=== PATIENT | female | born 1940 | race Caucasian/White ===

== ENCOUNTER → 2017-04-06 | Outpatient (CLI) | payer MEDICARE, BC ==
[2017-04-06 10:41] LABS: Basophils # (A) 0.1 k/uL (0-0.2); Basophils % (A) 1 %; Eosinophils # (A) 0.6 k/uL (0-0.7); Eosinophils % (A) 6 %; HCT 47.9 % (34.0-46.0); HGB 15.1 gm/dL (11.4-16.0); Lymphocytes # (A) 1.9 k/uL (1.0-4.8); Lymphocytes % (A) 20 %; MCH 29.6 pg (25.0-35.0); MCHC 31.5 g/dL (31.0-37.0); Mean Platelet Volume 6.6; Monocytes # (A) 0.6 k/uL (0-1.0); Monocytes % (A) 7 %; Neutrophils % (A) 64 %; Platelet Count 257 k/uL (150-450); RDW 12.7 % (11.5-15.5); WBC 9.4 k/uL (3.8-10.6)
[2017-04-06 10:49] LABS: Appearance,Urine Clear (Clear); Bacteria,Urine Rare /hpf; Bilirubin,Urine Negative (Negative); Blood,Urine Negative (Negative); Color,Urine Yellow; Glucose,Urine (UA) Negative (Negative); Ketones,Urine Negative (Negative); Leukocyte Esterase,Urine Small (Negative); Mucus,Urine Rare /hpf; Nitrite,Urine Negative (Negative); PH, Urine 5.5 (5.0-8.0); Protein,Urine Negative (Negative); RBC,Urine 1 /hpf (0-5); Specific Gravity,Urine 1.013 (1.001-1.035); Squamous Epithelial Cell,Urine <1 /hpf (0-4); Urobilinogen,Urine <2.0 mg/dL (<2.0); WBC,Urine 3 /hpf (0-5)
[2017-04-06 11:05] LABS: Albumin 4.2 g/dL (3.5-5.0); Calcium 9.8 mg/dL (8.4-10.2); Magnesium 1.9 mg/dL (1.6-2.3); Phosphorus 3.8 mg/dL (2.5-4.5); Potassium 4.8 mmol/L (3.5-5.1); Uric Acid 4.9 mg/dL (3.7-7.4)
[2017-04-06 15:11] LABS: Protein, Total 7.2 g/dL (6.2-8.2)
[2017-04-06 15:24] LABS: Vitamin D 25 Hydroxy 12.2 ng/mL (30.0-100.0)
[2017-04-06 15:29] LABS: Parathyroid Hormone Intact 34.9 pg/mL (14.0-72.0)
[2017-04-08 11:49] LABS: Albumin 4.06 g/dL (3.80-4.90); Gamma Globulin 1.18 g/dL (0.70-1.50)
== END | disposition home or self-care (01) ==
LOC: LABWHC1 09:44
PROVIDERS: ATTEND Internal Medicine Nephrology
DX: N39.0 Urinary tract infection, site not specified (principal); D64.9 Anemia, unspecified; E55.9 Vitamin D deficiency, unspecified; E21.3 Hyperparathyroidism, unspecified; M10.9 Gout, unspecified; N18.3 Chronic kidney disease, stage 3 (moderate)
CPT/HCPCS: 36415; 80048; 81001; 82040; 82306; 82728; 83540; 83550; 83735; 83970; 84100; 84165; 84550; 85025; 86335

== ENCOUNTER → 2017-08-02 | Outpatient (CLI) | payer MEDICARE, BC ==
[2017-08-02 09:42] LABS: Basophils # (A) 0.1 k/uL (0-0.2); Basophils % (A) 1 %; Eosinophils # (A) 0.8 k/uL (0-0.7); Eosinophils % (A) 8 %; HCT 47.5 % (34.0-46.0); HGB 15.3 gm/dL (11.4-16.0); Lymphocytes # (A) 1.9 k/uL (1.0-4.8); Lymphocytes % (A) 20 %; MCH 29.6 pg (25.0-35.0); MCHC 32.3 g/dL (31.0-37.0); MCV 91.8 fL (80.0-100.0); Mean Platelet Volume 6.7; Monocytes # (A) 0.8 k/uL (0-1.0); Monocytes % (A) 8 %; Neutrophils # (A) 5.9 k/uL (1.3-7.7); Neutrophils % (A) 61 %; Platelet Count 260 k/uL (150-450); RBC 5.17 m/uL (3.80-5.40); RDW 13.3 % (11.5-15.5); WBC 9.6 k/uL (3.8-10.6)
[2017-08-02 10:05] LABS: Calcium 9.8 mg/dL (8.4-10.2); Potassium 4.9 mmol/L (3.5-5.1)
[2017-08-02 17:19] LABS: Iron Saturation 25.72 (12.00-45.00)
[2017-08-02 17:28] LABS: Vitamin D 25 Hydroxy 73.9 ng/mL (30.0-100.0)
== END | disposition home or self-care (01) ==
LOC: LABWHC1 09:23
PROVIDERS: ATTEND Nurse Practitioner Family
DX: E55.9 Vitamin D deficiency, unspecified (principal); D50.9 Iron deficiency anemia, unspecified; N18.3 Chronic kidney disease, stage 3 (moderate); E78.2 Mixed hyperlipidemia
CPT/HCPCS: 36415; 80048; 80061; 82306; 82728; 83540; 83550; 85025

== ENCOUNTER → 2017-12-22 | Outpatient (CLI) | payer MEDICARE, BC ==
--- NOTE | 2017-12-22 13:32 | CT ---
EXAMINATION TYPE: CT abdomen pelvis w con DATE OF EXAM: 12/22/2017 HISTORY: Lower abdominal pain. CT DLP: 804mGycm Automated Exposure Control for Dose Reduction was Utilized. CONTRAST: CT scan of the abdomen and pelvis is performed with IV Contrast, patient injected with 80 mL of Isovu e M300. COMPARISON: None. FINDINGS: LUNG BASES: Left lower lobe bleb, peripheral reticular fibrotic change, and bibasilar pleural-parench ymal scarring are seen at the lung bases. Calcific and noncalcific severe atheromatous plaquing is se en of the descending thoracic aorta as well as a small hiatal hernia in the posterior mediastinum. Zacarias spected slight pectus excavatum deformity. LIVER/GB: The liver is elongated extending into the left upper quadrant. Very minimal intrahepatic bi liary ductal dilatation is seen, possibly postsurgical as there is cholecystectomy and minimal extra hepatic biliary ductal dilatation. No discrete hepatic mass is seen. Gallbladder surgically absent. PANCREAS: There is a fluid attenuated 7 mm proximal pancreatic body lesion on series 3 image 25 and m ain pancreatic ductal dilatation of 3 mm within the body and pancreatic head. SPLEEN: No significant abnormality is seen. Small splenule is present inferior to the t[place] spleen. ADRENALS: No significant abnormality is seen. KIDNEYS: No significant abnormality is seen. BOWEL: There is colonic redundancy and moderate volume retained fecal debris. LYMPH NODES: No greater than 1cm abdominal or pelvic lymph nodes are appreciated. OSSEOUS STRUCTURES: There is a diffuse mottled appearance of the bone marrow of the femur such as on coronal image 35.e this could relate to osseous demineralization or more infiltrative process. There is a sharp levoscoliosis of the lumbar spine with multilevel moderate to severe degenerative change. OTHER: Extensive atherosclerosis is seen of the abdominal aorta and its branches. There is a saccular infrarenal abdominal aortic aneurysm just proximal to the high bifurcation into the common iliac ves sels. This measures 3.0 x 2.6 x 2.3 cm. Just inferior to this there appears to be an additional saccu lar aneurysm/outpouching right laterally measuring 1.6 cm. Only diminutive flow is appreciated in the internal iliac vasculature. External iliac vasculature appears patent into the femoral arteries. IMPRESSION: 1. Main pancreatic ductal dilatation and cystic pancreatic lesion for which further evaluation with M PHOTONICS ENGINEERING TECHNICIAN with and without contrast is recommended. 2. Moderate amount retained colonic debris and sigmoid diverticulosis. No evidence of diverticulitis or obstruction. 3. Mottled appearance of the femurs that could relate to osseous demineralization or more infiltrativ e process. MRI pelvis could assess for bone marrow replacing T1 hypointense abnormality. 4. Multifocal saccular infrarenal abdominal aortic aneurysms with extensive atherosclerosis of the ab dominal aorta and its branches and only diminutive flow seen into the internal iliac vessels.
== END | disposition home or self-care (01) ==
LOC: RADCTMAIN 10:33
PROVIDERS: ATTEND Family Medicine
DX: K86.89 Other specified diseases of pancreas (principal); K86.2 Cyst of pancreas; K57.30 Diverticulosis of large intestine without perforation or abscess without bleeding; I71.4 Abdominal aortic aneurysm, without rupture; I70.0 Atherosclerosis of aorta; R10.30 Lower abdominal pain, unspecified
CPT/HCPCS: 82565; 84520; 74177; 36415; Q9967

== ENCOUNTER → 2018-08-17 | Outpatient (CLI) | payer MEDICARE, BC ==
--- NOTE | 2018-08-17 12:17 | BD ---
EXAMINATION TYPE: Axial Bone Density DATE OF EXAM: 08/17/2018 COMPARISON: NONE CLINICAL HISTORY: Postmenopausal female Height: 63.5 Weight: 110 FRAX RISK QUESTIONS: Alcohol (3 or more units per day): no Family History (Parent hip fracture): unsure Glucocorticoids (More than 3mos): no (Ex: prednisone, prednisolone, methylprednisolone, dexamethasone, and hydrocortisone). History of Fracture in Adulthood: no Secondary Osteoporosis: 1. Type 1 Diabetes: no 2. Hyperthyroidism: no 3. Menopause before 45: no, hysterectomy age 35, menopause age 50 4. Malnutrition: no 5. Chronic liver disease: no Rheumatoid Arthritis: no Current Tobacco Use: no RISK FACTORS HISTORY OF: Family History of Osteoporosis: yes Active: yes Diet low in dairy products/other sources of calcium: somewhat-dairy allergy Postmenopausal woman: yes Take estrogen and/or progesterone medications: not now How long: hormonal contraceptives about 5 years, estrogen about 10 years starting age 50 Lost more than 2 inches in height since high school: possibly; height may have been around 65.5 inche s Frequent falls: no Poor Health: somewhat Hyperparathyroidism: no Adrenal Insufficiency: no MEDICATIONS: Prednisone or other steroids: no Thyroid Medications: yes Which medication: Synthroid How Long: since late Osteoporosis Medications: no Additional Medications: blood pressure med, cholesterol med Additional History: pancreatitis last year, arthritis, hx kidney disease, 2 heart attacks, severe all ergies, IBS, scoliosis EXAM MEASUREMENTS: Bone mineral densitometry was performed using the [employer] System. Bone mineral density as measured about the Lumbar spine is: ----- L1-L4(G/cm2): 1.312 T Score Values are as follows: ----- L2: 2.5 ----- L3: 1.9 ----- L4: 0.9 ----- L1-L4: 1.1 Bone mineral density previously done years ago on mobile unit Bone mineral density about the R hip (g/cm2): 0.990 Bone mineral density about the L hip (g/cm2): 1.016 T Score values are as follows: -----R Neck: -0.3 -----L Neck: -0.2 -----R Total: -0.5 -----L Total: -0.3 Bone mineral density previously done years ago on mobile unit IMPRESSION: Normal (Values between +1 and -1 indicate normal bone mass). Consider repeating this study in 5 year s or sooner if there is some new clinical indication. NOTE: T-SCORE=SD OF THE YOUNG ADULT MEAN.
== END | disposition home or self-care (01) ==
LOC: RADBDWWP 09:46
PROVIDERS: ATTEND Family Medicine
DX: Z78.0 Asymptomatic menopausal state (principal)
CPT/HCPCS: 77080

== ENCOUNTER → 2018-08-29 | Outpatient (CLI) | payer MEDICARE, BC ==
[2018-08-29 16:24] LABS: African American GFR (CKD) 50.1 (60.0-200.0); Anion Gap 10.5 mmol/L (4.00-12.00); Calcium 9.6 mg/dL (8.7-10.3); Carbon Dioxide 27.5 mmol/L (21.6-31.8); Potassium 4.9 mmol/L (3.5-5.5)
== END | disposition home or self-care (01) ==
LOC: LABWHC1 08:53
PROVIDERS: ATTEND Nurse Practitioner Adult Health
DX: I10 Essential (primary) hypertension (principal)
CPT/HCPCS: 36415; 80048; 83735

== ENCOUNTER → 2019-01-04 | Outpatient (CLI) | payer MEDICARE, BC ==
[2019-01-04 17:13] LABS: Amylase 81 U/L (23-121)
[2019-01-04 18:07] LABS: Cancer Antigen 19-9 18.2 U/mL (0.0-34.9)
[2019-01-05 11:03] LABS: IgG Subclass 3 35.5 mg/dL (11.0-85.0)
== END | disposition home or self-care (01) ==
LOC: LABWHC1 09:55
PROVIDERS: ATTEND Nurse Practitioner
DX: R93.3 Abnormal findings on diagnostic imaging of other parts of digestive tract (principal)
CPT/HCPCS: 36415; 82150; 82787; 83690; 85652; 86038; 86301

== ENCOUNTER → 2019-04-24 | Outpatient (CLI) | payer MEDICARE, BC ==
[2019-04-24 12:06] LABS: HGB 14.3 gm/dL (11.4-16.0); MCH 29.9 pg (25.0-35.0); MCHC 31.7 g/dL (31.0-37.0); MCV 94.4 fL (80.0-100.0); Mean Platelet Volume 7.1; Platelet Count 280 k/uL (150-450); RBC 4.77 m/uL (3.80-5.40); RDW 12.6 % (11.5-15.5); WBC 11.5 k/uL (3.8-10.6)
[2019-04-24 12:18] LABS: Potassium 4.9 mmol/L (3.5-5.1)
== END ==
LOC: LABPAT 10:47
PROVIDERS: ATTEND Internal Medicine Interventional Cardiology
DX: Z01.812 Encounter for preprocedural laboratory examination (principal); I25.10 Atherosclerotic heart disease of native coronary artery without angina pectoris
CPT/HCPCS: 36415; 80051; 82565; 84520; 85027

== ENCOUNTER 2019-05-07 05:50 | Day surgery (SDC) | payer MEDICARE, BC ==
[2019-05-02 16:24] VITALS: BMI 18.1
[2019-05-07] MEDS ORDERED: NITROGLYCERIN SL TABS 0.4 MG TAB SUBLINGUAL PRN (05:54)
[2019-05-07] MEDS ORDERED: ATORVASTATIN 80 MG TAB PO STA (05:54)
[2019-05-07] MEDS ORDERED: ASPIRIN 325 MG TAB PO STA (05:54)
[2019-05-07] MEDS ORDERED: ALPRAZolam 0.5 MG TAB PO PRN (05:54)
[2019-05-07] MEDS ORDERED: SODIUM CHLORIDE 0.9% 1,000 ML in EMPTY BAG 1 BAG IV ONE (05:54)
[2019-05-07] MEDS ORDERED: ALPRAZolam 0.25 MG TAB PO PRN (05:54)
[2019-05-07] MEDS ORDERED: SODIUM CHLORIDE 0.9% 1,000 ML IV ONE ×2 (06:34→08:00)
[2019-05-07 06:37] VITALS: RESP 16; TEMP 98.1
[2019-05-07] MEDS ORDERED: fentaNYL (PF) 50 MCG/ML 2 ML AMP ONE (07:18)
[2019-05-07] MEDS ORDERED: BENZOCAINE SPRAY 1 CAN MUCOUS MEM ONE (07:43)
[2019-05-07] MEDS ORDERED: MIDAZOLAM 2 MG/2 ML VIAL IVP ONE ×2 (07:44→08:15)
[2019-05-07] MEDS ORDERED: fentaNYL (PF) 50 MCG/ML 2 ML AMP IV ONE (07:44)
[2019-05-07] MEDS ORDERED: LIDOCAINE 1% INJ 10MG/ML (20 ML MDV) ONE (07:54)
[2019-05-07] MEDS ORDERED: LIDOCAINE 1% INJ 10MG/ML (20 ML MDV) SQ ONE (08:03)
[2019-05-07] MEDS ORDERED: IOPAMIDOL-370 125ML BTL INJ ONE ×2 (08:34)
[2019-05-07] MEDS ORDERED: RX INFO: IV CONTRAST WAS GIVEN 1 EACH MISC MISCELLANE PRN (08:38)
--- NOTE | 2019-05-07 08:40 | ECHOT ---
TRANSESOPHAGEAL ECHOCARDIOGRAM DATE OF SERVICE: May 07, 2019 PERFORMING PHYSICIAN: Puma Kyle MD. PROCEDURE PERFORMED: Transesophageal echocardiogram. 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 Surface echo was performed and revealed evidence of moderate to severe mitral and aortic insufficiency. She was brought today to undergo a JOAQUÍN for further assessment of her mitral and aortic valve. COMPLICATION: None. LEVEL OF SEDATION: Moderate with sedation length of 15 minutes. PROCEDURE DESCRIPTION: After obtaining an informed consent, the patient was brought to the transesophageal echocardiogram suite. A pulse oximetry and heart rate monitors were attached to the patient. Subsequently the patient was turned into left lateral position. Conscious sedation was achieved using 2 mg of Versed and 50 of fentanyl in divided doses. Subsequently, the transesophageal echocardiogram was advanced through the bite guard to the mid esophagus where 2D echocardiogram images, pulse Doppler images, continuous-wave Doppler images and color Doppler images, were performed at multiple angles. The procedure was completed without any complication. FINDINGS: The left ventricular dimension appeared to be within normal limits. Left ventricular systolic function appeared to be mildly impaired with EF between 45% to 50%. Right ventricle appeared to be of normal size and function. The left atrium appeared to be dilated. The left atrial appendage appeared to be free from any thrombus. The interatrial septum appeared to be intact without any evidence of thrombus. Mitral valve appeared to be thickened and calcified with evidence of moderate to severe mitral regurgitation. The aortic valve appeared to also mildly sclerotic with evidence also of moderate to severe aortic insufficiency. There was moderate tricuspid regurgitation seen. The pulmonic valve was not well visualized. CONCLUSION: 1. Technically difficult study. 2. Mildly impaired left ventricular function with ejection fraction between 45% to 50%. 3. Intact interatrial septum without any evidence of shunt. 4. Normal left atrial appendage without any evidence of thrombus. 5. Thickened anterior and posterior mitral leaflets with evidence of moderate to severe mitral insufficiency. 6. Aortic sclerosis without stenosis with moderate to severe aortic insufficiency. 7. Moderate tricuspid regurgitation. 8. The pulmonic valve was poorly visualized. 9. No evidence of pericardial effusion. MMODL / IJN: [id number] /
[2019-05-07] MEDS ORDERED: SODIUM CHLORIDE 0.9% 1,000 ML IV SCH (08:45)
--- NOTE | 2019-05-07 09:19 | CC ---
CARDIAC CATHETERIZATION REPORT DATE OF SERVICE: May 07, 2019 PERFORMING PHYSICIAN: Puma Kyle MD. PROCEDURE PERFORMED: 1. Right heart catheterization. 2. Left heart catheterization. 3. Selective right and left coronary angiogram. 4. An aortic root angiogram. INDICATION: This is a 78-year-old female patient who was experiencing symptoms of shortness of breath with exertion and she underwent earlier transesophageal echocardiogram which revealed evidence of moderate to severe mitral and aortic insufficiency. She is known to have also coronary artery disease involving the mid RCA with prior stenting. APPROACH: Right common femoral vein and right common femoral artery. COMPLICATION: None. LEVEL OF SEDATION: Moderate with sedation length of 36 minutes. PROCEDURE DESCRIPTION: After obtaining an informed consent, the patient was brought to the cardiac energy systems laboratory director. The right common femoral vein and right common femoral arteries were cannulated using micropuncture technique, then I placed a 6-Moldovan sheath in both. Right heart catheterization was performed using 5-Moldovan swan catheter. Left heart catheterization was performed using 5-Moldovan pigtail catheter. I did selective right and left coronary angiogram with JR3.5 and JL3.5 catheters. After that, I did left ventriculography and aortic root angiogram using 5-Moldovan pigtail catheter. The procedure was completed without any complication. HEMODYNAMIC: 1. The pulmonary artery wedge pressure was 20 mmHg. 2. PA pressures were as follows: Systolic 31, diastolic 12, and mean of 20 mmHg. 3. RV pressure: Systolic 34 and end-diastolic of 5 mmHg. 4. RA pressure was 1 mmHg. SELECTIVE CORONARY ANGIOGRAM: 1. RCA is a large caliber vessel. It is a dominant vessel. The ostial RCA appeared to be diseased in the range of 60% to 70%. There was dampening in the waveform of one engaging RCA with 5-Moldovan catheter. The mid RCA is stented with severe in-stent restenosis involving the distal part. The RCA distally appeared to be normal and bifurcates into PDA and PLV branches. Both appeared to have mild disease only. 2. The left main is angiographically normal. It bifurcates into LCX and LAD. 3. The left circumflex is a moderate caliber vessel and nondominant vessel and appeared to be angiographically normal. 4. The LAD: The proximal LAD appeared to have mild disease only and gives rise into a large first diagonal branch which seems to have mild disease only. The mid and distal LAD appeared to be angiographically normal. LEFT VENTRICULOGRAPHY: The left ventriculography was performed in the BRAR projection and using a power injection. The left ventricular systolic function appeared to be mildly impaired with EF between around 45% with 2+ MR. AORTIC ROOT ANGIOGRAM: The aortic root angiogram was performed in the SPANISH projection and using a power injection. The aortic root appeared to be mildly dilated with evidence of 2+ AI. CONCLUSION: 1. Normal right heart pressures. 2. Intermediate to severe disease involving the ostial right coronary artery and severe disease involving the mid right coronary artery. 3. A 2+ aortic insufficiency. 4. A 2+ mitral regurgitation. POSTPROCEDURE MANAGEMENT: 1. The patient is going to be discharged home. 2. I will discuss with the patient the option of referring her to see a cardiothoracic surgeon for repairing both aortic and mitral valve and also bypass the RCA. 3. If that is not an option and the patient turned down by the surgeon, I would consider proceeding with PCI of the RCA. MMODL / IJN: [id number] /
[2019-05-07 13:51] VITALS: BP 137/63; PULSE 58
[2019-05-07] MEDS ORDERED: NALOXONE 0.4 MG/ML 1 ML VIAL IV PRN (14:48)
[2019-05-07] MEDS ORDERED: ROPIVACAINE 250 MG, HYDROMORPHONE (PF) 5 MG in SODIUM CHLORIDE 0.9% 200 ML EPIDURAL PRN (15:00)
== END 2019-05-07 15:04 | disposition home or self-care (01) ==
LOC: CATHCVL 05:50
PROVIDERS: ATTEND Internal Medicine Interventional Cardiology
DX: I08.3 Combined rheumatic disorders of mitral, aortic and tricuspid valves (principal); I25.10 Atherosclerotic heart disease of native coronary artery without angina pectoris; I10 Essential (primary) hypertension; T82.855A Stenosis of coronary artery stent, initial encounter; E78.5 Hyperlipidemia, unspecified; I65.29 Occlusion and stenosis of unspecified carotid artery; Z72.0 Tobacco use; I25.2 Old myocardial infarction; Z79.82 Long term (current) use of aspirin; Z79.890 Hormone replacement therapy; Z79.899 Other long term (current) drug therapy; Z88.5 Allergy status to narcotic agent
CPT/HCPCS: 93312; 93320; 93325; 93460; 93567; C1769 ×3; C1751; C1894; J2250; J2001; J3010; Q9967

== ENCOUNTER → 2019-05-19 | Outpatient (CLI) | payer MEDICARE, BC ==
[2019-05-19 08:56] LABS: HCT 43.9 % (34.0-46.0); HGB 13.9 gm/dL (11.4-16.0); MCH 29.7 pg (25.0-35.0); MCHC 31.7 g/dL (31.0-37.0); MCV 93.5 fL (80.0-100.0); Mean Platelet Volume 6.6; Platelet Count 366 k/uL (150-450); RDW 12.3 % (11.5-15.5); WBC 8.4 k/uL (3.8-10.6)
[2019-05-19 09:06] LABS: Potassium 4.8 mmol/L (3.5-5.1)
== END | disposition home or self-care (01) ==
LOC: LABPAT 08:33
PROVIDERS: ATTEND Internal Medicine Interventional Cardiology
DX: Z01.812 Encounter for preprocedural laboratory examination (principal); I25.10 Atherosclerotic heart disease of native coronary artery without angina pectoris
CPT/HCPCS: 36415; 80051; 82565; 84520; 85027

== ENCOUNTER → 2019-06-01 | Day surgery (SDC) | payer MEDICARE, BC ==
[2019-05-30 11:24] VITALS: BMI 18.4
[~2019-06-01] MED LIST: ACETAMINOPHEN TAB 325 MG TAB PO PRN; ALBUTEROL NEBULIZED 2.5 MG/3 ML INHALATION PRN; ALPRAZolam 0.25 MG TAB PO PRN; ALPRAZolam 0.5 MG TAB PO PRN; ASPIRIN 325 MG TAB PO STA; ASPIRIN 81 MG PO SCH; ATORVASTATIN 80 MG TAB PO STA; ATROPINE SULFATE 0.1 MG/ML 10ML SYRINGE IV PRN; BIVALIRUDIN 250 MG in SODIUM CHLORIDE 0.9% 50 ML IV ONE; BIVALIRUDIN BOLUS 250 MG/50 ML IV ONE; CLOPIDOGREL 75 MG TAB PO ONE; CLOPIDOGREL 75 MG TAB PO SCH; IOPAMIDOL-370 125ML BTL INJ ONE; ISOSORBIDE MONONITRATE ER 15 MG TAB PO SCH; LEVOTHYROXINE 75 MCG TAB PO SCH; LIDOCAINE 1% INJ 10MG/ML (10 ML MDV) SQ ONE; LORATADINE 10 MG TAB PO PRN; MAG HYDROX/AL HYDROX/SIMETH 30 ML CUP PO PRN; METOPROLOL SUCCINATE (ER) 100 MG TAB.ER.24H PO SCH; NITROGLYCERIN 1000MCG/10ML SYRINGE INTRACORON ONE; NITROGLYCERIN SL TABS 0.4 MG TAB SUBLINGUAL ONE; NITROGLYCERIN SL TABS 0.4 MG TAB SUBLINGUAL PRN; PANTOPRAZOLE 40 MG TABLET PO SCH; PRAVASTATIN SODIUM 40 MG TAB PO SCH; RX INFO: IV CONTRAST WAS GIVEN 1 EACH MISC MISCELLANE PRN; SODIUM CHLORIDE 0.9% 1,000 ML IV ONE; SODIUM CHLORIDE 0.9% 1,000 ML IV SCH; SODIUM CHLORIDE 0.9% 1,000 ML in EMPTY BAG 1 BAG IV ONE; SPIRONOLACTONE 25 MG TAB PO SCH; VITAMIN E (DL,TOCOPHERYL ACET) 400 UNIT CAP PO SCH; ZOLPIDEM 5 MG TAB PO PRN; niCARdipine Syringe (1,000 mcg/10 mL) INTRACORON ONE
[2019-06-01 08:37] VITALS: RESP 18; TEMP 98
[2019-06-01] MEDS: MIDAZOLAM 2 MG/2 ML VIAL IV ONE ×2 (08:58→09:01)
--- NOTE | 2019-06-01 09:53 | P.PCN ---
Date of Procedure: 06/01/19 Operative Findings: PERCUTANEOUS CORONARY INTERVENTION Performing physician: Puma Kyle M.D. Procedure performed: Successful percutaneous transluminal coronary angioplasty (PTCA) of the mid right coronary artery using 2.5 x 12 mm balloon with an excellent angiographic results and reduction of stenosis from 80% to 0%. Indication: This is a 78-year-old female patient who was experiencing symptoms of shortness of breath with exertion. She underwent a heart catheterization and that revealed severe disease involving the mid RCA which seems to be in-stent restenosis. She does also have valvular heart disease but does not want to undergo any surgery at this point. Approach: Right common femoral artery Complications: None Level of sedation: Moderate with a sedation length 45 minutes Procedure description: After obtaining an informed consent the patient was brought to the cardiac laborer. The right common femoral artery was cannulated using micropuncture technique, the micropuncture wire passed easily then I placed a 6-Kinyarwanda sheath 11 cm at the right common femoral artery. Subsequently anticoagulation was initiated using Angiomax and also the patient was given antiplatelet with Plavix. I did engage the RCA using JR 3.5 guide was sidehole. Subsequently I did wire the RCA using a run-through wire. Attempting advancing an Angiosculp balloon was unsuccessful. After that I changed balloon in to see my compliant balloon which was 2.5 x 12 and also I could not get the balloon across the ostial RCA. Because of that I decided to wire the RCA using a sukhjinder wire which was a whisper wire. I was able to advance a 2.5 x 12 mm balloon over the whisper wire into the mid RCA were I did PTCA ballooning with the balloon was inflated under 14 andria for 30 seconds. After that I tried to advance 20 by 12 mm Edon but the stent won't cross the ostial RCA. Because the ostial RCA was extremely calcified and has intermediate lesion and because I don't want to create any dissection I decided to take a picture and see what I got. The following angiogram of the right coronary artery revealed good angiographic results in the mid RCA after the patient was given nitroglycerin as well as nicardipine. Good CLAUDIA-3 flow. No dissection. No haziness. Because of that I decided to stop. The procedure was completed without any complication Postprocedure management: 1. Dual antiplatelet therapy 2. Risk factors modifications 3. Follow-up with the patient
[2019-06-01 17:20] VITALS: BP 148/65; PULSE 64
== END ==
LOC: CATHCVL 07:39
PROVIDERS: ATTEND Internal Medicine Interventional Cardiology
DX: I25.10 Atherosclerotic heart disease of native coronary artery without angina pectoris (principal); I25.84 Coronary atherosclerosis due to calcified coronary lesion; T82.855A Stenosis of coronary artery stent, initial encounter; E78.5 Hyperlipidemia, unspecified; I10 Essential (primary) hypertension; I08.0 Rheumatic disorders of both mitral and aortic valves; I77.89 Other specified disorders of arteries and arterioles; I42.9 Cardiomyopathy, unspecified; I25.2 Old myocardial infarction; Z72.0 Tobacco use; Z95.5 Presence of coronary angioplasty implant and graft; Z79.899 Other long term (current) drug therapy; Z79.890 Hormone replacement therapy; Z79.82 Long term (current) use of aspirin; Z88.5 Allergy status to narcotic agent
CPT/HCPCS: 92920; C1769 ×4; C1725 ×3; C1894; C1887; C1874; J2250; J0583; J2001; Q9967

== ENCOUNTER → 2019-10-08 | Outpatient (CLI) | payer MEDICARE, BC ==
--- NOTE | 2019-10-08 13:01 | XR ---
EXAMINATION TYPE: XR chest 2V DATE OF EXAM: 10/08/2019 COMPARISON: Chest CT March 24, 2011. Chest x-ray March 10, 2011. HISTORY: Preopen cardiac surgery. TECHNIQUE: Frontal and lateral views of the chest are obtained. FINDINGS: There is interval progression of reticular interstitial changes bilaterally. Persistent m oderate to severe biapical pleural/parenchymal scarring. New left basilar volume loss. No suspicious focal airspace opacity, pleural effusion, or pneumothorax seen bilaterally. The cardiac silhouette si ze remains within normal limits with atherosclerotic change throughout the aorta now identified.. T he osseous structures are intact. IMPRESSION: Moderate 2 severe bilateral pulmonary fibrotic changes with progression from 2012 study. No acute pulmonary process.
--- NOTE | 2019-10-08 13:38 | US ---
EXAMINATION TYPE: US carotid duplex BILAT DATE OF EXAM: 10/08/2019 COMPARISON: NONE CLINICAL HISTORY: Coronary Artery Disease Aortic Stenosis [id number]. Preopen heart surgery EXAM MEASUREMENTS: RIGHT: Peak Systolic Velocity (PSV) cm/sec ----- Right CCA: 56.1 ----- Right ICA: 164.1 ----- Right ECA: 85.0 ICA/CCA ratio: 2.9 RIGHT: End Diastole cm/sec ----- Right CCA: 0 ----- Right ICA: 22.0 ----- Right ECA: 0 LEFT: Peak Systolic Velocity (PSV) cm/sec ----- Left CCA: 75.3 ----- Left ICA: 118.9 ----- Left ECA: 70.4 ICA/CCA ratio: 1.6 LEFT: End Diastole cm/sec ----- Left CCA: 0 ----- Left ICA: 17.1 ----- Left ECA: 0 VERTEBRALS (direction of flow): Right Vertebral: Antegrade Left Vertebral: Antegrade Rhythm: Normal Miguel scale images show moderate to severe peripheral plaque centered at carotid bulb level bilaterall y with increased peak systolic velocity and abnormal ratio in the proximal right internal carotid art minoo noted. IMPRESSION: Moderate to severe atherosclerotic changes bilaterally. Cannot exclude 50-69% stenosis i n the proximal right internal carotid artery . Further investigation with CTA or MRA of the neck is a dvised. Criteria for Assigning % of Stenosis / Diameter reduction (Estimation based on the indirect measurements of the internal carotid artery velocities (ICA PSV). 1. Normal (no stenosis)=ICA PSV < 125 cm/s: ratio < 2.0: ICA EDV<40 cm/s. 2. Less than 50% stenosis=ICA PSV < 125 cm/s: ratio < 2.0: ICA EDV<40 cm/s. 3. 50 to 69% stenosis=ICA PSV of 125 to 230 cm/s: ration 2.0 ? 4.0: ICA EDV 40-100 cm/s. 4. Greater than 70% stenosis to near occlusion= ICA PSV > 230 cm/s: ratio > 4.0: ICA EDV > 100 cm/s. 5. Near occlusion= ICA PSV velocities may be low or undetectable: variable ratio and ICA EDV. 6. Total occlusion=unable to detect flow.
--- NOTE | 2019-10-10 09:42 | P.ARTDOP ---
Arterial Doppler This is bilateral lower extremity greater saphenous vein mapping. Date of service: 10/08/2019 Vein quality and ultrasound appearance: We see no intraluminal thrombus or wall changes. Vein size groin right : 2.6 x 2.0 groin left: 3.5 x 3.6 High thigh right: 2.1 x 1.7 high thigh left: 3.8 x 3.1 Mid thigh right: 1.2 x 1.5 mid thigh left: 2.3 x 1.8 Above-knee right: 2.4 x 1.6 above-knee left: 2.2 x 1.7 Below knee right: 2.2 x 1.1 below-knee left: 2.9 x 1.6 Mid calf right: 1.3 x 1.3 mid calf left1.4 x 1.7 Right ankle: 1.2 x 1.3 Left ankle 1.3 x 1.3 Impression: normal study
== END ==
LOC: LABWHC1 11:14
PROVIDERS: ATTEND Thoracic Surgery (Cardiothoracic Vascular Surgery)
DX: Z01.810 Encounter for preprocedural cardiovascular examination (principal); I65.21 Occlusion and stenosis of right carotid artery; Z88.5 Allergy status to narcotic agent
CPT/HCPCS: 71046; 93880; 93922; 93970; 94150

== ENCOUNTER → 2019-10-08 | Outpatient (CLI) | payer MEDICARE, BC ==
[2019-10-08 09:48] LABS: HCT 48.5 % (34.0-46.0); HGB 15.3 gm/dL (11.4-16.0); MCH 28.9 pg (25.0-35.0); MCHC 31.5 g/dL (31.0-37.0); MCV 91.9 fL (80.0-100.0); Mean Platelet Volume 6.8; Platelet Count 305 k/uL (150-450); RBC 5.28 m/uL (3.80-5.40); RDW 13.3 % (11.5-15.5); WBC 9.9 k/uL (3.8-10.6)
[2019-10-08 09:51] LABS: Appearance,Urine Clear (Clear); Bacteria,Urine Rare /hpf; Bilirubin,Urine Negative (Negative); Blood,Urine Negative (Negative); Color,Urine Yellow; Glucose,Urine (UA) Negative (Negative); Hyaline Casts,Urine 11 /lpf (0-2); Ketones,Urine Negative (Negative); Leukocyte Esterase,Urine Trace (Negative); Mucus,Urine Rare /hpf; Nitrite,Urine Negative (Negative); Protein,Urine 1+ (Negative); RBC,Urine 2 /hpf (0-5); Squamous Epithelial Cell,Urine <1 /hpf (0-4); WBC,Urine 3 /hpf (0-5)
[2019-10-08 09:57] LABS: Partial Thromboplastin Time 27.3 sec (22.0-30.0)
[2019-10-08 10:07] LABS: Albumin 4.4 g/dL (3.5-5.0); Calcium 9.4 mg/dL (8.4-10.2); Potassium 4.9 mmol/L (3.5-5.1); Total Bilirubin 0.5 mg/dL (0.2-1.3); Total Protein 7.8 g/dL (6.3-8.2)
[2019-10-08 17:55] LABS: Hepatitis A Antibody IgM Non-Reactive (Non-Reactive); Hepatitis B Core IgM Non-Reactive (Non-Reactive); Hepatitis B Surface Antigen Non-Reactive (Non-Reactive); Hepatitis C IgG Antibody Non-Reactive (Non-Reactive)
[2019-10-08 19:35] LABS: Hemoglobin A1C 5.5 % (4.0-6.0)
== END | disposition home or self-care (01) ==
LOC: LABWHC1 08:31
PROVIDERS: ATTEND Thoracic Surgery (Cardiothoracic Vascular Surgery)
DX: Z01.818 Encounter for other preprocedural examination (principal); Z01.810 Encounter for preprocedural cardiovascular examination; Z20.828 Contact with and (suspected) exposure to other viral communicable diseases; I10 Essential (primary) hypertension; I25.10 Atherosclerotic heart disease of native coronary artery without angina pectoris; I05.1 Rheumatic mitral insufficiency; I06.0 Rheumatic aortic stenosis; E10.9 Type 1 diabetes mellitus without complications; E87.6 Hypokalemia; Z79.01 Long term (current) use of anticoagulants
CPT/HCPCS: 86900; 86901; 80061; 80053; 80074; 84443; 83735; 85027; 85610; 85730; 86850; 86920; 81001; 87070; 87086; 83036; 93005; 36415; U0003; C9803

== ENCOUNTER → 2019-10-09 | Outpatient (CLI) | payer MEDICARE, BC ==
--- NOTE | 2019-10-09 14:01 | CT ---
EXAMINATION TYPE: CT chest wo con DATE OF EXAM: 10/09/2019 COMPARISON: 03/24/2011 HISTORY: Pre OP Valve replacement and CABG CT DLP: 108 mGycm, Automated exposure control for dose reduction was used. CONTRAST: Performed injected with 0 mL of Isovue 300. TECHNIQUE: Axial images were obtained at 5 mm thick sections. Reconstructed images are reviewed on [employer] computer in the coronal plane. FINDINGS: Portion of the thyroid visualized is normal. Bilateral lung apex thickening is present. This could be related to scarring. Underlying neoplasm is not excluded. This has changed somewhat from the comparison 2011 exam. There is likely some peripheral pulmonary fibrosis. No enlarged mediastinal or hilar adenopathy is evident. There is dense calcification within the aorta and multiple vascular structures including the upper ab domen and great vessels. The ascending aorta diameter at the level of the main pulmonary artery is 3. 6 cm. The main pulmonary artery diameter at the bifurcation is 2.8 cm. Coronary artery calcification is present. Tracheobronchial tree wall calcification is evident. Limited CT sections are obtained through the upper abdomen. Abdomen is essentially unremarkable. IMPRESSIONS: 1. Coronary artery calcification. Additional vascular calcification is noted within the arterial syst em. 2. Bilateral apical thickening likely on the basis of scarring. This is changing in appearance from 2 012. Underlying neoplasm is not excluded at this time. 3. Mild pulmonary fibrosis
== END | disposition home or self-care (01) ==
LOC: RADCTMAIN 08:41
PROVIDERS: ATTEND Thoracic Surgery (Cardiothoracic Vascular Surgery)
DX: I25.10 Atherosclerotic heart disease of native coronary artery without angina pectoris (principal); J84.10 Pulmonary fibrosis, unspecified
CPT/HCPCS: 71250

== ENCOUNTER 2019-10-12 05:30 | Inpatient (IN) | payer MEDICARE, BC ==
[~2019-10-12 05:30] MED LIST changes: -ACETAMINOPHEN TAB 325 MG TAB PO PRN; +ALBUMIN HUMAN 25% 50 ML IV ONE; +ALBUMIN HUMAN 5% 500 ML IVPB ONE; -ALBUTEROL NEBULIZED 2.5 MG/3 ML INHALATION PRN; -ALPRAZolam 0.25 MG TAB PO PRN; -ALPRAZolam 0.5 MG TAB PO PRN; +ASPIRIN 325 MG TAB PO ONE; -ASPIRIN 325 MG TAB PO STA; -ASPIRIN 81 MG PO SCH; +ATORVASTATIN 10 MG TAB PO ONE; -ATORVASTATIN 80 MG TAB PO STA; -ATROPINE SULFATE 0.1 MG/ML 10ML SYRINGE IV PRN; -BIVALIRUDIN 250 MG in SODIUM CHLORIDE 0.9% 50 ML IV ONE; -BIVALIRUDIN BOLUS 250 MG/50 ML IV ONE; +CALCIUM CHLORIDE 100 MG/ML 10 ML SYRINGE IV ONE; +CHLORHEXIDINE GLUCONATE 15 ML CUP MUCOUS MEM ONE; +CLEVIDIPINE BUTYRATE 25 MG in EMPTY BAG 1 BAG IV ONE; -CLOPIDOGREL 75 MG TAB PO ONE; -CLOPIDOGREL 75 MG TAB PO SCH; +DEXTROSE 5% IN WATER 1,000 ML with POTASSIUM CHLORIDE 110 MEQ, MAGNESIUM SULFATE 16 MEQ... IV ONE; +DEXTROSE 5% IN WATER 1,000 ML with POTASSIUM CHLORIDE 25 MEQ, SODIUM CHLORIDE 2.5MEQ/ML... IRRIGATION ONE; +HEPARIN SODIUM 1,000 UN/ML (10ML VL) IV ONE; +HEPARIN SODIUM,PORCINE 5,000 UNIT in SODIUM CHLORIDE 0.9% 500 ML 500 ML IV ONE; +INSULIN REGULAR 100 UNIT in SODIUM CHLORIDE 0.9% 100 ML IV ONE; -IOPAMIDOL-370 125ML BTL INJ ONE; -ISOSORBIDE MONONITRATE ER 15 MG TAB PO SCH; +LACTATED RINGERS 1,000 ML IV ONE; -LEVOTHYROXINE 75 MCG TAB PO SCH; -LIDOCAINE 1% INJ 10MG/ML (10 ML MDV) SQ ONE; -LORATADINE 10 MG TAB PO PRN; -MAG HYDROX/AL HYDROX/SIMETH 30 ML CUP PO PRN; +MAGNESIUM SULFATE MG 500 MG/ML IV ONE; +MANNITOL 25% 12.5 GM/50 ML VIAL IV ONE; -METOPROLOL SUCCINATE (ER) 100 MG TAB.ER.24H PO SCH; +METOPROLOL TARTRATE 12.5 MG TAB PO ONE; -NITROGLYCERIN 1000MCG/10ML SYRINGE INTRACORON ONE; -NITROGLYCERIN SL TABS 0.4 MG TAB SUBLINGUAL ONE; -NITROGLYCERIN SL TABS 0.4 MG TAB SUBLINGUAL PRN; +NITROGLYCERIN-D5W PMX 25 MG/250 ML BTL IV ONE; +NITROGLYCERIN-D5W PMX 50 MG in DEXTROSE/WATER 1 250ML.BAG IV ONE; +NOREPINEPHRINE 4 MG in SODIUM CHLORIDE 0.9% 250 ML IV ONE; -PANTOPRAZOLE 40 MG TABLET PO SCH; +PAPAVERINE 360 MG in SODIUM CHLORIDE 0.9% 90 ML IV ONE; +PHENYLEPHRINE 10 MG/ML VIAL IV ONE; +PHENYLEPHRINE 40 MG in SODIUM CHLORIDE 0.9% 250 ML IV ONE; -PRAVASTATIN SODIUM 40 MG TAB PO SCH; +PROTAMINE SULFATE 10 MG/ML 25 ML VIAL IV ONE; +PROTAMINE SULFATE 250 MG in EMPTY BAG 1 BAG IV ONE; -RX INFO: IV CONTRAST WAS GIVEN 1 EACH MISC MISCELLANE PRN; +SODIUM BICARB 8.4% 50 ML SYR (1 MEQ/ML) IV ONE; -SODIUM CHLORIDE 0.9% 1,000 ML IV SCH; -SODIUM CHLORIDE 0.9% 1,000 ML in EMPTY BAG 1 BAG IV ONE; -SPIRONOLACTONE 25 MG TAB PO SCH; +TRANEXAMIC ACID 2,000 MG in SODIUM CHLORIDE 0.9% 80 ML IV ONE; +VANCOMYCIN 1,000 MG VIAL MISCELLANE ONE; -VITAMIN E (DL,TOCOPHERYL ACET) 400 UNIT CAP PO SCH; -ZOLPIDEM 5 MG TAB PO PRN; +ceFAZolin 2,000 MG in SODIUM CHLORIDE 0.9% 30 ML IVPB ONE; -niCARdipine Syringe (1,000 mcg/10 mL) INTRACORON ONE; +propofoL 1,000 MG/100 ML VIAL IV ONE
[2019-10-12] MEDS ORDERED: LIDOCAINE 1% (10MG/ML) FOR IV START INTRADERMA ONE (06:04)
[2019-10-12 06:07] LABS: Glucose,Whole Blood 86 mg/dL (75-99)
[2019-10-12] MEDS ORDERED: PROPOFOL 10 MG/ML 20 ML VIAL IV ONE (07:49)
[2019-10-12] MEDS ORDERED: NITROGLYCERIN-D5W PMX 50 MG/250 ML BOTTLE IV ONE (07:49)
[2019-10-12] MEDS ORDERED: PHENYLEPHRINE-0.9% NACL SYG 1 MG/10 ML SYRINGE ONE (07:49)
[2019-10-12] MEDS ORDERED: MIDAZOLAM 2 MG/2 ML VIAL ONE (07:49)
[2019-10-12] MEDS ORDERED: fentaNYL (PF) 50 MCG/ML 2 ML AMP ONE (07:49)
[2019-10-12] MEDS ORDERED: TRANEXAMIC ACID 1,000 MG/10 ML VIAL ONE (07:49)
[2019-10-12] MEDS ORDERED: MAGNESIUM SULFATE 4 MEQ/ML 10ML VIAL ONE (07:49)
[2019-10-12] MEDS ORDERED: ePHEDrine SULFATE/0.9% NACL/PF 50 MG/5 ML SYRINGE IV ONE (07:49)
[2019-10-12] MEDS ORDERED: PROTAMINE SULFATE 10 MG/ML 25 ML VIAL IV ONE (07:49)
[2019-10-12] MEDS ORDERED: ELECTROLYTE-R (PH 7.4) 1,000 ML IV.SOLN IV ONE (07:49)
[2019-10-12] MEDS ORDERED: VECURONIUM 10 MG VIAL IV ONE (07:49)
[2019-10-12] MEDS ORDERED: SODIUM CHLORIDE 0.9% IRRIG 1,000 ML BTL IRRIGATION ONE (07:49)
[2019-10-12] MEDS ORDERED: fentaNYL (PF) 50 MCG/ML 50 ML VIAL ONE (07:49)
[2019-10-12] MEDS ORDERED: INSULIN REGULAR 100 UNIT/ML VIAL ONE (07:49)
[2019-10-12] MEDS ORDERED: HEPARIN SODIUM,PORCINE 10,000 UNIT/ML 1 ML VIAL ONE (07:49)
[2019-10-12] MEDS ORDERED: CALCIUM CHLORIDE 100 MG/ML 10 ML SYRINGE ONE (07:49)
[2019-10-12] MEDS ORDERED: SODIUM BICARB 8.4% 50 ML SYR (1 MEQ/ML) ONE (07:49)
[2019-10-12] MEDS ORDERED: LIDOCAINE 2% SYG (PF) 100 MG/5 ML ONE (07:49)
[2019-10-12] MEDS ORDERED: SODIUM CHLORIDE 0.9% 250 ML BAG ONE (07:49)
[2019-10-12] MEDS ORDERED: ONDANSETRON 4 MG/2 ML VIAL ONE (07:49)
[2019-10-12] MEDS ORDERED: NITROGLYCERIN-D5W PMX 50 MG in DEXTROSE/WATER 1 250ML.BAG IV SCH (13:00)
[2019-10-12] MEDS ORDERED: CLEVIDIPINE BUTYRATE 25 MG in EMPTY BAG 1 BAG IV SCH (13:00)
[2019-10-12] MEDS ORDERED: AMIODARONE 360 MG in DEXTROSE 5% IN WATER 200 ML IV PRN ×2 (13:00)
[2019-10-12] MEDS ORDERED: DEXTROSE 5% IN WATER 100 ML with AMIODARONE 150 MG IV PRN (13:00)
[2019-10-12] MEDS ORDERED: Phosphorus Replacement Protoco 1 EACH MISC MISCELLANE PRN (13:00)
[2019-10-12] MEDS ORDERED: METOCLOPRAMIDE 5 MG/ML 2 ML VIAL IVP PRN (13:00)
[2019-10-12] MEDS ORDERED: BENZOCAINE/MENTHOL LOZENG 1 EACH LOZENGE MUCOUS MEM PRN (13:00)
[2019-10-12] MEDS ORDERED: Magnesium Replacement Protocol 1 EACH MISC MISCELLANE PRN (13:00)
[2019-10-12] MEDS ORDERED: IPRATROPIUM-ALBUTEROL 3 ML NEB INHALATION PRN (13:00)
[2019-10-12] MEDS ORDERED: Potassium Replacement Protocol 1 EACH MISC MISCELLANE PRN (13:00)
[2019-10-12] MEDS ORDERED: hydrALAZINE HCL 20 MG/ML 1 ML VIAL IVP PRN (13:00)
[2019-10-12 13:05] LABS: ABG PCO2 40 mmHg (35-45); ABG PH 7.42 (7.35-7.45); ABG PO2 306 mmHg (83-108)
[2019-10-12 13:06] LABS: ABG Base Excess 1.8 mmol/L; ABG Glucose Whole Blood 97 mg/dL (75-99); ABG HCO3 26 mmol/L (21-25); ABG Hematocrit 38 % (34.0-46.0); ABG Ionized Calcium 4.7 mg/dL (4.5-5.3); ABG Potassium Whole Blood 4.1 mmol/L (3.4-4.5); ABG Sodium Whole Blood 133 mmol/L (135-146); ABG TCO2 28 mmol/L (19-24)
[2019-10-12 13:09] LABS: ABG HCO3 26 mmol/L (21-25); ABG PCO2 50 mmHg (35-45); ABG PH 7.33 (7.35-7.45); ABG PO2 311 mmHg (83-108)
[2019-10-12 13:10] LABS: ABG Base Excess -0.1 mmol/L; ABG Oxygen Saturation 99.8 % (94-97); ABG Potassium Whole Blood 4.2 mmol/L (3.4-4.5); ABG Sodium Whole Blood 133 mmol/L (135-146); ABG TCO2 28 mmol/L (19-24)
[2019-10-12 13:11] LABS: ABG Glucose Whole Blood 128 mg/dL (75-99); ABG Hematocrit 35 % (34.0-46.0); ABG Ionized Calcium 4.8 mg/dL (4.5-5.3)
[2019-10-12 13:13] LABS: ABG Base Excess -0.7 mmol/L; ABG HCO3 24 mmol/L (21-25); ABG PCO2 38 mmHg (35-45); ABG PO2 393 mmHg (83-108); ABG TCO2 25 mmol/L (19-24)
[2019-10-12 13:14] LABS: ABG Glucose Whole Blood 282 mg/dL (75-99); ABG Lactic Acid Whole Blood 1.3 mmol/L (0.5-1.6); ABG Potassium Whole Blood 6.4 mmol/L (3.4-4.5); ABG Sodium Whole Blood 126 mmol/L (135-146)
[2019-10-12 13:15] LABS: ABG Hematocrit 21 % (34.0-46.0)
[2019-10-12 13:17] LABS: ABG Base Excess -1.9 mmol/L; ABG HCO3 24 mmol/L (21-25); ABG PCO2 49 mmHg (35-45); ABG PH 7.31 (7.35-7.45); ABG PO2 311 mmHg (83-108); ABG TCO2 26 mmol/L (19-24)
[2019-10-12 13:18] LABS: ABG Glucose Whole Blood 224 mg/dL (75-99); ABG Hematocrit 22 % (34.0-46.0); ABG Ionized Calcium 4.2 mg/dL (4.5-5.3); ABG Lactic Acid Whole Blood 1.6 mmol/L (0.5-1.6); ABG Potassium Whole Blood 5.5 mmol/L (3.4-4.5); ABG Sodium Whole Blood 128 mmol/L (135-146)
[2019-10-12 13:22] LABS: ABG Base Excess -1.8 mmol/L; ABG HCO3 23 mmol/L (21-25); ABG PCO2 35 mmHg (35-45); ABG PH 7.42 (7.35-7.45); ABG PO2 381 mmHg (83-108); ABG Potassium Whole Blood 4.8 mmol/L (3.4-4.5); ABG Sodium Whole Blood 129 mmol/L (135-146); ABG TCO2 24 mmol/L (19-24)
[2019-10-12 13:23] LABS: ABG Glucose Whole Blood 215 mg/dL (75-99); ABG Hematocrit 21 % (34.0-46.0); ABG Lactic Acid Whole Blood 1.8 mmol/L (0.5-1.6)
[2019-10-12 13:25] LABS: ABG Base Excess -3.6 mmol/L; ABG PCO2 38 mmHg (35-45); ABG PH 7.36 (7.35-7.45); ABG PO2 >420 mmHg (83-108); ABG Potassium Whole Blood 4.7 mmol/L (3.4-4.5); ABG Sodium Whole Blood 129 mmol/L (135-146); ABG TCO2 23 mmol/L (19-24)
[2019-10-12 13:26] LABS: ABG Glucose Whole Blood 194 mg/dL (75-99); ABG Hematocrit 20 % (34.0-46.0); ABG Lactic Acid Whole Blood 3.2 mmol/L (0.5-1.6)
[2019-10-12 13:27] LABS: ABG HCO3 22 mmol/L (21-25)
[2019-10-12 13:29] LABS: ABG Glucose Whole Blood 135 mg/dL (75-99); ABG HCO3 22 mmol/L (21-25); ABG Oxygen Saturation 99.8 % (94-97); ABG PCO2 41 mmHg (35-45); ABG PH 7.34 (7.35-7.45); ABG PO2 >420 mmHg (83-108); ABG Potassium Whole Blood 3.7 mmol/L (3.4-4.5); ABG Sodium Whole Blood 134 mmol/L (135-146); ABG TCO2 24 mmol/L (19-24)
[2019-10-12 13:30] LABS: ABG Hematocrit 24 % (34.0-46.0); ABG Ionized Calcium 4.4 mg/dL (4.5-5.3)
--- NOTE | 2019-10-12 13:38 | P.PN ---
Progress Note - Text Progress Note Date: 10/12/19 Procedure performed: Transesophageal echocardiography Indication for the procedure: Coronary artery bypass graft surgery, Mitral valve repair, Aortic valve replacement, ischemia monitoring, assessment of valvular function, intracardiac air monitoring, assessment of regional wall motion abnormalities and hemodynamic monitoring. Probe insertion: Under general anesthesia, uneventful. Pre-bypass findings: Left ventricle Slightly hypertrophied and LV ejection fraction is approximately 45- 50%. Left atrium Normal in size. No thrombus seen in the appendage. Right atrium normal in size. No patent foramen ovale or ASD seen. Right ventricle normal in structure and function. Aortic valve appears sclerotic .Moderate Aortic Regurgitation seen. LVOT ration of regurgitant jet is 50%. Mitral annular calcification seen. Moderate to severe MR seen with vena contracta of 0.6cm Mild tricuspid regurgitation seen. Pulmonic valve appears to be normal. Descending aorta grade 2 atheroma seen. No pericardial effusion noted. Post-bypass findings: LV ejection fraction is 50%. No new regional wall motion abnormalities seen. Prosthetic ring in situ in mitral position and appears to be well seated. No MR seen. Prosthetic valve in Aortic position seen and appears to be well seated. Mininmlal paravalvular leak with 2 jets of hemodynamic insignificance seen near diametrically opposite border of the non coronary cusp position. Prosthetic valve gradients are peak of 5 mm of Hg and Mean of 3mm of Hg. Rest of the examination is same as pre-bypass.
[2019-10-12 13:56] LABS: Glucose,Whole Blood 109 mg/dL (75-99)
[2019-10-12] MEDS ORDERED: DEXMEDETOMIDINE/0.9% NACL(PMX) 400 MCG in EMPTY BAG 1 BAG IV SCH (14:00)
[2019-10-12] MEDS: NOREPINEPHRINE 4 MG in SODIUM CHLORIDE 0.9% 250 ML IV SCH (14:03)
[2019-10-12] MEDS: ALBUMIN HUMAN 5% 250 ML in EMPTY BAG 1 BAG IVPB PRN ×5 (14:03→14:43)
[2019-10-12 14:13] LABS: INR 1.2 (<1.2); Partial Thromboplastin Time 41.1 sec (22.0-30.0); Prothrombin Time 12.1 sec (9.0-12.0)
[2019-10-12 14:16] LABS: Basophils % (A) 0 %; Eosinophils # (A) 0.1 k/uL (0-0.7); Eosinophils % (A) 1 %; HCT 23.5 % (34.0-46.0); Lymphocytes % (A) 9 %; MCH 29.6 pg (25.0-35.0); MCHC 32.3 g/dL (31.0-37.0); MCV 91.5 fL (80.0-100.0); Mean Platelet Volume 7.6; Monocytes # (A) 0.5 k/uL (0-1.0); Monocytes % (A) 5 %; Neutrophils # (A) 8.5 k/uL (1.3-7.7); Neutrophils % (A) 84 %; RBC 2.57 m/uL (3.80-5.40); RDW 13.3 % (11.5-15.5); WBC 10.2 k/uL (3.8-10.6)
--- NOTE | 2019-10-12 14:19 | P.CNPUL ---
History of Present Illness Consult date: 10/12/19 Requesting physician: Derik Ellsworth Reason for consult: other Chief complaint: Fatigue, shortness of breath, severe aortic and severe mitral regurgitation History of present illness: 79-year-old white female patient who follows with Dr. ELIANE Dick from the [facility], with past medical history of coronary artery disease with previous intervention involving the RCA, LAD, known history of valvular heart disease with aortic and mitral regurgitation, hypertension, dyslipidemia and carotid artery disease. Patient has been having symptoms of fatigue and increased shortness of breath with exertion, but denied any chest pain, chest discomfort, dizziness or palpitations. Patient had a heart catheterization by Dr. Troncoso on 05/23/2019 that showed intermediate to severe disease involving the ostial RCA and severe disease involving the mid RCA, a 2+ aortic insufficiency, and 2+ mitral regurgitation. Patient underwent PTCA of the RCA on 06/01/2019. Transesophageal echocardiogram showed moderately severe aortic regurgitation, moderate tricuspid regurg, and moderately severe mitral regurgitation on 05/07/2019, patient was referred to cardiothoracic surgery. Today on 10/12/2019 patient underwent coronary artery bypass grafting 1, with SVG to the RCA with endoscopic vein harvest from the left thigh, aortic valve replacement using 21 mm Inspirus valve, mitral valve repair using a size 28 are both medics AnnuloFlo flex ring, and intraoperative transesophageal echocardiogram. She is seen in the postoperative period in the intensive care unit, she is sedated, intubated on mechanical ventilator, current vent settings are SIMV with a rate of 12, tidal volume of 400, FiO2 100% and PEEP of 5, postoperative blood gases are pending, hemodynamically patient is stable, lactated Ringer's infusing at a rate of 50 ML per hour, nitroglycerin is at 5 mics per kilo per minute, clever proximal has been started at 3 mg per hour, Diprivan is at 10 mics per kilo per minute, no other drips. One mediastinal chest tube is in place, with 120 ML of single venous output no air leak, left pleural and right pleural are white connected together with the 100 mL of sanguinous output in the Pleur-evac, AV wires in place to external pacemaker and vision is being paced at a rate of 80 BPM, underlying rhythm is junctional rhythm. PA pressures 39/15, CVP 7, cardiac output is 2.8 and cardiac index is 1.8. Review of Systems All systems: negative Constitutional: Reports fatigue, Denies chills, Denies fever Eyes: denies blurred vision, denies pain Ears, nose, mouth and throat: Denies headache, Denies sore throat Cardiovascular: Denies chest pain, Denies shortness of breath Respiratory: Denies cough Gastrointestinal: Denies abdominal pain, Denies diarrhea, Denies nausea, Denies vomiting Genitourinary: Denies dysuria, Denies hematuria Musculoskeletal: Denies myalgias Integumentary: Denies pruritus, Denies rash Neurological: Denies numbness, Denies weakness Psychiatric: Denies anxiety, Denies depression Endocrine: Denies fatigue, Denies weight change Past Medical History Past Medical History: Asthma, Coronary Artery Disease (CAD), COPD, CVA/TIA, GERD/Reflux, Hyperlipidemia, Myocardial Infarction ([place]), Mitral Valve Prolapse (MVP), Musculoskeletal Disorder, Pneumonia, Renal Disease, Respiratory Disorder, Thyroid Disorder Additional Past Medical History / Comment(s): ECZEMA/STAGE 3 RENAL DISEASE/HYPOTHYROIDISM/[place] X2/DEGEN. DISC DS,mini stroke prior to 2004-no residual,dry eyes kimberley eyes,MIx2,pancreatisis,unable to eat large meals Last Myocardial Infarction Date:: 1997 History of Any Multi-Drug Resistant Organisms: None Reported Past Surgical History: Appendectomy, Cholecystectomy, Heart Catheterization With Stent, Hysterectomy Additional Past Surgical History / Comment(s): LUNG SURG-WEDGE RESECTION/CALCIFICATION RMOVED FROM LT BREAST/R&L CATARACT SURG/ORAL SURG W/ 5 IMPLANTS,bladder suspension,PTCA Past Anesthesia/Blood Transfusion Reactions: No Reported Reaction Additional Past Anesthesia/Blood Transfusion Reaction / Comment(s): stated "had trouble remembering numbers for approx a month after a surgery when I was given versed but I have had versed after that without problems.". No hx of blood transfusion. Date of Last Stent Placement:: 1997 Smoking Status: Former smoker - Past Family History Mother Family Medical History: Cancer Additional Family Medical History / Comment(s): SKIN Father Family Medical History: Myocardial Infarction ([place]) Additional Family Medical History / Comment(s): with [place] at age 47 Medications and Allergies Home Medications Medication Instructions Recorded Confirmed Type Aspirin 162 mg PO DAILY 07/10/13 10/12/19 History Levothyroxine Sodium [Synthroid] 75 mcg PO DAILY 07/10/13 10/12/19 History Metoprolol Succinate (ER) [Toprol 100 mg PO DAILY 07/10/13 10/12/19 History XL] Albuterol Inhaler (Mhu) [Ventolin 2 puff INHALATION Q6H PRN 08/05/15 10/12/19 History Hfa Inhaler (Mhu)] Isosorbide Mononitrate ER [Imdur] 15 mg PO DAILY 04/20/17 10/12/19 History Acetaminophen [Tylenol] 325 mg PO Q6H PRN 06/15/17 10/12/19 History Loratadine [Alavert] 10 mg PO DAILY PRN 05/02/19 10/12/19 History Pravastatin Sodium [Pravachol] 40 mg PO HS 05/02/19 10/12/19 History Spironolactone 12.5 mg PO DAILY 05/02/19 10/12/19 History Carboxymethylcellulose Sodium 1 drop BOTH EYES DAILY PRN 10/09/19 10/12/19 History [Refresh Tears] Clopidogrel [Plavix] 75 mg PO DAILY 10/09/19 10/12/19 History Dicyclomine [Bentyl] 20 mg PO QID PRN 10/09/19 10/12/19 History Refresh Eye Gel 1 dose BOTH EYES DAILY PRN 10/09/19 10/12/19 History polyethylene glycoL 3350 [Miralax] 17 gm PO DAILY PRN 10/09/19 10/12/19 History Esomeprazole Magnesium [NexIUM] 40 mg PO DAILY 10/11/19 10/12/19 History Aspirin 364 mg PO ONCE 10/12/19 10/12/19 History Allergies Allergy/AdvReac Type Severity Reaction Status Date / Time hydrocodone bitartrate Allergy Severe Itching Verified 10/12/19 05:43 [From Vicodin] melon Allergy Anaphylaxis Verified 10/12/19 05:43 Milk Containing Products AdvReac Nausea Verified 10/12/19 05:43 [Dairy] Physical Exam Vitals: Vital Signs Temp Pulse Resp BP BP Pulse Ox 10/12/19 05:58 97.1 F L 68 16 188/76 173/72 97 Intake and Output 10/11/19 10/12/19 10/12/19 22:59 06:59 14:59 Intake Total 853 Output Total 1999 Balance -1147 Intake: IV 61 Blood Product 792 Ffp 24 Cp2d Unit 199 [id number] Ffp 24 Cpd Unit 302 [id number] Platelet Pheresis Acd-A 291 Pasc 2 Unit [id number] Output: Urine 500 Estimated Blood Loss 1500 Other: Weight 50.8 kg GENERAL EXAM: Sedated, intubated, 79-year-old white female, comfortable in no apparent distress. HEAD: Normocephalic/atraumatic. EYES: Normal reaction of pupils, equal size. Conjunctiva pink, sclera white. NOSE: Clear with pink turbinates. THROAT: No erythema or exudates. NECK: No masses, no JVD, no thyroid enlargement, no adenopathy. CHEST: No chest wall deformity. Symmetrical expansion. Midsternal incision is clean dry and intact, 1 mediastinal chest tube in place with 100 mL of serous output in the Pleur-evac, and left and right pleural chest tubes in place Y connected together with 100 mL of sanguineous output in the Pleur-evac no evidence of air leak, AV wires in place connected to an external pacemaker and patient is being paced at a rate of 80, underlying rhythm is junctional rhythm LUNGS: Equal air entry with no crackles, wheeze, rhonchi or dullness. CVS: Regular rate and rhythm, normal S1 and S2, no gallops, no murmurs, no rubs ABDOMEN: Soft, nontender. No hepatosplenomegaly, normal bowel sounds, no guarding or rigidity. EXTREMITIES: No clubbing, no edema, no cyanosis, 2+ pulses and upper and lower extremities. MUSCULOSKELETAL: Muscle strength and tone normal. SPINE: No scoliosis or deformity SKIN: No rashes, left leg endoscopic harvest vein site is covered with the dressing and Lanre wrapped CENTRAL NERVOUS SYSTEM: G beta, sedated. No focal deficits, tone is normal in all 4 extremities. Results - Laboratory Findings ABG ABG pH 7.34 (7.35-7.45) L 10/12/19 12:37 ABG pCO2 41 mmHg (35-45) 10/12/19 12:37 ABG pO2 >420 mmHg (83-108) H 10/12/19 12:37 ABG O2 Saturation 99.8 % (94-97) H 10/12/19 12:37 Abnormal lab findings: Abnormal Labs 10/08/19 10/12/19 10/12/19 09:08 08:47 09:52 ABG pH 7.33 L ABG pCO2 50 H ABG pO2 306 H 311 H ABG HCO3 26 H 26 H ABG Total CO2 28 H 28 H ABG O2 Saturation 100.0 H 99.8 H ABG Hematocrit ABG Sodium 133 L 133 L ABG Potassium ABG Ionized Calcium ABG Glucose 128 H ABG Lactic Acid Hemoglobin POC Glucose (mg/dL) Arterial Blood Potassium Arterial Blood Glucose 128 H Crossmatch See Detail 10/12/19 10/12/19 10/12/19 10:18 10:48 11:12 ABG pH 7.31 L ABG pCO2 49 H ABG pO2 393 H 311 H 381 H ABG HCO3 ABG Total CO2 25 H 26 H ABG O2 Saturation 100.0 H 100.0 H 100.0 H ABG Hematocrit 21 L 22 L 21 L ABG Sodium 126 L 128 L 129 L ABG Potassium 6.4 H* 5.5 H 4.8 H ABG Ionized Calcium 4.0 L 4.2 L 4.0 L ABG Glucose 282 H 224 H 215 H ABG Lactic Acid 1.8 H Hemoglobin 6.8 L* 7.1 L 6.8 L* POC Glucose (mg/dL) Arterial Blood Potassium 6.4 H* 5.5 H 4.8 H Arterial Blood Glucose 282 H 224 H 215 H Crossmatch 10/12/19 10/12/19 10/12/19 11:54 12:37 13:54 ABG pH 7.34 L ABG pCO2 ABG pO2 >420 H >420 H ABG HCO3 ABG Total CO2 ABG O2 Saturation 100.0 H 99.8 H ABG Hematocrit 20 L* 24 L ABG Sodium 129 L 134 L ABG Potassium 4.7 H ABG Ionized Calcium 4.0 L 4.4 L ABG Glucose 194 H 135 H ABG Lactic Acid 3.2 H* 3.0 H* Hemoglobin 6.6 L* 7.7 L POC Glucose (mg/dL) 109 H Arterial Blood Potassium 4.7 H Arterial Blood Glucose 194 H 135 H Crossmatch - Diagnostic Findings Chest x-ray: report reviewed, image reviewed CT scan - chest: report reviewed, image reviewed Assessment and Plan Plan: Assessment: #1. Coronary artery disease and severe aortic valve regurgitation, mitral valve regurgitation and moderate tricuspid regurgitation, status post myocardial revascularization with SVG to the RCA, aortic valve replacement using 21 mm Inspirius valve, mitral valve repair using size 28 CarboMedics annular flex ring, exclusion of the left atrial appendage with 35 Atriclip, Intraoperative JOAQUÍN, and endoscopic vein harvest from the left thigh, postop day 0 #2. Routine postoperative ventilator management #3. History of coronary artery disease with previous intervention involving the right coronary artery on 06/01/2019, and previous intervention involving the LAD #4. History of inferior wall myocardial infarction #5. Hypertension #6. Dyslipidemia #7. Carotid artery disease, preop carotid duplex showed moderate to severe atherosclerotic changes bilaterally, could not exclude 50-69% stenosis in the proximal right internal coronary artery #8. Former nicotine dependence, currently in remission, preop spirometry showed FEV1 of 1.21 L, or 58% of predicted, FVC of 1.5 L or 56% of predicted, assisted with moderately severe restriction, CT chest from 10/09/2019 showed mild pulmonary fibrosis Plan: Awaiting postoperative blood gases, and chest x-ray. We will wean sedation, and continue weaning per protocol, hemodynamically patient is stable, awaiting postoperative blood work, no significant bleeding from the chest tubes, to close hemodynamic monitoring, chest tube output, urine output, monitor for cardiac arrhythmias, we'll start breathing treatments while the patient is on the ventilator, incentive spirometer to the bedside after extubation, maintain pain control. Daily chest x-rays and lab work, we'll continue to closely follow along with cardiothoracic surgery I performed a history & physical examination of the patient and discussed their management with my nurse practitioner, Roula Hutson. I reviewed the nurse practitioner's note and agree with the documented findings and plan of care. Lung sounds are positive for diminished breath sounds throughout the lung thomas. The findings and the impression was discussed with the patient. I attest to the documentation by the nurse practitioner. Time with Patient: Greater than 30
[2019-10-12 14:27] LABS: Ionized Calcium 4.5 mg/dL (4.5-5.3)
[2019-10-12 14:28] LABS: HGB 7.6 gm/dL (11.4-16.0)
[2019-10-12 14:29] LABS: Platelet Count 112 k/uL (150-450)
[2019-10-12] MEDS ORDERED: MUPIROCIN 2% OINT 22 GM TUBE NASAL ONE (14:30)
[2019-10-12] MEDS: LACTATED RINGERS 1,000 ML IV SCH (14:48)
[2019-10-12 14:49] LABS: ABG Base Excess 1.1 mmol/L; ABG HCO3 25 mmol/L (21-25); ABG PCO2 38 mmHg (35-45); ABG PH 7.43 (7.35-7.45); ABG PO2 391 mmHg (83-108); ABG TCO2 27 mmol/L (19-24); Allen Test Performed? Yes
--- NOTE | 2019-10-12 14:51 | XR ---
EXAMINATION TYPE: XR chest 1V portable DATE OF EXAM: 10/12/2019 COMPARISON: 10/08/2019 HISTORY: Post cardiac surgery TECHNIQUE: Single frontal view of the chest is obtained. FINDINGS: [place]-Sarah catheter seen with the tip overlying the proximal pulmonary outflow tract. Bilat eral chest tubes and mediastinal drain seen and there is postoperative change. ET tube approximately 4.5 cm above mauro. Diffuse bilateral airspace disease and pleural effusion. Biapical pleural thicke marcial. Lung apex not included. No obvious sizable pneumothorax. Epicardial lead suggested. IMPRESSION: 1. Diffuse bilateral airspace disease correlate for pneumonia versus pulmonary edema. 2. Postsurgical changes.
[2019-10-12 14:52] LABS: Glucose,Whole Blood 170 mg/dL (75-99)
[2019-10-12 14:53] LABS: Albumin 2.2 g/dL (3.5-5.0); Calcium 7.9 mg/dL (8.4-10.2); Magnesium 2.9 mg/dL (1.6-2.3); Total Bilirubin 0.6 mg/dL (0.2-1.3); Total Protein 4.2 g/dL (6.3-8.2)
[2019-10-12] MEDS ORDERED: CALCIUM GLUCONATE 2 GM in SODIUM CHLORIDE 0.9% 100 ML IVPB PRN (15:00)
[2019-10-12] MEDS: INSULIN REGULAR 100 UNIT in SODIUM CHLORIDE 0.9% 100 ML IV SCH ×2 (15:20→16:17)
[2019-10-12] MEDS: MILRINONE-D5W PMX 20 MG in DEXTROSE/WATER 1 100ML.BAG IV SCH (15:21)
[2019-10-12] MEDS ORDERED: DEXTROSE 5% IN WATER 100 ML with AMIODARONE 150 MG IV ONE (15:29)
[2019-10-12] MEDS ORDERED: CALCIUM GLUCONATE 1 GM in SODIUM CHLORIDE 0.9% 100 ML IVPB ONE (15:30)
[2019-10-12 15:45] LABS: Basophils % (A) 0 %; Eosinophils # (A) 0.1 k/uL (0-0.7); Eosinophils % (A) 1 %; Lymphocytes # (A) 1.1 k/uL (1.0-4.8); Lymphocytes % (A) 10 %; MCH 29.2 pg (25.0-35.0); MCHC 32.1 g/dL (31.0-37.0); Mean Platelet Volume 7.6; Monocytes # (A) 0.7 k/uL (0-1.0); Monocytes % (A) 7 %; Neutrophils % (A) 82 %; Platelet Count 106 k/uL (150-450); RBC 2.06 m/uL (3.80-5.40); RDW 13.5 % (11.5-15.5)
[2019-10-12] MEDS ORDERED: IPRATROPIUM-ALBUTEROL 3 ML NEB INHALATION SCH (16:00)
[2019-10-12 16:13] LABS: Glucose,Whole Blood 236 mg/dL (75-99)
[2019-10-12 16:15] LABS: HCT 18.7 % (34.0-46.0)
[2019-10-12 17:01] LABS: Glucose,Whole Blood 193 mg/dL (75-99)
--- NOTE | 2019-10-12 17:30 | OP ---
OPERATIVE REPORT DATE OF OPERATION: 10/12/2019 ATTENDING SURGEON: Dr. Derik Ellsworth. ASSISTANTS: 1. YONI Malhotra. 2. YONI Ennis. PREOPERATIVE DIAGNOSES: 1. Severe aortic insufficiency. 2. Moderate to severe mitral regurgitation. 3. Single-vessel coronary artery disease. POSTOPERATIVE DIAGNOSES: 1. Severe aortic insufficiency. 2. Moderate to severe mitral regurgitation. 3. Single-vessel coronary artery disease. PROCEDURES: Aortic valve replacement with a #21 mm Herrera' Inspiris bioprosthetic aortic valve, mitral valve repair with a #28 mm Carbomedics Annuloflex band, reverse saphenous vein graft off the aorta to the right coronary artery with right lower extremity greater saphenous vein endoscopic vein harvesting, clip ligation of the left atrial appendage with a #35 mm AtriClip and intraoperative JOAQUÍN. ANESTHESIA: General. BLOOD LOSS: 500 mL. SUMMARY: The patient was brought to the operating room, placed in supine position. Upon administration of a general endotracheal anesthetic, placement of a [place]-Sarah catheter arterial line and adequate IV access and a Pratt catheter, the patient was carefully prepped and draped in normal sterile fashion using chlorhexidine paint and sterile towels. Greater saphenous vein was harvested from the right lower extremity via the endovascular vein harvesting technique. All branches were doubly tied and divided and the incisions closed in 2 layers. A midline incision in the chest was made, the sternum divided. Pericardium was opened. Heart size was mildly enlarged. Aorta did have multiple calcific plaques present and care was taken during cannulation, cross- clamping and aortotomy in staying away from these plaques. At this point the patient was heparinized to an AST of greater than 480. The aorta and 2 single-stage venous cannulas were placed. Antegrade and retrograde cardioplegic catheters were positioned in the ascending aorta and the coronary sinus. The patient was placed on bypass, cross- clamp placed, heart arrested with one liter of antegrade rate followed by 500 mL retrograde cardioplegia. Retrograde cardioplegia was delivered, 300 to 500 mL, at the end of each 20-minute interval. First the base of the left atrial appendage was measured and a 35 mm AtriClip was secured at the base, officially obliterating the left atrial appendage. A single distal anastomosis was constructed. Reverse saphenous vein graft anastomosis to the distal right coronary artery was constructed using a 7-0 Prolene running suture. Caliber of this vessel was 1.75 mm. Next the left atrium was entered at the junction of the right superior pulmonary vein in the interatrial groove. Handheld retractor was placed. The mitral valve was identified. The subvalvular apparatus appeared to be within normal limits and there was a dilated anulus. At this point it sized to a 28 mm Carbomedics Annuloflex band; 2-0 Tycron non-pledgeted sutures were placed from trigone to trigone along the posterior anulus. These were then passed through the band, which was seated and seated well, and all sutures were then secured, tied and cut using the Cor-Knot ligature system device. The atriotomy incision was closed in a double-layered pledgeted 4-0 Prolene vertical mattress followed by an [id number] stitch from both sides. At this point a transverse aortotomy incision was made 2 cm distal to the takeoff of the right coronary artery. Care was taken to avoid any of the calcific plaques that were present throughout the ascending aorta. A handheld retractor was placed. The valve was trileaflet. All 3 leaflets were excised. The anulus was gently debrided and irrigated out copiously with 2 L of cold saline. It sized to a 21 mm Herrera' Inspiris bioprosthetic aortic valve. The valve was brought into the field and prepared in the usual fashion. Tycron 2-0 pledgeted sutures were placed ventricularly based circumferentially. These were then passed through the sewing cuff of the valve, which was then seated and seated well. All sutures were tied, secured and cut using the Cor-Knot ligature system device. At this point the atriotomy incision was closed in a double-layered pledgeted 4-0 Prolene vertical mattress followed by an [id number] stitch from both sides. A single proximal anastomosis was constructed in the ascending aorta using 6-0 Prolene running suture. The patient was placed head down. Complete de- airing maneuvers were performed 3 times. One liter of warm blood retrograde cardioplegia was run. Cross-clamp was then removed. The patient was reperfused, paced DDD at 80 and brought off bypass. She came off bypass uneventfully with good hemodynamics. Protamine was delivered. Patient was decannulated. Atrial and ventricular wires were noted to be in place. Mediastinal left and right pleural chest tubes were placed. At this point the sternum was closed with seven #6 sternal wires. Skin, subcutaneous tissue and fascia were closed in 3 layers. No complications. Patient tolerated the procedure well. Postoperative JOAQUÍN showed excellent left and right ventricular function, no residual mitral valve regurgitation, no aortic insufficiency, a very very slight perivalvular blush in the area of the non and right commissure. This amounted to no regurgitation and the echo looked very good. The patient was then transported to the ICU in critical but stable condition. MMODL / IJN: [id number] /
[2019-10-12] MEDS: ACETAMINOPHEN IV (For NPO) 1,000 MG in EMPTY BAG 1 BAG IVPB SCH (18:21)
[2019-10-12 19:26] LABS: ABG Base Excess 0.4 mmol/L; ABG HCO3 26 mmol/L (21-25); ABG Oxygen Saturation 98.2 % (94-97); ABG PCO2 46 mmHg (35-45); ABG PH 7.36 (7.35-7.45); ABG PO2 100 mmHg (83-108); ABG TCO2 27 mmol/L (19-24); Allen Test Performed? Yes
[2019-10-12] MEDS: IPRATROPIUM-ALBUTEROL 3 ML NEB INHALATION SCH ×2 (19:46→19:47)
[2019-10-12 19:58] LABS: Glucose,Whole Blood 129 mg/dL (75-99)
[2019-10-12 20:19] LABS: Basophils % (A) 0 %; Eosinophils % (A) 1 %; HCT 24.7 % (34.0-46.0); Lymphocytes # (A) 0.7 k/uL (1.0-4.8); Lymphocytes % (A) 9 %; MCH 29.7 pg (25.0-35.0); MCHC 32.5 g/dL (31.0-37.0); MCV 91.3 fL (80.0-100.0); Mean Platelet Volume 8.9; Monocytes % (A) 13 %; Neutrophils # (A) 5.6 k/uL (1.3-7.7); Neutrophils % (A) 75 %; Platelet Count 145 k/uL (150-450); RBC 2.71 m/uL (3.80-5.40); RDW 13.6 % (11.5-15.5); WBC 7.5 k/uL (3.8-10.6)
--- NOTE | 2019-10-12 20:33 | CONS ---
CONSULTATION REASON FOR CONSULTATION: Advice regarding asthma, COPD and other multiple medical issues, requested by Dr. Ellsworth. HISTORY OF PRESENT ILLNESS: This 79-year-old woman with a past medical history of asthma, COPD, CVA, TIA, GERD, hyperlipidemia, history of myocardial infarction, mitral valve prolapse, being followed by Dr. Carole Coulter in the outpatient setting, underwent aortic valve replacement with a #2 Herrera' bioprosthetic aortic valve and mitral valve repair with CarboMedics band and CABG x1 with SVG to RCA. The patient postoperatively had episodes of hypotension and atrial fibrillation. Currently patient is on amiodarone drip. Hemoglobin is 6. Transfusion has been arranged. Patient is being closely monitored in ICU. Patient is on mechanical ventilation. Tidal volume 400, 50% FiO2 and 5 of PEEP. The blood sugars are in the 236 range. Patient is on insulin 4 units/hour. The patient is mechanically ventilated and sedated at this time. PAST MEDICAL HISTORY: History of asthma, CAD, COPD, CVA, GERD, hypertension, hyperlipidemia, history of mitral valve prolapse, history of appendectomy. HOME MEDICATIONS: Home medications prior to admission include MiraLAX, spironolactone, Refresh eyedrops, Pravachol, Toprol-XL, Alavert, Synthroid, Imdur, Nexium, Bentyl, Plavix, Refresh tears, aspirin, albuterol, Tylenol. Doses are reviewed. ALLERGIES: VICODIN, MELON, MILK. FAMILY HISTORY: History of skin cancer in the family. SOCIAL HISTORY: No history of smoking. No history of alcohol intake. REVIEW OF SYSTEMS: Review of systems could not be taken because the patient is mechanically ventilated and sedated. PHYSICAL EXAMINATION: Pulse is 80, blood pressure 114/46, respiration 20, temperature 97.4, pulse ox 99% on mechanical ventilation. Ventilation settings are noted. HEENT: Conjunctivae normal. NECK: No jugular venous distention. CARDIOVASCULAR SYSTEM: S1, S2 muffled. RESPIRATORY SYSTEM: Breath sounds diminished at the bases. No rhonchi. No crackles. ABDOMEN: Soft. NERVOUS SYSTEM: Patient is sedated. JOINTS: No active deforming arthropathy. SKIN: No ulcer, rash, bleeding. LABS: WBC 11, hemoglobin 6. INR is 1.2. ABGs noted. Glucose 236 and 193. Other labs are noted. ASSESSMENT: 1. Status post aortic valve replacement with bioprosthetic aortic valve and mitral valve repair. 2. Status post coronary artery disease, coronary artery bypass grafting x1. 3. History of asthma, chronic obstructive pulmonary disease. 4. History of cerebrovascular accident, transient ischemic attack. 5. Atrial fibrillation. 6. Gastroesophageal reflux disease. 7. Hyperlipidemia. 8. History of myocardial infarction. 9. History of mitral valve prolapse. 10.History of renal disorder. 11.History of hypothyroidism. 12.History of appendectomy. 13.History of coronary artery disease, stent. 14.Remote history of nicotine dependence. 15.FULL CODE. RECOMMENDATIONS AND DISCUSSION: In this 79-year-old woman who presented after surgery, at this time I recommend to continue the current medications, continue with symptomatic treatment. Continue with the bronchodilators. The patient monitor blood pressure closely. Transfuse and monitor. Continue with insulin drip at this time. The patient does not have any history of any diabetes mellitus. We will continue to monitor. Dr. Herrera is following the mechanical ventilation settings. The patient may be asked to follow up with Dr. Carole Coulter closely after discharge. Thank you, Dr. Ellsworth, for letting us participate in the care of this patient. MMODL / IJN: [id number] /
[2019-10-12] MEDS ORDERED: POTASSIUM BICARBONATE/CIT AC 20 MEQ TABLET.EFF NG-TUBE SCH (21:00)
[2019-10-12 21:12] LABS: Glucose,Whole Blood 106 mg/dL (75-99)
[2019-10-12] MEDS: AMIODARONE 300 MG in DEXTROSE 5% IN WATER 250 ML IV PRN ×2 (21:20)
[2019-10-12] MEDS: HEPARIN SODIUM,PORCINE 5,000 UNIT/ML 1 ML VIAL SQ SCH (21:32)
[2019-10-12 21:47] LABS: INR 1.3 (<1.2); Partial Thromboplastin Time 35.4 sec (22.0-30.0); Prothrombin Time 12.8 sec (9.0-12.0)
[2019-10-12 21:54] LABS: Glucose,Whole Blood 109 mg/dL (75-99)
[2019-10-12 23:12] LABS: Glucose,Whole Blood 119 mg/dL (75-99)
[2019-10-12] MEDS ORDERED: DOBUTamine DRIP 500 MG in DEXTROSE/WATER 1 250ML.BAG IV SCH (23:15)
[2019-10-12] MEDS: DOBUTamine DRIP 500 MG in DEXTROSE/WATER 1 250ML.BAG IV SCH (23:51)
[2019-10-12 23:52] LABS: ABG Base Excess -2.1 mmol/L; ABG HCO3 23 mmol/L (21-25); ABG Oxygen Saturation 99.3 % (94-97); ABG PCO2 38 mmHg (35-45); ABG PH 7.39 (7.35-7.45); ABG PO2 179 mmHg (83-108); ABG TCO2 24 mmol/L (19-24); Allen Test Performed? Yes
[2019-10-13 00:05] LABS: Glucose,Whole Blood 127 mg/dL (75-99)
[2019-10-13] MEDS ORDERED: FUROSEMIDE 10 MG/ML 4 ML VIAL IV STA (00:08)
[2019-10-13] MEDS: ACETAMINOPHEN IV (For NPO) 1,000 MG in EMPTY BAG 1 BAG IVPB SCH (00:17)
[2019-10-13] MEDS: traMADol 50 MG TAB PO PRN ×3 (00:17→17:09)
[2019-10-13] MEDS: NOREPINEPHRINE 4 MG in SODIUM CHLORIDE 0.9% 250 ML IV SCH ×4 (00:30→20:23)
[2019-10-13] MEDS: ALBUMIN HUMAN 5% 250 ML in EMPTY BAG 1 BAG IVPB PRN ×8 (00:51→19:02)
[2019-10-13 01:04] LABS: Glucose,Whole Blood 155 mg/dL (75-99)
[2019-10-13] MEDS ORDERED: COAGULATION FACTOR VIIA RECOMBINANT IV ONE (02:00)
[2019-10-13 02:13] LABS: Glucose,Whole Blood 161 mg/dL (75-99)
[2019-10-13 02:59] LABS: Glucose,Whole Blood 139 mg/dL (75-99)
[2019-10-13 03:25] LABS: Basophils % (A) 0 %; Eosinophils % (A) 1 %; HCT 20.1 % (34.0-46.0); Lymphocytes # (A) 0.9 k/uL (1.0-4.8); Lymphocytes % (A) 13 %; MCH 30.1 pg (25.0-35.0); MCV 91.3 fL (80.0-100.0); Mean Platelet Volume 9.1; Monocytes # (A) 0.5 k/uL (0-1.0); Monocytes % (A) 7 %; Neutrophils # (A) 5.3 k/uL (1.3-7.7); Neutrophils % (A) 78 %; Platelet Count 107 k/uL (150-450); RDW 13.8 % (11.5-15.5); WBC 6.7 k/uL (3.8-10.6)
[2019-10-13 03:32] LABS: Ionized Calcium 4.3 mg/dL (4.5-5.3)
[2019-10-13 03:35] LABS: HGB 6.6 gm/dL (11.4-16.0)
[2019-10-13 03:40] LABS: Albumin 2.6 g/dL (3.5-5.0); Calcium 7.3 mg/dL (8.4-10.2); Magnesium 1.9 mg/dL (1.6-2.3); Total Bilirubin 0.9 mg/dL (0.2-1.3); Total Protein 4.1 g/dL (6.3-8.2)
[2019-10-13 03:53] LABS: INR 0.9 (<1.2)
[2019-10-13 03:54] LABS: Partial Thromboplastin Time 31.7 sec (22.0-30.0); Prothrombin Time 9.5 sec (9.0-12.0)
[2019-10-13] MEDS ORDERED: CALCIUM GLUCONATE 1 GM in SODIUM CHLORIDE 0.9% 100 ML IVPB ONE ×3 (03:59→20:00)
[2019-10-13 04:07] LABS: Glucose,Whole Blood 156 mg/dL (75-99)
[2019-10-13] MEDS: HEPARIN SODIUM,PORCINE 5,000 UNIT/ML 1 ML VIAL SQ SCH ×3 (04:21→20:24)
[2019-10-13] MEDS: MAGNESIUM SULFATE-D5W PMX 1 GM in DEXTROSE/WATER 1 100ML.BAG IVPB SCH ×2 (04:21→05:45)
[2019-10-13 05:04] LABS: Glucose,Whole Blood 154 mg/dL (75-99)
[2019-10-13 05:30] LABS: ABG Base Excess -0.6 mmol/L; ABG HCO3 25 mmol/L (21-25); ABG Oxygen Saturation 99.6 % (94-97); ABG PCO2 41 mmHg (35-45); ABG PH 7.38 (7.35-7.45); ABG PO2 206 mmHg (83-108); ABG TCO2 26 mmol/L (19-24); Allen Test Performed? Yes
[2019-10-13] MEDS: LEVOTHYROXINE 75 MCG TAB PO SCH (05:45)
[2019-10-13] MEDS: AMIODARONE 300 MG in DEXTROSE 5% IN WATER 250 ML IV PRN ×4 (05:46→15:46)
[2019-10-13 06:08] LABS: Glucose,Whole Blood 187 mg/dL (75-99)
--- NOTE | 2019-10-13 06:42 | P.CRDCN ---
History of Present Illness Consult date: 10/13/19 Chief complaint: Status post open heart History of present illness: This is a pleasant 79-year-old female patient white follow in the office as an outpatient was coronary artery disease and prior stenting of the RCA, valvular heart disease and known severe aortic regurgitation and severe mitral regurgitation as well as hypertension and dyslipidemia who was admitted to the hospital yesterday and underwent aortic valve replacement using bioprosthetic valve along with mitral valve repair. This is her post operation daily #1. Obviously the patient was diagnosed with symptomatic aortic regurgitation and mitral regurgitation. In May 2019 she underwent a transesophageal echocardiogram as well as a heart catheterization. The transesophageal echocardiogram revealed evidence of moderate to severe aortic and mitral regurgitation. The heart catheterization revealed severe disease involving the mid RCA. I advised the patient to undergo an open heart surgery at that point but she refused and because of that I did perform successful stenting of the right coronary artery. Subsequently and because her symptoms have progressed she decided to pursue with open heart surgery and she underwent aortic valve replacement and mitral valve repair yesterday. This is her post operation day #1. Unfortunately the patient continues to be intubated and continues to be on mechanical ventilation. Hemodynamically she continues to be unstable and currently she is on norepinephrine as well as she is on dobutamine. She went into A. fib with RVR yesterday and for that reason she was started on amiodarone. She received overall the total of 3 units of packed RBC because she still draining a lot of blood from her chest tube. She is currently on dual antiplatelet therapy including aspirin and Plavix. The critical care team on the case at this point. Past Medical History Past Medical History: Asthma, Coronary Artery Disease (CAD), COPD, CVA/TIA, GERD/Reflux, Hyperlipidemia, Myocardial Infarction ([place]), Mitral Valve Prolapse (MVP), Musculoskeletal Disorder, Pneumonia, Renal Disease, Respiratory Disorder, Thyroid Disorder Additional Past Medical History / Comment(s): ECZEMA/STAGE 3 RENAL DISEASE/HYPOTHYROIDISM/[place] X2/DEGEN. DISC DS,mini stroke prior to 2004-no residual,dry eyes kimberley eyes,MIx2,pancreatisis,unable to eat large meals Last Myocardial Infarction Date:: 1997 History of Any Multi-Drug Resistant Organisms: None Reported Past Surgical History: Appendectomy, Cholecystectomy, Heart Catheterization With Stent, Hysterectomy Additional Past Surgical History / Comment(s): LUNG SURG-WEDGE RESECTION/CALCIFICATION RMOVED FROM LT BREAST/R&L CATARACT SURG/ORAL SURG W/ 5 IMPLANTS,bladder suspension,PTCA Past Anesthesia/Blood Transfusion Reactions: No Reported Reaction Additional Past Anesthesia/Blood Transfusion Reaction / Comment(s): stated "had trouble remembering numbers for approx a month after a surgery when I was given versed but I have had versed after that without problems.". No hx of blood transfusion. Date of Last Stent Placement:: 1997 Smoking Status: Former smoker - Past Family History Mother Family Medical History: Cancer Additional Family Medical History / Comment(s): SKIN Father Family Medical History: Myocardial Infarction ([place]) Additional Family Medical History / Comment(s): with IL at age 47 Medications and Allergies Home Medications Medication Instructions Recorded Confirmed Type Aspirin 162 mg PO DAILY 07/10/13 10/12/19 History Levothyroxine Sodium [Synthroid] 75 mcg PO DAILY 07/10/13 10/12/19 History Metoprolol Succinate (ER) [Toprol 100 mg PO DAILY 07/10/13 10/12/19 History XL] Albuterol Inhaler (Mhu) [Ventolin 2 puff INHALATION Q6H PRN 08/05/15 10/12/19 History Hfa Inhaler (Mhu)] Isosorbide Mononitrate ER [Imdur] 15 mg PO DAILY 04/20/17 10/12/19 History Acetaminophen [Tylenol] 325 mg PO Q6H PRN 06/15/17 10/12/19 History Loratadine [Alavert] 10 mg PO DAILY PRN 05/02/19 10/12/19 History Pravastatin Sodium [Pravachol] 40 mg PO HS 05/02/19 10/12/19 History Spironolactone 12.5 mg PO DAILY 05/02/19 10/12/19 History Carboxymethylcellulose Sodium 1 drop BOTH EYES DAILY PRN 10/09/19 10/12/19 History [Refresh Tears] Clopidogrel [Plavix] 75 mg PO DAILY 10/09/19 10/12/19 History Dicyclomine [Bentyl] 20 mg PO QID PRN 10/09/19 10/12/19 History Refresh Eye Gel 1 dose BOTH EYES DAILY PRN 10/09/19 10/12/19 History polyethylene glycoL 3350 [Miralax] 17 gm PO DAILY PRN 10/09/19 10/12/19 History Esomeprazole Magnesium [NexIUM] 40 mg PO DAILY 10/11/19 10/12/19 History Aspirin 364 mg PO ONCE 10/12/19 10/12/19 History Allergies Allergy/AdvReac Type Severity Reaction Status Date / Time hydrocodone bitartrate Allergy Severe Itching Verified 10/12/19 05:43 [From Vicodin] melon Allergy Anaphylaxis Verified 10/12/19 05:43 Milk Containing Products AdvReac Nausea Verified 10/12/19 05:43 [Dairy] Physical Exam Vitals: Vital Signs Temp Pulse Resp BP Pulse Ox 10/13/19 06:00 80 20 89/38 100 10/13/19 05:30 80 20 97/42 99 10/13/19 05:17 95.7 F L 80 20 100/45 10/13/19 05:00 80 20 86/37 99 10/13/19 04:47 96.8 F L 80 20 101/45 10/13/19 04:37 97.0 F L 80 20 95/47 10/13/19 04:30 80 20 87/39 99 10/13/19 04:00 80 20 93/42 99 10/13/19 03:30 80 20 84/40 99 10/13/19 03:00 84 20 88/38 99 10/13/19 02:30 80 20 90/39 97 10/13/19 02:00 80 20 95 10/13/19 01:30 80 20 98/36 96 10/13/19 01:00 80 20 101/34 94 L 10/13/19 00:30 80 20 102/39 94 L 10/13/19 00:00 80 20 92 L 10/12/19 23:39 98.1 F 80 20 113/49 10/12/19 23:30 80 20 94/42 92 L 10/12/19 23:12 97.9 F 80 20 105/80 10/12/19 23:00 80 20 94 L 10/12/19 22:47 97.5 F L 80 20 106/53 10/12/19 22:37 97.5 F L 80 20 95/51 10/12/19 22:33 80 20 99 10/12/19 22:30 80 0 L 98/49 98 10/12/19 22:20 80 0 L 98/49 98 10/12/19 22:00 97.3 F L 80 0 L 108/51 99 10/12/19 21:30 80 116/54 99 10/12/19 21:13 96.6 F L 80 20 130/63 08 21:00 80 20 98/70 99 10/12/19 20:41 96.1 F L 80 20 123/60 10/12/19 20:30 80 20 113/51 96 10/12/19 20:11 95.9 F L 80 20 126/61 10/12/19 20:01 95.4 F L 80 20 134/58 98 10/12/19 20:00 80 20 137/62 99 10/12/19 19:58 80 10/12/19 19:56 95.4 F L 80 20 129/64 98 10/12/19 19:55 96.3 F L 80 20 144/61 10/12/19 19:47 79 10/12/19 19:30 80 22 89/53 97 10/12/19 19:26 95.4 F L 80 20 127/63 98 10/12/19 19:18 95.5 F L 80 20 89/53 97 10/12/19 19:17 96.3 F L 80 20 89/53 97 10/12/19 19:16 96.1 F L 80 20 90/64 10/12/19 19:00 80 28 H 94/44 95 10/12/19 18:30 80 20 102/50 97 10/12/19 18:27 97.3 F L 80 20 107/48 97 10/12/19 18:02 97.5 F L 80 20 114/46 99 10/12/19 18:00 97.5 F L 80 20 98 10/12/19 17:52 97.3 F L 80 20 113/49 99 10/12/19 17:48 97.3 F L 80 20 112/49 10/12/19 17:30 80 21 98 10/12/19 17:04 97.0 F L 80 24 107/46 89 L 10/12/19 17:00 80 20 94 L 10/12/19 16:39 96.3 F L 80 20 102/46 95 10/12/19 16:34 672.3 F H 80 20 100/46 10/12/19 16:30 80 27 H 10/12/19 16:24 95.9 F L 80 20 107/50 10/12/19 16:04 95.5 F L 80 20 110/50 10/12/19 16:00 83 20 10/12/19 15:58 88 10/12/19 15:54 95 F L 86 20 93/49 93 L 10/12/19 15:43 87 10/12/19 15:30 92 21 122/77 91 L 10/12/19 15:00 96 20 122/77 10/12/19 14:45 89 20 122/77 10/12/19 14:30 106 H 20 75/42 10/12/19 14:15 117 H 10 L 75/42 10/12/19 14:00 80 50 H 10/12/19 13:45 94.1 F L 80 17 91 L 10/12/19 13:39 80 10 L Intake and Output 10/12/19 10/12/19 10/13/19 14:59 22:59 06:59 Intake Total 0349.887 6861.696 2628.878 Output Total 2455 1925 1825 Balance -8146.504 2404.696 803.878 Intake: IV 80 312 1538.0 .9NS Cardiac Output 10 120 160 0.9NS Pressure Bags 9 72 72 ACETAMINOPHEN IV (For NPO 100 ) 1,000 mg In Empty Bag 1 bag @ 400 mls/hr IVPB Q6HR [facility] Rx#:[id number] Albumin Human 5% 250 ml 500 In Empty Bag 1 bag @ 250 mls/hr IVPB Q1HR PRN Rx#: [id number] Calcium Gluconate 1 gm In 100 Sodium Chloride 0.9% 100 ml @ 100 mls/hr IVPB ONCE ONE Rx#:[id number] DOBUTamine DRIP 500 mg In 36.0 Dextrose/Water 1 250ml. bag @ 3 MCG/KG/MIN 4.572 mls/hr IV .Q24H [facility] Rx#: [id number] Lactated Ringers 1,000 ml 120 320 @ 50 mls/hr IV .Q20H [facility] Rx#:[id number] Magnesium Sulfate-D5w Pmx 200 1 gm In Dextrose/Water 1 100ml.bag @ 100 mls/hr IVPB Q1H [facility] Rx#: [id number] ceFAZolin 2 gm In Sodium 50 Chloride 0.9% 50 ml @ 100 mls/hr IVPB Q8HR [facility] Rx# :[id number] Intake, IV Titration 370.946 8374.696 428.878 Amount ACETAMINOPHEN IV (For NPO 100 ) 1,000 mg In Empty Bag 1 bag @ 400 mls/hr IVPB Q6HR [facility] Rx#:[id number] Albumin Human 5% 250 ml 250 500 In Empty Bag 1 bag @ 250 mls/hr IVPB Q1HR PRN Rx#: [id number] Amiodarone 300 mg In 210.833 Dextrose 5% in Water 250 ml @ 0.5 MG/MIN 25 mls/hr IV .Q10H PRN Rx#: [id number] Calcium Gluconate 1 gm In 100 Sodium Chloride 0.9% 100 ml @ 100 mls/hr IVPB ONCE ONE Rx#:[id number] Clevidipine Butyrate 25 3.167 mg In Empty Bag 1 bag @ 1 MG/HR 2 mls/hr IV .Q24H [facility] Rx#:[id number] Dextrose 5% in Water 100 300 ml @ 618 mls/hr IV .Q10M ONE with Amiodarone 150 mg Rx#:[id number] Insulin Regular 100 unit 26.392 10.967 In Sodium Chloride 0.9% 100 ml @ Per Protocol IV .Q0M [facility] Rx#:[id number] Lactated Ringers 1,000 ml 50 150 @ 50 mls/hr IV .Q20H [facility] Rx#:[id number] Nitroglycerin-D5w Pmx 50 1.3 mg In Dextrose/Water 1 250ml.bag @ 5 MCG/MIN 1.5 mls/hr IV .Q24H [facility] Rx#: [id number] Norepinephrine 4 mg In 5.967 191.225 145.356 Sodium Chloride 0.9% 250 ml @ 0.05 MCG/KG/MIN 9. 677 mls/hr IV .Q24H [facility] Rx#:[id number] ceFAZolin 2 gm In Sodium 50 Chloride 0.9% 50 ml @ 100 mls/hr IVPB Q8HR [facility] Rx# :[id number] propofoL 1,000 mg In 1.27 24.079 61.722 Empty Bag 1 bag @ Titrate IV .Q0M [facility] Rx#: [id number] Blood Product 792 1839 662 Ffp 24 Cp2d Unit 199 [id number] Ffp 24 Cpd Unit 302 [id number] Ffp 24 Cpd Unit 300 [id number] Platelet Irr Pheresis 2 299 Acda Unit [id number] Platelet Pheresis Acd-A 291 Pasc 2 Unit [id number] Pooled Cryoprecipitate 83 Unit [id number] Pooled Cryoprecipitate 0 93 Unit [id number] Rc As-1 Unit 310 [id number] Rc As-1 Unit 310 [id number] Rc As-3 Unit 0 [id number] Rc As-3 Unit 310 [id number] Output: Chest Tube Drainage 390 1540 840 Left and Right Pleural 150 520 670 Chest Tube Mediastinal Chest Tube 240 1020 170 Urine 565 385 985 Estimated Blood Loss 1500 Other: Voiding Method Indwelling Catheter Indwelling Catheter Weight 57.7 kg ABP, PAP, CO, CI - Last 8 Hours Arterial Blood Pressure 101/46 Arterial Blood Pressure 99/44 Arterial Blood Pressure 99/44 Arterial Blood Pressure 93/42 Arterial Blood Pressure 98/41 Arterial Blood Pressure 94/43 Arterial Blood Pressure 92/42 Arterial Blood Pressure 96/43 Arterial Blood Pressure 100/45 Arterial Blood Pressure 101/45 Arterial Blood Pressure 103/47 Arterial Blood Pressure 99/47 Arterial Blood Pressure 91/47 Arterial Blood Pressure 102/50 Pulmonary Artery Pressure 35/25 Pulmonary Artery Pressure 39/25 Pulmonary Artery Pressure 37/24 Pulmonary Artery Pressure 37/24 Pulmonary Artery Pressure 33/23 Pulmonary Artery Pressure 37/24 Pulmonary Artery Pressure 36/25 Pulmonary Artery Pressure 37/24 Pulmonary Artery Pressure 41/28 Pulmonary Artery Pressure 45/29 Pulmonary Artery Pressure 48/32 Pulmonary Artery Pressure 51/32 Pulmonary Artery Pressure 42/28 Pulmonary Artery Pressure 45/29 Cardiac Output 2.4 Cardiac Output 2.4 Cardiac Output 2.2 Cardiac Output 2.2 Cardiac Output 2.6 Cardiac Output 3.2 Cardiac Output 3.2 Cardiac Output 3.2 Cardiac Output 3.2 Cardiac Output 3.1 Cardiac Output 3.1 Cardiac Output 2.2 Cardiac Output 2.2 Cardiac Index 1.5 Cardiac Index 1.5 Cardiac Index 1.4 Cardiac Index 1.4 Cardiac Index 1.7 Cardiac Index 2.1 Cardiac Index 2.1 Cardiac Index 2.1 Cardiac Index 2.1 Cardiac Index 2 Cardiac Index 2 Cardiac Index 1.4 Cardiac Index 1.4 - Constitutional General appearance: no acute distress - Respiratory Respiratory: bilateral: diminished - Cardiovascular Rhythm: regular Results 10/13/19 03:12 10/13/19 03:12 Cardiac Enzymes 10/12/19 10/13/19 Range/Units 13:50 03:12 AST 57 H 78 H (14-36) U/L Coagulation 10/12/19 10/12/19 10/13/19 Range/Units 13:50 21:21 03:12 PT 12.1 H 12.8 H 9.5 (9.0-12.0) sec APTT 41.1 H 35.4 H 31.7 H (22.0-30.0) sec CBC 10/12/19 10/12/19 10/12/19 Range/Units 13:50 15:35 20:05 WBC 10.2 11.0 H 7.5 (3.8-10.6) k/uL RBC 2.57 L 2.06 L 2.71 L (3.80-5.40) m/uL Hgb 7.6 L D 6.0 L* D 8.0 L D (11.4-16.0) gm/dL Hct 23.5 L 18.7 L* 24.7 L (34.0-46.0) % Plt Count 112 L D 106 L 145 L (150-450) k/uL 10/13/19 Range/Units 03:12 WBC 6.7 (3.8-10.6) k/uL RBC 2.20 L (3.80-5.40) m/uL Hgb 6.6 L* (11.4-16.0) gm/dL Hct 20.1 L (34.0-46.0) % Plt Count 107 L (150-450) k/uL Comprehensive Metabolic Panel 10/12/19 10/12/19 10/13/19 Range/Units 13:50 20:05 03:12 Sodium 133 L 132 L (137-145) mmol/L Potassium 4.0 3.6 4.0 (3.5-5.1) mmol/L Chloride 102 101 (98-107) mmol/L Carbon Dioxide 28 25 (22-30) mmol/L BUN 16 16 (7-17) mg/dL Creatinine 0.80 0.96 (0.52-1.04) mg/dL Glucose 91 136 H (74-99) mg/dL Calcium 7.9 L 7.3 L (8.4-10.2) mg/dL AST 57 H 78 H (14-36) U/L ALT 12 14 (4-34) U/L Alkaline Phosphatase 24 L 23 L (38-126) U/L Total Protein 4.2 L 4.1 L (6.3-8.2) g/dL Albumin 2.2 L 2.6 L (3.5-5.0) g/dL Current Medications Generic Name Dose Route Start Last Admin Trade Name Freq PRN Reason Stop Dose Admin Albuterol/Ipratropium 3 ml 10/12/19 13:00 Duoneb 0.5 Mg-3 Mg/3 Ml Soln INHALATION RT-Q2H PRN Shortness Of Breath Or Wheezing Albuterol/Ipratropium 3 ml 10/12/19 18:22 10/12/19 19:47 Duoneb 0.5 Mg-3 Mg/3 Ml Soln INHALATION Not Given RT-QID [facility] Aspirin 325 mg 10/13/19 09:00 Aspirin PO DAILY [facility] Atorvastatin Calcium 40 mg 10/13/19 09:00 Lipitor PO DAILY [facility] Benzocaine/Menthol 1 each 10/12/19 13:00 Cepacol Lozenge MUCOUS MEM Q2H PRN Sore Throat Bisacodyl 10 mg 10/13/19 09:00 Dulcolax RECTAL DAILY PRN Constipation Clopidogrel Bisulfate 75 mg 10/13/19 09:00 Plavix PO DAILY [facility] Heparin Sodium (Porcine) 5,000 unit 10/12/19 21:00 10/13/19 04:21 Heparin SQ 5,000 unit Q8H [facility] Administration Hydralazine HCl 10 mg 10/12/19 13:00 Apresoline IVP Q1H PRN Blood Pressure - High Albumin Human 250 ml/ IV 250 mls @ 250 mls/hr 10/12/19 13:00 10/13/19 00:52 Solution IVPB 10/14/19 13:01 250 mls/hr Q1HR PRN Administration For Volume Amiodarone HCl 150 mg/ 103 mls @ 618 mls/hr 10/12/19 13:00 Dextrose/Water IV .Q10M PRN A.FIB/FLUTTER Protocol Amiodarone HCl 360 mg/ 200 mls @ 33.333 mls/hr 10/12/19 13:00 10/12/19 14:43 Dextrose/Water IV 1 mg/min .Q6H PRN 33.333 mls/hr A.FIB/FLUTTER Administration Protocol 1 MG/MIN Amiodarone HCl 300 mg/ 250 mls @ 25 mls/hr 10/12/19 13:00 10/13/19 05:46 Dextrose/Water IV 0.5 mg/min .Q10H PRN 25 mls/hr A.FIB/FLUTTER Administration Protocol 0.5 MG/MIN Cefazolin Sodium 2 gm/ Sodium 50 mls @ 100 mls/hr 10/12/19 16:00 10/13/19 00:17 Chloride IVPB 10/13/19 08:29 100 mls/hr Q8HR [facility] Administration Clevidipine 25 mg/ IV Solution 50 mls @ 2 mls/hr 10/12/19 13:00 10/12/19 14:10 IV 0 mg/hr .Q24H [facility] 0 mls/hr Titration Protocol 1 MG/HR Dexmedetomidine HCl 400 mcg/ 100 mls @ 0 mls/hr 10/12/19 14:00 IV Solution IV 10/13/19 14:01 .Q0M [facility] Protocol Titrate Insulin Human Regular 100 unit 101 mls @ 0 mls/hr 10/12/19 14:00 10/13/19 06:08 / Sodium Chloride IV 4.5 mls/hr .Q0M [facility] 4.5 mls/hr Titration Protocol Per Protocol Lactated Ringer's 1,000 mls @ 50 mls/hr 10/12/19 13:00 10/12/19 14:48 Lactated Ringers IV 50 mls/hr .Q20H [facility] Administration Propofol 1,000 mg/ IV Solution 100 mls @ 0 mls/hr 10/12/19 13:00 10/13/19 0 3:20 IV 45 mcg/kg/min .Q0M [facility] 13.716 mls/hr Titration Protocol Titrate Norepinephrine Bitartrate 4 mg 254 mls @ 9.677 mls/hr 10/12/19 14:00 10/13/19 06:07 / Sodium Chloride IV 0.16 mcg/kg/min .Q24H [facility] 30.968 mls/hr Titration Protocol 0.05 MCG/KG/MIN Milrinone Lactate/Dextrose 20 100 mls @ 3.048 mls/hr 10/12/19 15:15 10/12/19 15:21 mg/ IV Solution IV 0.2 mcg/kg/min .Q24H [facility] 3.048 mls/hr Administration 0.2 MCG/KG/MIN Dobutamine HCl/Dextrose 500 mg 250 mls @ 4.572 mls/hr 10/12/19 23:45 10/12/19 23:51 / IV Solution IV 3 mcg/kg/min .Q24H [facility] 4.572 mls/hr Administration 3 MCG/KG/MIN Levothyroxine Sodium 75 mcg 10/13/19 06:30 10/13/19 05:45 Synthroid PO 75 mcg DAILY@0630 [facility] Administration Magnesium Hydroxide 2,400 mg 10/13/19 09:00 Milk Of Magnesia PO BID PRN Constipation Metoclopramide HCl 10 mg 10/12/19 13:00 Reglan IVP Q4H PRN Nausea And Vomiting Metoprolol Tartrate 12.5 mg 10/13/19 09:00 Lopressor PO BID [facility] Miscellaneous Information 1 each 10/12/19 13:00 Magnesium Per Protocol MISCELLANE DAILY PRN Per Protocol Protocol Miscellaneous Information 1 each 10/12/19 13:00 Phosphorus Per Protocol MISCELLANE DAILY PRN Per Protocol Protocol Miscellaneous Information 1 each 10/12/19 13:00 Potassium Per Protocol MISCELLANE DAILY PRN Per Protocol Protocol Ondansetron HCl 4 mg 10/12/19 13:00 Zofran IVP Q6HR PRN Nausea And Vomiting Pantoprazole Sodium 40 mg 10/13/19 09:00 Protonix IVP DAILY [facility] Senna/Docusate Sodium 2 each 10/13/19 21:00 Senokot-S PO HS [facility] Sodium Chloride 10 ml 10/12/19 21:00 10/12/19 21:33 Saline Flush IV 10 ml BID [facility] Administration Tramadol HCl 50 mg 10/12/19 13:00 10/13/19 00:17 Ultram PO 50 mg Q6HR PRN Administration Pain Intake and Output 08/09/2310/12/19 10/13/19 14:59 22:59 06:59 Intake Total 5874.826 0978.696 2628.878 Output Total 2455 1925 1825 Balance -7436.858 6882.696 803.878 Intake: IV 80 312 1538.0 .9NS Cardiac Output 10 120 160 0.9NS Pressure Bags 9 72 72 ACETAMINOPHEN IV (For NPO 100 ) 1,000 mg In Empty Bag 1 bag @ 400 mls/hr IVPB Q6HR [facility] Rx#:[id number] Albumin Human 5% 250 ml 500 In Empty Bag 1 bag @ 250 mls/hr IVPB Q1HR PRN Rx#: [id number] Calcium Gluconate 1 gm In 100 Sodium Chloride 0.9% 100 ml @ 100 mls/hr IVPB ONCE ONE Rx#:[id number] DOBUTamine DRIP 500 mg In 36.0 Dextrose/Water 1 250ml. bag @ 3 MCG/KG/MIN 4.572 mls/hr IV .Q24H [facility] Rx#: [id number] Lactated Ringers 1,000 ml 120 320 @ 50 mls/hr IV .Q20H [facility] Rx#:[id number] Magnesium Sulfate-D5w Pmx 200 1 gm In Dextrose/Water 1 100ml.bag @ 100 mls/hr IVPB Q1H [facility] Rx#: [id number] ceFAZolin 2 gm In Sodium 50 Chloride 0.9% 50 ml @ 100 mls/hr IVPB Q8HR [facility] Rx# :[id number] Intake, IV Titration 249.347 9352.696 428.878 Amount ACETAMINOPHEN IV (For NPO 100 ) 1,000 mg In Empty Bag 1 bag @ 400 mls/hr IVPB Q6HR [facility] Rx#:[id number] Albumin Human 5% 250 ml 250 500 In Empty Bag 1 bag @ 250 mls/hr IVPB Q1HR PRN Rx#: [id number] Amiodarone 300 mg In 210.833 Dextrose 5% in Water 250 ml @ 0.5 MG/MIN 25 mls/hr IV .Q10H PRN Rx#: [id number] Calcium Gluconate 1 gm In 100 Sodium Chloride 0.9% 100 ml @ 100 mls/hr IVPB ONCE ONE Rx#:[id number] Clevidipine Butyrate 25 3.167 mg In Empty Bag 1 bag @ 1 MG/HR 2 mls/hr IV .Q24H [facility] Rx#:[id number] Dextrose 5% in Water 100 300 ml @ 618 mls/hr IV .Q10M ONE with Amiodarone 150 mg Rx#:[id number] Insulin Regular 100 unit 26.392 10.967 In Sodium Chloride 0.9% 100 ml @ Per Protocol IV .Q0M [facility] Rx#:[id number] Lactated Ringers 1,000 ml 50 150 @ 50 mls/hr IV .Q20H [facility] Rx#:[id number] Nitroglycerin-D5w Pmx 50 1.3 mg In Dextrose/Water 1 250ml.bag @ 5 MCG/MIN 1.5 mls/hr IV .Q24H [facility] Rx#: [id number] Norepinephrine 4 mg In 5.967 191.225 145.356 Sodium Chloride 0.9% 250 ml @ 0.05 MCG/KG/MIN 9. 677 mls/hr IV .Q24H [facility] Rx#:[id number] ceFAZolin 2 gm In Sodium 50 Chloride 0.9% 50 ml @ 100 mls/hr IVPB Q8HR [facility] Rx# :[id number] propofoL 1,000 mg In 1.27 24.079 61.722 Empty Bag 1 bag @ Titrate IV .Q0M [facility] Rx#: [id number] Blood Product 792 1809 662 Ffp 24 Cp2d Unit 199 [id number] Ffp 24 Cpd Unit 302 [id number] Ffp 24 Cpd Unit 300 [id number] Platelet Irr Pheresis 2 299 Acda Unit [id number] Platelet Pheresis Acd-A 291 Pasc 2 Unit [id number] Pooled Cryoprecipitate 83 Unit [id number] Pooled Cryoprecipitate 0 93 Unit [id number] Rc As-1 Unit 310 [id number] Rc As-1 Unit 310 [id number] Rc As-3 Unit 0 [id number] Rc As-3 Unit 310 [id number] Output: Chest Tube Drainage 390 1540 840 Left and Right Pleural 150 520 670 Chest Tube Mediastinal Chest Tube 240 1020 170 Urine 565 385 985 Estimated Blood Loss 1500 Other: Voiding Method Indwelling Catheter Indwelling Catheter Weight 57.7 kg Patient Weight 10/13/19 06:59 Weight 57.7 kg 10/13/19 03:12 10/13/19 03:12 Assessment and Plan Assessment: Assessment #1 status post aortic valve replacement and mitral valve repair #2 coronary artery disease and prior stenting of the RCA #3 blood loss anemia #4 paroxysmal atrial fibrillation #5 dyslipidemia #6 carotid disease Plan #1 continue the current medical regimen including dual antiplatelet therapy along with a statin #2 the right wean the patient from norepinephrine #3 switch her to amiodarone by mouth down the line #4 continue monitor the patient hemodynamics including the cardiac index #5 monitor the urine output #6 monitor the hemoglobin as well as kidney function #7 follow-up with the patient
[2019-10-13 07:07] LABS: Glucose,Whole Blood 175 mg/dL (75-99)
--- NOTE | 2019-10-13 07:44 | XR ---
EXAMINATION TYPE: XR chest 1V portable DATE OF EXAM: 10/13/2019 COMPARISON: 10/12/2019 HISTORY: Postop TECHNIQUE: Single frontal view of the chest is obtained. FINDINGS: [place] catheter seen with the tip overlying the proximal pulmonary outflow tract. Bilat eral chest tubes and mediastinal drain seen and there is postoperative change. ET tube approximately 4.5 cm above mauro. Diffuse bilateral airspace disease and pleural effusion. Biapical pleural thicke marcial. Marked biapical pleural thickening. No obvious sizable pneumothorax. Epicardial lead suggested. IMPRESSION: 1. Diffuse bilateral airspace disease correlate for pneumonia versus pulmonary edema with no signific ant interval change. 2. Postsurgical changes
[2019-10-13 08:05] LABS: Glucose,Whole Blood 143 mg/dL (75-99)
[2019-10-13 08:29] LABS: VBG PH 7.3 (7.31-7.41)
[2019-10-13] MEDS: IPRATROPIUM-ALBUTEROL 3 ML NEB INHALATION SCH ×4 (08:43→20:09)
[2019-10-13] MEDS ORDERED: ASPIRIN 325 MG TAB PO SCH (09:00)
[2019-10-13] MEDS ORDERED: MAGNESIUM HYDROXIDE 2,400 MG/10 ML CUP PO PRN (09:00)
[2019-10-13] MEDS: ASPIRIN 81 MG PO SCH (09:00)
[2019-10-13] MEDS ORDERED: METOPROLOL TARTRATE 12.5 MG TAB PO SCH (09:00)
[2019-10-13] MEDS ORDERED: CLOPIDOGREL 75 MG TAB PO SCH (09:00)
[2019-10-13] MEDS: ATORVASTATIN 40 MG TAB PO SCH (09:00)
[2019-10-13] MEDS: PANTOPRAZOLE 40 MG/10 ML VIAL IVP SCH (09:01)
[2019-10-13 09:04] LABS: Glucose,Whole Blood 131 mg/dL (75-99)
[2019-10-13] MEDS: LACTATED RINGERS 1,000 ML IV SCH (09:19)
[2019-10-13 09:20] LABS: Basophils % (A) 0 %; Eosinophils % (A) 1 %; HCT 23.7 % (34.0-46.0); HGB 7.8 gm/dL (11.4-16.0); Lymphocytes # (A) 1.6 k/uL (1.0-4.8); Lymphocytes % (A) 18 %; MCH 29.2 pg (25.0-35.0); MCV 88.7 fL (80.0-100.0); Mean Platelet Volume 8.2; Monocytes # (A) 0.6 k/uL (0-1.0); Monocytes % (A) 7 %; Neutrophils # (A) 6.6 k/uL (1.3-7.7); Neutrophils % (A) 74 %; Platelet Count 104 k/uL (150-450); RBC 2.67 m/uL (3.80-5.40); RDW 15.4 % (11.5-15.5)
[2019-10-13 10:03] LABS: Glucose,Whole Blood 104 mg/dL (75-99)
[2019-10-13 10:58] LABS: Glucose,Whole Blood 110 mg/dL (75-99)
[2019-10-13 11:55] LABS: Glucose,Whole Blood 135 mg/dL (75-99)
--- NOTE | 2019-10-13 12:04 | P.PN ---
Subjective Progress Note Date: 10/13/19 Principal diagnosis: Severe aortic insufficiency, moderate to severe mitral regurgitation, single- vessel coronary artery disease. Previous medical history of coronary artery disease with myocardial infarction and stent placement to the RCA, hypertension, hyperlipidemia, chronic kidney disease stage III, right internal carotid artery stenosis 50-69%, hypothyroidism, TIA in 2004 without residual, remote history of pneumonia, previous tobacco dependence, moderate restriction with preoperative FEV1 50% of predicted, and family history of premature coronary artery disease. POD #1 aortic valve replacement with 21 mm Herrera Inspiris bioprosthetic aortic valve, mitral valve repair with a #28 mm [employer] AnnuloFlex band, reverse saphenous vein graft off the aorta to the right coronary artery with right lower extremity greater saphenous endoscopic vein harvesting, clip ligation of left atrial appendage 35mm AtriClip and intraoperative transesophageal echocardiogram. Postoperative acute blood loss anemia, expected given hemodilution and cardiopulmonary bypass pump Postoperative and intraoperative atrial fibrillation, unexpected but potential outcome of valvular heart surgery The patient's currently laying in bed in the intensive care unit, remains on mechanical ventilation. She has had an eventful postoperative course with hypotension requiring pressor support, low cardiac output requiring inotropes, atrial fibrillation requiring amiodarone, and anemia requiring blood transfusion. She has received 4 units packed red blood cells and is currently receiving her fifth, 3 units fresh frozen plasma, 2 packs of platelets, and 2 packs of cryoprecipitate, in addition to IV albumin. She is currently being paced at 100 bpm to help support her blood pressure, underlying rhythm sinus with a rate in the low 60s. Invasive lines include right internal jugular [place]/Cordis, left radial arterial line, mediastinal as well as right and left pleural chest tubes, and Pratt catheter. Current IV medication includes dobutamine at 3 mcg/kg/min, milrinone at 0.2 mcg/kg/m, amiodarone at 0.5 mg/m, and the Levophed which has been titrated but currently is at 0.2 mcg/kg/m. Propofol is infusing for sedation, patient does open her eyes and squeezes her hands to command as well as wiggles her toes. Transthoracic echocardiogram was completed this morning and was evaluated by cardiology. Mixed venous blood gases were drawn last night and this morning and they demonstrate improvement. Objective - Vital Signs Vital signs: Vital Signs Temp 98.2 F 10/13/19 10:23 Pulse 80 10/13/19 10:30 Resp 23 10/13/19 10:30 BP 97/39 10/13/19 10:30 Pulse Ox 100 10/13/19 10:30 Intake & Output 10/12/19 10/13/19 10/13/19 18:59 06:59 18:59 Intake Total 3157.158 4558.120 965.090 Output Total 3495 2710 450 Balance -003.742 7967.120 515.090 Weight 57.7 kg Intake: IV 166 1764.0 737.0 .9NS Cardiac Output 60 230 40 0.9NS Pressure Bags 45 108 36 ACETAMINOPHEN IV (For NPO 100 ) 1,000 mg In Empty Bag 1 bag @ 400 mls/hr IVPB Q6HR [facility] Rx#:[id number] Albumin Human 5% 250 ml 500 250 In Empty Bag 1 bag @ 250 mls/hr IVPB Q1HR PRN Rx#: [id number] Calcium Gluconate 1 gm In 100 100 Sodium Chloride 0.9% 100 ml @ 100 mls/hr IVPB ONCE ONE Rx#:[id number] DOBUTamine DRIP 500 mg In 36.0 21.0 Dextrose/Water 1 250ml. bag @ 3 MCG/KG/MIN 4.572 mls/hr IV .Q24H [facility] Rx#: [id number] Lactated Ringers 1,000 ml 440 190 @ 50 mls/hr IV .Q20H [facility] Rx#:[id number] Magnesium Sulfate-D5w Pmx 200 1 gm In Dextrose/Water 1 100ml.bag @ 100 mls/hr IVPB Q1H [facility] Rx#: [id number] ceFAZolin 2 gm In Sodium 50 100 Chloride 0.9% 50 ml @ 100 mls/hr IVPB Q8HR [facility] Rx# :[id number] Intake, IV Titration 1590.158 592.120 228.090 Amount ACETAMINOPHEN IV (For NPO 100 ) 1,000 mg In Empty Bag 1 bag @ 400 mls/hr IVPB Q6HR [facility] Rx#:[id number] Albumin Human 5% 250 ml 750 In Empty Bag 1 bag @ 250 mls/hr IVPB Q1HR PRN Rx#: [id number] Amiodarone 300 mg In 210.833 Dextrose 5% in Water 250 ml @ 0.5 MG/MIN 25 mls/hr IV .Q10H PRN Rx#: [id number] Calcium Gluconate 1 gm In 100 Sodium Chloride 0.9% 100 ml @ 100 mls/hr IVPB ONCE ONE Rx#:[id number] Clevidipine Butyrate 25 3.167 mg In Empty Bag 1 bag @ 1 MG/HR 2 mls/hr IV .Q24H [facility] Rx#:[id number] Dextrose 5% in Water 100 300 ml @ 618 mls/hr IV .Q10M ONE with Amiodarone 150 mg Rx#:[id number] Insulin Regular 100 unit 8.325 29.034 15.608 In Sodium Chloride 0.9% 100 ml @ Per Protocol IV .Q0M [facility] Rx#:[id number] Lactated Ringers 1,000 ml 200 @ 50 mls/hr IV .Q20H [facility] Rx#:[id number] Nitroglycerin-D5w Pmx 50 1.3 mg In Dextrose/Water 1 250ml.bag @ 5 MCG/MIN 1.5 mls/hr IV .Q24H [facility] Rx#: [id number] Norepinephrine 4 mg In 67.257 275.291 151.806 Sodium Chloride 0.9% 250 ml @ 0.05 MCG/KG/MIN 9. 677 mls/hr IV .Q24H [facility] Rx#:[id number] ceFAZolin 2 gm In Sodium 50 Chloride 0.9% 50 ml @ 100 mls/hr IVPB Q8HR [facility] Rx# :[id number] propofoL 1,000 mg In 10.109 76.962 60.676 Empty Bag 1 bag @ Titrate IV .Q0M [facility] Rx#: [id number] Blood Product 1401 2202 0 Ffp 24 Cp2d Unit 199 [id number] Ffp 24 Cpd Unit 302 [id number] Ffp 24 Cpd Unit 0 300 [id number] Platelet Irr Pheresis 2 299 Acda Unit [id number] Platelet Pheresis Acd-A 291 Pasc 2 Unit [id number] Pooled Cryoprecipitate 83 Unit [id number] Pooled Cryoprecipitate 93 Unit [id number] Rc As-1 Unit 310 [id number] Rc As-1 Unit 0 [id number] Rc As-1 Unit 310 [id number] Rc As-3 Unit 310 [id number] Rc As-3 Unit 310 [id number] Output: Chest Tube Drainage 1200 1570 295 Left 25 Left and Right Pleural 450 890 90 Chest Tube Mediastinal Chest Tube 750 680 100 Right 80 Urine 795 1140 155 Estimated Blood Loss 1500 Other: Voiding Method Indwelling Catheter Indwelling Catheter Indwelling Catheter ABP, PAP, CO, CI - Last Documented Arterial Blood Pressure 104/44 Pulmonary Artery Pressure 41/27 Cardiac Output 2.1 Cardiac Index 1.4 - Constitutional General appearance: Present: cooperative, no acute distress, thin - Respiratory Details: Lungs sounds diminished bilaterally. Respirations even, nonlabored on mechanical ventilation. Current ventilator settings assist control mode, FiO2 50%, tidal volume 400, respiratory rate 20, PEEP 5. ABGs this morning on those ventilator settings 7.38/41/206/25/29%/-0.6. 8.0 ET tube present, 22 at the lip. Mediastinal chest tube present, connected to continuous wall suction, 170 mL thick clotty drainage overnight, 1750 mL this morning since surgery. Left/right pleural chest tubes present and connected to continuous wall suction, 670 mL thin serosanguineous drainage overnight, 1400 mL since surgery. No air leaks present. - Cardiovascular Details: S1, S2 present. Regular rate and rhythm, atrially paced on telemetry at 100 bpm, underlying sinus rhythm at 60 beats a minute. Sternum stable. A/V ep icardial pacemaker wires present, connected to generator, DDD mode with rate 100 bpm. Palpable peripheral pulses bilaterally. No edema present. Right internal jugular [place]/Cordis, left radial arterial line present. Heart hugger, SCDs, antiembolism stockings all present. - Gastrointestinal Gastrointestinal Comment(s): Abdomen soft, nontender, nondistended. Hypoactive bowel sounds present 4 quadrants. OG tube present to low intermittent suction with minimal gastric drainage. - Genitourinary Genitourinary Comment(s): Pratt present draining clear, yellow urine. Urine output overnight 25 mL per hour increasing to over 100 mL/h after IV Lasix given, back down to 25 mL per hour currently. - Integumentary Integumentary Comment(s): Skin is warm and dry. Patient is very pale. No evidence of skin breakdown. - Psychiatric Psychiatric Comment(s): Currently sedated with propofol. Patient does open her eyes and move all extrem ities to command. She does nod her head yes and shake her head no appropriately when asked questions. - Allied health notes Allied health notes reviewed: nursing - Labs CBC & Chem 7: 10/13/19 08:18 10/13/19 03:12 Labs: Abnormal Lab Results - Last 24 Hours (Table) 10/08/19 10/12/19 10/12/19 Range/Units 09:08 08:47 09:52 WBC (3.8-10.6) k/uL RBC (3.80-5.40) m/uL Hgb (11.4-16.0) gm/dL Hct (34.0-46.0) % Plt Count (150-450) k/uL Neutrophils # (1.3-7.7) k/uL Lymphocytes # (1.0-4.8) k/uL PT (9.0-12.0) sec INR (<1.2) APTT (22.0-30.0) sec Fibrinogen (200-500) mg/dL ABG pH 7.33 L (7.35-7.45) ABG pCO2 50 H (35-45) mmHg ABG pO2 306 H 311 H (83-108) mmHg ABG HCO3 26 H 26 H (21-25) mmol/L ABG Total CO2 28 H 28 H (19-24) mmol/L ABG O2 Saturation 100.0 H 99.8 H (94-97) % ABG Hematocrit (34.0-46.0) % ABG Sodium 133 L 133 L (135-146) mmol/L ABG Potassium (3.4-4.5) mmol/L ABG Ionized Calcium (4.5-5.3) mg/dL ABG Glucose 128 H (75-99) mg/dL ABG Lactic Acid (0.5-1.6) mmol/L VBG pH (7.31-7.41) VBG pCO2 (37-51) mmHg Hemoglobin (11.4-16.0) gm/dL Sodium (137-145) mmol/L Glucose (74-99) mg/dL POC Glucose (mg/dL) (75-99) mg/dL Calcium (8.4-10.2) mg/dL Ionized Calcium Sunny (4.5-5.3) mg/dL Magnesium (1.6-2.3) mg/dL AST (14-36) U/L Alkaline Phosphatase (38-126) U/L Total Protein (6.3-8.2) g/dL Albumin (3.5-5.0) g/dL Arterial Blood Potassium (3.4-4.5) mmol/L Arterial Blood Glucose 128 H (75-99) mg/dL Crossmatch See Detail 10/12/19 10/12/19 10/12/19 Range/Units 10:18 10:48 11:12 WBC (3.8-10.6) k/uL RBC (3.80-5.40) m/uL Hgb (11.4-16.0) gm/dL Hct (34.0-46.0) % Plt Count (150-450) k/uL Neutrophils # (1.3-7.7) k/uL Lymphocytes # (1.0-4.8) k/uL PT (9.0-12.0) sec INR (<1.2) APTT (22.0-30.0) sec Fibrinogen (200-500) mg/dL ABG pH 7.31 L (7.35-7.45) ABG pCO2 49 H (35-45) mmHg ABG pO2 393 H 311 H 381 H (83-108) mmHg ABG HCO3 (21-25) mmol/L ABG Total CO2 25 H 26 H (19-24) mmol/L ABG O2 Saturation 100.0 H 100.0 H 100.0 H (94-97) % ABG Hematocrit 21 L 22 L 21 L (34.0-46.0) % ABG Sodium 126 L 128 L 129 L (135-146) mmol/L ABG Potassium 6.4 H* 5.5 H 4.8 H (3.4-4.5) mmol/L ABG Ionized Calcium 4.0 L 4.2 L 4.0 L (4.5-5.3) mg/dL ABG Glucose 282 H 224 H 215 H (75-99) mg/dL ABG Lactic Acid 1.8 H (0.5-1.6) mmol/L VBG pH (7.31-7.41) VBG pCO2 (37-51) mmHg Hemoglobin 6.8 L* 7.1 L 6.8 L* (11.4-16.0) gm/dL Sodium (137-145) mmol/L Glucose (74-99) mg/dL POC Glucose (mg/dL) (75-99) mg/dL Calcium (8.4-10.2) mg/dL Ionized Calcium Sunny (4.5-5.3) mg/dL Magnesium (1.6-2.3) mg/dL AST (14-36) U/L Alkaline Phosphatase (38-126) U/L Total Protein (6.3-8.2) g/dL Albumin (3.5-5.0) g/dL Arterial Blood Potassium 6.4 H* 5.5 H 4.8 H (3.4-4.5) mmol/L Arterial Blood Glucose 282 H 224 H 215 H (75-99) mg/dL Crossmatch 10/12/19 10/12/19 10/12/19 Range/Units 11:54 12:37 13:50 WBC (3.8-10.6) k/uL RBC 2.57 L (3.80-5.40) m/uL Hgb 7.6 L D (11.4-16.0) gm/dL Hct 23.5 L (34.0-46.0) % Plt Count 112 L D (150-450) k/uL Neutrophils # 8.5 H (1.3-7.7) k/uL Lymphocytes # (1.0-4.8) k/uL PT (9.0-12.0) sec INR (<1.2) APTT (22.0-30.0) sec Fibrinogen (200-500) mg/dL ABG pH 7.34 L (7.35-7.45) ABG pCO2 (35-45) mmHg ABG pO2 >420 H >420 H (83-108) mmHg ABG HCO3 (21-25) mmol/L ABG Total CO2 (19-24) mmol/L ABG O2 Saturation 100.0 H 99.8 H (94-97) % ABG Hematocrit 20 L* 24 L (34.0-46.0) % ABG Sodium 129 L 134 L (135-146) mmol/L ABG Potassium 4.7 H (3.4-4.5) mmol/L ABG Ionized Calcium 4.0 L 4.4 L (4.5-5.3) mg/dL ABG Glucose 194 H 135 H (75-99) mg/dL ABG Lactic Acid 3.2 H* 3.0 H* (0.5-1.6) mmol/L VBG pH (7.31-7.41) VBG pCO2 (37-51) mmHg Hemoglobin 6.6 L* 7.7 L (11.4-16.0) gm/dL Sodium (137-145) mmol/L Glucose (74-99) mg/dL POC Glucose (mg/dL) (75-99) mg/dL Calcium (8.4-10.2) mg/dL Ionized Calcium Sunny (4.5-5.3) mg/dL Magnesium (1.6-2.3) mg/dL AST (14-36) U/L Alkaline Phosphatase (38-126) U/L Total Protein (6.3-8.2) g/dL Albumin (3.5-5.0) g/dL Arterial Blood Potassium 4.7 H (3.4-4.5) mmol/L Arterial Blood Glucose 194 H 135 H (75-99) mg/dL Crossmatch 10/12/19 10/12/19 10/12/19 Range/Units 13:50 13:50 13:54 WBC (3.8-10.6) k/uL RBC (3.80-5.40) m/uL Hgb (11.4-16.0) gm/dL Hct (34.0-46.0) % Plt Count (150-450) k/uL Neutrophils # (1.3-7.7) k/uL Lymphocytes # (1.0-4.8) k/uL PT 12.1 H (9.0-12.0) sec INR 1.2 H (<1.2) APTT 41.1 H (22.0-30.0) sec Fibrinogen (200-500) mg/dL ABG pH (7.35-7.45) ABG pCO2 (35-45) mmHg ABG pO2 (83-108) mmHg ABG HCO3 (21-25) mmol/L ABG Total CO2 (19-24) mmol/L ABG O2 Saturation (94-97) % ABG Hematocrit (34.0-46.0) % ABG Sodium (135-146) mmol/L ABG Potassium (3.4-4.5) mmol/L ABG Ionized Calcium (4.5-5.3) mg/dL ABG Glucose (75-99) mg/dL ABG Lactic Acid (0.5-1.6) mmol/L VBG pH (7.31-7.41) VBG pCO2 (37-51) mmHg Hemoglobin (11.4-16.0) gm/dL Sodium 133 L (137-145) mmol/L Glucose (74-99) mg/dL POC Glucose (mg/dL) 109 H (75-99) mg/dL Calcium 7.9 L (8.4-10.2) mg/dL Ionized Calcium Sunny (4.5-5.3) mg/dL Magnesium 2.9 H (1.6-2.3) mg/dL AST 57 H (14-36) U/L Alkaline Phosphatase 24 L (38-126) U/L Total Protein 4.2 L (6.3-8.2) g/dL Albumin 2.2 L (3.5-5.0) g/dL Arterial Blood Potassium (3.4-4.5) mmol/L Arterial Blood Glucose (75-99) mg/dL Crossmatch 10/12/19 10/12/19 10/12/19 Range/Units 13:59 14:45 15:35 WBC 11.0 H (3.8-10.6) k/uL RBC 2.06 L (3.80-5.40) m/uL Hgb 6.0 L* D (11.4-16.0) gm/dL Hct 18.7 L* (34.0-46.0) % Plt Count 106 L (150-450) k/uL Neutrophils # 9.0 H (1.3-7.7) k/uL Lymphocytes # (1.0-4.8) k/uL PT (9.0-12.0) sec INR (<1.2) APTT (22.0-30.0) sec Fibrinogen (200-500) mg/dL ABG pH (7.35-7.45) ABG pCO2 (35-45) mmHg ABG pO2 391 H (83-108) mmHg ABG HCO3 (21-25) mmol/L ABG Total CO2 27 H (19-24) mmol/L ABG O2 Saturation 100.0 H (94-97) % ABG Hematocrit (34.0-46.0) % ABG Sodium (135-146) mmol/L ABG Potassium (3.4-4.5) mmol/L ABG Ionized Calcium (4.5-5.3) mg/dL ABG Glucose (75-99) mg/dL ABG Lactic Acid (0.5-1.6) mmol/L VBG pH (7.31-7.41) VBG pCO2 (37-51) mmHg Hemoglobin (11.4-16.0) gm/dL Sodium (137-145) mmol/L Glucose (74-99) mg/dL POC Glucose (mg/dL) 170 H (75-99) mg/dL Calcium (8.4-10.2) mg/dL Ionized Calcium Sunny (4.5-5.3) mg/dL Magnesium (1.6-2.3) mg/dL AST (14-36) U/L Alkaline Phosphatase (38-126) U/L Total Protein (6.3-8.2) g/dL Albumin (3.5-5.0) g/dL Arterial Blood Potassium (3.4-4.5) mmol/L Arterial Blood Glucose (75-99) mg/dL Crossmatch 10/12/19 10/12/19 10/12/19 Range/Units 16:10 17:00 19:25 WBC (3.8-10.6) k/uL RBC (3.80-5.40) m/uL Hgb (11.4-16.0) gm/dL Hct (34.0-46.0) % Plt Count (150-450) k/uL Neutrophils # (1.3-7.7) k/uL Lymphocytes # (1.0-4.8) k/uL PT (9.0-12.0) sec INR (<1.2) APTT (22.0-30.0) sec Fibrinogen (200-500) mg/dL ABG pH (7.35-7.45) ABG pCO2 46 H (35-45) mmHg ABG pO2 (83-108) mmHg ABG HCO3 26 H (21-25) mmol/L ABG Total CO2 27 H (19-24) mmol/L ABG O2 Saturation 98.2 H (94-97) % ABG Hematocrit (34.0-46.0) % ABG Sodium (135-146) mmol/L ABG Potassium (3.4-4.5) mmol/L ABG Ionized Calcium (4.5-5.3) mg/dL ABG Glucose (75-99) mg/dL ABG Lactic Acid (0.5-1.6) mmol/L VBG pH (7.31-7.41) VBG pCO2 (37-51) mmHg Hemoglobin (11.4-16.0) gm/dL Sodium (137-145) mmol/L Glucose (74-99) mg/dL POC Glucose (mg/dL) 236 H 193 H (75-99) mg/dL Calcium (8.4-10.2) mg/dL Ionized Calcium Sunny (4.5-5.3) mg/dL Magnesium (1.6-2.3) mg/dL AST (14-36) U/L Alkaline Phosphatase (38-126) U/L Total Protein (6.3-8.2) g/dL Albumin (3.5-5.0) g/dL Arterial Blood Potassium (3.4-4.5) mmol/L Arterial Blood Glucose (75-99) mg/dL Crossmatch 10/12/19 10/12/19 10/12/19 Range/Units 19:56 20:05 21:10 WBC (3.8-10.6) k/uL RBC 2.71 L (3.80-5.40) m/uL Hgb 8.0 L D (11.4-16.0) gm/dL Hct 24.7 L (34.0-46.0) % Plt Count 145 L (150-450) k/uL Neutrophils # (1.3-7.7) k/uL Lymphocytes # 0.7 L (1.0-4.8) k/uL PT (9.0-12.0) sec INR (<1.2) APTT (22.0-30.0) sec Fibrinogen (200-500) mg/dL ABG pH (7.35-7.45) ABG pCO2 (35-45) mmHg ABG pO2 (83-108) mmHg ABG HCO3 (21-25) mmol/L ABG Total CO2 (19-24) mmol/L ABG O2 Saturation (94-97) % ABG Hematocrit (34.0-46.0) % ABG Sodium (135-146) mmol/L ABG Potassium (3.4-4.5) mmol/L ABG Ionized Calcium (4.5-5.3) mg/dL ABG Glucose (75-99) mg/dL ABG Lactic Acid (0.5-1.6) mmol/L VBG pH (7.31-7.41) VBG pCO2 (37-51) mmHg Hemoglobin (11.4-16.0) gm/dL Sodium (137-145) mmol/L Glucose (74-99) mg/dL POC Glucose (mg/dL) 129 H 106 H (75-99) mg/dL Calcium (8.4-10.2) mg/dL Ionized Calcium Sunny (4.5-5.3) mg/dL Magnesium (1.6-2.3) mg/dL AST (14-36) U/L Alkaline Phosphatase (38-126) U/L Total Protein (6.3-8.2) g/dL Albumin (3.5-5.0) g/dL Arterial Blood Potassium (3.4-4.5) mmol/L Arterial Blood Glucose (75-99) mg/dL Crossmatch 10/12/19 10/12/19 10/12/19 Range/Units 21:21 21:53 23:10 WBC (3.8-10.6) k/uL RBC (3.80-5.40) m/uL Hgb (11.4-16.0) gm/dL Hct (34.0-46.0) % Plt Count (150-450) k/uL Neutrophils # (1.3-7.7) k/uL Lymphocytes # (1.0-4.8) k/uL PT 12.8 H (9.0-12.0) sec INR 1.3 H (<1.2) APTT 35.4 H (22.0-30.0) sec Fibrinogen 113 L (200-500) mg/dL ABG pH (7.35-7.45) ABG pCO2 (35-45) mmHg ABG pO2 (83-108) mmHg ABG HCO3 (21-25) mmol/L ABG Total CO2 (19-24) mmol/L ABG O2 Saturation (94-97) % ABG Hematocrit (34.0-46.0) % ABG Sodium (135-146) mmol/L ABG Potassium (3.4-4.5) mmol/L ABG Ionized Calcium (4.5-5.3) mg/dL ABG Glucose (75-99) mg/dL ABG Lactic Acid (0.5-1.6) mmol/L VBG pH (7.31-7.41) VBG pCO2 (37-51) mmHg Hemoglobin (11.4-16.0) gm/dL Sodium (137-145) mmol/L Glucose (74-99) mg/dL POC Glucose (mg/dL) 109 H 119 H (75-99) mg/dL Calcium (8.4-10.2) mg/dL Ionized Calcium Sunny (4.5-5.3) mg/dL Magnesium (1.6-2.3) mg/dL AST (14-36) U/L Alkaline Phosphatase (38-126) U/L Total Protein (6.3-8.2) g/dL Albumin (3.5-5.0) g/dL Arterial Blood Potassium (3.4-4.5) mmol/L Arterial Blood Glucose (75-99) mg/dL Crossmatch 10/12/19 10/13/19 10/13/19 Range/Units 23:47 00:04 01:03 WBC (3.8-10.6) k/uL RBC (3.80-5.40) m/uL Hgb (11.4-16.0) gm/dL Hct (34.0-46.0) % Plt Count (150-450) k/uL Neutrophils # (1.3-7.7) k/uL Lymphocytes # (1.0-4.8) k/uL PT (9.0-12.0) sec INR (<1.2) APTT (22.0-30.0) sec Fibrinogen (200-500) mg/dL ABG pH (7.35-7.45) ABG pCO2 (35-45) mmHg ABG pO2 179 H (83-108) mmHg ABG HCO3 (21-25) mmol/L ABG Total CO2 (19-24) mmol/L ABG O2 Saturation 99.3 H (94-97) % ABG Hematocrit (34.0-46.0) % ABG Sodium (135-146) mmol/L ABG Potassium (3.4-4.5) mmol/L ABG Ionized Calcium (4.5-5.3) mg/dL ABG Glucose (75-99) mg/dL ABG Lactic Acid (0.5-1.6) mmol/L VBG pH (7.31-7.41) VBG pCO2 (37-51) mmHg Hemoglobin (11.4-16.0) gm/dL Sodium (137-145) mmol/L Glucose (74-99) mg/dL POC Glucose (mg/dL) 127 H 155 H (75-99) mg/dL Calcium (8.4-10.2) mg/dL Ionized Calcium Sunny (4.5-5.3) mg/dL Magnesium (1.6-2.3) mg/dL AST (14-36) U/L Alkaline Phosphatase (38-126) U/L Total Protein (6.3-8.2) g/dL Albumin (3.5-5.0) g/dL Arterial Blood Potassium (3.4-4.5) mmol/L Arterial Blood Glucose (75-99) mg/dL Crossmatch 10/13/19 10/13/19 10/13/19 Range/Units 02:11 02:58 03:12 WBC (3.8-10.6) k/uL RBC 2.20 L (3.80-5.40) m/uL Hgb 6.6 L* (11.4-16.0) gm/dL Hct 20.1 L (34.0-46.0) % Plt Count 107 L (150-450) k/uL Neutrophils # (1.3-7.7) k/uL Lymphocytes # 0.9 L (1.0-4.8) k/uL PT (9.0-12.0) sec INR (<1.2) APTT (22.0-30.0) sec Fibrinogen (200-500) mg/dL ABG pH (7.35-7.45) ABG pCO2 (35-45) mmHg ABG pO2 (83-108) mmHg ABG HCO3 (21-25) mmol/L ABG Total CO2 (19-24) mmol/L ABG O2 Saturation (94-97) % ABG Hematocrit (34.0-46.0) % ABG Sodium (135-146) mmol/L ABG Potassium (3.4-4.5) mmol/L ABG Ionized Calcium (4.5-5.3) mg/dL ABG Glucose (75-99) mg/dL ABG Lactic Acid (0.5-1.6) mmol/L VBG pH (7.31-7.41) VBG pCO2 (37-51) mmHg Hemoglobin (11.4-16.0) gm/dL Sodium (137-145) mmol/L Glucose (74-99) mg/dL POC Glucose (mg/dL) 161 H 139 H (75-99) mg/dL Calcium (8.4-10.2) mg/dL Ionized Calcium Sunny (4.5-5.3) mg/dL Magnesium (1.6-2.3) mg/dL AST (14-36) U/L Alkaline Phosphatase (38-126) U/L Total Protein (6.3-8.2) g/dL Albumin (3.5-5.0) g/dL Arterial Blood Potassium (3.4-4.5) mmol/L Arterial Blood Glucose (75-99) mg/dL Crossmatch 10/13/19 10/13/19 10/13/19 Range/Units 03:12 03:12 04:06 WBC (3.8-10.6) k/uL RBC (3.80-5.40) m/uL Hgb (11.4-16.0) gm/dL Hct (34.0-46.0) % Plt Count (150-450) k/uL Neutrophils # (1.3-7.7) k/uL Lymphocytes # (1.0-4.8) k/uL PT (9.0-12.0) sec INR (<1.2) APTT 31.7 H (22.0-30.0) sec Fibrinogen (200-500) mg/dL ABG pH (7.35-7.45) ABG pCO2 (35-45) mmHg ABG pO2 (83-108) mmHg ABG HCO3 (21-25) mmol/L ABG Total CO2 (19-24) mmol/L ABG O2 Saturation (94-97) % ABG Hematocrit (34.0-46.0) % ABG Sodium (135-146) mmol/L ABG Potassium (3.4-4.5) mmol/L ABG Ionized Calcium (4.5-5.3) mg/dL ABG Glucose (75-99) mg/dL ABG Lactic Acid (0.5-1.6) mmol/L VBG pH (7.31-7.41) VBG pCO2 (37-51) mmHg Hemoglobin (11.4-16.0) gm/dL Sodium 132 L (137-145) mmol/L Glucose 136 H (74-99) mg/dL POC Glucose (mg/dL) 156 H (75-99) mg/dL Calcium 7.3 L (8.4-10.2) mg/dL Ionized Calcium Sunny 4.3 L (4.5-5.3) mg/dL Magnesium (1.6-2.3) mg/dL AST 78 H (14-36) U/L Alkaline Phosphatase 23 L (38-126) U/L Total Protein 4.1 L (6.3-8.2) g/dL Albumin 2.6 L (3.5-5.0) g/dL Arterial Blood Potassium (3.4-4.5) mmol/L Arterial Blood Glucose (75-99) mg/dL Crossmatch 10/13/19 10/13/19 10/13/19 Range/Units 05:03 05:26 06:07 WBC (3.8-10.6) k/uL RBC (3.80-5.40) m/uL Hgb (11.4-16.0) gm/dL Hct (34.0-46.0) % Plt Count (150-450) k/uL Neutrophils # (1.3-7.7) k/uL Lymphocytes # (1.0-4.8) k/uL PT (9.0-12.0) sec INR (<1.2) APTT (22.0-30.0) sec Fibrinogen (200-500) mg/dL ABG pH (7.35-7.45) ABG pCO2 (35-45) mmHg ABG pO2 206 H (83-108) mmHg ABG HCO3 (21-25) mmol/L ABG Total CO2 26 H (19-24) mmol/L ABG O2 Saturation 99.6 H (94-97) % ABG Hematocrit (34.0-46.0) % ABG Sodium (135-146) mmol/L ABG Potassium (3.4-4.5) mmol/L ABG Ionized Calcium (4.5-5.3) mg/dL ABG Glucose (75-99) mg/dL ABG Lactic Acid (0.5-1.6) mmol/L VBG pH (7.31-7.41) VBG pCO2 (37-51) mmHg Hemoglobin (11.4-16.0) gm/dL Sodium (137-145) mmol/L Glucose (74-99) mg/dL POC Glucose (mg/dL) 154 H 187 H (75-99) mg/dL Calcium (8.4-10.2) mg/dL Ionized Calcium Sunny (4.5-5.3) mg/dL Magnesium (1.6-2.3) mg/dL AST (14-36) U/L Alkaline Phosphatase (38-126) U/L Total Protein (6.3-8.2) g/dL Albumin (3.5-5.0) g/dL Arterial Blood Potassium (3.4-4.5) mmol/L Arterial Blood Glucose (75-99) mg/dL Crossmatch 10/13/19 10/13/19 10/13/19 Range/Units 07:07 08:00 08:02 WBC (3.8-10.6) k/uL RBC (3.80-5.40) m/uL Hgb (11.4-16.0) gm/dL Hct (34.0-46.0) % Plt Count (150-450) k/uL Neutrophils # (1.3-7.7) k/uL Lymphocytes # (1.0-4.8) k/uL PT (9.0-12.0) sec INR (<1.2) APTT (22.0-30.0) sec Fibrinogen (200-500) mg/dL ABG pH (7.35-7.45) ABG pCO2 (35-45) mmHg ABG pO2 (83-108) mmHg ABG HCO3 (21-25) mmol/L ABG Total CO2 (19-24) mmol/L ABG O2 Saturation (94-97) % ABG Hematocrit (34.0-46.0) % ABG Sodium (135-146) mmol/L ABG Potassium (3.4-4.5) mmol/L ABG Ionized Calcium (4.5-5.3) mg/dL ABG Glucose (75-99) mg/dL ABG Lactic Acid (0.5-1.6) mmol/L VBG pH 7.30 L (7.31-7.41) VBG pCO2 53 H (37-51) mmHg Hemoglobin (11.4-16.0) gm/dL Sodium (137-145) mmol/L Glucose (74-99) mg/dL POC Glucose (mg/dL) 175 H 143 H (75-99) mg/dL Calcium (8.4-10.2) mg/dL Ionized Calcium Sunny (4.5-5.3) mg/dL Magnesium (1.6-2.3) mg/dL AST (14-36) U/L Alkaline Phosphatase (38-126) U/L Total Protein (6.3-8.2) g/dL Albumin (3.5-5.0) g/dL Arterial Blood Potassium (3.4-4.5) mmol/L Arterial Blood Glucose (75-99) mg/dL Crossmatch 10/13/19 10/13/19 10/13/19 Range/Units 08:18 08:52 10:01 WBC (3.8-10.6) k/uL RBC 2.67 L (3.80-5.40) m/uL Hgb 7.8 L (11.4-16.0) gm/dL Hct 23.7 L (34.0-46.0) % Plt Count 104 L (150-450) k/uL Neutrophils # (1.3-7.7) k/uL Lymphocytes # (1.0-4.8) k/uL PT (9.0-12.0) sec INR (<1.2) APTT (22.0-30.0) sec Fibrinogen (200-500) mg/dL ABG pH (7.35-7.45) ABG pCO2 (35-45) mmHg ABG pO2 (83-108) mmHg ABG HCO3 (21-25) mmol/L ABG Total CO2 (19-24) mmol/L ABG O2 Saturation (94-97) % ABG Hematocrit (34.0-46.0) % ABG Sodium (135-146) mmol/L ABG Potassium (3.4-4.5) mmol/L ABG Ionized Calcium (4.5-5.3) mg/dL ABG Glucose (75-99) mg/dL ABG Lactic Acid (0.5-1.6) mmol/L VBG pH (7.31-7.41) VBG pCO2 (37-51) mmHg Hemoglobin (11.4-16.0) gm/dL Sodium (137-145) mmol/L Glucose (74-99) mg/dL POC Glucose (mg/dL) 131 H 104 H (75-99) mg/dL Calcium (8.4-10.2) mg/dL Ionized Calcium Sunny (4.5-5.3) mg/dL Magnesium (1.6-2.3) mg/dL AST (14-36) U/L Alkaline Phosphatase (38-126) U/L Total Protein (6.3-8.2) g/dL Albumin (3.5-5.0) g/dL Arterial Blood Potassium (3.4-4.5) mmol/L Arterial Blood Glucose (75-99) mg/dL Crossmatch - Imaging and Cardiology Chest x-ray: report reviewed, image reviewed Assessment and Plan Assessment: 1. Severe aortic insufficiency, status post bioprosthetic aortic valve replacement 2. Moderate to severe mitral regurgitation, status post mitral valve repair 3. Single-vessel coronary artery disease, status post bypass to the RCA 4. History of coronary artery disease with myocardial infarction, status post stent placement to the RCA 5. History of hypertension, currently hypotensive 6. History of hyperlipidemia, treated 7. Right internal carotid artery stenosis 50-69% 8. Chronic kidney disease stage III 9. Hypothyroid 10. TIA in 2004 without residual 11. Remote history of pneumonia 12. Previous tobacco dependence 13. Moderate lung restriction with preoperative FEV1 58% of predicted 14. Family history of premature coronary artery disease 15. Postoperative acute blood loss anemia, status post transfusion 16. Postoperative and intraoperative atrial fibrillation, status post clip ligation of left atrial appendage and amiodarone initiation Plan: 1. Continue low-dose aspirin, statin. Will hold off on Plavix and beta alan. Wean levo as tolerated 2. Continue IV amiodarone for A. fib prophylaxis. No anticoagulation 3. Mechanical ventilation, bronchodilators per pulmonology. Use as minimal sedation as possible 4. Will monitor daily labs and x-rays. Currently receiving fifth unit packed red blood cells, will recheck hemoglobin 2 hours post transfusion. Electrolyte replacement per protocol 5. Continue dobutamine and Primacor at current rates for now 6. GI/DVT prophylaxis. 7. Will initiate tube feedings for nutrition. Dietitian has been consulted 8. Pain control with current medication regimen. No Toradol 9. Insulin management per primary care service. Preoperative hemoglobin A1c 5.5% 10. Reviewed transthoracic echocardiogram with cardiology 11. Mediastinal chest tube was suctioned with small bore catheter. Right and left pleural chest tubes were split. Continue to monitor chest tube output and consistency 12. Continue to pace patient at 100 bpm. Do not change pacemaker settings without discussing with cardiac surgery 13. Patient's daughter was updated this morning, all questions were answered 14. More recommendations to follow Time with Patient: Greater than 30
[2019-10-13] MEDS: SODIUM CHLORIDE 0.9% 1,000 ML IV SCH (12:09)
[2019-10-13 13:02] LABS: Glucose,Whole Blood 152 mg/dL (75-99)
--- NOTE | 2019-10-13 13:05 | P.PN ---
Subjective Progress Note Date: 10/13/192019, the patient is postop day #1. The patient underwent single-vessel bypass surgery, aortic valve replacement and mitral valve repair. She is known to have coronary artery disease, valvular insufficiency, hypertension and hyperlipidemia and chronic stage III kidney disease. The patient also is known to have carotid artery disease 50% on the right, hypothyroidism, and history of interstitial lung disease with pulmonary fibrosis and severe restrictive lung disease with a FVC in the 50% range preoperatively. On today's evaluation, the patient is still intubated on mechanical ventilator. Were unable to wean the patient off the mechanical ventilator and extubated because of her ongoing difficulties with hemodynamics and bleeding from the chest tubes. Note that the patient is still in intensive care unit and she is still sedated for now at propofol which is running at 20 g per KG per minute. The patient is still requiring inotropes. The patient was quite hypotensive after arrival from the operating room and she was having difficulties with bradycardia. She is currently paced at the rate of 80. She is on norepinephrine infusion which is running at 0.26 mg per KG per minute. She was started on milrinone yesterday at 0.2 g and at a later stage dobutamine was also added. Earlier this morning, cardiothoracic surgery saw the patient and increase the paced rhythm of 200 beats per minutes. Her underlying rhythm this morning is normal sinus rate of 60. She is at dobutamine at the medical grams per KG per minute and milrinone at 0.2 mics respiratory KG per minute. She is a lso on amiodarone at 0.5 mg/m. The right is being titrated pH has an adequate urine output. Most recent hemodynamics indicate a cardiac index of 1.9. Pulmonary artery pressures are 46/25 mmHg. A bedside echocardiogram was done and there is no evidence of any pericardial effusion. Valve functions were adequate. The mediastinal chest tubes are in place and the pleural chest tube is in place. There was ongoing issues with clotting and drainage from the chest tubes. Appropriate cleaning and suctioning of the chest tubes were done. Overall, the patient received a total of 4 units of packed RBC, 3 units of fresh frozen plasma, 2 units of packed RBC and 2 packs of cryoprecipitate in addition to call is in the form of IV albumin throughout the resuscitation. No ongoing or active bleed at this point in time. No attempts for weaning off the mechanical ventilator. The patient is currently on a assist-control mode of ventilation at the rate of 20 with tidal volume of 400 and FiO2 of 50% with a PEEP of 5. Blood gas showed a pH of 7.38 with a pCO2 of 41 and pO2 of 206. Chest x-ray showed adequate expansion of both lungs. There is underlying chronic incision infiltrates. ET tube is in a good location. Chest x-rays well expanded. No pneumothorax. No atelectasis. Objective - Vital Signs Vital signs: Vital Signs Temp 98.6 F 10/13/19 12:42 Pulse 100 10/13/19 12:42 Resp 13 10/13/19 12:42 BP 97/47 10/13/19 12:42 Pulse Ox 95 10/13/19 12:42 Intake & Output 10/12/19 10/13/19 10/13/19 18:59 06:59 18:59 Intake Total 3157.158 4558.120 1531.748 Output Total 3495 2710 717 Balance -044.733 8811.120 814.748 Weight 57.7 kg 57.7 kg Intake: IV 166 1764.0 904.0 .9NS Cardiac Output 60 230 80 0.9NS Pressure Bags 45 108 54 ACETAMINOPHEN IV (For NPO 100 ) 1,000 mg In Empty Bag 1 bag @ 400 mls/hr IVPB Q6HR [facility] Rx#:[id number] Albumin Human 5% 250 ml 500 250 In Empty Bag 1 bag @ 250 mls/hr IVPB Q1HR PRN Rx#: [id number] Calcium Gluconate 1 gm In 100 100 Sodium Chloride 0.9% 100 ml @ 100 mls/hr IVPB ONCE ONE Rx#:[id number] DOBUTamine DRIP 500 mg In 36.0 30.0 Dextrose/Water 1 250ml. bag @ 3 MCG/KG/MIN 4.572 mls/hr IV .Q24H [facility] Rx#: [id number] Lactated Ringers 1,000 ml 440 290 @ 50 mls/hr IV .Q20H [facility] Rx#:[id number] Magnesium Sulfate-D5w Pmx 200 1 gm In Dextrose/Water 1 100ml.bag @ 100 mls/hr IVPB Q1H [facility] Rx#: [id number] ceFAZolin 2 gm In Sodium 50 100 Chloride 0.9% 50 ml @ 100 mls/hr IVPB Q8HR [facility] Rx# :[id number] Intake, IV Titration 1590.158 592.120 257.748 Amount ACETAMINOPHEN IV (For NPO 100 ) 1,000 mg In Empty Bag 1 bag @ 400 mls/hr IVPB Q6HR [facility] Rx#:[id number] Albumin Human 5% 250 ml 750 In Empty Bag 1 bag @ 250 mls/hr IVPB Q1HR PRN Rx#: [id number] Amiodarone 300 mg In 210.833 Dextrose 5% in Water 250 ml @ 0.5 MG/MIN 25 mls/hr IV .Q10H PRN Rx#: [id number] Calcium Gluconate 1 gm In 100 Sodium Chloride 0.9% 100 ml @ 100 mls/hr IVPB ONCE ONE Rx#:[id number] Clevidipine Butyrate 25 3.167 mg In Empty Bag 1 bag @ 1 MG/HR 2 mls/hr IV .Q24H [facility] Rx#:[id number] Dextrose 5% in Water 100 300 ml @ 618 mls/hr IV .Q10M ONE with Amiodarone 150 mg Rx#:[id number] Insulin Regular 100 unit 8.325 29.034 15.608 In Sodium Chloride 0.9% 100 ml @ Per Protocol IV .Q0M [facility] Rx#:[id number] Lactated Ringers 1,000 ml 200 @ 50 mls/hr IV .Q20H [facility] Rx#:[id number] Nitroglycerin-D5w Pmx 50 1.3 mg In Dextrose/Water 1 250ml.bag @ 5 MCG/MIN 1.5 mls/hr IV .Q24H [facility] Rx#: [id number] Norepinephrine 4 mg In 67.257 275.291 151.806 Sodium Chloride 0.9% 250 ml @ 0.05 MCG/KG/MIN 9. 677 mls/hr IV .Q24H [facility] Rx#:[id number] ceFAZolin 2 gm In Sodium 50 Chloride 0.9% 50 ml @ 100 mls/hr IVPB Q8HR [facility] Rx# :[id number] propofoL 1,000 mg In 10.109 76.962 90.334 Empty Bag 1 bag @ Titrate IV .Q0M [facility] Rx#: [id number] Oral 60 Blood Product 1401 2202 310 Ffp 24 Cp2d Unit 199 [id number] Ffp 24 Cpd Unit 302 [id number] Ffp 24 Cpd Unit 0 300 [id number] Platelet Irr Pheresis 2 299 Acda Unit [id number] Platelet Pheresis Acd-A 291 Pasc 2 Unit [id number] Pooled Cryoprecipitate 83 Unit [id number] Pooled Cryoprecipitate 93 Unit [id number] Rc As-1 Unit 310 [id number] Rc As-1 Unit 310 [id number] Rc As-1 Unit 310 [id number] Rc As-3 Unit 310 [id number] Rc As-3 Unit 310 [id number] Output: Chest Tube Drainage 1200 1570 475 Left 65 Left and Right Pleural 450 890 90 Chest Tube Mediastinal Chest Tube 750 680 100 Right 220 Urine 795 1140 242 Estimated Blood Loss 1500 Other: Voiding Method Indwelling Catheter Indwelling Catheter Indwelling Catheter ABP, PAP, CO, CI - Last Documented Arterial Blood Pressure 115/50 Pulmonary Artery Pressure 45/31 Cardiac Output 3.9 Cardiac Index 2.5 - Exam - Constitutional General appearance: Present: cooperative, no acute distress, thin - Respiratory Details: Lungs sounds diminished bilaterally. Respirations even, nonlabored on mechanical ventilation. Current ventilator settings assist control mode, FiO2 50%, tidal volume 400, respiratory rate 20, PEEP 5. ABGs this morning on those ventilator settings 7.38/41/206/25/29%/-0.6. 8.0 ET tube present, 22 at the lip. Mediastinal chest tube present, connected to continuous wall suction, 170 mL thick clotty drainage overnight, 1750 mL this morning since surgery. Left/right pleural chest tubes present and connected to continuous wall suction, 670 mL thin serosanguineous drainage overnight, 1400 mL since surgery. No air leaks present. - Cardiovascular Details: S1, S2 present. Regular rate and rhythm, atrially paced on telemetry at 100 bpm, underlying sinus rhythm at 60 beats a minute. Sternum stable. A/V epicardial pacemaker wires present, connected to generator, DDD mode with rate 100 bpm. Palpable peripheral pulses bilaterally. No edema present. Right internal jugular [place]/Cordis, left radial arterial line present. Heart hugger, SCDs, antiembolism stockings all present. - Gastrointestinal Gastrointestinal Comment(s): Abdomen soft, nontender, nondistended. Hypoactive bowel sounds present 4 quadrants. OG tube present to low intermittent suction with minimal gastric drainage. - Genitourinary Genitourinary Comment(s): Pratt present draining clear, yellow urine. Urine output overnight 25 mL per hour increasing to over 100 mL/h after IV Lasix given, back down to 25 mL per hour currently. - Integumentary Integumentary Comment(s): Skin is warm and dry. Patient is very pale. No evidence of skin breakdown. - Psychiatric Psychiatric Comment(s): Currently sedated with propofol. Patient does open her eyes and move all extremities to command. She does nod her head yes and shake her head no appr opriately when asked questions. - Labs CBC & Chem 7: 10/13/19 08:18 10/13/19 03:12 Labs: Abnormal Lab Results - Last 24 Hours (Table) 10/08/19 10/12/19 10/12/19 Range/Units 09:08 08:47 09:52 WBC (3.8-10.6) k/uL RBC (3.80-5.40) m/uL Hgb (11.4-16.0) gm/dL Hct (34.0-46.0) % Plt Count (150-450) k/uL Neutrophils # (1.3-7.7) k/uL Lymphocytes # (1.0-4.8) k/uL PT (9.0-12.0) sec INR (<1.2) APTT (22.0-30.0) sec Fibrinogen (200-500) mg/dL ABG pH 7.33 L (7.35-7.45) ABG pCO2 50 H (35-45) mmHg ABG pO2 306 H 311 H (83-108) mmHg ABG HCO3 26 H 26 H (21-25) mmol/L ABG Total CO2 28 H 28 H (19-24) mmol/L ABG O2 Saturation 100.0 H 99.8 H (94-97) % ABG Hematocrit (34.0-46.0) % ABG Sodium 133 L 133 L (135-146) mmol/L ABG Potassium (3.4-4.5) mmol/L ABG Ionized Calcium (4.5-5.3) mg/dL ABG Glucose 128 H (75-99) mg/dL ABG Lactic Acid (0.5-1.6) mmol/L VBG pH (7.31-7.41) VBG pCO2 (37-51) mmHg Hemoglobin (11.4-16.0) gm/dL Sodium (137-145) mmol/L Glucose (74-99) mg/dL POC Glucose (mg/dL) (75-99) mg/dL Calcium (8.4-10.2) mg/dL Ionized Calcium Sunny (4.5-5.3) mg/dL Magnesium (1.6-2.3) mg/dL AST (14-36) U/L Alkaline Phosphatase (38-126) U/L Total Protein (6.3-8.2) g/dL Albumin (3.5-5.0) g/dL Arterial Blood Potassium (3.4-4.5) mmol/L Arterial Blood Glucose 128 H (75-99) mg/dL Crossmatch See Detail 10/12/19 10/12/19 10/12/19 Range/Units 10:18 10:48 11:12 WBC (3.8-10.6) k/uL RBC (3.80-5.40) m/uL Hgb (11.4-16.0) gm/dL Hct (34.0-46.0) % Plt Count (150-450) k/uL Neutrophils # (1.3-7.7) k/uL Lymphocytes # (1.0-4.8) k/uL PT (9.0-12.0) sec INR (<1.2) APTT (22.0-30.0) sec Fibrinogen (200-500) mg/dL ABG pH 7.31 L (7.35-7.45) ABG pCO2 49 H (35-45) mmHg ABG pO2 393 H 311 H 381 H (83-108) mmHg ABG HCO3 (21-25) mmol/L ABG Total CO2 25 H 26 H (19-24) mmol/L ABG O2 Saturation 100.0 H 100.0 H 100.0 H (94-97) % ABG Hematocrit 21 L 22 L 21 L (34.0-46.0) % ABG Sodium 126 L 128 L 129 L (135-146) mmol/L ABG Potassium 6.4 H* 5.5 H 4.8 H (3.4-4.5) mmol/L ABG Ionized Calcium 4.0 L 4.2 L 4.0 L (4.5-5.3) mg/dL ABG Glucose 282 H 224 H 215 H (75-99) mg/dL ABG Lactic Acid 1.8 H (0.5-1.6) mmol/L VBG pH (7.31-7.41) VBG pCO2 (37-51) mmHg Hemoglobin 6.8 L* 7.1 L 6.8 L* (11.4-16.0) gm/dL Sodium (137-145) mmol/L Glucose (74-99) mg/dL POC Glucose (mg/dL) (75-99) mg/dL Calcium (8.4-10.2) mg/dL Ionized Calcium Sunny (4.5-5.3) mg/dL Magnesium (1.6-2.3) mg/dL AST (14-36) U/L Alkaline Phosphatase (38-126) U/L Total Protein (6.3-8.2) g/dL Albumin (3.5-5.0) g/dL Arterial Blood Potassium 6.4 H* 5.5 H 4.8 H (3.4-4.5) mmol/L Arterial Blood Glucose 282 H 224 H 215 H (75-99) mg/dL Crossmatch 10/12/19 10/12/19 10/12/19 Range/Units 11:54 12:37 13:50 WBC (3.8-10.6) k/uL RBC 2.57 L (3.80-5.40) m/uL Hgb 7.6 L D (11.4-16.0) gm/dL Hct 23.5 L (34.0-46.0) % Plt Count 112 L D (150-450) k/uL Neutrophils # 8.5 H (1.3-7.7) k/uL Lymphocytes # (1.0-4.8) k/uL PT (9.0-12.0) sec INR (<1.2) APTT (22.0-30.0) sec Fibrinogen (200-500) mg/dL ABG pH 7.34 L (7.35-7.45) ABG pCO2 (35-45) mmHg ABG pO2 >420 H >420 H (83-108) mmHg ABG HCO3 (21-25) mmol/L ABG Total CO2 (19-24) mmol/L ABG O2 Saturation 100.0 H 99.8 H (94-97) % ABG Hematocrit 20 L* 24 L (34.0-46.0) % ABG Sodium 129 L 134 L (135-146) mmol/L ABG Potassium 4.7 H (3.4-4.5) mmol/L ABG Ionized Calcium 4.0 L 4.4 L (4.5-5.3) mg/dL ABG Glucose 194 H 135 H (75-99) mg/dL ABG Lactic Acid 3.2 H* 3.0 H* (0.5-1.6) mmol/L VBG pH (7.31-7.41) VBG pCO2 (37-51) mmHg Hemoglobin 6.6 L* 7.7 L (11.4-16.0) gm/dL Sodium (137-145) mmol/L Glucose (74-99) mg/dL POC Glucose (mg/dL) (75-99) mg/dL Calcium (8.4-10.2) mg/dL Ionized Calcium Sunny (4.5-5.3) mg/dL Magnesium (1.6-2.3) mg/dL AST (14-36) U/L Alkaline Phosphatase (38-126) U/L Total Protein (6.3-8.2) g/dL Albumin (3.5-5.0) g/dL Arterial Blood Potassium 4.7 H (3.4-4.5) mmol/L Arterial Blood Glucose 194 H 135 H (75-99) mg/dL Crossmatch 10/12/19 10/12/19 10/12/19 Range/Units 13:50 13:50 13:54 WBC (3.8-10.6) k/uL RBC (3.80-5.40) m/uL Hgb (11.4-16.0) gm/dL Hct (34.0-46.0) % Plt Count (150-450) k/uL Neutrophils # (1.3-7.7) k/uL Lymphocytes # (1.0-4.8) k/uL PT 12.1 H (9.0-12.0) sec INR 1.2 H (<1.2) APTT 41.1 H (22.0-30.0) sec Fibrinogen (200-500) mg/dL ABG pH (7.35-7.45) ABG pCO2 (35-45) mmHg ABG pO2 (83-108) mmHg ABG HCO3 (21-25) mmol/L ABG Total CO2 (19-24) mmol/L ABG O2 Saturation (94-97) % ABG Hematocrit (34.0-46.0) % ABG Sodium (135-146) mmol/L ABG Potassium (3.4-4.5) mmol/L ABG Ionized Calcium (4.5-5.3) mg/dL ABG Glucose (75-99) mg/dL ABG Lactic Acid (0.5-1.6) mmol/L VBG pH (7.31-7.41) VBG pCO2 (37-51) mmHg Hemoglobin (11.4-16.0) gm/dL Sodium 133 L (137-145) mmol/L Glucose (74-99) mg/dL POC Glucose (mg/dL) 109 H (75-99) mg/dL Calcium 7.9 L (8.4-10.2) mg/dL Ionized Calcium Sunny (4.5-5.3) mg/dL Magnesium 2.9 H (1.6-2.3) mg/dL AST 57 H (14-36) U/L Alkaline Phosphatase 24 L (38-126) U/L Total Protein 4.2 L (6.3-8.2) g/dL Albumin 2.2 L (3.5-5.0) g/dL Arterial Blood Potassium (3.4-4.5) mmol/L Arterial Blood Glucose (75-99) mg/dL Crossmatch 10/12/19 10/12/19 10/12/19 Range/Units 13:59 14:45 15:35 WBC 11.0 H (3.8-10.6) k/uL RBC 2.06 L (3.80-5.40) m/uL Hgb 6.0 L* D (11.4-16.0) gm/dL Hct 18.7 L* (34.0-46.0) % Plt Count 106 L (150-450) k/uL Neutrophils # 9.0 H (1.3-7.7) k/uL Lymphocytes # (1.0-4.8) k/uL PT (9.0-12.0) sec INR (<1.2) APTT (22.0-30.0) sec Fibrinogen (200-500) mg/dL ABG pH (7.35-7.45) ABG pCO2 (35-45) mmHg ABG pO2 391 H (83-108) mmHg ABG HCO3 (21-25) mmol/L ABG Total CO2 27 H (19-24) mmol/L ABG O2 Saturation 100.0 H (94-97) % ABG Hematocrit (34.0-46.0) % ABG Sodium (135-146) mmol/L ABG Potassium (3.4-4.5) mmol/L ABG Ionized Calcium (4.5-5.3) mg/dL ABG Glucose (75-99) mg/dL ABG Lactic Acid (0.5-1.6) mmol/L VBG pH (7.31-7.41) VBG pCO2 (37-51) mmHg Hemoglobin (11.4-16.0) gm/dL Sodium (137-145) mmol/L Glucose (74-99) mg/dL POC Glucose (mg/dL) 170 H (75-99) mg/dL Calcium (8.4-10.2) mg/dL Ionized Calcium Sunny (4.5-5.3) mg/dL Magnesium (1.6-2.3) mg/dL AST (14-36) U/L Alkaline Phosphatase (38-126) U/L Total Protein (6.3-8.2) g/dL Albumin (3.5-5.0) g/dL Arterial Blood Potassium (3.4-4.5) mmol/L Arterial Blood Glucose (75-99) mg/dL Crossmatch 10/12/19 10/12/19 10/12/19 Range/Units 16:10 17:00 19:25 WBC (3.8-10.6) k/uL RBC (3.80-5.40) m/uL Hgb (11.4-16.0) gm/dL Hct (34.0-46.0) % Plt Count (150-450) k/uL Neutrophils # (1.3-7.7) k/uL Lymphocytes # (1.0-4.8) k/uL PT (9.0-12.0) sec INR (<1.2) APTT (22.0-30.0) sec Fibrinogen (200-500) mg/dL ABG pH (7.35-7.45) ABG pCO2 46 H (35-45) mmHg ABG pO2 (83-108) mmHg ABG HCO3 26 H (21-25) mmol/L ABG Total CO2 27 H (19-24) mmol/L ABG O2 Saturation 98.2 H (94-97) % ABG Hematocrit (34.0-46.0) % ABG Sodium (135-146) mmol/L ABG Potassium (3.4-4.5) mmol/L ABG Ionized Calcium (4.5-5.3) mg/dL ABG Glucose (75-99) mg/dL ABG Lactic Acid (0.5-1.6) mmol/L VBG pH (7.31-7.41) VBG pCO2 (37-51) mmHg Hemoglobin (11.4-16.0) gm/dL Sodium (137-145) mmol/L Glucose (74-99) mg/dL POC Glucose (mg/dL) 236 H 193 H (75-99) mg/dL Calcium (8.4-10.2) mg/dL Ionized Calcium Sunny (4.5-5.3) mg/dL Magnesium (1.6-2.3) mg/dL AST (14-36) U/L Alkaline Phosphatase (38-126) U/L Total Protein (6.3-8.2) g/dL Albumin (3.5-5.0) g/dL Arterial Blood Potassium (3.4-4.5) mmol/L Arterial Blood Glucose (75-99) mg/dL Crossmatch 10/12/19 10/12/19 10/12/19 Range/Units 19:56 20:05 21:10 WBC (3.8-10.6) k/uL RBC 2.71 L (3.80-5.40) m/uL Hgb 8.0 L D (11.4-16.0) gm/dL Hct 24.7 L (34.0-46.0) % Plt Count 145 L (150-450) k/uL Neutrophils # (1.3-7.7) k/uL Lymphocytes # 0.7 L (1.0-4.8) k/uL PT (9.0-12.0) sec INR (<1.2) APTT (22.0-30.0) sec Fibrinogen (200-500) mg/dL ABG pH (7.35-7.45) ABG pCO2 (35-45) mmHg ABG pO2 (83-108) mmHg ABG HCO3 (21-25) mmol/L ABG Total CO2 (19-24) mmol/L ABG O2 Saturation (94-97) % ABG Hematocrit (34.0-46.0) % ABG Sodium (135-146) mmol/L ABG Potassium (3.4-4.5) mmol/L ABG Ionized Calcium (4.5-5.3) mg/dL ABG Glucose (75-99) mg/dL ABG Lactic Acid (0.5-1.6) mmol/L VBG pH (7.31-7.41) VBG pCO2 (37-51) mmHg Hemoglobin (11.4-16.0) gm/dL Sodium (137-145) mmol/L Glucose (74-99) mg/dL POC Glucose (mg/dL) 129 H 106 H (75-99) mg/dL Calcium (8.4-10.2) mg/dL Ionized Calcium Sunny (4.5-5.3) mg/dL Magnesium (1.6-2.3) mg/dL AST (14-36) U/L Alkaline Phosphatase (38-126) U/L Total Protein (6.3-8.2) g/dL Albumin (3.5-5.0) g/dL Arterial Blood Potassium (3.4-4.5) mmol/L Arterial Blood Glucose (75-99) mg/dL Crossmatch 10/12/19 10/12/19 10/12/19 Range/Units 21:21 21:53 23:10 WBC (3.8-10.6) k/uL RBC (3.80-5.40) m/uL Hgb (11.4-16.0) gm/dL Hct (34.0-46.0) % Plt Count (150-450) k/uL Neutrophils # (1.3-7.7) k/uL Lymphocytes # (1.0-4.8) k/uL PT 12.8 H (9.0-12.0) sec INR 1.3 H (<1.2) APTT 35.4 H (22.0-30.0) sec Fibrinogen 113 L (200-500) mg/dL ABG pH (7.35-7.45) ABG pCO2 (35-45) mmHg ABG pO2 (83-108) mmHg ABG HCO3 (21-25) mmol/L ABG Total CO2 (19-24) mmol/L ABG O2 Saturation (94-97) % ABG Hematocrit (34.0-46.0) % ABG Sodium (135-146) mmol/L ABG Potassium (3.4-4.5) mmol/L ABG Ionized Calcium (4.5-5.3) mg/dL ABG Glucose (75-99) mg/dL ABG Lactic Acid (0.5-1.6) mmol/L VBG pH (7.31-7.41) VBG pCO2 (37-51) mmHg Hemoglobin (11.4-16.0) gm/dL Sodium (137-145) mmol/L Glucose (74-99) mg/dL POC Glucose (mg/dL) 109 H 119 H (75-99) mg/dL Calcium (8.4-10.2) mg/dL Ionized Calcium Sunny (4.5-5.3) mg/dL Magnesium (1.6-2.3) mg/dL AST (14-36) U/L Alkaline Phosphatase (38-126) U/L Total Protein (6.3-8.2) g/dL Albumin (3.5-5.0) g/dL Arterial Blood Potassium (3.4-4.5) mmol/L Arterial Blood Glucose (75-99) mg/dL Crossmatch 10/12/19 10/13/19 10/13/19 Range/Units 23:47 00:04 01:03 WBC (3.8-10.6) k/uL RBC (3.80-5.40) m/uL Hgb (11.4-16.0) gm/dL Hct (34.0-46.0) % Plt Count (150-450) k/uL Neutrophils # (1.3-7.7) k/uL Lymphocytes # (1.0-4.8) k/uL PT (9.0-12.0) sec INR (<1.2) APTT (22.0-30.0) sec Fibrinogen (200-500) mg/dL ABG pH (7.35-7.45) ABG pCO2 (35-45) mmHg ABG pO2 179 H (83-108) mmHg ABG HCO3 (21-25) mmol/L ABG Total CO2 (19-24) mmol/L ABG O2 Saturation 99.3 H (94-97) % ABG Hematocrit (34.0-46.0) % ABG Sodium (135-146) mmol/L ABG Potassium (3.4-4.5) mmol/L ABG Ionized Calcium (4.5-5.3) mg/dL ABG Glucose (75-99) mg/dL ABG Lactic Acid (0.5-1.6) mmol/L VBG pH (7.31-7.41) VBG pCO2 (37-51) mmHg Hemoglobin (11.4-16.0) gm/dL Sodium (137-145) mmol/L Glucose (74-99) mg/dL POC Glucose (mg/dL) 127 H 155 H (75-99) mg/dL Calcium (8.4-10.2) mg/dL Ionized Calcium Sunny (4.5-5.3) mg/dL Magnesium (1.6-2.3) mg/dL AST (14-36) U/L Alkaline Phosphatase (38-126) U/L Total Protein (6.3-8.2) g/dL Albumin (3.5-5.0) g/dL Arterial Blood Potassium (3.4-4.5) mmol/L Arterial Blood Glucose (75-99) mg/dL Crossmatch 10/13/19 10/13/19 10/13/19 Range/Units 02:11 02:58 03:12 WBC (3.8-10.6) k/uL RBC 2.20 L (3.80-5.40) m/uL Hgb 6.6 L* (11.4-16.0) gm/dL Hct 20.1 L (34.0-46.0) % Plt Count 107 L (150-450) k/uL Neutrophils # (1.3-7.7) k/uL Lymphocytes # 0.9 L (1.0-4.8) k/uL PT (9.0-12.0) sec INR (<1.2) APTT (22.0-30.0) sec Fibrinogen (200-500) mg/dL ABG pH (7.35-7.45) ABG pCO2 (35-45) mmHg ABG pO2 (83-108) mmHg ABG HCO3 (21-25) mmol/L ABG Total CO2 (19-24) mmol/L ABG O2 Saturation (94-97) % ABG Hematocrit (34.0-46.0) % ABG Sodium (135-146) mmol/L ABG Potassium (3.4-4.5) mmol/L ABG Ionized Calcium (4.5-5.3) mg/dL ABG Glucose (75-99) mg/dL ABG Lactic Acid (0.5-1.6) mmol/L VBG pH (7.31-7.41) VBG pCO2 (37-51) mmHg Hemoglobin (11.4-16.0) gm/dL Sodium (137-145) mmol/L Glucose (74-99) mg/dL POC Glucose (mg/dL) 161 H 139 H (75-99) mg/dL Calcium (8.4-10.2) mg/dL Ionized Calcium Sunny (4.5-5.3) mg/dL Magnesium (1.6-2.3) mg/dL AST (14-36) U/L Alkaline Phosphatase (38-126) U/L Total Protein (6.3-8.2) g/dL Albumin (3.5-5.0) g/dL Arterial Blood Potassium (3.4-4.5) mmol/L Arterial Blood Glucose (75-99) mg/dL Crossmatch 10/13/19 10/13/19 10/13/19 Range/Units 03:12 03:12 04:06 WBC (3.8-10.6) k/uL RBC (3.80-5.40) m/uL Hgb (11.4-16.0) gm/dL Hct (34.0-46.0) % Plt Count (150-450) k/uL Neutrophils # (1.3-7.7) k/uL Lymphocytes # (1.0-4.8) k/uL PT (9.0-12.0) sec INR (<1.2) APTT 31.7 H (22.0-30.0) sec Fibrinogen (200-500) mg/dL ABG pH (7.35-7.45) ABG pCO2 (35-45) mmHg ABG pO2 (83-108) mmHg ABG HCO3 (21-25) mmol/L ABG Total CO2 (19-24) mmol/L ABG O2 Saturation (94-97) % ABG Hematocrit (34.0-46.0) % ABG Sodium (135-146) mmol/L ABG Potassium (3.4-4.5) mmol/L ABG Ionized Calcium (4.5-5.3) mg/dL ABG Glucose (75-99) mg/dL ABG Lactic Acid (0.5-1.6) mmol/L VBG pH (7.31-7.41) VBG pCO2 (37-51) mmHg Hemoglobin (11.4-16.0) gm/dL Sodium 132 L (137-145) mmol/L Glucose 136 H (74-99) mg/dL POC Glucose (mg/dL) 156 H (75-99) mg/dL Calcium 7.3 L (8.4-10.2) mg/dL Ionized Calcium Sunny 4.3 L (4.5-5.3) mg/dL Magnesium (1.6-2.3) mg/dL AST 78 H (14-36) U/L Alkaline Phosphatase 23 L (38-126) U/L Total Protein 4.1 L (6.3-8.2) g/dL Albumin 2.6 L (3.5-5.0) g/dL Arterial Blood Potassium (3.4-4.5) mmol/L Arterial Blood Glucose (75-99) mg/dL Crossmatch 10/13/19 10/13/19 10/13/19 Range/Units 05:03 05:26 06:07 WBC (3.8-10.6) k/uL RBC (3.80-5.40) m/uL Hgb (11.4-16.0) gm/dL Hct (34.0-46.0) % Plt Count (150-450) k/uL Neutrophils # (1.3-7.7) k/uL Lymphocytes # (1.0-4.8) k/uL PT (9.0-12.0) sec INR (<1.2) APTT (22.0-30.0) sec Fibrinogen (200-500) mg/dL ABG pH (7.35-7.45) ABG pCO2 (35-45) mmHg ABG pO2 206 H (83-108) mmHg ABG HCO3 (21-25) mmol/L ABG Total CO2 26 H (19-24) mmol/L ABG O2 Saturation 99.6 H (94-97) % ABG Hematocrit (34.0-46.0) % ABG Sodium (135-146) mmol/L ABG Potassium (3.4-4.5) mmol/L ABG Ionized Calcium (4.5-5.3) mg/dL ABG Glucose (75-99) mg/dL ABG Lactic Acid (0.5-1.6) mmol/L VBG pH (7.31-7.41) VBG pCO2 (37-51) mmHg Hemoglobin (11.4-16.0) gm/dL Sodium (137-145) mmol/L Glucose (74-99) mg/dL POC Glucose (mg/dL) 154 H 187 H (75-99) mg/dL Calcium (8.4-10.2) mg/dL Ionized Calcium Sunny (4.5-5.3) mg/dL Magnesium (1.6-2.3) mg/dL AST (14-36) U/L Alkaline Phosphatase (38-126) U/L Total Protein (6.3-8.2) g/dL Albumin (3.5-5.0) g/dL Arterial Blood Potassium (3.4-4.5) mmol/L Arterial Blood Glucose (75-99) mg/dL Crossmatch 10/13/19 10/13/19 10/13/19 Range/Units 07:07 08:00 08:02 WBC (3.8-10.6) k/uL RBC (3.80-5.40) m/uL Hgb (11.4-16.0) gm/dL Hct (34.0-46.0) % Plt Count (150-450) k/uL Neutrophils # (1.3-7.7) k/uL Lymphocytes # (1.0-4.8) k/uL PT (9.0-12.0) sec INR (<1.2) APTT (22.0-30.0) sec Fibrinogen (200-500) mg/dL ABG pH (7.35-7.45) ABG pCO2 (35-45) mmHg ABG pO2 (83-108) mmHg ABG HCO3 (21-25) mmol/L ABG Total CO2 (19-24) mmol/L ABG O2 Saturation (94-97) % ABG Hematocrit (34.0-46.0) % ABG Sodium (135-146) mmol/L ABG Potassium (3.4-4.5) mmol/L ABG Ionized Calcium (4.5-5.3) mg/dL ABG Glucose (75-99) mg/dL ABG Lactic Acid (0.5-1.6) mmol/L VBG pH 7.30 L (7.31-7.41) VBG pCO2 53 H (37-51) mmHg Hemoglobin (11.4-16.0) gm/dL Sodium (137-145) mmol/L Glucose (74-99) mg/dL POC Glucose (mg/dL) 175 H 143 H (75-99) mg/dL Calcium (8.4-10.2) mg/dL Ionized Calcium Sunny (4.5-5.3) mg/dL Magnesium (1.6-2.3) mg/dL AST (14-36) U/L Alkaline Phosphatase (38-126) U/L Total Protein (6.3-8.2) g/dL Albumin (3.5-5.0) g/dL Arterial Blood Potassium (3.4-4.5) mmol/L Arterial Blood Glucose (75-99) mg/dL Crossmatch 10/13/19 10/13/19 10/13/19 Range/Units 08:18 08:52 10:01 WBC (3.8-10.6) k/uL RBC 2.67 L (3.80-5.40) m/uL Hgb 7.8 L (11.4-16.0) gm/dL Hct 23.7 L (34.0-46.0) % Plt Count 104 L (150-450) k/uL Neutrophils # (1.3-7.7) k/uL Lymphocytes # (1.0-4.8) k/uL PT (9.0-12.0) sec INR (<1.2) APTT (22.0-30.0) sec Fibrinogen (200-500) mg/dL ABG pH (7.35-7.45) ABG pCO2 (35-45) mmHg ABG pO2 (83-108) mmHg ABG HCO3 (21-25) mmol/L ABG Total CO2 (19-24) mmol/L ABG O2 Saturation (94-97) % ABG Hematocrit (34.0-46.0) % ABG Sodium (135-146) mmol/L ABG Potassium (3.4-4.5) mmol/L ABG Ionized Calcium (4.5-5.3) mg/dL ABG Glucose (75-99) mg/dL ABG Lactic Acid (0.5-1.6) mmol/L VBG pH (7.31-7.41) VBG pCO2 (37-51) mmHg Hemoglobin (11.4-16.0) gm/dL Sodium (137-145) mmol/L Glucose (74-99) mg/dL POC Glucose (mg/dL) 131 H 104 H (75-99) mg/dL Calcium (8.4-10.2) mg/dL Ionized Calcium Sunny (4.5-5.3) mg/dL Magnesium (1.6-2.3) mg/dL AST (14-36) U/L Alkaline Phosphatase (38-126) U/L Total Protein (6.3-8.2) g/dL Albumin (3.5-5.0) g/dL Arterial Blood Potassium (3.4-4.5) mmol/L Arterial Blood Glucose (75-99) mg/dL Crossmatch 10/13/19 10/13/19 Range/Units 10:56 11:54 WBC (3.8-10.6) k/uL RBC (3.80-5.40) m/uL Hgb (11.4-16.0) gm/dL Hct (34.0-46.0) % Plt Count (150-450) k/uL Neutrophils # (1.3-7.7) k/uL Lymphocytes # (1.0-4.8) k/uL PT (9.0-12.0) sec INR (<1.2) APTT (22.0-30.0) sec Fibrinogen (200-500) mg/dL ABG pH (7.35-7.45) ABG pCO2 (35-45) mmHg ABG pO2 (83-108) mmHg ABG HCO3 (21-25) mmol/L ABG Total CO2 (19-24) mmol/L ABG O2 Saturation (94-97) % ABG Hematocrit (34.0-46.0) % ABG Sodium (135-146) mmol/L ABG Potassium (3.4-4.5) mmol/L ABG Ionized Calcium (4.5-5.3) mg/dL ABG Glucose (75-99) mg/dL ABG Lactic Acid (0.5-1.6) mmol/L VBG pH (7.31-7.41) VBG pCO2 (37-51) mmHg Hemoglobin (11.4-16.0) gm/dL Sodium (137-145) mmol/L Glucose (74-99) mg/dL POC Glucose (mg/dL) 110 H 135 H (75-99) mg/dL Calcium (8.4-10.2) mg/dL Ionized Calcium Sunny (4.5-5.3) mg/dL Magnesium (1.6-2.3) mg/dL AST (14-36) U/L Alkaline Phosphatase (38-126) U/L Total Protein (6.3-8.2) g/dL Albumin (3.5-5.0) g/dL Arterial Blood Potassium (3.4-4.5) mmol/L Arterial Blood Glucose (75-99) mg/dL Crossmatch Assessment and Plan Plan: 1 cardiac surgery which involved a single-vessel bypass surgery to RCA in addition to aortic valve replacement for severe aortic insufficiency with a BiPAP prostatic aortic valve and mitral valve repair. The patient is postop day #1. 2 postoperative hypotension in addition to a lower cardiac output with hemodynamic instability requiring a combination of pressors and currently the patient a combination of norepinephrine infusion, dobutamine and milrinone. The patient has also been resuscitated with IV fluids with Colace. Most recent cardiac index is 1.9. 3 coronary artery disease with previous stenting of the RCA 4 post thoracotomy and the patient currently remains intubated on a mechanical ventilator 5 chronic pulmonary fibrosis involving the lung bases with subpleural distribution very much consistent with IPF 6 chronic stage III kidney disease 7 history of TIA back in 2004 without any residual deficits 8 hypothyroidism 9 restrictive lung disease secondary to pulmonary fibrosis with a FVC in the mid 50s 10 right internal carotid artery disease in the order of 50-69% 11 hyperlipidemia 12 history of hypertension 13 intraoperative atrial fibrillation post clipping of the left atrial appendage and the patient is currently on amiodarone as a maintenance of 0.5 mg per minute. Underlying insisted rhythm is sinus at the rate of 16 the patient is currently paced at the rate of 100. 14 bleeding from the chest tube sites and the patient is been given appropriate blood products Plan Continue ventilator support Continue monitoring the hemodynamics and wean off the pressors specifically norepinephrine infusion and maintain the milrinone and the be to me for now Monitor the hemoglobin since she is accordingly. Morning chemo was at 6.6 and posterior incision in was up to 7.8 Monitor renal function Monitor output from the chest tubes Keep the patient sedated with propofol Keep the patient paced at the rate of 100 Condition is still critical. We'll continue to follow make further recommendations based on progress. We are collaborating with the cardiothoracic team in regards to the patient's post active care. His sedation was done more than 30 minutes. Time with Patient: Greater than 30
[2019-10-13 13:53] LABS: Glucose,Whole Blood 145 mg/dL (75-99)
[2019-10-13] MEDS: MILRINONE-D5W PMX 20 MG in DEXTROSE/WATER 1 100ML.BAG IV SCH (13:57)
[2019-10-13 14:09] LABS: HCT 22.7 % (34.0-46.0); HGB 7.5 gm/dL (11.4-16.0); MCH 28.9 pg (25.0-35.0); MCHC 33.2 g/dL (31.0-37.0); MCV 87.2 fL (80.0-100.0); Mean Platelet Volume 8.4; RBC 2.61 m/uL (3.80-5.40); RDW 15.3 % (11.5-15.5); WBC 8.5 k/uL (3.8-10.6)
[2019-10-13 14:34] LABS: Platelet Count 79 k/uL (150-450)
[2019-10-13 14:47] LABS: ABG Base Excess -2.4 mmol/L; ABG HCO3 23 mmol/L (21-25); ABG Oxygen Saturation 99.4 % (94-97); ABG PCO2 37 mmHg (35-45); ABG PH 7.39 (7.35-7.45); ABG PO2 184 mmHg (83-108); ABG TCO2 24 mmol/L (19-24)
[2019-10-13 15:03] LABS: Glucose,Whole Blood 143 mg/dL (75-99)
[2019-10-13 15:17] LABS: Allen Test Performed? No
--- NOTE | 2019-10-13 15:30 | XR ---
EXAMINATION TYPE: XR chest 1V portable DATE OF EXAM: 10/13/2019 COMPARISON: Today HISTORY: Cardiac surgery. TECHNIQUE: Single view FINDINGS: There is right jugular catheter with tip in the main pulmonary artery. Endotracheal tube is 4.5 cm from the mauro. There is pleural thickening at the lung apices. There is nasogastric tube in the stomach. There are sternal wires. There is cardiac valve surgery. There is left-sided chest tube with the tip over the left upper lobe. There is coarse interstitial infiltrates throughout both lung s. There is right-sided chest tube with the tip over the lateral aspect right upper lobe. There is so me tubing over the heart with the tip at the level of the right pulmonary hilum. This could be in the inferior vena cava. I see no pneumothorax. There appears to be nasogastric tube with the tip over th e body of the stomach. IMPRESSION: Coarse pulmonary infiltrates. Postsurgical changes. Pleural thickening. No definite heart failure. Chest appears not significantly different than exam this morning. No significant widening of the mediastinum seen.
[2019-10-13 16:03] LABS: Glucose,Whole Blood 144 mg/dL (75-99)
[2019-10-13 17:02] LABS: Glucose,Whole Blood 106 mg/dL (75-99)
[2019-10-13] MEDS: ASCORBIC ACID 500 MG TAB PO SCH (17:09)
[2019-10-13] MEDS: FERROUS SULFATE ORAL ELIXIR 300 MG/5 ML CUP PO SCH (17:36)
[2019-10-13 18:08] LABS: Glucose,Whole Blood 123 mg/dL (75-99)
[2019-10-13 18:51] LABS: Glucose,Whole Blood 169 mg/dL (75-99)
[2019-10-13 19:04] LABS: HCT 21.7 % (34.0-46.0); HGB 7.2 gm/dL (11.4-16.0); MCH 29.7 pg (25.0-35.0); MCHC 33.1 g/dL (31.0-37.0); MCV 89.5 fL (80.0-100.0); Mean Platelet Volume 9.6; RBC 2.43 m/uL (3.80-5.40); RDW 14.9 % (11.5-15.5); WBC 8.3 k/uL (3.8-10.6)
[2019-10-13 19:10] LABS: Platelet Count 54 k/uL (150-450)
[2019-10-13 20:12] LABS: Glucose,Whole Blood 179 mg/dL (75-99)
[2019-10-13 20:15] LABS: INR 1.3 (<1.2); Partial Thromboplastin Time 51.1 sec (22.0-30.0); Prothrombin Time 12.8 sec (9.0-12.0)
[2019-10-13] MEDS: INSULIN REGULAR 100 UNIT in SODIUM CHLORIDE 0.9% 100 ML IV SCH (20:34)
[2019-10-13 20:59] LABS: Glucose,Whole Blood 171 mg/dL (75-99)
[2019-10-13] MEDS: SENNOSIDES-DOCUSATE SODIUM 1 EACH TAB PO SCH (21:12)
[2019-10-13 21:15] LABS: ABG Base Excess -4.5 mmol/L; ABG HCO3 21 mmol/L (21-25); ABG Oxygen Saturation 99.1 % (94-97); ABG PCO2 39 mmHg (35-45); ABG PH 7.35 (7.35-7.45); ABG PO2 143 mmHg (83-108); ABG TCO2 22 mmol/L (19-24)
[2019-10-13 21:17] LABS: Allen Test Performed? No
[2019-10-13 21:58] LABS: Glucose,Whole Blood 156 mg/dL (75-99)
[2019-10-13 22:09] LABS: Ionized Calcium 4.5 mg/dL (4.5-5.3)
[2019-10-13 22:15] LABS: Calcium 7.7 mg/dL (8.4-10.2)
[2019-10-13] MEDS ORDERED: SODIUM BICARB 8.4% 50 ML SYR (1 MEQ/ML) IV STA (22:15)
[2019-10-13 22:57] LABS: Glucose,Whole Blood 135 mg/dL (75-99)
[2019-10-14 00:06] LABS: Glucose,Whole Blood 123 mg/dL (75-99)
[2019-10-14] MEDS: AMIODARONE 300 MG in DEXTROSE 5% IN WATER 250 ML IV PRN ×6 (00:07→20:04)
[2019-10-14 01:13] LABS: Glucose,Whole Blood 118 mg/dL (75-99)
[2019-10-14 02:04] LABS: Glucose,Whole Blood 114 mg/dL (75-99)
[2019-10-14 03:02] LABS: Glucose,Whole Blood 116 mg/dL (75-99)
[2019-10-14 04:19] LABS: Glucose,Whole Blood 136 mg/dL (75-99)
[2019-10-14 04:21] LABS: Basophils % (A) 0 %; Eosinophils # (A) 0.1 k/uL (0-0.7); Eosinophils % (A) 1 %; HCT 21.6 % (34.0-46.0); HGB 7.3 gm/dL (11.4-16.0); Lymphocytes % (A) 12 %; MCHC 33.8 g/dL (31.0-37.0); MCV 88.8 fL (80.0-100.0); Mean Platelet Volume 8.6; Monocytes # (A) 0.7 k/uL (0-1.0); Monocytes % (A) 8 %; Neutrophils # (A) 6.2 k/uL (1.3-7.7); Neutrophils % (A) 77 %; RBC 2.43 m/uL (3.80-5.40); WBC 8.2 k/uL (3.8-10.6)
[2019-10-14 04:24] LABS: Platelet Count 65 k/uL (150-450)
[2019-10-14 04:32] LABS: INR 1.2 (<1.2)
[2019-10-14 04:40] LABS: Ionized Calcium 4.6 mg/dL (4.5-5.3)
[2019-10-14 04:52] LABS: Albumin 2.5 g/dL (3.5-5.0); Calcium 7.4 mg/dL (8.4-10.2); Potassium 3.9 mmol/L (3.5-5.1); Total Bilirubin 1.1 mg/dL (0.2-1.3); Total Protein 3.9 g/dL (6.3-8.2)
[2019-10-14] MEDS ORDERED: POTASSIUM BICARBONATE/CIT AC 20 MEQ TABLET.EFF NG-TUBE SCH (05:00)
[2019-10-14 05:08] LABS: Glucose,Whole Blood 138 mg/dL (75-99)
[2019-10-14 05:25] LABS: ABG Base Excess 1.3 mmol/L; ABG HCO3 26 mmol/L (21-25); ABG Oxygen Saturation 99.2 % (94-97); ABG PCO2 37 mmHg (35-45); ABG PH 7.44 (7.35-7.45); ABG PO2 129 mmHg (83-108); ABG TCO2 27 mmol/L (19-24)
[2019-10-14] MEDS: DOBUTamine DRIP 500 MG in DEXTROSE/WATER 1 250ML.BAG IV SCH ×2 (05:27→22:28)
[2019-10-14] MEDS: HEPARIN SODIUM,PORCINE 5,000 UNIT/ML 1 ML VIAL SQ SCH ×3 (05:28→20:39)
[2019-10-14] MEDS: LEVOTHYROXINE 75 MCG TAB PO SCH (05:34)
[2019-10-14 06:08] LABS: Glucose,Whole Blood 134 mg/dL (75-99)
[2019-10-14] MEDS: ASCORBIC ACID 500 MG TAB PO SCH ×2 (06:18→16:49)
[2019-10-14] MEDS: FERROUS SULFATE ORAL ELIXIR 300 MG/5 ML CUP PO SCH ×2 (06:18→16:49)
[2019-10-14] MEDS: traMADol 50 MG TAB PO PRN ×2 (06:56→20:39)
[2019-10-14 07:02] LABS: Glucose,Whole Blood 133 mg/dL (75-99)
--- NOTE | 2019-10-14 07:10 | P.PN ---
Subjective Progress Note Date: 10/14/19 Principal diagnosis: Status post open heart surgery with aortic valve replacement and mitral valve repair and coronary artery bypass grafting This is a pleasant 79-year-old female patient white follow in the office as an outpatient was coronary artery disease and prior stenting of the RCA, valvular heart disease and known severe aortic regurgitation and severe mitral regurgita tion as well as hypertension and dyslipidemia who was admitted to the hospital yesterday and underwent aortic valve replacement using bioprosthetic valve along with mitral valve repair as well as coronary artery virus grafting to the right coronary artery. This is postoperative patient day #2. The patient was not doing well yesterday where she was requiring multiple inotropes and vasopressors. We did an echocardiogram yesterday on her and that revealed only mildly impaired LV function was moderate pericardial effusion without tamponade physiology. She receives multiple units of packed RBC and she was bleeding from one of the chest you. The bleeding seems to be subsides today. The hemoglobin is 7.2 this morning. She continues to be on multiple inotropes and vasopressors and currently she is on small dose of norepinephrine, dobutamine, and milrinone. She continues to be paced at 100 beats per minutes. In spite of being on 3 inotropes and vasopressors she seems to be slightly better. The bleeding from the chest every has improved. She continues to be on dual antiplatelet therapy along with a statin. She remains intubated on mechanical ventilation at this point. The chest x-ray showed bilateral pleural effusion. Objective - Vital Signs Vital signs: Vital Signs Temp 97.9 F 10/13/19 20:49 Pulse 100 10/14/19 07:00 Resp 20 10/14/19 07:00 BP 92/41 10/14/19 07:00 Pulse Ox 97 10/14/19 07:00 Intake & Output 10/13/19 10/14/19 10/14/19 18:59 06:59 18:59 Intake Total 3340.613 3499.213 262.961 Output Total 1889 1317 80 Balance 4870.450 3575.213 182.961 Weight 57.7 kg 64.4 kg Intake: IV 1820.5 1492.0 73.5 .9NS Cardiac Output 120 240 20 0.9NS Pressure Bags 108 108 9 Albumin Human 5% 250 ml 750 500 In Empty Bag 1 bag @ 250 mls/hr IVPB Q1HR PRN Rx#: [id number] Calcium Gluconate 1 gm In 100 100 Sodium Chloride 0.9% 100 ml @ 100 mls/hr IVPB ONCE ONE Rx#:[id number] DOBUTamine DRIP 500 mg In 52.5 54.0 4.5 Dextrose/Water 1 250ml. bag @ 3 MCG/KG/MIN 4.572 mls/hr IV .Q24H JAYE Rx#: [id number] Lactated Ringers 1,000 ml 590 50 @ 50 mls/hr IV .Q20H JAYE Rx#:[id number] Sodium Chloride 0.9% 1, 0 440 40 000 ml @ 50 mls/hr IV . Q20H JAYE Rx#:[id number] ceFAZolin 2 gm In Sodium 100 Chloride 0.9% 50 ml @ 100 mls/hr IVPB Q8HR JAYE Rx# :[id number] Intake, IV Titration 820.113 716.213 169.461 Amount Amiodarone 300 mg In 250 208.75 Dextrose 5% in Water 250 ml @ 0.5 MG/MIN 25 mls/hr IV .Q10H PRN Rx#: [id number] Insulin Regular 100 unit 27.733 24.266 In Sodium Chloride 0.9% 100 ml @ Per Protocol IV .Q0M JAYE Rx#:[id number] Milrinone-D5w Pmx 20 mg 68.885 In Dextrose/Water 1 100ml .bag @ 0.1 MCG/KG/MIN 1. 524 mls/hr IV .Q24H JAYE Rx#:[id number] Norepinephrine 4 mg In 383.161 343.966 150.42 Sodium Chloride 0.9% 250 ml @ 0.05 MCG/KG/MIN 9. 677 mls/hr IV .Q24H JAYE Rx#:[id number] propofoL 1,000 mg In 90.334 139.231 19.041 Empty Bag 1 bag @ Titrate IV .Q0M JAYE Rx#: [id number] Oral 60 Tube Feeding 20 150 20 Blood Product 620 1051 Platelet Irr Pheresis Pas 231 -C Unit [id number] Rc As-1 Unit 310 [id number] Rc As-1 Unit 310 [id number] Rc As-1 Unit 310 [id number] Other 90 Output: Chest Tube Drainage 1112 962 60 Left 250 360 20 Left and Right Pleural 90 Chest Tube Mediastinal Chest Tube 102 12 Right 670 590 40 Gastric Drainage 300 Urine 477 355 20 Other: Voiding Method Indwelling Catheter Indwelling Catheter ABP, PAP, CO, CI - Last Documented Arterial Blood Pressure 122/53 Pulmonary Artery Pressure 43/29 Cardiac Output 3.3 Cardiac Index 2.1 - Constitutional General appearance: Present: no acute distress - Respiratory Respiratory: bilateral: diminished - Cardiovascular Rhythm: regular - Labs CBC & Chem 7: 10/14/19 04:10 10/14/19 04:10 Labs: Abnormal Lab Results - Last 24 Hours (Table) 10/08/19 10/13/19 10/13/19 Range/Units 09:08 07:07 08:00 RBC (3.80-5.40) m/uL Hgb (11.4-16.0) gm/dL Hct (34.0-46.0) % Plt Count (150-450) k/uL PT (9.0-12.0) sec INR (<1.2) APTT (22.0-30.0) sec Fibrinogen (200-500) mg/dL ABG pO2 (83-108) mmHg ABG HCO3 (21-25) mmol/L ABG Total CO2 (19-24) mmol/L ABG O2 Saturation (94-97) % VBG pH 7.30 L (7.31-7.41) VBG pCO2 53 H (37-51) mmHg Sodium (137-145) mmol/L Glucose (74-99) mg/dL POC Glucose (mg/dL) 175 H (75-99) mg/dL Calcium (8.4-10.2) mg/dL AST (14-36) U/L Alkaline Phosphatase (38-126) U/L Total Protein (6.3-8.2) g/dL Albumin (3.5-5.0) g/dL Crossmatch See Detail 10/13/19 10/13/19 10/13/19 Range/Units 08:02 08:18 08:52 RBC 2.67 L (3.80-5.40) m/uL Hgb 7.8 L (11.4-16.0) gm/dL Hct 23.7 L (34.0-46.0) % Plt Count 104 L (150-450) k/uL PT (9.0-12.0) sec INR (<1.2) APTT (22.0-30.0) sec Fibrinogen (200-500) mg/dL ABG pO2 (83-108) mmHg ABG HCO3 (21-25) mmol/L ABG Total CO2 (19-24) mmol/L ABG O2 Saturation (94-97) % VBG pH (7.31-7.41) VBG pCO2 (37-51) mmHg Sodium (137-145) mmol/L Glucose (74-99) mg/dL POC Glucose (mg/dL) 143 H 131 H (75-99) mg/dL Calcium (8.4-10.2) mg/dL AST (14-36) U/L Alkaline Phosphatase (38-126) U/L Total Protein (6.3-8.2) g/dL Albumin (3.5-5.0) g/dL Crossmatch 10/13/19 10/13/19 10/13/19 Range/Units 10:01 10:56 11:54 RBC (3.80-5.40) m/uL Hgb (11.4-16.0) gm/dL Hct (34.0-46.0) % Plt Count (150-450) k/uL PT (9.0-12.0) sec INR (<1.2) APTT (22.0-30.0) sec Fibrinogen (200-500) mg/dL ABG pO2 (83-108) mmHg ABG HCO3 (21-25) mmol/L ABG Total CO2 (19-24) mmol/L ABG O2 Saturation (94-97) % VBG pH (7.31-7.41) VBG pCO2 (37-51) mmHg Sodium (137-145) mmol/L Glucose (74-99) mg/dL POC Glucose (mg/dL) 104 H 110 H 135 H (75-99) mg/dL Calcium (8.4-10.2) mg/dL AST (14-36) U/L Alkaline Phosphatase (38-126) U/L Total Protein (6.3-8.2) g/dL Albumin (3.5-5.0) g/dL Crossmatch 10/13/19 10/13/19 10/13/19 Range/Units 13:00 13:51 13:54 RBC 2.61 L (3.80-5.40) m/uL Hgb 7.5 L (11.4-16.0) gm/dL Hct 22.7 L (34.0-46.0) % Plt Count 79 L (150-450) k/uL PT (9.0-12.0) sec INR (<1.2) APTT (22.0-30.0) sec Fibrinogen (200-500) mg/dL ABG pO2 (83-108) mmHg ABG HCO3 (21-25) mmol/L ABG Total CO2 (19-24) mmol/L ABG O2 Saturation (94-97) % VBG pH (7.31-7.41) VBG pCO2 (37-51) mmHg Sodium (137-145) mmol/L Glucose (74-99) mg/dL POC Glucose (mg/dL) 152 H 145 H (75-99) mg/dL Calcium (8.4-10.2) mg/dL AST (14-36) U/L Alkaline Phosphatase (38-126) U/L Total Protein (6.3-8.2) g/dL Albumin (3.5-5.0) g/dL Crossmatch 10/13/19 10/13/19 10/13/19 Range/Units 14:39 15:02 16:01 RBC (3.80-5.40) m/uL Hgb (11.4-16.0) gm/dL Hct (34.0-46.0) % Plt Count (150-450) k/uL PT (9.0-12.0) sec INR (<1.2) APTT (22.0-30.0) sec Fibrinogen (200-500) mg/dL ABG pO2 184 H (83-108) mmHg ABG HCO3 (21-25) mmol/L ABG Total CO2 (19-24) mmol/L ABG O2 Saturation 99.4 H (94-97) % VBG pH (7.31-7.41) VBG pCO2 (37-51) mmHg Sodium (137-145) mmol/L Glucose (74-99) mg/dL POC Glucose (mg/dL) 143 H 144 H (75-99) mg/dL Calcium (8.4-10.2) mg/dL AST (14-36) U/L Alkaline Phosphatase (38-126) U/L Total Protein (6.3-8.2) g/dL Albumin (3.5-5.0) g/dL Crossmatch 10/13/19 10/13/19 10/13/19 Range/Units 17:01 18:06 18:50 RBC (3.80-5.40) m/uL Hgb (11.4-16.0) gm/dL Hct (34.0-46.0) % Plt Count (150-450) k/uL PT (9.0-12.0) sec INR (<1.2) APTT (22.0-30.0) sec Fibrinogen (200-500) mg/dL ABG pO2 (83-108) mmHg ABG HCO3 (21-25) mmol/L ABG Total CO2 (19-24) mmol/L ABG O2 Saturation (94-97) % VBG pH (7.31-7.41) VBG pCO2 (37-51) mmHg Sodium (137-145) mmol/L Glucose (74-99) mg/dL POC Glucose (mg/dL) 106 H 123 H 169 H (75-99) mg/dL Calcium (8.4-10.2) mg/dL AST (14-36) U/L Alkaline Phosphatase (38-126) U/L Total Protein (6.3-8.2) g/dL Albumin (3.5-5.0) g/dL Crossmatch 10/13/19 10/13/19 10/13/19 Range/Units 18:51 19:35 20:11 RBC 2.43 L (3.80-5.40) m/uL Hgb 7.2 L (11.4-16.0) gm/dL Hct 21.7 L (34.0-46.0) % Plt Count 54 L (150-450) k/uL PT 12.8 H (9.0-12.0) sec INR 1.3 H (<1.2) APTT 51.1 H (22.0-30.0) sec Fibrinogen 175 L (200-500) mg/dL ABG pO2 (83-108) mmHg ABG HCO3 (21-25) mmol/L ABG Total CO2 (19-24) mmol/L ABG O2 Saturation (94-97) % VBG pH (7.31-7.41) VBG pCO2 (37-51) mmHg Sodium (137-145) mmol/L Glucose (74-99) mg/dL POC Glucose (mg/dL) 179 H (75-99) mg/dL Calcium (8.4-10.2) mg/dL AST (14-36) U/L Alkaline Phosphatase (38-126) U/L Total Protein (6.3-8.2) g/dL Albumin (3.5-5.0) g/dL Crossmatch 10/13/19 10/13/19 10/13/19 Range/Units 20:57 21:09 21:55 RBC (3.80-5.40) m/uL Hgb (11.4-16.0) gm/dL Hct (34.0-46.0) % Plt Count (150-450) k/uL PT (9.0-12.0) sec INR (<1.2) APTT (22.0-30.0) sec Fibrinogen (200-500) mg/dL ABG pO2 143 H (83-108) mmHg ABG HCO3 (21-25) mmol/L ABG Total CO2 (19-24) mmol/L ABG O2 Saturation 99.1 H (94-97) % VBG pH (7.31-7.41) VBG pCO2 (37-51) mmHg Sodium (137-145) mmol/L Glucose (74-99) mg/dL POC Glucose (mg/dL) 171 H (75-99) mg/dL Calcium 7.7 L (8.4-10.2) mg/dL AST (14-36) U/L Alkaline Phosphatase (38-126) U/L Total Protein (6.3-8.2) g/dL Albumin (3.5-5.0) g/dL Crossmatch 10/13/19 10/13/19 10/14/19 Range/Units 21:57 22:56 00:05 RBC (3.80-5.40) m/uL Hgb (11.4-16.0) gm/dL Hct (34.0-46.0) % Plt Count (150-450) k/uL PT (9.0-12.0) sec INR (<1.2) APTT (22.0-30.0) sec Fibrinogen (200-500) mg/dL ABG pO2 (83-108) mmHg ABG HCO3 (21-25) mmol/L ABG Total CO2 (19-24) mmol/L ABG O2 Saturation (94-97) % VBG pH (7.31-7.41) VBG pCO2 (37-51) mmHg Sodium (137-145) mmol/L Glucose (74-99) mg/dL POC Glucose (mg/dL) 156 H 135 H 123 H (75-99) mg/dL Calcium (8.4-10.2) mg/dL AST (14-36) U/L Alkaline Phosphatase (38-126) U/L Total Protein (6.3-8.2) g/dL Albumin (3.5-5.0) g/dL Crossmatch 10/14/19 10/14/19 10/14/19 Range/Units 01:11 02:02 03:00 RBC (3.80-5.40) m/uL Hgb (11.4-16.0) gm/dL Hct (34.0-46.0) % Plt Count (150-450) k/uL PT (9.0-12.0) sec INR (<1.2) APTT (22.0-30.0) sec Fibrinogen (200-500) mg/dL ABG pO2 (83-108) mmHg ABG HCO3 (21-25) mmol/L ABG Total CO2 (19-24) mmol/L ABG O2 Saturation (94-97) % VBG pH (7.31-7.41) VBG pCO2 (37-51) mmHg Sodium (137-145) mmol/L Glucose (74-99) mg/dL POC Glucose (mg/dL) 118 H 114 H 116 H (75-99) mg/dL Calcium (8.4-10.2) mg/dL AST (14-36) U/L Alkaline Phosphatase (38-126) U/L Total Protein (6.3-8.2) g/dL Albumin (3.5-5.0) g/dL Crossmatch 10/14/19 10/14/19 10/14/19 Range/Units 04:10 04:10 04:10 RBC 2.43 L (3.80-5.40) m/uL Hgb 7.3 L (11.4-16.0) gm/dL Hct 21.6 L (34.0-46.0) % Plt Count 65 L (150-450) k/uL PT (9.0-12.0) sec INR 1.2 H (<1.2) APTT 44.0 H (22.0-30.0) sec Fibrinogen 198 L (200-500) mg/dL ABG pO2 (83-108) mmHg ABG HCO3 (21-25) mmol/L ABG Total CO2 (19-24) mmol/L ABG O2 Saturation (94-97) % VBG pH (7.31-7.41) VBG pCO2 (37-51) mmHg Sodium 133 L (137-145) mmol/L Glucose 115 H (74-99) mg/dL POC Glucose (mg/dL) (75-99) mg/dL Calcium 7.4 L (8.4-10.2) mg/dL AST 56 H (14-36) U/L Alkaline Phosphatase 30 L (38-126) U/L Total Protein 3.9 L (6.3-8.2) g/dL Albumin 2.5 L (3.5-5.0) g/dL Crossmatch 10/14/19 10/14/19 10/14/19 Range/Units 04:16 05:06 05:21 RBC (3.80-5.40) m/uL Hgb (11.4-16.0) gm/dL Hct (34.0-46.0) % Plt Count (150-450) k/uL PT (9.0-12.0) sec INR (<1.2) APTT (22.0-30.0) sec Fibrinogen (200-500) mg/dL ABG pO2 129 H (83-108) mmHg ABG HCO3 26 H (21-25) mmol/L ABG Total CO2 27 H (19-24) mmol/L ABG O2 Saturation 99.2 H (94-97) % VBG pH (7.31-7.41) VBG pCO2 (37-51) mmHg Sodium (137-145) mmol/L Glucose (74-99) mg/dL POC Glucose (mg/dL) 136 H 138 H (75-99) mg/dL Calcium (8.4-10.2) mg/dL AST (14-36) U/L Alkaline Phosphatase (38-126) U/L Total Protein (6.3-8.2) g/dL Albumin (3.5-5.0) g/dL Crossmatch 10/14/19 10/14/19 Range/Units 06:06 07:01 RBC (3.80-5.40) m/uL Hgb (11.4-16.0) gm/dL Hct (34.0-46.0) % Plt Count (150-450) k/uL PT (9.0-12.0) sec INR (<1.2) APTT (22.0-30.0) sec Fibrinogen (200-500) mg/dL ABG pO2 (83-108) mmHg ABG HCO3 (21-25) mmol/L ABG Total CO2 (19-24) mmol/L ABG O2 Saturation (94-97) % VBG pH (7.31-7.41) VBG pCO2 (37-51) mmHg Sodium (137-145) mmol/L Glucose (74-99) mg/dL POC Glucose (mg/dL) 134 H 133 H (75-99) mg/dL Calcium (8.4-10.2) mg/dL AST (14-36) U/L Alkaline Phosphatase (38-126) U/L Total Protein (6.3-8.2) g/dL Albumin (3.5-5.0) g/dL Crossmatch Assessment and Plan Assessment: Assessment #1 status post aortic valve replacement and mitral valve repair #2 coronary artery disease and prior stenting of the RCA #3 blood loss anemia #4 paroxysmal atrial fibrillation #5 dyslipidemia #6 carotid disease Plan #1 continue the current medical regimen including dual antiplatelet therapy along with a statin #2 try to wean the patient from the vasopressors #3 continue monitoring the hemoglobin and kidney function #4 follow-up with the patient
[2019-10-14 08:09] LABS: Glucose,Whole Blood 116 mg/dL (75-99)
[2019-10-14] MEDS: ASPIRIN 81 MG PO SCH (08:25)
[2019-10-14] MEDS: ACETAMINOPHEN TAB 500 MG TAB PO PRN (08:25)
[2019-10-14] MEDS: PANTOPRAZOLE 40 MG/10 ML VIAL IVP SCH (08:26)
[2019-10-14] MEDS: SODIUM CHLORIDE 0.9% 1,000 ML IV SCH (08:26)
[2019-10-14] MEDS: ATORVASTATIN 40 MG TAB PO SCH (08:26)
[2019-10-14] MEDS: CHLORHEXIDINE GLUCONATE 15 ML CUP MUCOUS MEM SCH ×2 (08:26→20:39)
[2019-10-14] MEDS: IPRATROPIUM-ALBUTEROL 3 ML NEB INHALATION SCH ×4 (08:29→20:38)
[2019-10-14] MEDS ORDERED: CALCIUM GLUCONATE 1 GM in SODIUM CHLORIDE 0.9% 100 ML IVPB ONE (09:07)
[2019-10-14 09:12] LABS: Glucose,Whole Blood 122 mg/dL (75-99)
--- NOTE | 2019-10-14 09:19 | P.PN ---
Subjective Progress Note Date: 10/14/19 Principal diagnosis: Severe aortic insufficiency, moderate to severe mitral regurgitation, single- vessel coronary artery disease. Previous medical history of coronary artery disease with myocardial infarction and stent placement to the RCA, hypertension, hyperlipidemia, chronic kidney disease stage III, right internal carotid artery stenosis 50-69%, hypothyroidism, TIA in 2004 without residual, remote history of pneumonia, previous tobacco dependence, moderate restriction with preoperative FEV1 50% of predicted, and family history of premature coronary artery disease. POD #2 aortic valve replacement with 21 mm Herrera Inspiris bioprosthetic aortic valve, mitral valve repair with a #28 mm [employer] AnnuloFlex band, reverse saphenous vein graft off the aorta to the right coronary artery with right lower extremity greater saphenous endoscopic vein harvesting, clip ligation of left atrial appendage 35mm AtriClip and intraoperative transesophageal echocardiogram. Postoperative acute blood loss anemia, expected given hemodilution and cardiopulmonary bypass pump Postoperative and intraoperative atrial fibrillation, unexpected but potential outcome of valvular heart surgery The patient's currently laying in bed in the intensive care unit, remains on mechanical ventilation. She has had an eventful postoperative course with hypotension requiring pressor support, low cardiac output requiring inotropes, atrial fibrillation requiring amiodarone, and anemia requiring blood transfusion. She has received 7 units packed red blood cells total, 3 units fresh frozen plasma, 3 packs of platelets, and 2 packs of cryoprecipitate, in addition to IV albumin. She is currently being paced at 80 bpm to help support her blood pressure, was pacing at 100 BPM yesterday, underlying rhythm sinus with a rate in the 70s. Invasive lines include right internal jugular [place] /Cordis, left radial arterial line, mediastinal as well as right and left pleural chest tubes, and Pratt catheter. Current IV medication includes dobutamine at 3 mcg/kg/min, milrinone at 0.1 mcg/kg/m, amiodarone at 0.5 mg/m, and the Levophed which has been titrated but currently is at 0.03 mcg/kg/m which is significantly less than yesterday. Propofol is infusing for sedation, patient does open her eyes and moves all extremities. CXR reviewed. Objective - Vital Signs Vital signs: Vital Signs Temp 97.9 F 10/13/19 20:49 Pulse 100 10/14/19 07:00 Resp 20 10/14/19 07:00 BP 92/41 10/14/19 07:00 Pulse Ox 97 10/14/19 07:00 Intake & Output 10/13/19 10/14/19 10/14/19 18:59 06:59 18:59 Intake Total 3340.613 3499.213 262.961 Output Total 1889 1317 80 Balance 1544.835 5513.213 182.961 Weight 57.7 kg 64.4 kg Intake: IV 1820.5 1492.0 73.5 .9NS Cardiac Output 120 240 20 0.9NS Pressure Bags 108 108 9 Albumin Human 5% 250 ml 750 500 In Empty Bag 1 bag @ 250 mls/hr IVPB Q1HR PRN Rx#: [id number] Calcium Gluconate 1 gm In 100 100 Sodium Chloride 0.9% 100 ml @ 100 mls/hr IVPB ONCE ONE Rx#:[id number] DOBUTamine DRIP 500 mg In 52.5 54.0 4.5 Dextrose/Water 1 250ml. bag @ 3 MCG/KG/MIN 4.572 mls/hr IV .Q24H [facility] Rx#: [id number] Lactated Ringers 1,000 ml 590 50 @ 50 mls/hr IV .Q20H [facility] Rx#:[id number] Sodium Chloride 0.9% 1, 0 440 40 000 ml @ 50 mls/hr IV . Q20H [facility] Rx#:[id number] ceFAZolin 2 gm In Sodium 100 Chloride 0.9% 50 ml @ 100 mls/hr IVPB Q8HR [facility] Rx# :[id number] Intake, IV Titration 820.113 716.213 169.461 Amount Amiodarone 300 mg In 250 208.75 Dextrose 5% in Water 250 ml @ 0.5 MG/MIN 25 mls/hr IV .Q10H PRN Rx#: [id number] Insulin Regular 100 unit 27.733 24.266 In Sodium Chloride 0.9% 100 ml @ Per Protocol IV .Q0M [facility] Rx#:[id number] Milrinone-D5w Pmx 20 mg 68.885 In Dextrose/Water 1 100ml .bag @ 0.1 MCG/KG/MIN 1. 524 mls/hr IV .Q24H [facility] Rx#:[id number] Norepinephrine 4 mg In 383.161 343.966 150.42 Sodium Chloride 0.9% 250 ml @ 0.05 MCG/KG/MIN 9. 677 mls/hr IV .Q24H [facility] Rx#:[id number] propofoL 1,000 mg In 90.334 139.231 19.041 Empty Bag 1 bag @ Titrate IV .Q0M [facility] Rx#: [id number] Oral 60 Tube Feeding 20 150 20 Blood Product 620 1051 Platelet Irr Pheresis Pas 231 -C Unit [id number] Rc As-1 Unit 310 [id number] Rc As-1 Unit 310 [id number] Rc As-1 Unit 310 [id number] Other 90 Output: Chest Tube Drainage 1112 962 60 Left 250 360 20 Left and Right Pleural 90 Chest Tube Mediastinal Chest Tube 102 12 Right 670 590 40 Gastric Drainage 300 Urine 477 355 20 Other: Voiding Method Indwelling Catheter Indwelling Catheter ABP, PAP, CO, CI - Last Documented Arterial Blood Pressure 122/53 Pulmonary Artery Pressure 43/29 Cardiac Output 3.3 Cardiac Index 2.1 - Constitutional General appearance: Present: no acute distress, thin - Respiratory Details: Lungs sounds diminished bilaterally. Respirations even, nonlabored on mechani mian ventilation. Current ventilator settings assist control mode, FiO2 40%, tidal volume 400, respiratory rate 20, PEEP 5. ABGs this morning on those ventilator settings 7.44/37/129/26/99%/1.3. 8.0 ET tube present, 22 at the lip. Mediastinal chest tube present, connected to continuous wall suction, 8 mL thick clotty drainage overnight, 35 mL in the last 24 hours. Left pleural chest tube present and connected to continuous wall suction, 180 mL thin serosanguineous drainage overnight, 650 mL in the last 24 hours. Right pleural chest tube present and connected to continuous wall suction, 400 mL serosanguineous drainage overnight, 1350 mL in the last 24 hours. No air leaks present. - Cardiovascular Details: S1, S2 present. Regular rate and rhythm, atrially paced on telemetry at 80 bpm, underlying sinus rhythm at 70 beats a minute. Sternum stable. A/V epicardial pacemaker wires present, connected to generator, DDD mode with rate 80 bpm. Pa lpable peripheral pulses bilaterally. No edema present. Right internal jugular [place]/Cordis, left radial arterial line present. Last CO/CI 3.3/2.1 on Dobutamine at 3 mcg/kg/min, milrinone at 0.1 mcg/kg/min, amio at 0.5 mg/min, and levo at 0.04 mcg/kg/min. Heart hugger, SCDs, antiembolism stockings all present. - Gastrointestinal Gastrointestinal Comment(s): Abdomen soft, nontender, nondistended. Active bowel sounds present 4 quadrants. OG tube present, Vital High Protein tube feeding infusing at 20 mL/hr which is goal with no residual per nursing. - Genitourinary Genitourinary Comment(s): Pratt present draining clear, yellow urine. Urine output overnight 25-40 mL per hour overnight, 830 mL in the last 24 hours - Integumentary Integumentary Comment(s): Skin is warm and dry. No evidence of skin breakdown. - Neurologic Neurologic: Present: CNII-XII intact - Musculoskeletal Musculoskeletal: Present: strength equal bilaterally - Psychiatric Psychiatric Comment(s): Currently sedated with propofol. Patient does open her eyes and move all e xtremities to command. She does nod her head yes and shake her head no appropriately when asked questions. - Allied health notes Allied health notes reviewed: nursing - Labs CBC & Chem 7: 10/14/19 04:10 10/14/19 04:10 Labs: Abnormal Lab Results - Last 24 Hours (Table) 10/08/19 10/13/19 10/13/19 Range/Units 09:08 08:00 08:02 RBC (3.80-5.40) m/uL Hgb (11.4-16.0) gm/dL Hct (34.0-46.0) % Plt Count (150-450) k/uL PT (9.0-12.0) sec INR (<1.2) APTT (22.0-30.0) sec Fibrinogen (200-500) mg/dL ABG pO2 (83-108) mmHg ABG HCO3 (21-25) mmol/L ABG Total CO2 (19-24) mmol/L ABG O2 Saturation (94-97) % VBG pH 7.30 L (7.31-7.41) VBG pCO2 53 H (37-51) mmHg Sodium (137-145) mmol/L Glucose (74-99) mg/dL POC Glucose (mg/dL) 143 H (75-99) mg/dL Calcium (8.4-10.2) mg/dL AST (14-36) U/L Alkaline Phosphatase (38-126) U/L Total Protein (6.3-8.2) g/dL Albumin (3.5-5.0) g/dL Crossmatch See Detail 10/13/19 10/13/19 10/13/19 Range/Units 08:18 08:52 10:01 RBC 2.67 L (3.80-5.40) m/uL Hgb 7.8 L (11.4-16.0) gm/dL Hct 23.7 L (34.0-46.0) % Plt Count 104 L (150-450) k/uL PT (9.0-12.0) sec INR (<1.2) APTT (22.0-30.0) sec Fibrinogen (200-500) mg/dL ABG pO2 (83-108) mmHg ABG HCO3 (21-25) mmol/L ABG Total CO2 (19-24) mmol/L ABG O2 Saturation (94-97) % VBG pH (7.31-7.41) VBG pCO2 (37-51) mmHg Sodium (137-145) mmol/L Glucose (74-99) mg/dL POC Glucose (mg/dL) 131 H 104 H (75-99) mg/dL Calcium (8.4-10.2) mg/dL AST (14-36) U/L Alkaline Phosphatase (38-126) U/L Total Protein (6.3-8.2) g/dL Albumin (3.5-5.0) g/dL Crossmatch 10/13/19 10/13/19 10/13/19 Range/Units 10:56 11:54 13:00 RBC (3.80-5.40) m/uL Hgb (11.4-16.0) gm/dL Hct (34.0-46.0) % Plt Count (150-450) k/uL PT (9.0-12.0) sec INR (<1.2) APTT (22.0-30.0) sec Fibrinogen (200-500) mg/dL ABG pO2 (83-108) mmHg ABG HCO3 (21-25) mmol/L ABG Total CO2 (19-24) mmol/L ABG O2 Saturation (94-97) % VBG pH (7.31-7.41) VBG pCO2 (37-51) mmHg Sodium (137-145) mmol/L Glucose (74-99) mg/dL POC Glucose (mg/dL) 110 H 135 H 152 H (75-99) mg/dL Calcium (8.4-10.2) mg/dL AST (14-36) U/L Alkaline Phosphatase (38-126) U/L Total Protein (6.3-8.2) g/dL Albumin (3.5-5.0) g/dL Crossmatch 10/13/19 10/13/19 10/13/19 Range/Units 13:51 13:54 14:39 RBC 2.61 L (3.80-5.40) m/uL Hgb 7.5 L (11.4-16.0) gm/dL Hct 22.7 L (34.0-46.0) % Plt Count 79 L (150-450) k/uL PT (9.0-12.0) sec INR (<1.2) APTT (22.0-30.0) sec Fibrinogen (200-500) mg/dL ABG pO2 184 H (83-108) mmHg ABG HCO3 (21-25) mmol/L ABG Total CO2 (19-24) mmol/L ABG O2 Saturation 99.4 H (94-97) % VBG pH (7.31-7.41) VBG pCO2 (37-51) mmHg Sodium (137-145) mmol/L Glucose (74-99) mg/dL POC Glucose (mg/dL) 145 H (75-99) mg/dL Calcium (8.4-10.2) mg/dL AST (14-36) U/L Alkaline Phosphatase (38-126) U/L Total Protein (6.3-8.2) g/dL Albumin (3.5-5.0) g/dL Crossmatch 10/13/19 10/13/19 10/13/19 Range/Units 15:02 16:01 17:01 RBC (3.80-5.40) m/uL Hgb (11.4-16.0) gm/dL Hct (34.0-46.0) % Plt Count (150-450) k/uL PT (9.0-12.0) sec INR (<1.2) APTT (22.0-30.0) sec Fibrinogen (200-500) mg/dL ABG pO2 (83-108) mmHg ABG HCO3 (21-25) mmol/L ABG Total CO2 (19-24) mmol/L ABG O2 Saturation (94-97) % VBG pH (7.31-7.41) VBG pCO2 (37-51) mmHg Sodium (137-145) mmol/L Glucose (74-99) mg/dL POC Glucose (mg/dL) 143 H 144 H 106 H (75-99) mg/dL Calcium (8.4-10.2) mg/dL AST (14-36) U/L Alkaline Phosphatase (38-126) U/L Total Protein (6.3-8.2) g/dL Albumin (3.5-5.0) g/dL Crossmatch 10/13/19 10/13/19 10/13/19 Range/Units 18:06 18:50 18:51 RBC 2.43 L (3.80-5.40) m/uL Hgb 7.2 L (11.4-16.0) gm/dL Hct 21.7 L (34.0-46.0) % Plt Count 54 L (150-450) k/uL PT (9.0-12.0) sec INR (<1.2) APTT (22.0-30.0) sec Fibrinogen (200-500) mg/dL ABG pO2 (83-108) mmHg ABG HCO3 (21-25) mmol/L ABG Total CO2 (19-24) mmol/L ABG O2 Saturation (94-97) % VBG pH (7.31-7.41) VBG pCO2 (37-51) mmHg Sodium (137-145) mmol/L Glucose (74-99) mg/dL POC Glucose (mg/dL) 123 H 169 H (75-99) mg/dL Calcium (8.4-10.2) mg/dL AST (14-36) U/L Alkaline Phosphatase (38-126) U/L Total Protein (6.3-8.2) g/dL Albumin (3.5-5.0) g/dL Crossmatch 10/13/19 10/13/19 10/13/19 Range/Units 19:35 20:11 20:57 RBC (3.80-5.40) m/uL Hgb (11.4-16.0) gm/dL Hct (34.0-46.0) % Plt Count (150-450) k/uL PT 12.8 H (9.0-12.0) sec INR 1.3 H (<1.2) APTT 51.1 H (22.0-30.0) sec Fibrinogen 175 L (200-500) mg/dL ABG pO2 (83-108) mmHg ABG HCO3 (21-25) mmol/L ABG Total CO2 (19-24) mmol/L ABG O2 Saturation (94-97) % VBG pH (7.31-7.41) VBG pCO2 (37-51) mmHg Sodium (137-145) mmol/L Glucose (74-99) mg/dL POC Glucose (mg/dL) 179 H 171 H (75-99) mg/dL Calcium (8.4-10.2) mg/dL AST (14-36) U/L Alkaline Phosphatase (38-126) U/L Total Protein (6.3-8.2) g/dL Albumin (3.5-5.0) g/dL Crossmatch 10/13/19 10/13/19 10/13/19 Range/Units 21:09 21:55 21:57 RBC (3.80-5.40) m/uL Hgb (11.4-16.0) gm/dL Hct (34.0-46.0) % Plt Count (150-450) k/uL PT (9.0-12.0) sec INR (<1.2) APTT (22.0-30.0) sec Fibrinogen (200-500) mg/dL ABG pO2 143 H (83-108) mmHg ABG HCO3 (21-25) mmol/L ABG Total CO2 (19-24) mmol/L ABG O2 Saturation 99.1 H (94-97) % VBG pH (7.31-7.41) VBG pCO2 (37-51) mmHg Sodium (137-145) mmol/L Glucose (74-99) mg/dL POC Glucose (mg/dL) 156 H (75-99) mg/dL Calcium 7.7 L (8.4-10.2) mg/dL AST (14-36) U/L Alkaline Phosphatase (38-126) U/L Total Protein (6.3-8.2) g/dL Albumin (3.5-5.0) g/dL Crossmatch 10/13/19 10/14/19 10/14/19 Range/Units 22:56 00:05 01:11 RBC (3.80-5.40) m/uL Hgb (11.4-16.0) gm/dL Hct (34.0-46.0) % Plt Count (150-450) k/uL PT (9.0-12.0) sec INR (<1.2) APTT (22.0-30.0) sec Fibrinogen (200-500) mg/dL ABG pO2 (83-108) mmHg ABG HCO3 (21-25) mmol/L ABG Total CO2 (19-24) mmol/L ABG O2 Saturation (94-97) % VBG pH (7.31-7.41) VBG pCO2 (37-51) mmHg Sodium (137-145) mmol/L Glucose (74-99) mg/dL POC Glucose (mg/dL) 135 H 123 H 118 H (75-99) mg/dL Calcium (8.4-10.2) mg/dL AST (14-36) U/L Alkaline Phosphatase (38-126) U/L Total Protein (6.3-8.2) g/dL Albumin (3.5-5.0) g/dL Crossmatch 10/14/19 10/14/19 10/14/19 Range/Units 02:02 03:00 04:10 RBC 2.43 L (3.80-5.40) m/uL Hgb 7.3 L (11.4-16.0) gm/dL Hct 21.6 L (34.0-46.0) % Plt Count 65 L (150-450) k/uL PT (9.0-12.0) sec INR (<1.2) APTT (22.0-30.0) sec Fibrinogen (200-500) mg/dL ABG pO2 (83-108) mmHg ABG HCO3 (21-25) mmol/L ABG Total CO2 (19-24) mmol/L ABG O2 Saturation (94-97) % VBG pH (7.31-7.41) VBG pCO2 (37-51) mmHg Sodium (137-145) mmol/L Glucose (74-99) mg/dL POC Glucose (mg/dL) 114 H 116 H (75-99) mg/dL Calcium (8.4-10.2) mg/dL AST (14-36) U/L Alkaline Phosphatase (38-126) U/L Total Protein (6.3-8.2) g/dL Albumin (3.5-5.0) g/dL Crossmatch 10/14/19 10/14/19 10/14/19 Range/Units 04:10 04:10 04:16 RBC (3.80-5.40) m/uL Hgb (11.4-16.0) gm/dL Hct (34.0-46.0) % Plt Count (150-450) k/uL PT (9.0-12.0) sec INR 1.2 H (<1.2) APTT 44.0 H (22.0-30.0) sec Fibrinogen 198 L (200-500) mg/dL ABG pO2 (83-108) mmHg ABG HCO3 (21-25) mmol/L ABG Total CO2 (19-24) mmol/L ABG O2 Saturation (94-97) % VBG pH (7.31-7.41) VBG pCO2 (37-51) mmHg Sodium 133 L (137-145) mmol/L Glucose 115 H (74-99) mg/dL POC Glucose (mg/dL) 136 H (75-99) mg/dL Calcium 7.4 L (8.4-10.2) mg/dL AST 56 H (14-36) U/L Alkaline Phosphatase 30 L (38-126) U/L Total Protein 3.9 L (6.3-8.2) g/dL Albumin 2.5 L (3.5-5.0) g/dL Crossmatch 10/14/19 10/14/19 10/14/19 Range/Units 05:06 05:21 06:06 RBC (3.80-5.40) m/uL Hgb (11.4-16.0) gm/dL Hct (34.0-46.0) % Plt Count (150-450) k/uL PT (9.0-12.0) sec INR (<1.2) APTT (22.0-30.0) sec Fibrinogen (200-500) mg/dL ABG pO2 129 H (83-108) mmHg ABG HCO3 26 H (21-25) mmol/L ABG Total CO2 27 H (19-24) mmol/L ABG O2 Saturation 99.2 H (94-97) % VBG pH (7.31-7.41) VBG pCO2 (37-51) mmHg Sodium (137-145) mmol/L Glucose (74-99) mg/dL POC Glucose (mg/dL) 138 H 134 H (75-99) mg/dL Calcium (8.4-10.2) mg/dL AST (14-36) U/L Alkaline Phosphatase (38-126) U/L Total Protein (6.3-8.2) g/dL Albumin (3.5-5.0) g/dL Crossmatch 10/14/19 Range/Units 07:01 RBC (3.80-5.40) m/uL Hgb (11.4-16.0) gm/dL Hct (34.0-46.0) % Plt Count (150-450) k/uL PT (9.0-12.0) sec INR (<1.2) APTT (22.0-30.0) sec Fibrinogen (200-500) mg/dL ABG pO2 (83-108) mmHg ABG HCO3 (21-25) mmol/L ABG Total CO2 (19-24) mmol/L ABG O2 Saturation (94-97) % VBG pH (7.31-7.41) VBG pCO2 (37-51) mmHg Sodium (137-145) mmol/L Glucose (74-99) mg/dL POC Glucose (mg/dL) 133 H (75-99) mg/dL Calcium (8.4-10.2) mg/dL AST (14-36) U/L Alkaline Phosphatase (38-126) U/L Total Protein (6.3-8.2) g/dL Albumin (3.5-5.0) g/dL Crossmatch - Imaging and Cardiology Chest x-ray: image reviewed Assessment and Plan Assessment: 1. Severe aortic insufficiency, status post bioprosthetic aortic valve replacement 2. Moderate to severe mitral regurgitation, status post mitral valve repair 3. Single-vessel coronary artery disease, status post bypass to the RCA 4. History of coronary artery disease with myocardial infarction, status post stent placement to the RCA 5. History of hypertension, currently hypotensive 6. History of hyperlipidemia, treated 7. Right internal carotid artery stenosis 50-69% 8. Chronic kidney disease stage III 9. Hypothyroid 10. TIA in 2004 without residual 11. Remote history of pneumonia 12. Previous tobacco dependence 13. Moderate lung restriction with preoperative FEV1 58% of predicted, p ulmonary fibrosis seen on CT 14. Family history of premature coronary artery disease 15. Postoperative acute blood loss anemia, status post transfusion 16. Postoperative and intraoperative atrial fibrillation, status post clip ligation of left atrial appendage and amiodarone initiation Plan: 1. Continue low-dose aspirin, statin. Will hold off on Plavix and beta blo cker. Wean levo as tolerated 2. Continue IV amiodarone for A. fib prophylaxis. No anticoagulation 3. Mechanical ventilation, bronchodilators per pulmonology. Use as minimal sedation as possible 4. Will monitor daily labs and x-rays. Electrolyte replacement per protocol. Will give 1 gram calcium gluconate 5. Continue dobutamine and Primacor at current rates for now, primacore decreased to 0.1 mcg/kg/min last night 6. GI/DVT prophylaxis. Hold heparin SQ for platelet count <100,000 7. Continue tube feedings for nutrition. 8. Pain control with current medication regimen. No Toradol 9. Insulin management per primary care service. Preoperative hemoglobin A1c 5.5% 10. Repeat limited echo to rule out clots in the heart 11. Continue to monitor chest tube output and consistency 12. Continue to pace patient at 80 bpm, will increase rate if necessary. 13. Will get mixed venous gas 14. More recommendations to follow Time with Patient: Greater than 30
[2019-10-14 09:20] LABS: ABG Base Excess 1.3 mmol/L; ABG HCO3 27 mmol/L (21-25); ABG Oxygen Saturation 59.6 % (94-97); ABG PCO2 45 mmHg (35-45); ABG PH 7.38 (7.35-7.45); ABG TCO2 28 mmol/L (19-24)
[2019-10-14 09:24] LABS: Allen Test Performed? no
[2019-10-14 10:09] LABS: Glucose,Whole Blood 116 mg/dL (75-99)
[2019-10-14 10:59] LABS: Glucose,Whole Blood 118 mg/dL (75-99)
--- NOTE | 2019-10-14 12:26 | P.PN ---
Subjective Progress Note Date: 10/14/192019, the patient is postop day #1. The patient underwent single-vessel bypass surgery, aortic valve replacement and mitral valve repair. She is known to have coronary artery disease, valvular insufficiency, hypertension and hyperlipidemia and chronic stage III kidney disease. The patient also is known to have carotid artery disease 50% on the right, hypothyroidism, and history of interstitial lung disease with pulmonary fibrosis and severe restrictive lung disease with a FVC in the 50% range preoperatively. On today's evaluation, the patient is still intubated on mechanical ventilator. Were unable to wean the patient off the mechanical ventilator and extubated because of her ongoing difficulties with hemodynamics and bleeding from the chest tubes. Note that the patient is still in intensive care unit and she is still sedated for now at propofol which is running at 20 g per KG per minute. The patient is still requiring inotropes. The patient was quite hypotensive after arrival from the operating room and she was having difficulties with bradycardia. She is currently paced at the rate of 80. She is on norepinephrine infusion which is running at 0.26 mg per KG per minute. She was started on milrinone yesterday at 0.2 g and at a later stage dobutamine was also added. Earlier this morning, cardiothoracic surgery saw the patient and increase the paced rhythm of 200 beats per minutes. Her underlying rhythm this morning is normal sinus rate of 60. She is at dobutamine at the medical grams per KG per minute and milrinone at 0.2 mics respiratory KG per minute. She is a lso on amiodarone at 0.5 mg/m. The right is being titrated pH has an adequate urine output. Most recent hemodynamics indicate a cardiac index of 1.9. Pulmonary artery pressures are 46/25 mmHg. A bedside echocardiogram was done and there is no evidence of any pericardial effusion. Valve functions were adequate. The mediastinal chest tubes are in place and the pleural chest tube is in place. There was ongoing issues with clotting and drainage from the chest tubes. Appropriate cleaning and suctioning of the chest tubes were done. Overall, the patient received a total of 4 units of packed RBC, 3 units of fresh frozen plasma, 2 units of packed RBC and 2 packs of cryoprecipitate in addition to call is in the form of IV albumin throughout the resuscitation. No ongoing or active bleed at this point in time. No attempts for weaning off the mechanical ventilator. The patient is currently on a assist-control mode of ventilation at the rate of 20 with tidal volume of 400 and FiO2 of 50% with a PEEP of 5. Blood gas showed a pH of 7.38 with a pCO2 of 41 and pO2 of 206. Chest x-ray showed adequate expansion of both lungs. There is underlying chronic incision infiltrates. ET tube is in a good location. Chest x-rays well expanded. No pneumothorax. No atelectasis. 10/14/2019 the patient is postop day #2. The patient underwent single vessel bypass surgery, aortic valve replacement, mitral valve repair. The bleeding has subsided from the mediastinal tubes. Output from the tubes have dropped down considerably since yesterday. Nevertheless, there is some widening of the mediastinum and the patient is going to have a limited echocardiogram to rule out any hematoma or blood collection around the pericardium. The patient currently is still intubated on a mechanical ventilator. The patient remains on assist control mode of ventilation at the rate of 20 with a tidal volume of 400 and FiO2 of 40% with a PEEP of 5. The peak airway pressure is 26. Blood gases showed a pH of 7.44 with a pCO2 of 37 and pO2 129. Chest x-ray showed adequate expansion of both lungs. Chest tubes are all in good location. ET tube is in a good location. The patient is still has his [place]-Sarah catheter in place. The mediastinum is slightly widened. In terms of hemodynamics, the patient is currently on milrinone at a dose of 0.1 g per KG per minute. The patient is also on dobutamine at 3 mg per KG per minute. Levo fed is running at 0.03 mics respiratory KG per minute. The patient is also on amiodarone at 0.5 mg/m. She is was sedated with propofol at 25 g per KG per minute. Insulin is running at 2.5 units an hour. Cardiac index is at 1.5. The heart rate is being paced the rate of 80. Underlying rhythm is sinus with a rate of 70. The patient is receiving enteral feeding for nutritional support. The most recent hemoglobin is at 7.3. The platelet count is down to 65. Objective - Vital Signs Vital signs: Vital Signs Temp 96.8 F L 10/14/19 11:00 Pulse 92 10/14/19 12:07 Resp 20 10/14/19 11:30 BP 90/36 10/14/19 11:30 Pulse Ox 93 L 10/14/19 11:30 Intake & Output 10/13/19 10/14/19 10/14/19 18:59 06:59 18:59 Intake Total 3340.613 3499.213 784.037 Output Total 1889 1317 416 Balance 5463.473 2458.213 368.037 Weight 57.7 kg 64.4 kg Intake: IV 1820.5 1492.0 442.5 .9NS Cardiac Output 120 240 60 0.9NS Pressure Bags 108 108 45 Albumin Human 5% 250 ml 750 500 In Empty Bag 1 bag @ 250 mls/hr IVPB Q1HR PRN Rx#: [id number] Amiodarone 300 mg In 75 Dextrose 5% in Water 250 ml @ 0.5 MG/MIN 25 mls/hr IV .Q10H PRN Rx#: [id number] Calcium Gluconate 1 gm In 100 100 Sodium Chloride 0.9% 100 ml @ 100 mls/hr IVPB ONCE ONE Rx#:[id number] DOBUTamine DRIP 500 mg In 52.5 54.0 22.5 Dextrose/Water 1 250ml. bag @ 3 MCG/KG/MIN 4.572 mls/hr IV .Q24H [facility] Rx#: [id number] Lactated Ringers 1,000 ml 590 50 @ 50 mls/hr IV .Q20H [facility] Rx#:[id number] Sodium Chloride 0.9% 1, 0 440 240 000 ml @ 50 mls/hr IV . Q20H [facility] Rx#:[id number] ceFAZolin 2 gm In Sodium 100 Chloride 0.9% 50 ml @ 100 mls/hr IVPB Q8HR [facility] Rx# :[id number] Intake, IV Titration 820.113 716.213 231.537 Amount Amiodarone 300 mg In 250 208.75 Dextrose 5% in Water 250 ml @ 0.5 MG/MIN 25 mls/hr IV .Q10H PRN Rx#: [id number] Insulin Regular 100 unit 27.733 24.266 9.6 In Sodium Chloride 0.9% 100 ml @ Per Protocol IV .Q0M [facility] Rx#:[id number] Milrinone-D5w Pmx 20 mg 68.885 52.476 In Dextrose/Water 1 100ml .bag @ 0.1 MCG/KG/MIN 1. 524 mls/hr IV .Q24H [facility] Rx#:[id number] Norepinephrine 4 mg In 383.161 343.966 150.42 Sodium Chloride 0.9% 250 ml @ 0.05 MCG/KG/MIN 9. 677 mls/hr IV .Q24H [facility] Rx#:[id number] propofoL 1,000 mg In 90.334 139.231 19.041 Empty Bag 1 bag @ Titrate IV .Q0M [facility] Rx#: [id number] Oral 60 Tube Feeding 20 150 80 Blood Product 620 1051 Platelet Irr Pheresis Pas 231 -C Unit [id number] Rc As-1 Unit 310 [id number] Rc As-1 Unit 310 [id number] Rc As-1 Unit 310 [id number] Other 90 30 Output: Chest Tube Drainage 1112 962 321 Left 250 360 100 Left and Right Pleural 90 Chest Tube Mediastinal Chest Tube 102 12 1 Right 670 590 220 Gastric Drainage 300 Urine 477 355 95 Other: Voiding Method Indwelling Catheter Indwelling Catheter Indwelling Catheter ABP, PAP, CO, CI - Last Documented Arterial Blood Pressure 110/39 Pulmonary Artery Pressure 34/21 Cardiac Output 3 Cardiac Index 1.9 - Exam - Constitutional General appearance: Present: no acute distress, thin - Respiratory Details: Lungs sounds diminished bilaterally. Respirations even, nonlabored on mechani mian ventilation. Current ventilator settings assist control mode, FiO2 40%, tidal volume 400, respiratory rate 20, PEEP 5. ABGs this morning on those ventilator settings 7.44/37/129/26/99%/1.3. 8.0 ET tube present, 22 at the lip. Mediastinal chest tube present, connected to continuous wall suction, 8 mL thick clotty drainage overnight, 35 mL in the last 24 hours. Left pleural chest tube present and connected to continuous wall suction, 180 mL thin serosanguineous drainage overnight, 650 mL in the last 24 hours. Right pleural chest tube present and connected to continuous wall suction, 400 mL serosanguineous drainage overnight, 1350 mL in the last 24 hours. No air leaks present. - Cardiovascular Details: S1, S2 present. Regular rate and rhythm, atrially paced on telemetry at 80 bpm, underlying sinus rhythm at 70 beats a minute. Sternum stable. A/V epicardial pacemaker wires present, connected to generator, DDD mode with rate 80 bpm. Pa lpable peripheral pulses bilaterally. No edema present. Right internal jugular [place]ordis, left radial arterial line present. Last CO/CI 3.3/2.1 on Dobutamine at 3 mcg/kg/min, milrinone at 0.1 mcg/kg/min, amio at 0.5 mg/min, and levo at 0.04 mcg/kg/min. Heart hugger, SCDs, antiembolism stockings all present. - Gastrointestinal Gastrointestinal Comment(s): Abdomen soft, nontender, nondistended. Active bowel sounds present 4 quadrants. OG tube present, Vital High Protein tube feeding infusing at 20 mL/hr which is goal with no residual per nursing. - Genitourinary Genitourinary Comment(s): Pratt present draining clear, yellow urine. Urine output overnight 25-40 mL per hour overnight, 830 mL in the last 24 hours - Integumentary Integumentary Comment(s): Skin is warm and dry. No evidence of skin breakdown. - Neurologic Neurologic: Present: CNII-XII intact - Musculoskeletal Musculoskeletal: Present: strength equal bilaterally - Psychiatric Psychiatric Comment(s): Currently sedated with propofol. Patient does open her eyes and move all e xtremities to command. She does nod her head yes and shake her head no appropriately when asked questions. - Labs CBC & Chem 7: 10/14/19 04:10 10/14/19 04:10 Labs: Abnormal Lab Results - Last 24 Hours (Table) 10/08/19 10/13/19 10/13/19 Range/Units 09:08 13:00 13:51 RBC (3.80-5.40) m/uL Hgb (11.4-16.0) gm/dL Hct (34.0-46.0) % Plt Count (150-450) k/uL PT (9.0-12.0) sec INR (<1.2) APTT (22.0-30.0) sec Fibrinogen (200-500) mg/dL ABG pO2 (83-108) mmHg ABG HCO3 (21-25) mmol/L ABG Total CO2 (19-24) mmol/L ABG O2 Saturation (94-97) % Sodium (137-145) mmol/L Glucose (74-99) mg/dL POC Glucose (mg/dL) 152 H 145 H (75-99) mg/dL Calcium (8.4-10.2) mg/dL AST (14-36) U/L Alkaline Phosphatase (38-126) U/L Total Protein (6.3-8.2) g/dL Albumin (3.5-5.0) g/dL Crossmatch See Detail 10/13/19 10/13/19 10/13/19 Range/Units 13:54 14:39 15:02 RBC 2.61 L (3.80-5.40) m/uL Hgb 7.5 L (11.4-16.0) gm/dL Hct 22.7 L (34.0-46.0) % Plt Count 79 L (150-450) k/uL PT (9.0-12.0) sec INR (<1.2) APTT (22.0-30.0) sec Fibrinogen (200-500) mg/dL ABG pO2 184 H (83-108) mmHg ABG HCO3 (21-25) mmol/L ABG Total CO2 (19-24) mmol/L ABG O2 Saturation 99.4 H (94-97) % Sodium (137-145) mmol/L Glucose (74-99) mg/dL POC Glucose (mg/dL) 143 H (75-99) mg/dL Calcium (8.4-10.2) mg/dL AST (14-36) U/L Alkaline Phosphatase (38-126) U/L Total Protein (6.3-8.2) g/dL Albumin (3.5-5.0) g/dL Crossmatch 10/13/19 10/13/19 10/13/19 Range/Units 16:01 17:01 18:06 RBC (3.80-5.40) m/uL Hgb (11.4-16.0) gm/dL Hct (34.0-46.0) % Plt Count (150-450) k/uL PT (9.0-12.0) sec INR (<1.2) APTT (22.0-30.0) sec Fibrinogen (200-500) mg/dL ABG pO2 (83-108) mmHg ABG HCO3 (21-25) mmol/L ABG Total CO2 (19-24) mmol/L ABG O2 Saturation (94-97) % Sodium (137-145) mmol/L Glucose (74-99) mg/dL POC Glucose (mg/dL) 144 H 106 H 123 H (75-99) mg/dL Calcium (8.4-10.2) mg/dL AST (14-36) U/L Alkaline Phosphatase (38-126) U/L Total Protein (6.3-8.2) g/dL Albumin (3.5-5.0) g/dL Crossmatch 10/13/19 10/13/19 10/13/19 Range/Units 18:50 18:51 19:35 RBC 2.43 L (3.80-5.40) m/uL Hgb 7.2 L (11.4-16.0) gm/dL Hct 21.7 L (34.0-46.0) % Plt Count 54 L (150-450) k/uL PT 12.8 H (9.0-12.0) sec INR 1.3 H (<1.2) APTT 51.1 H (22.0-30.0) sec Fibrinogen 175 L (200-500) mg/dL ABG pO2 (83-108) mmHg ABG HCO3 (21-25) mmol/L ABG Total CO2 (19-24) mmol/L ABG O2 Saturation (94-97) % Sodium (137-145) mmol/L Glucose (74-99) mg/dL POC Glucose (mg/dL) 169 H (75-99) mg/dL Calcium (8.4-10.2) mg/dL AST (14-36) U/L Alkaline Phosphatase (38-126) U/L Total Protein (6.3-8.2) g/dL Albumin (3.5-5.0) g/dL Crossmatch 10/13/19 10/13/19 10/13/19 Range/Units 20:11 20:57 21:09 RBC (3.80-5.40) m/uL Hgb (11.4-16.0) gm/dL Hct (34.0-46.0) % Plt Count (150-450) k/uL PT (9.0-12.0) sec INR (<1.2) APTT (22.0-30.0) sec Fibrinogen (200-500) mg/dL ABG pO2 143 H (83-108) mmHg ABG HCO3 (21-25) mmol/L ABG Total CO2 (19-24) mmol/L ABG O2 Saturation 99.1 H (94-97) % Sodium (137-145) mmol/L Glucose (74-99) mg/dL POC Glucose (mg/dL) 179 H 171 H (75-99) mg/dL Calcium (8.4-10.2) mg/dL AST (14-36) U/L Alkaline Phosphatase (38-126) U/L Total Protein (6.3-8.2) g/dL Albumin (3.5-5.0) g/dL Crossmatch 10/13/19 10/13/19 10/13/19 Range/Units 21:55 21:57 22:56 RBC (3.80-5.40) m/uL Hgb (11.4-16.0) gm/dL Hct (34.0-46.0) % Plt Count (150-450) k/uL PT (9.0-12.0) sec INR (<1.2) APTT (22.0-30.0) sec Fibrinogen (200-500) mg/dL ABG pO2 (83-108) mmHg ABG HCO3 (21-25) mmol/L ABG Total CO2 (19-24) mmol/L ABG O2 Saturation (94-97) % Sodium (137-145) mmol/L Glucose (74-99) mg/dL POC Glucose (mg/dL) 156 H 135 H (75-99) mg/dL Calcium 7.7 L (8.4-10.2) mg/dL AST (14-36) U/L Alkaline Phosphatase (38-126) U/L Total Protein (6.3-8.2) g/dL Albumin (3.5-5.0) g/dL Crossmatch 10/14/19 10/14/19 10/14/19 Range/Units 00:05 01:11 02:02 RBC (3.80-5.40) m/uL Hgb (11.4-16.0) gm/dL Hct (34.0-46.0) % Plt Count (150-450) k/uL PT (9.0-12.0) sec INR (<1.2) APTT (22.0-30.0) sec Fibrinogen (200-500) mg/dL ABG pO2 (83-108) mmHg ABG HCO3 (21-25) mmol/L ABG Total CO2 (19-24) mmol/L ABG O2 Saturation (94-97) % Sodium (137-145) mmol/L Glucose (74-99) mg/dL POC Glucose (mg/dL) 123 H 118 H 114 H (75-99) mg/dL Calcium (8.4-10.2) mg/dL AST (14-36) U/L Alkaline Phosphatase (38-126) U/L Total Protein (6.3-8.2) g/dL Albumin (3.5-5.0) g/dL Crossmatch 10/14/19 10/14/19 10/14/19 Range/Units 03:00 04:10 04:10 RBC 2.43 L (3.80-5.40) m/uL Hgb 7.3 L (11.4-16.0) gm/dL Hct 21.6 L (34.0-46.0) % Plt Count 65 L (150-450) k/uL PT (9.0-12.0) sec INR (<1.2) APTT (22.0-30.0) sec Fibrinogen (200-500) mg/dL ABG pO2 (83-108) mmHg ABG HCO3 (21-25) mmol/L ABG Total CO2 (19-24) mmol/L ABG O2 Saturation (94-97) % Sodium 133 L (137-145) mmol/L Glucose 115 H (74-99) mg/dL POC Glucose (mg/dL) 116 H (75-99) mg/dL Calcium 7.4 L (8.4-10.2) mg/dL AST 56 H (14-36) U/L Alkaline Phosphatase 30 L (38-126) U/L Total Protein 3.9 L (6.3-8.2) g/dL Albumin 2.5 L (3.5-5.0) g/dL Crossmatch 10/14/19 10/14/19 10/14/19 Range/Units 04:10 04:16 05:06 RBC (3.80-5.40) m/uL Hgb (11.4-16.0) gm/dL Hct (34.0-46.0) % Plt Count (150-450) k/uL PT (9.0-12.0) sec INR 1.2 H (<1.2) APTT 44.0 H (22.0-30.0) sec Fibrinogen 198 L (200-500) mg/dL ABG pO2 (83-108) mmHg ABG HCO3 (21-25) mmol/L ABG Total CO2 (19-24) mmol/L ABG O2 Saturation (94-97) % Sodium (137-145) mmol/L Glucose (74-99) mg/dL POC Glucose (mg/dL) 136 H 138 H (75-99) mg/dL Calcium (8.4-10.2) mg/dL AST (14-36) U/L Alkaline Phosphatase (38-126) U/L Total Protein (6.3-8.2) g/dL Albumin (3.5-5.0) g/dL Crossmatch 10/14/19 10/14/19 10/14/19 Range/Units 05:21 06:06 07:01 RBC (3.80-5.40) m/uL Hgb (11.4-16.0) gm/dL Hct (34.0-46.0) % Plt Count (150-450) k/uL PT (9.0-12.0) sec INR (<1.2) APTT (22.0-30.0) sec Fibrinogen (200-500) mg/dL ABG pO2 129 H (83-108) mmHg ABG HCO3 26 H (21-25) mmol/L ABG Total CO2 27 H (19-24) mmol/L ABG O2 Saturation 99.2 H (94-97) % Sodium (137-145) mmol/L Glucose (74-99) mg/dL POC Glucose (mg/dL) 134 H 133 H (75-99) mg/dL Calcium (8.4-10.2) mg/dL AST (14-36) U/L Alkaline Phosphatase (38-126) U/L Total Protein (6.3-8.2) g/dL Albumin (3.5-5.0) g/dL Crossmatch 10/14/19 10/14/19 10/14/19 Range/Units 08:03 09:11 09:17 RBC (3.80-5.40) m/uL Hgb (11.4-16.0) gm/dL Hct (34.0-46.0) % Plt Count (150-450) k/uL PT (9.0-12.0) sec INR (<1.2) APTT (22.0-30.0) sec Fibrinogen (200-500) mg/dL ABG pO2 30 L* (83-108) mmHg ABG HCO3 27 H (21-25) mmol/L ABG Total CO2 28 H (19-24) mmol/L ABG O2 Saturation 59.6 L (94-97) % Sodium (137-145) mmol/L Glucose (74-99) mg/dL POC Glucose (mg/dL) 116 H 122 H (75-99) mg/dL Calcium (8.4-10.2) mg/dL AST (14-36) U/L Alkaline Phosphatase (38-126) U/L Total Protein (6.3-8.2) g/dL Albumin (3.5-5.0) g/dL Crossmatch 10/14/19 10/14/19 Range/Units 10:07 10:58 RBC (3.80-5.40) m/uL Hgb (11.4-16.0) gm/dL Hct (34.0-46.0) % Plt Count (150-450) k/uL PT (9.0-12.0) sec INR (<1.2) APTT (22.0-30.0) sec Fibrinogen (200-500) mg/dL ABG pO2 (83-108) mmHg ABG HCO3 (21-25) mmol/L ABG Total CO2 (19-24) mmol/L ABG O2 Saturation (94-97) % Sodium (137-145) mmol/L Glucose (74-99) mg/dL POC Glucose (mg/dL) 116 H 118 H (75-99) mg/dL Calcium (8.4-10.2) mg/dL AST (14-36) U/L Alkaline Phosphatase (38-126) U/L Total Protein (6.3-8.2) g/dL Albumin (3.5-5.0) g/dL Crossmatch Assessment and Plan Plan: 1 cardiac surgery which involved a single-vessel bypass surgery to RCA in addition to aortic valve replacement for severe aortic insufficiency with a BiPAP prostatic aortic valve and mitral valve repair. The patient is postop day #2. 2 postoperative hypotension in addition to a lower cardiac output with hemodynamic instability requiring a combination of pressors and currently the patient a combination of norepinephrine infusion, dobutamine and milrinone. The patient has also been resuscitated with IV fluids with Colace. Most recent cardiac index is 1.9. The patient is also paced at the rate of 80 beats per minute. 3 coronary artery disease with previous stenting of the RCA 4 post thoracotomy and the patient currently remains intubated on a mechanical ventilator. The mediastinal and the pleural chest tubes are all in place. Platelets have dropped and the patient has limited amount of bloody output from the chest tubes. There is somebody to monitor. There is a concern that she has activated some blood clots around the pericardium. A limited echocardiogram will be done. The mediastinum is slightly widened on today's chest x-ray. All of the chest tubes are all in place. 5 chronic pulmonary fibrosis involving the lung bases with subpleural distribution very much consistent with IPF 6 chronic stage III kidney disease 7 history of TIA back in 2004 without any residual deficits 8 hypothyroidism 9 restrictive lung disease secondary to pulmonary fibrosis with a FVC in the mid 50s 10 right internal carotid artery disease in the order of 50-69% 11 hyperlipidemia 12 history of hypertension 13 intraoperative atrial fibrillation post clipping of the left atrial appendage and the patient is currently on amiodarone as a maintenance of 0.5 mg per minute. Underlying insisted rhythm is sinus at the rate of 16 the patient is currently paced at the rate of 80. 14 bleeding from the chest tube sites and the patient is been given appropriate blood products, hemoglobin is at 7.3 15 thrombus cytopenia Plan Continue ventilator support, no need for any ventilator changes and the patient has been oxygenating and ventilating well for now. Chest x-ray was reviewed. Monitor output from the chest tube Limited echocardiogram Monitor hemoglobin Continue monitoring the hemodynamics and wean off the pressors specifically norepinephrine infusion and maintain the milrinone and the be to me for now the patient sedated with propofol Keep the patient paced at the rate of 80 She'll feeds have been initiated Condition is still critical. We'll continue to follow make further recommendations based on progress. We are collaborating with the cardiothoracic team in regards to the patient's post active care. His sedation was done more than 30 minutes. Time with Patient: Greater than 30
[2019-10-14 13:11] LABS: Glucose,Whole Blood 112 mg/dL (75-99)
[2019-10-14 14:00] LABS: Glucose,Whole Blood 106 mg/dL (75-99)
[2019-10-14] MEDS ORDERED: ALBUMIN HUMAN 5% 250 ML IVPB ONE (14:24)
--- NOTE | 2019-10-14 14:27 | XR ---
EXAMINATION TYPE: XR chest 1V portable DATE OF EXAM: 10/14/2019 CLINICAL HISTORY: Postoperative cardiac surgery TECHNIQUE: Portable upright view of the chest obtained. COMPARISON: 10/13/2019 chest radiograph. 10/08/2019 chest radiograph. FINDINGS: Enteric tube distal tip at the level of the clavicular heads. Enteric tube with nonvisuali zation of the distal tip. Redemonstrated bilateral chest tubes and mediastinal drain. Right-sided int ernal jugular [place]-Sarah catheter unchanged. Left atrial appendage clip. Valvular prosthesis. Epicardi al pacer leads. There is ectatic appearance of the thoracic aorta. Cardiac mediastinal silhouette sim ilar versus 10/08/2019. Biapical pleural thickening redemonstrated. Coarsened pulmonary interstitial ma rkings appear similar. Small bilateral pleural effusions. No pneumothorax. IMPRESSION: 1. Postsurgical changes, interstitial coarsening, and small bilateral pleural effusions not significa ntly changed versus 10/13/2019. 2. Unchanged radiographic appearance of tubes and lines as above.
[2019-10-14] MEDS: NOREPINEPHRINE 4 MG in SODIUM CHLORIDE 0.9% 250 ML IV SCH (14:30)
[2019-10-14] MEDS ORDERED: ePHEDrine SULFATE/0.9% NACL/PF 50 MG/5 ML SYRINGE IV ONE (14:31)
[2019-10-14] MEDS ORDERED: VECURONIUM 10 MG VIAL IV ONE (14:31)
[2019-10-14] MEDS ORDERED: MIDAZOLAM 2 MG/2 ML VIAL ONE (14:31)
[2019-10-14] MEDS ORDERED: ALBUMIN HUMAN 5% 250 ML in EMPTY BAG 1 BAG IVPB STA (14:34)
[2019-10-14 15:09] LABS: ABG Base Excess -0.2 mmol/L; ABG Glucose Whole Blood 98 mg/dL (75-99); ABG HCO3 24 mmol/L (21-25); ABG Ionized Calcium 4.5 mg/dL (4.5-5.3); ABG Lactic Acid Whole Blood 1.6 mmol/L (0.5-1.6); ABG PCO2 34 mmHg (35-45); ABG PH 7.45 (7.35-7.45); ABG PO2 286 mmHg (83-108); ABG Potassium Whole Blood 3.8 mmol/L (3.4-4.5); ABG Sodium Whole Blood 135 mmol/L (135-146); ABG TCO2 25 mmol/L (19-24)
[2019-10-14 15:52] LABS: ABG Base Excess -1.7 mmol/L; ABG Glucose Whole Blood 122 mg/dL (75-99); ABG HCO3 23 mmol/L (21-25); ABG Ionized Calcium 4.4 mg/dL (4.5-5.3); ABG Lactic Acid Whole Blood 1.6 mmol/L (0.5-1.6); ABG Oxygen Saturation 99.5 % (94-97); ABG PCO2 36 mmHg (35-45); ABG PH 7.41 (7.35-7.45); ABG PO2 181 mmHg (83-108); ABG Potassium Whole Blood 3.9 mmol/L (3.4-4.5); ABG Sodium Whole Blood 135 mmol/L (135-146); ABG TCO2 24 mmol/L (19-24)
[2019-10-14 15:59] LABS: ABG Hematocrit 19 % (34.0-46.0)
[2019-10-14 15:59] LABS: ABG Hematocrit 22 % (34.0-46.0)
--- NOTE | 2019-10-14 16:00 | ECHOF ---
Referral Reason:assess LV, assess for clot MEASUREMENTS -------- HEIGHT: 165.1 cm WEIGHT: 57.6 kg BP: 77/42 IVSd: 1.2 cm (0.6 - 1.1) LVIDd: 2.7 cm (3.9 - 5.3) LVPWd: 1.6 cm (0.6 - 1.1) IVSs: 1.6 cm LVIDs: 2.1 cm LVPWs: 1.6 cm MV E Ch[place]: 1.05 m/s MV DecT: 320 ms MV A [place]: 0.94 m/s MV E/A Ratio: 1.11 AV maxP.95 mmHg AV meanP.02 mmHg RAP: 5.00 mmHg RVSP: 20.73 mmHg FINDINGS -------- This was a technically difficult study with suboptimal views. There is moderate concentric left ventricular hypertrophy. Overall left ventricular systolic functi on is mild-moderately impaired with, an EF between 40 - 45 %. Septal wall motion is delayed and con sistent with prior cardiac surgery. The RV was not well visualized. The left atrium was not well visualized. The right atrium was not well visualized. Lumison used for image inhancement There is mild jordin-prosthetic regurgitation of the bioprosthetic aortic valve. Mitral ring annulloplasty is in place. Mild tricuspid regurgitation present. There is no evidence of pulmonary hypertension. The right v entricular systolic pressure, as measured by Doppler, is 20.73mmHg. There is a moderate, generalized pericardial effusion present. CONCLUSIONS -------- 1. There is moderate concentric left ventricular hypertrophy. 2. Overall left ventricular systolic function is mild-moderately impaired with, an EF between 40 - 45 %. 3. Septal wall motion is delayed and consistent with prior cardiac surgery. 4. Lumison used for image inhancement 5. There is mild jordin-prosthetic regurgitation of the bioprosthetic aortic valve. 6. Mild tricuspid regurgitation present. 7. There is a moderate, generalized pericardial effusion present. AUTOMOTIVE MECHANICAL ENGINEER: Liza Ceja RDCS
--- NOTE | 2019-10-14 16:00 | ECHOF ---
Referral Reason:r/o any clots around the heart MEASUREMENTS -------- HEIGHT: 165.1 cm WEIGHT: 64.0 kg BP: 85/35 RVIDd: 2.9 cm (< 3.3) IVSd: 1.3 cm (0.6 - 1.1) LVIDd: 3.0 cm (3.9 - 5.3) LVPWd: 1.7 cm (0.6 - 1.1) IVSs: 1.5 cm LVIDs: 2.4 cm LVPWs: 1.4 cm FINDINGS -------- A-V paced rhythm. This was a technically difficult study with suboptimal apical views. Limited Study Pt. on a vent. The left ventricular size is normal. There is mild concentric left ventricular hypertrophy. Overa ll left ventricular systolic function is mild-moderately impaired with, an EF between 40 - 45 %. 5.0mg of Lumason was utilized for enhancement of images There is a moderate, generalized pericardial effusion present. CONCLUSIONS -------- 1. There is a moderate, generalized pericardial effusion present. WOODS LABORER: Liza Ceja, [facility]
--- NOTE | 2019-10-14 16:25 | OP ---
OPERATIVE REPORT DATE OF THE OPERATION: 10/14/2019. ATTENDING SURGEON: Dr. Derik Ellsworth. BACK SEAM STITCHER: YONI Solis. PREOPERATIVE DIAGNOSIS: Postop pericardial effusion/tamponade. POSTOP DIAGNOSIS: Postop pericardial effusion/tamponade. PROCEDURE PERFORMED: Re-exploration of chest, evacuation of clot, irrigation of chest cavity. ANESTHESIA: General. BLOOD LOSS: 100 mL. DESCRIPTION OF PROCEDURE: The patient brought back to the operating room already intubated with a [place] and arterial line in place 2 days post original open heart surgery for aortic valve replacement, mitral valve repair and CABG x1. The patient was administered a general anesthetic. The chest was prepped and draped in normal sterile fashion using chlorhexidine paint and sterile towels. The previous chest incision was opened. The sternal wires were removed. At this point, there was a significant amount of clot present in the anterior mediastinum, trending over to the right of the mediastinal pleural opening. The clot was removed. Both left and right pleural spaces in the mediastinum were evacuated. Irrigation was performed with 2 L of warm saline. The 2nd pericardial chest tube was placed leaving 2 pericardial tubes and 1 right and 1 left pleural tube. At this point, once hemostasis was obtained, the sternum was then closed with 7 #6 sternal wires. Skin and subcutaneous tissue fascia closed in 3 layers. No complications. The patient tolerated procedure well, was stable and was transported back to the ICU in critical but stable condition. MMODL / IJN: [id number] /
[2019-10-14 16:41] LABS: Glucose,Whole Blood 132 mg/dL (75-99)
--- NOTE | 2019-10-14 16:49 | XR ---
EXAMINATION TYPE: XR chest 1V portable DATE OF EXAM: 10/14/2019 COMPARISON: Today HISTORY: Post pericardial window surgery. Postop. TECHNIQUE: Single view FINDINGS: Endotracheal tube is 4 cm from the mauro. There is pleural thickening at the lung apices. There is right jugular catheter with tip in the main pulmonary artery. There is bilateral chest tubes . There is no sign of pneumothorax. There is nasogastric tube in the stomach. There is bilateral patc hy pulmonary infiltrates. Thoracic aorta is atheromatous. There is no obvious heart failure. There is some blunting of the costophrenic angles. There is cardiac valve surgery. There are sternal wires. IMPRESSION: Bilateral pulmonary airspace infiltrates. This appears slightly worse on the left side co mpared to exam this morning.
[2019-10-14 17:13] LABS: Glucose,Whole Blood 136 mg/dL (75-99)
[2019-10-14 18:15] LABS: Glucose,Whole Blood 142 mg/dL (75-99)
[2019-10-14 18:31] LABS: HCT 22.3 % (34.0-46.0); HGB 7.3 gm/dL (11.4-16.0); MCH 29.4 pg (25.0-35.0); MCHC 32.7 g/dL (31.0-37.0); MCV 89.8 fL (80.0-100.0); Mean Platelet Volume 9.5; RBC 2.48 m/uL (3.80-5.40); RDW 14.7 % (11.5-15.5); WBC 8.5 k/uL (3.8-10.6)
[2019-10-14 18:32] LABS: Platelet Count 41 k/uL (150-450)
[2019-10-14 19:22] LABS: INR 1.1 (<1.2); Prothrombin Time 11.3 sec (9.0-12.0)
[2019-10-14] MEDS: SENNOSIDES-DOCUSATE SODIUM 1 EACH TAB PO SCH (20:39)
[2019-10-14 20:55] LABS: Glucose,Whole Blood 122 mg/dL (75-99)
[2019-10-14 21:56] LABS: Basophils % (A) 0 %; Eosinophils # (A) 0.2 k/uL (0-0.7); Eosinophils % (A) 2 %; HCT 26.3 % (34.0-46.0); Lymphocytes # (A) 0.9 k/uL (1.0-4.8); Lymphocytes % (A) 8 %; MCH 29.7 pg (25.0-35.0); MCHC 33.8 g/dL (31.0-37.0); MCV 87.9 fL (80.0-100.0); Mean Platelet Volume 8.2; Monocytes # (A) 0.8 k/uL (0-1.0); Monocytes % (A) 7 %; Neutrophils # (A) 9.1 k/uL (1.3-7.7); Neutrophils % (A) 82 %; RBC 2.99 m/uL (3.80-5.40); RDW 15.1 % (11.5-15.5); WBC 11.1 k/uL (3.8-10.6)
[2019-10-14 22:01] LABS: HGB 8.9 gm/dL (11.4-16.0); Platelet Count 93 k/uL (150-450)
[2019-10-14 22:06] LABS: INR 1.1 (<1.2); Partial Thromboplastin Time 34.8 sec (22.0-30.0); Prothrombin Time 10.9 sec (9.0-12.0)
[2019-10-14 22:37] LABS: ABG Base Excess -1.4 mmol/L; ABG HCO3 23 mmol/L (21-25); ABG PCO2 38 mmHg (35-45); ABG PO2 154 mmHg (83-108); ABG TCO2 25 mmol/L (19-24)
[2019-10-14 22:43] LABS: Allen Test Performed? no
[2019-10-14 22:52] LABS: ABG PCO2 45 mmHg (35-45); ABG PH 7.35 (7.35-7.45); Allen Test Performed? no
[2019-10-14 22:53] LABS: ABG Base Excess -1.4 mmol/L; ABG HCO3 24 mmol/L (21-25); ABG TCO2 26 mmol/L (19-24)
[2019-10-14 23:13] LABS: Glucose,Whole Blood 95 mg/dL (75-99)
--- NOTE | 2019-10-14 23:14 | P.PN ---
Subjective Progress Note Date: 10/13/19 Principal diagnosis: Aortic valve replacement Ms. Quiroz is a 79-year-old female with a past medical history of asthma, COPD, CVA, TIA, GERD, hypertension, hyperlipidemia, mitral valve prolapse underwent aortic valve replacement with #2 Herrera bioprosthetic aortic valve and mitral valve repair with [employer] band and CABG x1 with SVG to RCA. Patient had multiple runs of atrial fibrillation in case. Postoperatively she had episodes of hypotension and A. fib as well so started on amiodarone drip. She is being monitored closely in the ICU setting. She is mechanically ventilated. Patient's blood pressure has been running low, so she has been started on Levophed. Patient has issues with clotting and drainage from the chest tubes. The patient received a total of 4 PRBCs, 3 units of FFP's, 2 units of PRBCs and 2 units of cryoprecipitate with no 1 bag of IV albumin. Chest x- ray from this morning showed no pneumothorax or atelectasis. Review of systems could not be done as the patient is mechanically ventilated and sedated. Active Medications Acetaminophen (Tylenol Tab) 1,000 mg PO Q6HR HI Albuterol/Ipratropium (Duoneb 0.5 Mg-3 Mg/3 Ml Soln) 3 ml INHALATION RT-Q2H PRN Ascorbic Acid (Vitamin C) 500 mg PO BID-W/MEALS JYAE Aspirin (Aspirin) 81 mg PO DAILY JAYE Atorvastatin Calcium (Lipitor) 40 mg PO DAILY JAYE Benzocaine/Menthol (Cepacol Lozenge) 1 each MUCOUS MEM Q2H PRN Bisacodyl (Dulcolax) 10 mg RECTAL DAILY PRN Chlorhexidine Gluconate (Peridex) 15 ml MUCOUS MEM BID JAYE: Ferrous Sulfate (Feosol) 300 mg PO BID-W/MEALS JAYE Heparin Sodium (Porcine) (Heparin) 5,000 unit SQ Q8H JAYE Amiodarone HCl 150 mg/ (Dextrose/Water) 103 mls @ 618 mls/hr IV .Q10M PRN; Protocol Amiodarone HCl 360 mg/ (Dextrose/Water) 200 mls @ 33.333 mls/hr IV .Q6H PRN; Protocol Amiodarone HCl 300 mg/ (Dextrose/Water) 250 mls @ 25 mls/hr IV .Q10H PRN; Protocol Insulin Human Regular 100 unit (/ Sodium Chloride) 101 mls @ 0 mls/hr IV .Q0M JAYE; Protocol Propofol 1,000 mg/ IV Solution 100 mls @ 0 mls/hr IV .Q0M JAYE; Protocol Norepinephrine Bitartrate 4 mg (/ Sodium Chloride) 254 mls @ 9.677 mls/hr IV .Q24H JAYE; Protocol Dobutamine HCl/Dextrose 500 mg (/ IV Solution) 250 mls @ 3.048 mls/hr IV .Q24H JAYE Metoclopramide HCl (Reglan) 10 mg IVP Q4H PRN Ondansetron HCl (Zofran) 4 mg IVP Q6HR PRN Pantoprazole Sodium (Protonix) 40 mg IVP DAILY [facility] Objective - Vital Signs Vital signs: Vital Signs Temp 100.0 F H 10/13/19 14:00 Pulse 100 10/13/19 16:11 Resp 20 10/13/19 15:30 BP 102/48 10/13/19 15:30 Pulse Ox 94 L 10/13/19 15:30 Intake & Output 10/12/19 10/13/19 10/13/19 18:59 06:59 18:59 Intake Total 3157.158 4558.120 2308.800 Output Total 3495 2710 1404 Balance -356.551 5353.120 904.800 Weight 57.7 kg 57.7 kg Intake: IV 166 1764.0 1610.0 .9NS Cardiac Output 60 230 100 0.9NS Pressure Bags 45 108 81 ACETAMINOPHEN IV (For NPO 100 ) 1,000 mg In Empty Bag 1 bag @ 400 mls/hr IVPB Q6HR JAYE Rx#:[id number] Albumin Human 5% 250 ml 500 750 In Empty Bag 1 bag @ 250 mls/hr IVPB Q1HR PRN Rx#: [id number] Calcium Gluconate 1 gm In 100 100 Sodium Chloride 0.9% 100 ml @ 100 mls/hr IVPB ONCE ONE Rx#:[id number] DOBUTamine DRIP 500 mg In 36.0 39.0 Dextrose/Water 1 250ml. bag @ 3 MCG/KG/MIN 4.572 mls/hr IV .Q24H JAYE Rx#: [id number] Lactated Ringers 1,000 ml 440 440 @ 50 mls/hr IV .Q20H [facility] Rx#:[id number] Magnesium Sulfate-D5w Pmx 200 1 gm In Dextrose/Water 1 100ml.bag @ 100 mls/hr IVPB Q1H JAYE Rx#: [id number] Sodium Chloride 0.9% 1, 0 000 ml @ 50 mls/hr IV . Q20H JAYE Rx#:[id number] ceFAZolin 2 gm In Sodium 50 100 Chloride 0.9% 50 ml @ 100 mls/hr IVPB Q8HR JAYE Rx# :[id number] Intake, IV Titration 1590.158 592.120 328.800 Amount ACETAMINOPHEN IV (For NPO 100 ) 1,000 mg In Empty Bag 1 bag @ 400 mls/hr IVPB Q6HR JAYE Rx#:[id number] Albumin Human 5% 250 ml 750 In Empty Bag 1 bag @ 250 mls/hr IVPB Q1HR PRN Rx#: [id number] Amiodarone 300 mg In 210.833 Dextrose 5% in Water 250 ml @ 0.5 MG/MIN 25 mls/hr IV .Q10H PRN Rx#: [id number] Calcium Gluconate 1 gm In 100 Sodium Chloride 0.9% 100 ml @ 100 mls/hr IVPB ONCE ONE Rx#:[id number] Clevidipine Butyrate 25 3.167 mg In Empty Bag 1 bag @ 1 MG/HR 2 mls/hr IV .Q24H [facility] Rx#:[id number] Dextrose 5% in Water 100 300 ml @ 618 mls/hr IV .Q10M ONE with Amiodarone 150 mg Rx#:[id number] Insulin Regular 100 unit 8.325 29.034 17.775 In Sodium Chloride 0.9% 100 ml @ Per Protocol IV .Q0M JAYE Rx#:[id number] Lactated Ringers 1,000 ml 200 @ 50 mls/hr IV .Q20H JAYE Rx#:[id number] Milrinone-D5w Pmx 20 mg 68.885 In Dextrose/Water 1 100ml .bag @ 0.2 MCG/KG/MIN 3. 048 mls/hr IV .Q24H JAYE Rx#:[id number] Nitroglycerin-D5w Pmx 50 1.3 mg In Dextrose/Water 1 250ml.bag @ 5 MCG/MIN 1.5 mls/hr IV .Q24H [facility] Rx#: [id number] Norepinephrine 4 mg In 67.257 275.291 151.806 Sodium Chloride 0.9% 250 ml @ 0.05 MCG/KG/MIN 9. 677 mls/hr IV .Q24H [facility] Rx#:[id number] ceFAZolin 2 gm In Sodium 50 Chloride 0.9% 50 ml @ 100 mls/hr IVPB Q8HR JAYE Rx# :[id number] propofoL 1,000 mg In 10.109 76.962 90.334 Empty Bag 1 bag @ Titrate IV .Q0M [facility] Rx#: [id number] Oral 60 Blood Product 1401 2202 310 Ffp 24 Cp2d Unit 199 [id number] Ffp 24 Cpd Unit 302 [id number] Ffp 24 Cpd Unit 0 300 [id number] Platelet Irr Pheresis 2 299 Acda Unit [id number] Platelet Pheresis Acd-A 291 Pasc 2 Unit [id number] Pooled Cryoprecipitate 83 Unit [id number] Pooled Cryoprecipitate 93 Unit [id number] Rc As-1 Unit 0 [id number] Rc As-1 Unit 310 [id number] Rc As-1 Unit 310 [id number] Rc As-1 Unit 310 [id number] Rc As-3 Unit 310 [id number] Rc As-3 Unit 310 [id number] Output: Chest Tube Drainage 1200 1570 742 Left 120 Left and Right Pleural 450 890 90 Chest Tube Mediastinal Chest Tube 750 680 102 Right 430 Gastric Drainage 300 Urine 795 1140 362 Estimated Blood Loss 1500 Other: Voiding Method Indwelling Catheter Indwelling Catheter Indwelling Catheter ABP, PAP, CO, CI - Last Documented Arterial Blood Pressure 106/48 Pulmonary Artery Pressure 42/30 Cardiac Output 3.2 Cardiac Index 2.1 - Exam GENERAL EXAM: Sedated, intubated, 79-year-old white female, comfortable in no apparent distress. HEENT: No pallor, No icterus, no JVD CHEST: No chest wall deformity. Symmetrical expansion. Midsternal incision is clean dry and intact, 1 mediastinal chest tube in place, and left and right pleural chest tubes in place LUNGS: Equal air entry with no crackles, wheeze, rhonchi or dullness. CVS: Regular rate and rhythm, normal S1 and S2, no gallops, no murmurs, no rubs ABDOMEN: Soft, nontender. normal bowel sounds EXTREMITIES: No clubbing, no edema, no cyanosis, 2+ pulses and upper and lower extremities. SKIN: No rashes, left leg endoscopic harvest vein site is covered with the dressing and Lanre wrapped CENTRAL NERVOUS SYSTEM: sedated. No focal deficits - Labs CBC & Chem 7: 10/14/19 21:50 10/14/19 04:10 Labs: Abnormal Lab Results - Last 24 Hours (Table) 10/08/19 10/12/19 10/12/19 Range/Units 09:08 17:00 19:25 RBC (3.80-5.40) m/uL Hgb (11.4-16.0) gm/dL Hct (34.0-46.0) % Plt Count (150-450) k/uL Lymphocytes # (1.0-4.8) k/uL PT (9.0-12.0) sec INR (<1.2) APTT (22.0-30.0) sec Fibrinogen (200-500) mg/dL ABG pCO2 46 H (35-45) mmHg ABG pO2 (83-108) mmHg ABG HCO3 26 H (21-25) mmol/L ABG Total CO2 27 H (19-24) mmol/L ABG O2 Saturation 98.2 H (94-97) % VBG pH (7.31-7.41) VBG pCO2 (37-51) mmHg Sodium (137-145) mmol/L Glucose (74-99) mg/dL POC Glucose (mg/dL) 193 H (75-99) mg/dL Calcium (8.4-10.2) mg/dL Ionized Calcium Sunny (4.5-5.3) mg/dL AST (14-36) U/L Alkaline Phosphatase (38-126) U/L Total Protein (6.3-8.2) g/dL Albumin (3.5-5.0) g/dL Crossmatch See Detail 10/12/19 10/12/19 10/12/19 Range/Units 19:56 20:05 21:10 RBC 2.71 L (3.80-5.40) m/uL Hgb 8.0 L D (11.4-16.0) gm/dL Hct 24.7 L (34.0-46.0) % Plt Count 145 L (150-450) k/uL Lymphocytes # 0.7 L (1.0-4.8) k/uL PT (9.0-12.0) sec INR (<1.2) APTT (22.0-30.0) sec Fibrinogen (200-500) mg/dL ABG pCO2 (35-45) mmHg ABG pO2 (83-108) mmHg ABG HCO3 (21-25) mmol/L ABG Total CO2 (19-24) mmol/L ABG O2 Saturation (94-97) % VBG pH (7.31-7.41) VBG pCO2 (37-51) mmHg Sodium (137-145) mmol/L Glucose (74-99) mg/dL POC Glucose (mg/dL) 129 H 106 H (75-99) mg/dL Calcium (8.4-10.2) mg/dL Ionized Calcium Sunny (4.5-5.3) mg/dL AST (14-36) U/L Alkaline Phosphatase (38-126) U/L Total Protein (6.3-8.2) g/dL Albumin (3.5-5.0) g/dL Crossmatch 10/12/19 10/12/19 10/12/19 Range/Units 21:21 21:53 23:10 RBC (3.80-5.40) m/uL Hgb (11.4-16.0) gm/dL Hct (34.0-46.0) % Plt Count (150-450) k/uL Lymphocytes # (1.0-4.8) k/uL PT 12.8 H (9.0-12.0) sec INR 1.3 H (<1.2) APTT 35.4 H (22.0-30.0) sec Fibrinogen 113 L (200-500) mg/dL ABG pCO2 (35-45) mmHg ABG pO2 (83-108) mmHg ABG HCO3 (21-25) mmol/L ABG Total CO2 (19-24) mmol/L ABG O2 Saturation (94-97) % VBG pH (7.31-7.41) VBG pCO2 (37-51) mmHg Sodium (137-145) mmol/L Glucose (74-99) mg/dL POC Glucose (mg/dL) 109 H 119 H (75-99) mg/dL Calcium (8.4-10.2) mg/dL Ionized Calcium Sunny (4.5-5.3) mg/dL AST (14-36) U/L Alkaline Phosphatase (38-126) U/L Total Protein (6.3-8.2) g/dL Albumin (3.5-5.0) g/dL Crossmatch 10/12/19 10/13/19 10/13/19 Range/Units 23:47 00:04 01:03 RBC (3.80-5.40) m/uL Hgb (11.4-16.0) gm/dL Hct (34.0-46.0) % Plt Count (150-450) k/uL Lymphocytes # (1.0-4.8) k/uL PT (9.0-12.0) sec INR (<1.2) APTT (22.0-30.0) sec Fibrinogen (200-500) mg/dL ABG pCO2 (35-45) mmHg ABG pO2 179 H (83-108) mmHg ABG HCO3 (21-25) mmol/L ABG Total CO2 (19-24) mmol/L ABG O2 Saturation 99.3 H (94-97) % VBG pH (7.31-7.41) VBG pCO2 (37-51) mmHg Sodium (137-145) mmol/L Glucose (74-99) mg/dL POC Glucose (mg/dL) 127 H 155 H (75-99) mg/dL Calcium (8.4-10.2) mg/dL Ionized Calcium Sunny (4.5-5.3) mg/dL AST (14-36) U/L Alkaline Phosphatase (38-126) U/L Total Protein (6.3-8.2) g/dL Albumin (3.5-5.0) g/dL Crossmatch 10/13/19 10/13/19 10/13/19 Range/Units 02:11 02:58 03:12 RBC 2.20 L (3.80-5.40) m/uL Hgb 6.6 L* (11.4-16.0) gm/dL Hct 20.1 L (34.0-46.0) % Plt Count 107 L (150-450) k/uL Lymphocytes # 0.9 L (1.0-4.8) k/uL PT (9.0-12.0) sec INR (<1.2) APTT (22.0-30.0) sec Fibrinogen (200-500) mg/dL ABG pCO2 (35-45) mmHg ABG pO2 (83-108) mmHg ABG HCO3 (21-25) mmol/L ABG Total CO2 (19-24) mmol/L ABG O2 Saturation (94-97) % VBG pH (7.31-7.41) VBG pCO2 (37-51) mmHg Sodium (137-145) mmol/L Glucose (74-99) mg/dL POC Glucose (mg/dL) 161 H 139 H (75-99) mg/dL Calcium (8.4-10.2) mg/dL Ionized Calcium Sunny (4.5-5.3) mg/dL AST (14-36) U/L Alkaline Phosphatase (38-126) U/L Total Protein (6.3-8.2) g/dL Albumin (3.5-5.0) g/dL Crossmatch 10/13/19 10/13/19 10/13/19 Range/Units 03:12 03:12 04:06 RBC (3.80-5.40) m/uL Hgb (11.4-16.0) gm/dL Hct (34.0-46.0) % Plt Count (150-450) k/uL Lymphocytes # (1.0-4.8) k/uL PT (9.0-12.0) sec INR (<1.2) APTT 31.7 H (22.0-30.0) sec Fibrinogen (200-500) mg/dL ABG pCO2 (35-45) mmHg ABG pO2 (83-108) mmHg ABG HCO3 (21-25) mmol/L ABG Total CO2 (19-24) mmol/L ABG O2 Saturation (94-97) % VBG pH (7.31-7.41) VBG pCO2 (37-51) mmHg Sodium 132 L (137-145) mmol/L Glucose 136 H (74-99) mg/dL POC Glucose (mg/dL) 156 H (75-99) mg/dL Calcium 7.3 L (8.4-10.2) mg/dL Ionized Calcium Sunny 4.3 L (4.5-5.3) mg/dL AST 78 H (14-36) U/L Alkaline Phosphatase 23 L (38-126) U/L Total Protein 4.1 L (6.3-8.2) g/dL Albumin 2.6 L (3.5-5.0) g/dL Crossmatch 10/13/19 10/13/19 10/13/19 Range/Units 05:03 05:26 06:07 RBC (3.80-5.40) m/uL Hgb (11.4-16.0) gm/dL Hct (34.0-46.0) % Plt Count (150-450) k/uL Lymphocytes # (1.0-4.8) k/uL PT (9.0-12.0) sec INR (<1.2) APTT (22.0-30.0) sec Fibrinogen (200-500) mg/dL ABG pCO2 (35-45) mmHg ABG pO2 206 H (83-108) mmHg ABG HCO3 (21-25) mmol/L ABG Total CO2 26 H (19-24) mmol/L ABG O2 Saturation 99.6 H (94-97) % VBG pH (7.31-7.41) VBG pCO2 (37-51) mmHg Sodium (137-145) mmol/L Glucose (74-99) mg/dL POC Glucose (mg/dL) 154 H 187 H (75-99) mg/dL Calcium (8.4-10.2) mg/dL Ionized Calcium Sunny (4.5-5.3) mg/dL AST (14-36) U/L Alkaline Phosphatase (38-126) U/L Total Protein (6.3-8.2) g/dL Albumin (3.5-5.0) g/dL Crossmatch 10/13/19 10/13/19 10/13/19 Range/Units 07:07 08:00 08:02 RBC (3.80-5.40) m/uL Hgb (11.4-16.0) gm/dL Hct (34.0-46.0) % Plt Count (150-450) k/uL Lymphocytes # (1.0-4.8) k/uL PT (9.0-12.0) sec INR (<1.2) APTT (22.0-30.0) sec Fibrinogen (200-500) mg/dL ABG pCO2 (35-45) mmHg ABG pO2 (83-108) mmHg ABG HCO3 (21-25) mmol/L ABG Total CO2 (19-24) mmol/L ABG O2 Saturation (94-97) % VBG pH 7.30 L (7.31-7.41) VBG pCO2 53 H (37-51) mmHg Sodium (137-145) mmol/L Glucose (74-99) mg/dL POC Glucose (mg/dL) 175 H 143 H (75-99) mg/dL Calcium (8.4-10.2) mg/dL Ionized Calcium [place]y (4.5-5.3) mg/dL AST (14-36) U/L Alkaline Phosphatase (38-126) U/L Total Protein (6.3-8.2) g/dL Albumin (3.5-5.0) g/dL Crossmatch 10/13/19 10/13/19 10/13/19 Range/Units 08:18 08:52 10:01 RBC 2.67 L (3.80-5.40) m/uL Hgb 7.8 L (11.4-16.0) gm/dL Hct 23.7 L (34.0-46.0) % Plt Count 104 L (150-450) k/uL Lymphocytes # (1.0-4.8) k/uL PT (9.0-12.0) sec INR (<1.2) APTT (22.0-30.0) sec Fibrinogen (200-500) mg/dL ABG pCO2 (35-45) mmHg ABG pO2 (83-108) mmHg ABG HCO3 (21-25) mmol/L ABG Total CO2 (19-24) mmol/L ABG O2 Saturation (94-97) % VBG pH (7.31-7.41) VBG pCO2 (37-51) mmHg Sodium (137-145) mmol/L Glucose (74-99) mg/dL POC Glucose (mg/dL) 131 H 104 H (75-99) mg/dL Calcium (8.4-10.2) mg/dL Ionized Calcium Sunny (4.5-5.3) mg/dL AST (14-36) U/L Alkaline Phosphatase (38-126) U/L Total Protein (6.3-8.2) g/dL Albumin (3.5-5.0) g/dL Crossmatch 10/13/19 10/13/19 10/13/19 Range/Units 10:56 11:54 13:00 RBC (3.80-5.40) m/uL Hgb (11.4-16.0) gm/dL Hct (34.0-46.0) % Plt Count (150-450) k/uL Lymphocytes # (1.0-4.8) k/uL PT (9.0-12.0) sec INR (<1.2) APTT (22.0-30.0) sec Fibrinogen (200-500) mg/dL ABG pCO2 (35-45) mmHg ABG pO2 (83-108) mmHg ABG HCO3 (21-25) mmol/L ABG Total CO2 (19-24) mmol/L ABG O2 Saturation (94-97) % VBG pH (7.31-7.41) VBG pCO2 (37-51) mmHg Sodium (137-145) mmol/L Glucose (74-99) mg/dL POC Glucose (mg/dL) 110 H 135 H 152 H (75-99) mg/dL Calcium (8.4-10.2) mg/dL Ionized Calcium Sunny (4.5-5.3) mg/dL AST (14-36) U/L Alkaline Phosphatase (38-126) U/L Total Protein (6.3-8.2) g/dL Albumin (3.5-5.0) g/dL Crossmatch 10/13/19 10/13/19 10/13/19 Range/Units 13:51 13:54 14:39 RBC 2.61 L (3.80-5.40) m/uL Hgb 7.5 L (11.4-16.0) gm/dL Hct 22.7 L (34.0-46.0) % Plt Count 79 L (150-450) k/uL Lymphocytes # (1.0-4.8) k/uL PT (9.0-12.0) sec INR (<1.2) APTT (22.0-30.0) sec Fibrinogen (200-500) mg/dL ABG pCO2 (35-45) mmHg ABG pO2 184 H (83-108) mmHg ABG HCO3 (21-25) mmol/L ABG Total CO2 (19-24) mmol/L ABG O2 Saturation 99.4 H (94-97) % VBG pH (7.31-7.41) VBG pCO2 (37-51) mmHg Sodium (137-145) mmol/L Glucose (74-99) mg/dL POC Glucose (mg/dL) 145 H (75-99) mg/dL Calcium (8.4-10.2) mg/dL Ionized Calcium Sunny (4.5-5.3) mg/dL AST (14-36) U/L Alkaline Phosphatase (38-126) U/L Total Protein (6.3-8.2) g/dL Albumin (3.5-5.0) g/dL Crossmatch 10/13/19 10/13/19 Range/Units 15:02 16:01 RBC (3.80-5.40) m/uL Hgb (11.4-16.0) gm/dL Hct (34.0-46.0) % Plt Count (150-450) k/uL Lymphocytes # (1.0-4.8) k/uL PT (9.0-12.0) sec INR (<1.2) APTT (22.0-30.0) sec Fibrinogen (200-500) mg/dL ABG pCO2 (35-45) mmHg ABG pO2 (83-108) mmHg ABG HCO3 (21-25) mmol/L ABG Total CO2 (19-24) mmol/L ABG O2 Saturation (94-97) % VBG pH (7.31-7.41) VBG pCO2 (37-51) mmHg Sodium (137-145) mmol/L Glucose (74-99) mg/dL POC Glucose (mg/dL) 143 H 144 H (75-99) mg/dL Calcium (8.4-10.2) mg/dL Ionized Calcium Sunny (4.5-5.3) mg/dL AST (14-36) U/L Alkaline Phosphatase (38-126) U/L Total Protein (6.3-8.2) g/dL Albumin (3.5-5.0) g/dL Crossmatch Assessment and Plan Assessment: ASSESSMENT 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 Cardiology and cardiothoracic surgery following the patient closely. Patient required multiple blood products to maintain her hemoglobin of 7. Patient's blood sugar has been running within normal limits, she is on an insulin drip. Overall prognosis seems to be poor. Further recommendations to follow depending on the progress of the patient.
--- NOTE | 2019-10-14 23:21 | P.PN ---
Subjective Progress Note Date: 10/14/19 Principal diagnosis: Aortic valve replacement and CABG Ms. Quiroz is a 79-year-old female with a past medical history of asthma, COPD, CVA, TIA, GERD, hypertension, hyperlipidemia, mitral valve prolapse underwent aortic valve replacement with #2 Herrera bioprosthetic aortic valve and mitral valve repair with [employer] band and CABG x1 with SVG to RCA. Patient had multiple runs of atrial fibrillation in case. Postoperatively she had episodes of hypotension and A. fib as well so started on amiodarone drip. She is being monitored closely in the ICU setting. She is mechanically ventilated. Patient's blood pressure has been running low, so she has been st arted on Levophed. Patient has issues with clotting and drainage from the chest tubes. The patient received a total of 4 PRBCs, 3 units of FFP's, 2 units of PRBCs and 2 units of cryoprecipitate with no 1 bag of IV albumin. Chest x-ray from this morning showed no pneumothorax or atelectasis. On 10/14/2019 -The patient is postoperative day 2 from aortic valve replacement, mitral valve repair and CABG. As there was significant decrease in the output from her mediastinal and chest tubes, patient had an echocardiogram done. It showed moderate generalized pericardial effusion. So the patient was taken back to the OR and she had drainage of the pericardial effusion/tamponade. Patient just got back from the procedure. She is sedated and mechanically ventilated. Review of systems could not be done as the patient is mechanically ventilated and sedated. Active Medications Acetaminophen (Tylenol Tab) 1,000 mg PO Q6HR PRN PRN Reason: Fever and/ or Pain Last Admin: 10/14/19 08:25 Dose: 1,000 mg Documented by: Albuterol/Ipratropium (Duoneb 0.5 Mg-3 Mg/3 Ml Soln) 3 ml INHALATION RT-Q2H PRN PRN Reason: Shortness Of Breath Or Wheezing Albuterol/Ipratropium (Duoneb 0.5 Mg-3 Mg/3 Ml Soln) 3 ml INHALATION RT-QID [facility] Last Admin: 10/14/19 20:38 Dose: 3 ml Documented by: Ascorbic Acid (Vitamin C) 500 mg PO BID-W/MEALS [facility] Last Admin: 10/14/19 16:49 Dose: Not Given Documented by: Aspirin (Aspirin) 81 mg PO DAILY [facility] Last Admin: 10/14/19 08:25 Dose: 81 mg Documented by: Atorvastatin Calcium (Lipitor) 40 mg PO DAILY [facility] Last Admin: 10/14/19 08:26 Dose: 40 mg Documented by: Benzocaine/Menthol (Cepacol Lozenge) 1 each MUCOUS MEM Q2H PRN PRN Reason: Sore Throat Bisacodyl (Dulcolax) 10 mg RECTAL DAILY PRN PRN Reason: Constipation Chlorhexidine Gluconate (Peridex) 15 ml MUCOUS MEM BID [facility] Last Admin: 10/14/19 20:39 Dose: 15 ml Documented by: Ferrous Sulfate (Feosol) 300 mg PO BID-W/MEALS [facility] Last Admin: 10/14/19 16:49 Dose: Not Given Documented by: Heparin Sodium (Porcine) (Heparin) 5,000 unit SQ Q8H [facility] Last Admin: 10/14/19 20:39 Dose: Not Given Documented by: Amiodarone HCl 150 mg/ (Dextrose/Water) 103 mls @ 618 mls/hr IV .Q10M PRN; Protocol PRN Reason: A.FIB/FLUTTER Amiodarone HCl 360 mg/ (Dextrose/Water) 200 mls @ 33.333 mls/hr IV .Q6H PRN; Protocol PRN Reason: A.FIB/FLUTTER Last Admin: 10/12/19 14:43 Dose: 1 mg/min, 33.333 mls/hr Documented by: Amiodarone HCl 300 mg/ (Dextrose/Water) 250 mls @ 25 mls/hr IV .Q10H PRN; Protocol PRN Reason: A.FIB/FLUTTER Last Admin: 10/14/19 20:04 Dose: 0.5 mg/min, 25 mls/hr Documented by: Insulin Human Regular 100 unit (/ Sodium Chloride) 101 mls @ 0 mls/hr IV .Q0M [facility]; Protocol Last Titration: 10/14/19 23:14 Dose: 0 mls/hr, 0 mls/hr Documented by: Propofol 1,000 mg/ IV Solution 100 mls @ 0 mls/hr IV .Q0M [facility]; Protocol Last Admin: 10/14/19 15:26 Dose: 25 mcg/kg/min, 9.66 mls/hr Documented by: Norepinephrine Bitartrate 4 mg (/ Sodium Chloride) 254 mls @ 9.677 mls/hr IV .Q24H [facility]; Protocol Last Titration: 10/14/19 16:00 Dose: 0 mcg/kg/min, 0 mls/hr Documented by: Dobutamine HCl/Dextrose 500 mg (/ IV Solution) 250 mls @ 3.048 mls/hr IV .Q24H [facility] Last Admin: 10/14/19 22:28 Dose: 3 mcg/kg/min, 4.572 mls/hr Documented by: Sodium Chloride (Saline 0.9%) 1,000 mls @ 50 mls/hr IV .Q20H [facility] Last Admin: 10/14/19 08:26 Dose: 50 mls/hr Documented by: Levothyroxine Sodium (Synthroid) 75 mcg PO DAILY@0630 [facility] Last Admin: 10/14/19 05:34 Dose: 75 mcg Documented by: Magnesium Hydroxide (Milk Of Magnesia) 2,400 mg PO BID PRN PRN Reason: Constipation Metoclopramide HCl (Reglan) 10 mg IVP Q4H PRN PRN Reason: Nausea And Vomiting Miscellaneous Information (Magnesium Per Protocol) 1 each MISCELLANE DAILY PRN; Protocol PRN Reason: Per Protocol Miscellaneous Information (Phosphorus Per Protocol) 1 each MISCELLANE DAILY PRN; Protocol PRN Reason: Per Protocol Miscellaneous Information (Potassium Per Protocol) 1 each MISCELLANE DAILY PRN; Protocol PRN Reason: Per Protocol Ondansetron HCl (Zofran) 4 mg IVP Q6HR PRN PRN Reason: Nausea And Vomiting Pantoprazole Sodium (Protonix) 40 mg IVP DAILY [facility] Last Admin: 10/14/19 08:26 Dose: 40 mg Documented by: Senna/Docusate Sodium (Senokot-S) 2 each PO HS [facility] Last Admin: 10/14/19 20:39 Dose: 2 each Documented by: Sodium Chloride (Saline Flush) 10 ml IV BID [facility] Last Admin: 10/14/19 20:39 Dose: 10 ml Documented by: Tramadol HCl (Ultram) 50 mg PO Q6HR PRN PRN Reason: Pain Last Admin: 10/14/19 20:39 Dose: 50 mg Documented by: Objective - Vital Signs Vital signs: Vital Signs Temp 97.7 F 10/14/19 20:53 Pulse 70 10/14/19 21:00 Resp 23 10/14/19 21:00 BP 99/37 10/14/19 21:00 Pulse Ox 94 L 10/14/19 21:00 Intake & Output 10/14/19 10/14/19 10/15/19 06:59 18:59 06:59 Intake Total 3499.213 2032.634 1678.375 Output Total 1317 1776 377 Balance 2182.213 275.140 6071.375 Weight 64.4 kg Intake: IV 1492.0 951.0 772 .9NS Cardiac Output 240 120 40 0.9NS Pressure Bags 108 99 27 Albumin Human 5% 250 ml 500 500 In Empty Bag 1 bag @ 250 mls/hr IVPB Q1HR PRN Rx#: [id number] Amiodarone 300 mg In 100 50 Dextrose 5% in Water 250 ml @ 0.5 MG/MIN 25 mls/hr IV .Q10H PRN Rx#: [id number] Amiodarone 360 mg In 50 25 Dextrose 5% in Water 200 ml @ 1 MG/MIN 33.333 mls/ hr IV .Q6H PRN Rx#: [id number] Calcium Gluconate 1 gm In 100 Sodium Chloride 0.9% 100 ml @ 100 mls/hr IVPB ONCE ONE Rx#:[id number] DOBUTamine DRIP 500 mg In 54.0 42.0 0 Dextrose/Water 1 250ml. bag @ 2 MCG/KG/MIN 3.048 mls/hr IV .Q24H [facility] Rx#: [id number] Lactated Ringers 1,000 ml 50 @ 50 mls/hr IV .Q20H [facility] Rx#:[id number] Sodium Chloride 0.9% 1, 440 540 130 000 ml @ 50 mls/hr IV . Q20H [facility] Rx#:[id number] Intake, IV Titration 716.213 661.634 258.375 Amount Amiodarone 300 mg In 208.75 250 248.75 Dextrose 5% in Water 250 ml @ 0.5 MG/MIN 25 mls/hr IV .Q10H PRN Rx#: [id number] Insulin Regular 100 unit 24.266 21.642 9.625 In Sodium Chloride 0.9% 100 ml @ Per Protocol IV .Q0M [facility] Rx#:[id number] Milrinone-D5w Pmx 20 mg 52.476 In Dextrose/Water 1 100ml .bag @ 0.1 MCG/KG/MIN 1. 524 mls/hr IV .Q24H [facility] Rx#:[id number] Norepinephrine 4 mg In 343.966 237.516 Sodium Chloride 0.9% 250 ml @ 0.05 MCG/KG/MIN 9. 677 mls/hr IV .Q24H [facility] Rx#:[id number] propofoL 1,000 mg In 139.231 100.000 Empty Bag 1 bag @ Titrate IV .Q0M [facility] Rx#: [id number] Tube Feeding 150 80 Blood Product 1051 310 648 Platelet Irr Pheresis Pas 231 -C Unit [id number] Platelet Irr Pheresis Pas 338 -C Unit [id number] Rc As-1 Unit 310 [id number] Rc Irr As1 Unit 310 [id number] Rc Irr As1 Unit 0 310 [id number] Other 90 30 Output: Chest Tube Drainage 962 851 302 Bilateral Mediastinal 190 150 Left 360 270 76 Mediastinal Chest Tube 12 1 Right 590 390 76 Gastric Drainage 500 Urine 355 325 75 Estimated Blood Loss 100 Other: Voiding Method Indwelling Catheter Indwelling Catheter Indwelling Catheter ABP, PAP, CO, CI - Last Documented Arterial Blood Pressure 112/44 Pulmonary Artery Pressure 41/27 Cardiac Output 2.7 Cardiac Index 1.7 - Exam GENERAL EXAM: Sedated, intubated, 79-year-old white female, comfortable in no apparent distress. HEENT: No pallor, No icterus, no JVD CHEST: No chest wall deformity. Symmetrical expansion. 1 mediastinal chest tube in place, and left and right pleural chest tubes in place LUNGS: Equal air entry with no crackles, wheeze, rhonchi or dullness. Diminished in the lower lobes CVS: Regular rate and rhythm, normal S1 and S2, no gallops, no murmurs, no rubs ABDOMEN: Soft, nontender. normal bowel sounds EXTREMITIES: No clubbing, no edema, no cyanosis, 2+ pulses and upper and lower extremities. SKIN: No rashes, left leg endoscopic harvest vein site is covered with the dressing and Lanre wrapped CENTRAL NERVOUS SYSTEM: sedated. No focal deficits - Labs CBC & Chem 7: 10/14/19 21:50 10/14/19 04:10 Labs: Abnormal Lab Results - Last 24 Hours (Table) 10/08/19 10/13/19 10/13/19 Range/Units 09:08 21:55 21:57 RBC (3.80-5.40) m/uL Hgb (11.4-16.0) gm/dL Hct (34.0-46.0) % Plt Count (150-450) k/uL INR (<1.2) APTT (22.0-30.0) sec Fibrinogen (200-500) mg/dL ABG pCO2 (35-45) mmHg ABG pO2 (83-108) mmHg ABG HCO3 (21-25) mmol/L ABG Total CO2 (19-24) mmol/L ABG O2 Saturation (94-97) % ABG Hematocrit (34.0-46.0) % ABG Ionized Calcium (4.5-5.3) mg/dL ABG Glucose (75-99) mg/dL Hemoglobin (11.4-16.0) gm/dL Sodium (137-145) mmol/L Glucose (74-99) mg/dL POC Glucose (mg/dL) 156 H (75-99) mg/dL Calcium 7.7 L (8.4-10.2) mg/dL AST (14-36) U/L Alkaline Phosphatase (38-126) U/L Total Protein (6.3-8.2) g/dL Albumin (3.5-5.0) g/dL Arterial Blood Glucose (75-99) mg/dL Crossmatch See Detail 10/13/19 10/14/19 10/14/19 Range/Units 22:56 00:05 01:11 RBC (3.80-5.40) m/uL Hgb (11.4-16.0) gm/dL Hct (34.0-46.0) % Plt Count (150-450) k/uL INR (<1.2) APTT (22.0-30.0) sec Fibrinogen (200-500) mg/dL ABG pCO2 (35-45) mmHg ABG pO2 (83-108) mmHg ABG HCO3 (21-25) mmol/L ABG Total CO2 (19-24) mmol/L ABG O2 Saturation (94-97) % ABG Hematocrit (34.0-46.0) % ABG Ionized Calcium (4.5-5.3) mg/dL ABG Glucose (75-99) mg/dL Hemoglobin (11.4-16.0) gm/dL Sodium (137-145) mmol/L Glucose (74-99) mg/dL POC Glucose (mg/dL) 135 H 123 H 118 H (75-99) mg/dL Calcium (8.4-10.2) mg/dL AST (14-36) U/L Alkaline Phosphatase (38-126) U/L Total Protein (6.3-8.2) g/dL Albumin (3.5-5.0) g/dL Arterial Blood Glucose (75-99) mg/dL Crossmatch 10/14/19 10/14/19 10/14/19 Range/Units 02:02 03:00 04:10 RBC 2.43 L (3.80-5.40) m/uL Hgb 7.3 L (11.4-16.0) gm/dL Hct 21.6 L (34.0-46.0) % Plt Count 65 L (150-450) k/uL INR (<1.2) APTT (22.0-30.0) sec Fibrinogen (200-500) mg/dL ABG pCO2 (35-45) mmHg ABG pO2 (83-108) mmHg ABG HCO3 (21-25) mmol/L ABG Total CO2 (19-24) mmol/L ABG O2 Saturation (94-97) % ABG Hematocrit (34.0-46.0) % ABG Ionized Calcium (4.5-5.3) mg/dL ABG Glucose (75-99) mg/dL Hemoglobin (11.4-16.0) gm/dL Sodium (137-145) mmol/L Glucose (74-99) mg/dL POC Glucose (mg/dL) 114 H 116 H (75-99) mg/dL Calcium (8.4-10.2) mg/dL AST (14-36) U/L Alkaline Phosphatase (38-126) U/L Total Protein (6.3-8.2) g/dL Albumin (3.5-5.0) g/dL Arterial Blood Glucose (75-99) mg/dL Crossmatch 10/14/19 10/14/19 10/14/19 Range/Units 04:10 04:10 04:16 RBC (3.80-5.40) m/uL Hgb (11.4-16.0) gm/dL Hct (34.0-46.0) % Plt Count (150-450) k/uL INR 1.2 H (<1.2) APTT 44.0 H (22.0-30.0) sec Fibrinogen 198 L (200-500) mg/dL ABG pCO2 (35-45) mmHg ABG pO2 (83-108) mmHg ABG HCO3 (21-25) mmol/L ABG Total CO2 (19-24) mmol/L ABG O2 Saturation (94-97) % ABG Hematocrit (34.0-46.0) % ABG Ionized Calcium (4.5-5.3) mg/dL ABG Glucose (75-99) mg/dL Hemoglobin (11.4-16.0) gm/dL Sodium 133 L (137-145) mmol/L Glucose 115 H (74-99) mg/dL POC Glucose (mg/dL) 136 H (75-99) mg/dL Calcium 7.4 L (8.4-10.2) mg/dL AST 56 H (14-36) U/L Alkaline Phosphatase 30 L (38-126) U/L Total Protein 3.9 L (6.3-8.2) g/dL Albumin 2.5 L (3.5-5.0) g/dL Arterial Blood Glucose (75-99) mg/dL Crossmatch 10/14/19 10/14/19 10/14/19 Range/Units 05:06 05:21 06:06 RBC (3.80-5.40) m/uL Hgb (11.4-16.0) gm/dL Hct (34.0-46.0) % Plt Count (150-450) k/uL INR (<1.2) APTT (22.0-30.0) sec Fibrinogen (200-500) mg/dL ABG pCO2 (35-45) mmHg ABG pO2 129 H (83-108) mmHg ABG HCO3 26 H (21-25) mmol/L ABG Total CO2 27 H (19-24) mmol/L ABG O2 Saturation 99.2 H (94-97) % ABG Hematocrit (34.0-46.0) % ABG Ionized Calcium (4.5-5.3) mg/dL ABG Glucose (75-99) mg/dL Hemoglobin (11.4-16.0) gm/dL Sodium (137-145) mmol/L Glucose (74-99) mg/dL POC Glucose (mg/dL) 138 H 134 H (75-99) mg/dL Calcium (8.4-10.2) mg/dL AST (14-36) U/L Alkaline Phosphatase (38-126) U/L Total Protein (6.3-8.2) g/dL Albumin (3.5-5.0) g/dL Arterial Blood Glucose (75-99) mg/dL Crossmatch 10/14/19 10/14/19 10/14/19 Range/Units 07:01 08:03 09:11 RBC (3.80-5.40) m/uL Hgb (11.4-16.0) gm/dL Hct (34.0-46.0) % Plt Count (150-450) k/uL INR (<1.2) APTT (22.0-30.0) sec Fibrinogen (200-500) mg/dL ABG pCO2 (35-45) mmHg ABG pO2 (83-108) mmHg ABG HCO3 (21-25) mmol/L ABG Total CO2 (19-24) mmol/L ABG O2 Saturation (94-97) % ABG Hematocrit (34.0-46.0) % ABG Ionized Calcium (4.5-5.3) mg/dL ABG Glucose (75-99) mg/dL Hemoglobin (11.4-16.0) gm/dL Sodium (137-145) mmol/L Glucose (74-99) mg/dL POC Glucose (mg/dL) 133 H 116 H 122 H (75-99) mg/dL Calcium (8.4-10.2) mg/dL AST (14-36) U/L Alkaline Phosphatase (38-126) U/L Total Protein (6.3-8.2) g/dL Albumin (3.5-5.0) g/dL Arterial Blood Glucose (75-99) mg/dL Crossmatch 10/14/19 10/14/19 10/14/19 Range/Units 09:17 10:07 10:58 RBC (3.80-5.40) m/uL Hgb (11.4-16.0) gm/dL Hct (34.0-46.0) % Plt Count (150-450) k/uL INR (<1.2) APTT (22.0-30.0) sec Fibrinogen (200-500) mg/dL ABG pCO2 (35-45) mmHg ABG pO2 30 L* (83-108) mmHg ABG HCO3 27 H (21-25) mmol/L ABG Total CO2 28 H (19-24) mmol/L ABG O2 Saturation 59.6 L (94-97) % ABG Hematocrit (34.0-46.0) % ABG Ionized Calcium (4.5-5.3) mg/dL ABG Glucose (75-99) mg/dL Hemoglobin (11.4-16.0) gm/dL Sodium (137-145) mmol/L Glucose (74-99) mg/dL POC Glucose (mg/dL) 116 H 118 H (75-99) mg/dL Calcium (8.4-10.2) mg/dL AST (14-36) U/L Alkaline Phosphatase (38-126) U/L Total Protein (6.3-8.2) g/dL Albumin (3.5-5.0) g/dL Arterial Blood Glucose (75-99) mg/dL Crossmatch 10/14/19 10/14/19 10/14/19 Range/Units 13:09 13:59 15:13 RBC (3.80-5.40) m/uL Hgb (11.4-16.0) gm/dL Hct (34.0-46.0) % Plt Count (150-450) k/uL INR (<1.2) APTT (22.0-30.0) sec Fibrinogen (200-500) mg/dL ABG pCO2 34 L (35-45) mmHg ABG pO2 286 H (83-108) mmHg ABG HCO3 (21-25) mmol/L ABG Total CO2 25 H (19-24) mmol/L ABG O2 Saturation 100.0 H (94-97) % ABG Hematocrit 19 L* (34.0-46.0) % ABG Ionized Calcium (4.5-5.3) mg/dL ABG Glucose (75-99) mg/dL Hemoglobin 6.2 L* (11.4-16.0) gm/dL Sodium (137-145) mmol/L Glucose (74-99) mg/dL POC Glucose (mg/dL) 112 H 106 H (75-99) mg/dL Calcium (8.4-10.2) mg/dL AST (14-36) U/L Alkaline Phosphatase (38-126) U/L Total Protein (6.3-8.2) g/dL Albumin (3.5-5.0) g/dL Arterial Blood Glucose (75-99) mg/dL Crossmatch 10/14/19 10/14/19 10/14/19 Range/Units 15:56 16:20 16:20 RBC 2.48 L (3.80-5.40) m/uL Hgb 7.3 L (11.4-16.0) gm/dL Hct 22.3 L (34.0-46.0) % Plt Count 41 L (150-450) k/uL INR (<1.2) APTT 36.0 H (22.0-30.0) sec Fibrinogen (200-500) mg/dL ABG pCO2 (35-45) mmHg ABG pO2 181 H (83-108) mmHg ABG HCO3 (21-25) mmol/L ABG Total CO2 (19-24) mmol/L ABG O2 Saturation 99.5 H (94-97) % ABG Hematocrit 22 L (34.0-46.0) % ABG Ionized Calcium 4.4 L (4.5-5.3) mg/dL ABG Glucose 122 H (75-99) mg/dL Hemoglobin 7.1 L (11.4-16.0) gm/dL Sodium (137-145) mmol/L Glucose (74-99) mg/dL POC Glucose (mg/dL) (75-99) mg/dL Calcium (8.4-10.2) mg/dL AST (14-36) U/L Alkaline Phosphatase (38-126) U/L Total Protein (6.3-8.2) g/dL Albumin (3.5-5.0) g/dL Arterial Blood Glucose 122 H (75-99) mg/dL Crossmatch 10/14/19 10/14/19 10/14/19 Range/Units 16:25 17:11 18:13 RBC (3.80-5.40) m/uL Hgb (11.4-16.0) gm/dL Hct (34.0-46.0) % Plt Count (150-450) k/uL INR (<1.2) APTT (22.0-30.0) sec Fibrinogen (200-500) mg/dL ABG pCO2 (35-45) mmHg ABG pO2 (83-108) mmHg ABG HCO3 (21-25) mmol/L ABG Total CO2 (19-24) mmol/L ABG O2 Saturation (94-97) % ABG Hematocrit (34.0-46.0) % ABG Ionized Calcium (4.5-5.3) mg/dL ABG Glucose (75-99) mg/dL Hemoglobin (11.4-16.0) gm/dL Sodium (137-145) mmol/L Glucose (74-99) mg/dL POC Glucose (mg/dL) 132 H 136 H 142 H (75-99) mg/dL Calcium (8.4-10.2) mg/dL AST (14-36) U/L Alkaline Phosphatase (38-126) U/L Total Protein (6.3-8.2) g/dL Albumin (3.5-5.0) g/dL Arterial Blood Glucose (75-99) mg/dL Crossmatch 10/14/19 Range/Units 20:54 RBC (3.80-5.40) m/uL Hgb (11.4-16.0) gm/dL Hct (34.0-46.0) % Plt Count (150-450) k/uL INR (<1.2) APTT (22.0-30.0) sec Fibrinogen (200-500) mg/dL ABG pCO2 (35-45) mmHg ABG pO2 (83-108) mmHg ABG HCO3 (21-25) mmol/L ABG Total CO2 (19-24) mmol/L ABG O2 Saturation (94-97) % ABG Hematocrit (34.0-46.0) % ABG Ionized Calcium (4.5-5.3) mg/dL ABG Glucose (75-99) mg/dL Hemoglobin (11.4-16.0) gm/dL Sodium (137-145) mmol/L Glucose (74-99) mg/dL POC Glucose (mg/dL) 122 H (75-99) mg/dL Calcium (8.4-10.2) mg/dL AST (14-36) U/L Alkaline Phosphatase (38-126) U/L Total Protein (6.3-8.2) g/dL Albumin (3.5-5.0) g/dL Arterial Blood Glucose (75-99) mg/dL Crossmatch Assessment and Plan Assessment: ASSESSMENT Pericardial Effusion/tamponade - taken to the OR and s/p evacuation of clots Status post aortic valve replacement with bioprosthetic aortic valve and mitral valve repair Status post CABG Acute blood loss anemia History of asthma/COPD Persistent atrial fibrillation GERD Hypertension Hyperlipidemia History of mitral valve prolapse Chronic kidney disease stage II Hypothyroidism Remote history of nicotine dependence Plan: As there was significant decrease in the output from her mediastinal and chest tubes, patient had an echocardiogram done. It showed moderate generalized pericardial effusion. So the patient was taken back to the OR and she had drainage of the pericardial effusion/tamponade. Patient just got back from the procedure. Continue with the current medication regimen. Overall prognosis is guarded.
[2019-10-15 01:01] LABS: Glucose,Whole Blood 114 mg/dL (75-99)
[2019-10-15 03:06] LABS: Glucose,Whole Blood 124 mg/dL (75-99)
[2019-10-15 04:16] LABS: Basophils % (A) 0 %; Eosinophils # (A) 0.1 k/uL (0-0.7); Eosinophils % (A) 1 %; HCT 27.1 % (34.0-46.0); HGB 9.2 gm/dL (11.4-16.0); Ionized Calcium 4.7 mg/dL (4.5-5.3); Lymphocytes # (A) 0.8 k/uL (1.0-4.8); Lymphocytes % (A) 7 %; MCH 29.7 pg (25.0-35.0); MCV 87.5 fL (80.0-100.0); Mean Platelet Volume 8.4; Monocytes # (A) 0.7 k/uL (0-1.0); Monocytes % (A) 6 %; Neutrophils # (A) 10.2 k/uL (1.3-7.7); Neutrophils % (A) 85 %; Poikilocytosis Slight; RDW 15.6 % (11.5-15.5)
[2019-10-15] MEDS: HEPARIN SODIUM,PORCINE 5,000 UNIT/ML 1 ML VIAL SQ SCH ×3 (04:17→21:44)
[2019-10-15] MEDS: SODIUM CHLORIDE 0.9% 1,000 ML IV SCH (04:18)
[2019-10-15 04:20] LABS: Platelet Count 98 k/uL (150-450)
[2019-10-15 04:21] LABS: Partial Thromboplastin Time 30.5 sec (22.0-30.0); Prothrombin Time 10.2 sec (9.0-12.0)
[2019-10-15 04:29] LABS: Albumin 2.5 g/dL (3.5-5.0); Calcium 7.5 mg/dL (8.4-10.2); Magnesium 1.9 mg/dL (1.6-2.3); Potassium 3.7 mmol/L (3.5-5.1); Total Bilirubin 1.3 mg/dL (0.2-1.3)
[2019-10-15 04:32] LABS: ABG Base Excess -1.5 mmol/L; ABG HCO3 23 mmol/L (21-25); ABG Oxygen Saturation 99.1 % (94-97); ABG PCO2 38 mmHg (35-45); ABG PO2 158 mmHg (83-108); ABG TCO2 25 mmol/L (19-24)
[2019-10-15] MEDS: MAGNESIUM SULFATE-D5W PMX 1 GM in DEXTROSE/WATER 1 100ML.BAG IVPB SCH ×2 (04:44→05:44)
[2019-10-15] MEDS: POTASSIUM CHLORIDE 10 MEQ in WATER FOR INJECTION 1 100ML.BAG IVPB SCH ×2 (04:44→05:43)
[2019-10-15 05:02] LABS: Allen Test Performed? no
[2019-10-15 05:07] LABS: Glucose,Whole Blood 124 mg/dL (75-99)
[2019-10-15] MEDS: AMIODARONE 300 MG in DEXTROSE 5% IN WATER 250 ML IV PRN ×2 (05:30)
[2019-10-15] MEDS: LEVOTHYROXINE 75 MCG TAB PO SCH (05:32)
[2019-10-15] MEDS ORDERED: FUROSEMIDE 10 MG/ML 4 ML VIAL IV STA (06:45)
[2019-10-15 06:58] LABS: Glucose,Whole Blood 116 mg/dL (75-99)
[2019-10-15] MEDS: ASCORBIC ACID 500 MG TAB PO SCH ×2 (07:05→16:10)
[2019-10-15] MEDS: FERROUS SULFATE ORAL ELIXIR 300 MG/5 ML CUP PO SCH ×2 (07:05→16:10)
--- NOTE | 2019-10-15 07:15 | XR ---
EXAMINATION TYPE: XR chest 1V DATE OF EXAM: 10/15/2019 CLINICAL HISTORY: Difficulty breathing progress study. Postopen cardiac surgery. TECHNIQUE: Single AP portable semiupright view of the chest is obtained. COMPARISON: Chest x-ray from one day earlier and older studies. FINDINGS: Stable endotracheal and orogastric tubes. Stable right internal jugular [place] catheter . Bilateral chest tubes along with overlying epicardial pacer wires and EKG leads. Atrial appendage c losure clip along with metallic aortic valve and adjacent surrounding sutures are all redemonstrated. Background chronic parenchymal fibrotic change along with moderate to severe biapical pleural/parench ymal thickening remains present. Cardiac silhouette size is stable and upper limits of normal with at herosclerotic thoracic aorta. No pneumothorax is noted bilaterally. Increased left mid to lower lung opacity remains present. Suspect stable small to tiny bilateral pleural effusions. IMPRESSION: Small to tiny bilateral pleural effusions and mild interstitial edema redemonstrated. Chr onic parenchymal change with persistent left mid to lower lung acute infiltrate and atelectasis. No p neumothorax bilateral chest tubes. No significant change from most recent x-ray.
--- NOTE | 2019-10-15 07:51 | P.PN ---
Subjective Progress Note Date: 10/15/19 Principal diagnosis: Severe aortic insufficiency, moderate to severe mitral regurgitation, single- vessel coronary artery disease. Previous medical history of coronary artery disease with myocardial infarction and stent placement to the RCA, hypertension, hyperlipidemia, chronic kidney disease stage III, right internal carotid artery stenosis 50-69%, hypothyroidism, TIA in 2004 without residual, remote history of pneumonia, previous tobacco dependence, moderate restriction with preoperative FEV1 50% of predicted, and family history of premature coronary artery disease. POD #3 aortic valve replacement with 21 mm Herrera Inspiris bioprosthetic aortic valve, mitral valve repair with a #28 mm [employer] AnnuloFlex band, reverse saphenous vein graft off the aorta to the right coronary artery with right lower extremity greater saphenous endoscopic vein harvesting, clip ligation of left atrial appendage 35mm AtriClip and intraoperative transesophageal echocardiogram. Postoperative acute blood loss anemia, expected given hemodilution and cardiopulmonary bypass pump Postoperative and intraoperative atrial fibrillation, unexpected but potential outcome of valvular heart surgery Postoperative prolonged mechanical ventilation secondary to hemodynamic instability, unexpected Postoperative pericardial effusion/tamponade POD #1 Re-exploration of the chest, evacuation of clot, irrigation of chest cavity The patient's currently laying in bed in the intensive care unit, remains on mechanical ventilation. She has had an eventful postoperative course with hypotension requiring pressor support, low cardiac output requiring inotropes, atrial fibrillation requiring amiodarone, and anemia requiring blood transfusion. She has received 9 units packed red blood cells total, 3 units fresh frozen plasma, 4 packs of platelets, and 2 packs of cryoprecipitate, in addition to IV albumin. Hemaglobin more stable this AM at 9.2. She is currently being paced at 90 bpm to help support her blood pressure, underlying rhythm sinus with a rate in the 60s. Invasive lines include right internal jugular Sweetser/Cordis, left radial arterial line, mediastinal as well as right and left pleural chest tubes, and Pratt catheter. Current IV medication includes dobutamine at 3 mcg/kg/min and amiodarone at 0.5 mg/m. Primacor was turned off after surgery yesterday and levo was discontinued shortly after that. Patient did return to the OR yesterday afternoon for evacuation of clot and washout, has been more stable hemodynamically since. Propofol is infusing for sedation, patient does open her eyes and moves all extremities. CXR reviewed. Objective - Vital Signs Vital signs: Vital Signs Temp 97.7 F 10/14/19 20:53 Pulse 63 10/15/19 07:00 Resp 21 10/15/19 07:00 BP 91/37 10/15/19 07:00 Pulse Ox 85 L 10/15/19 07:00 Intake & Output 10/14/19 10/15/19 10/15/19 18:59 06:59 18:59 Intake Total 2032.634 3468.353 98.5 Output Total 1776 997 40 Balance 586.740 2452.353 58.5 Weight 68.7 kg Intake: IV 951.0 1969.0 98.5 .9NS Cardiac Output 120 160 20 0.9NS Pressure Bags 99 108 9 Albumin Human 5% 250 ml 500 In Empty Bag 1 bag @ 250 mls/hr IVPB Q1HR PRN Rx#: [id number] Amiodarone 300 mg In 100 250 25 Dextrose 5% in Water 250 ml @ 0.5 MG/MIN 25 mls/hr IV .Q10H PRN Rx#: [id number] Amiodarone 360 mg In 50 25 Dextrose 5% in Water 200 ml @ 1 MG/MIN 33.333 mls/ hr IV .Q6H PRN Rx#: [id number] DOBUTamine DRIP 500 mg In 42.0 36.0 4.5 Dextrose/Water 1 250ml. bag @ 2 MCG/KG/MIN 3.048 mls/hr IV .Q24H JAYE Rx#: [id number] Magnesium Sulfate-D5w Pmx 200 1 gm In Dextrose/Water 1 100ml.bag @ 100 mls/hr IVPB Q1H JAYE Rx#: [id number] Potassium Chloride 10 meq 200 In Water For Injection 1 100ml.bag @ 100 mls/hr IVPB Q1H JAYE Rx#: [id number] Sodium Chloride 0.9% 1, 540 490 40 000 ml @ 50 mls/hr IV . Q20H JAYE Rx#:[id number] Intake, IV Titration 661.634 851.353 Amount Amiodarone 300 mg In 250 484.583 Dextrose 5% in Water 250 ml @ 0.5 MG/MIN 25 mls/hr IV .Q10H PRN Rx#: [id number] DOBUTamine DRIP 500 mg In 213.131 Dextrose/Water 1 250ml. bag @ 2 MCG/KG/MIN 3.048 mls/hr IV .Q24H JAYE Rx#: [id number] Insulin Regular 100 unit 21.642 13.692 In Sodium Chloride 0.9% 100 ml @ Per Protocol IV .Q0M JAYE Rx#:[id number] Milrinone-D5w Pmx 20 mg 52.476 In Dextrose/Water 1 100ml .bag @ 0.1 MCG/KG/MIN 1. 524 mls/hr IV .Q24H JAYE Rx#:[id number] Norepinephrine 4 mg In 237.516 Sodium Chloride 0.9% 250 ml @ 0.05 MCG/KG/MIN 9. 677 mls/hr IV .Q24H JAYE Rx#:[id number] propofoL 1,000 mg In 100.000 139.947 Empty Bag 1 bag @ Titrate IV .Q0M JAYE Rx#: [id number] Tube Feeding 80 Blood Product 310 648 Platelet Irr Pheresis Pas 338 -C Unit [id number] Rc Irr As1 Unit 310 [id number] Rc Irr As1 Unit 0 310 [id number] Other 30 Output: Chest Tube Drainage 851 772 30 Bilateral Mediastinal 190 300 10 Left 270 216 0 Mediastinal Chest Tube 1 Right 390 256 20 Gastric Drainage 500 Urine 325 225 10 Estimated Blood Loss 100 Other: Voiding Method Indwelling Catheter Indwelling Catheter ABP, PAP, CO, CI - Last Documented Arterial Blood Pressure 95/47 Pulmonary Artery Pressure 41/26 Cardiac Output 2.2 Cardiac Index 1.4 - Constitutional General appearance: Present: no acute distress, thin - Respiratory Details: Lungs sounds diminished bilaterally. Respirations even, nonlabored on mechanical ventilation. Current ventilator settings assist control mode, FiO2 40%, tidal volume 400, respiratory rate 20, PEEP 5. ABGs this morning on those ventilator settings 7.4/38/158/23/99%/-1.5. 8.0 ET tube present, 22 at the lip. Mediastinal chest tube present, connected to continuous wall suction, 110 mL thin serosanguinous drainage overnight, 500 mL since surgery yesterday af ternoon. Left pleural chest tube present and connected to continuous wall suction, 120 mL thin serosanguineous drainage overnight, 350 mL since surgery yesterday. Right pleural chest tube present and connected to continuous wall suction, 145 mL serosanguineous drainage overnight, 350 mL since surgery yesterday. No air leaks present. - Cardiovascular Details: S1, S2 present. Regular rate and rhythm, atrially paced on telemetry at 90 bpm, underlying sinus rhythm at 60 beats a minute. Sternum stable. A/V epicardial pacemaker wires present, connected to generator, AAI mode with rate 90 bpm. Palpable peripheral pulses bilaterally. Generalized edema present. Right internal jugular Sweetser/Cordis, left radial arterial line present. Last CO/CI 2.9/1.9 on Dobutamine at 3 mcg/kg/min and amio at 0.5 mg/min. Heart hugger, SCDs, antiembolism stockings all present. - Gastrointestinal Gastrointestinal Comment(s): Abdomen soft, nontender, nondistended. Hypoactive bowel sounds present 4 quadrants. OG tube present, LIS, minimal drainage. - Genitourinary Genitourinary Comment(s): Pratt present draining clear, yellow urine. Urine output overnight 15-20 mL per hour overnight, 550 mL in the last 24 hours - Integumentary Integumentary Comment(s): Skin is warm and dry. No evidence of skin breakdown. - Neurologic Neurologic: Present: CNII-XII intact - Musculoskeletal Musculoskeletal: Present: generalized weakness, strength equal bilaterally - Psychiatric Psychiatric Comment(s): Currently sedated with propofol. Patient does open her eyes and move all extremities to command. She does nod her head yes and shake her head no appropriately when asked questions. - Allied health notes Allied health notes reviewed: nursing - Labs CBC & Chem 7: 10/15/19 04:05 10/15/19 04:05 Labs: Abnormal Lab Results - Last 24 Hours (Table) 10/08/19 10/14/19 10/14/19 Range/Units 09:08 08:03 09:11 WBC (3.8-10.6) k/uL RBC (3.80-5.40) m/uL Hgb (11.4-16.0) gm/dL Hct (34.0-46.0) % RDW (11.5-15.5) % Plt Count (150-450) k/uL Neutrophils # (1.3-7.7) k/uL Lymphocytes # (1.0-4.8) k/uL APTT (22.0-30.0) sec ABG pCO2 (35-45) mmHg ABG pO2 (83-108) mmHg ABG HCO3 (21-25) mmol/L ABG Total CO2 (19-24) mmol/L ABG O2 Saturation (94-97) % ABG Hematocrit (34.0-46.0) % ABG Ionized Calcium (4.5-5.3) mg/dL ABG Glucose (75-99) mg/dL Hemoglobin (11.4-16.0) gm/dL Sodium (137-145) mmol/L BUN (7-17) mg/dL Glucose (74-99) mg/dL POC Glucose (mg/dL) 116 H 122 H (75-99) mg/dL Calcium (8.4-10.2) mg/dL AST (14-36) U/L Total Protein (6.3-8.2) g/dL Albumin (3.5-5.0) g/dL Arterial Blood Glucose (75-99) mg/dL Crossmatch See Detail 10/14/19 10/14/19 10/14/19 Range/Units 09:17 10:07 10:58 WBC (3.8-10.6) k/uL RBC (3.80-5.40) m/uL Hgb (11.4-16.0) gm/dL Hct (34.0-46.0) % RDW (11.5-15.5) % Plt Count (150-450) k/uL Neutrophils # (1.3-7.7) k/uL Lymphocytes # (1.0-4.8) k/uL APTT (22.0-30.0) sec ABG pCO2 (35-45) mmHg ABG pO2 30 L* (83-108) mmHg ABG HCO3 27 H (21-25) mmol/L ABG Total CO2 28 H (19-24) mmol/L ABG O2 Saturation 59.6 L (94-97) % ABG Hematocrit (34.0-46.0) % ABG Ionized Calcium (4.5-5.3) mg/dL ABG Glucose (75-99) mg/dL Hemoglobin (11.4-16.0) gm/dL Sodium (137-145) mmol/L BUN (7-17) mg/dL Glucose (74-99) mg/dL POC Glucose (mg/dL) 116 H 118 H (75-99) mg/dL Calcium (8.4-10.2) mg/dL AST (14-36) U/L Total Protein (6.3-8.2) g/dL Albumin (3.5-5.0) g/dL Arterial Blood Glucose (75-99) mg/dL Crossmatch 10/14/19 10/14/19 10/14/19 Range/Units 13:09 13:59 15:13 WBC (3.8-10.6) k/uL RBC (3.80-5.40) m/uL Hgb (11.4-16.0) gm/dL Hct (34.0-46.0) % RDW (11.5-15.5) % Plt Count (150-450) k/uL Neutrophils # (1.3-7.7) k/uL Lymphocytes # (1.0-4.8) k/uL APTT (22.0-30.0) sec ABG pCO2 34 L (35-45) mmHg ABG pO2 286 H (83-108) mmHg ABG HCO3 (21-25) mmol/L ABG Total CO2 25 H (19-24) mmol/L ABG O2 Saturation 100.0 H (94-97) % ABG Hematocrit 19 L* (34.0-46.0) % ABG Ionized Calcium (4.5-5.3) mg/dL ABG Glucose (75-99) mg/dL Hemoglobin 6.2 L* (11.4-16.0) gm/dL Sodium (137-145) mmol/L BUN (7-17) mg/dL Glucose (74-99) mg/dL POC Glucose (mg/dL) 112 H 106 H (75-99) mg/dL Calcium (8.4-10.2) mg/dL AST (14-36) U/L Total Protein (6.3-8.2) g/dL Albumin (3.5-5.0) g/dL Arterial Blood Glucose (75-99) mg/dL Crossmatch 10/14/19 10/14/19 10/14/19 Range/Units 15:56 16:20 16:20 WBC (3.8-10.6) k/uL RBC 2.48 L (3.80-5.40) m/uL Hgb 7.3 L (11.4-16.0) gm/dL Hct 22.3 L (34.0-46.0) % RDW (11.5-15.5) % Plt Count 41 L (150-450) k/uL Neutrophils # (1.3-7.7) k/uL Lymphocytes # (1.0-4.8) k/uL APTT 36.0 H (22.0-30.0) sec ABG pCO2 (35-45) mmHg ABG pO2 181 H (83-108) mmHg ABG HCO3 (21-25) mmol/L ABG Total CO2 (19-24) mmol/L ABG O2 Saturation 99.5 H (94-97) % ABG Hematocrit 22 L (34.0-46.0) % ABG Ionized Calcium 4.4 L (4.5-5.3) mg/dL ABG Glucose 122 H (75-99) mg/dL Hemoglobin 7.1 L (11.4-16.0) gm/dL Sodium (137-145) mmol/L BUN (7-17) mg/dL Glucose (74-99) mg/dL POC Glucose (mg/dL) (75-99) mg/dL Calcium (8.4-10.2) mg/dL AST (14-36) U/L Total Protein (6.3-8.2) g/dL Albumin (3.5-5.0) g/dL Arterial Blood Glucose 122 H (75-99) mg/dL Crossmatch 10/14/19 10/14/19 10/14/19 Range/Units 16:25 17:11 18:13 WBC (3.8-10.6) k/uL RBC (3.80-5.40) m/uL Hgb (11.4-16.0) gm/dL Hct (34.0-46.0) % RDW (11.5-15.5) % Plt Count (150-450) k/uL Neutrophils # (1.3-7.7) k/uL Lymphocytes # (1.0-4.8) k/uL APTT (22.0-30.0) sec ABG pCO2 (35-45) mmHg ABG pO2 (83-108) mmHg ABG HCO3 (21-25) mmol/L ABG Total CO2 (19-24) mmol/L ABG O2 Saturation (94-97) % ABG Hematocrit (34.0-46.0) % ABG Ionized Calcium (4.5-5.3) mg/dL ABG Glucose (75-99) mg/dL Hemoglobin (11.4-16.0) gm/dL Sodium (137-145) mmol/L BUN (7-17) mg/dL Glucose (74-99) mg/dL POC Glucose (mg/dL) 132 H 136 H 142 H (75-99) mg/dL Calcium (8.4-10.2) mg/dL AST (14-36) U/L Total Protein (6.3-8.2) g/dL Albumin (3.5-5.0) g/dL Arterial Blood Glucose (75-99) mg/dL Crossmatch 10/14/19 10/14/19 10/14/19 Range/Units 20:54 21:50 21:50 WBC 11.1 H (3.8-10.6) k/uL RBC 2.99 L (3.80-5.40) m/uL Hgb 8.9 L D (11.4-16.0) gm/dL Hct 26.3 L (34.0-46.0) % RDW (11.5-15.5) % Plt Count 93 L D (150-450) k/uL Neutrophils # 9.1 H (1.3-7.7) k/uL Lymphocytes # 0.9 L (1.0-4.8) k/uL APTT 34.8 H (22.0-30.0) sec ABG pCO2 (35-45) mmHg ABG pO2 (83-108) mmHg ABG HCO3 (21-25) mmol/L ABG Total CO2 (19-24) mmol/L ABG O2 Saturation (94-97) % ABG Hematocrit (34.0-46.0) % ABG Ionized Calcium (4.5-5.3) mg/dL ABG Glucose (75-99) mg/dL Hemoglobin (11.4-16.0) gm/dL Sodium (137-145) mmol/L BUN (7-17) mg/dL Glucose (74-99) mg/dL POC Glucose (mg/dL) 122 H (75-99) mg/dL Calcium (8.4-10.2) mg/dL AST (14-36) U/L Total Protein (6.3-8.2) g/dL Albumin (3.5-5.0) g/dL Arterial Blood Glucose (75-99) mg/dL Crossmatch 10/14/19 10/14/19 10/15/19 Range/Units 22:29 22:39 01:00 WBC (3.8-10.6) k/uL RBC (3.80-5.40) m/uL Hgb (11.4-16.0) gm/dL Hct (34.0-46.0) % RDW (11.5-15.5) % Plt Count (150-450) k/uL Neutrophils # (1.3-7.7) k/uL Lymphocytes # (1.0-4.8) k/uL APTT (22.0-30.0) sec ABG pCO2 (35-45) mmHg ABG pO2 154 H 31 L* (83-108) mmHg ABG HCO3 (21-25) mmol/L ABG Total CO2 25 H 26 H (19-24) mmol/L ABG O2 Saturation 99.0 H 65.0 L (94-97) % ABG Hematocrit (34.0-46.0) % ABG Ionized Calcium (4.5-5.3) mg/dL ABG Glucose (75-99) mg/dL Hemoglobin (11.4-16.0) gm/dL Sodium (137-145) mmol/L BUN (7-17) mg/dL Glucose (74-99) mg/dL POC Glucose (mg/dL) 114 H (75-99) mg/dL Calcium (8.4-10.2) mg/dL AST (14-36) U/L Total Protein (6.3-8.2) g/dL Albumin (3.5-5.0) g/dL Arterial Blood Glucose (75-99) mg/dL Crossmatch 10/15/19 10/15/19 10/15/19 Range/Units 03:04 04:05 04:05 WBC 12.0 H (3.8-10.6) k/uL RBC 3.10 L (3.80-5.40) m/uL Hgb 9.2 L (11.4-16.0) gm/dL Hct 27.1 L (34.0-46.0) % RDW 15.6 H (11.5-15.5) % Plt Count 98 L (150-450) k/uL Neutrophils # 10.2 H (1.3-7.7) k/uL Lymphocytes # 0.8 L (1.0-4.8) k/uL APTT (22.0-30.0) sec ABG pCO2 (35-45) mmHg ABG pO2 (83-108) mmHg ABG HCO3 (21-25) mmol/L ABG Total CO2 (19-24) mmol/L ABG O2 Saturation (94-97) % ABG Hematocrit (34.0-46.0) % ABG Ionized Calcium (4.5-5.3) mg/dL ABG Glucose (75-99) mg/dL Hemoglobin (11.4-16.0) gm/dL Sodium 133 L (137-145) mmol/L BUN 18 H (7-17) mg/dL Glucose 104 H (74-99) mg/dL POC Glucose (mg/dL) 124 H (75-99) mg/dL Calcium 7.5 L (8.4-10.2) mg/dL AST 43 H (14-36) U/L Total Protein 4.0 L (6.3-8.2) g/dL Albumin 2.5 L (3.5-5.0) g/dL Arterial Blood Glucose (75-99) mg/dL Crossmatch 10/15/19 10/15/19 10/15/19 Range/Units 04:05 04:31 05:06 WBC (3.8-10.6) k/uL RBC (3.80-5.40) m/uL Hgb (11.4-16.0) gm/dL Hct (34.0-46.0) % RDW (11.5-15.5) % Plt Count (150-450) k/uL Neutrophils # (1.3-7.7) k/uL Lymphocytes # (1.0-4.8) k/uL APTT 30.5 H (22.0-30.0) sec ABG pCO2 (35-45) mmHg ABG pO2 158 H (83-108) mmHg ABG HCO3 (21-25) mmol/L ABG Total CO2 25 H (19-24) mmol/L ABG O2 Saturation 99.1 H (94-97) % ABG Hematocrit (34.0-46.0) % ABG Ionized Calcium (4.5-5.3) mg/dL ABG Glucose (75-99) mg/dL Hemoglobin (11.4-16.0) gm/dL Sodium (137-145) mmol/L BUN (7-17) mg/dL Glucose (74-99) mg/dL POC Glucose (mg/dL) 124 H (75-99) mg/dL Calcium (8.4-10.2) mg/dL AST (14-36) U/L Total Protein (6.3-8.2) g/dL Albumin (3.5-5.0) g/dL Arterial Blood Glucose (75-99) mg/dL Crossmatch 10/15/19 Range/Units 06:57 WBC (3.8-10.6) k/uL RBC (3.80-5.40) m/uL Hgb (11.4-16.0) gm/dL Hct (34.0-46.0) % RDW (11.5-15.5) % Plt Count (150-450) k/uL Neutrophils # (1.3-7.7) k/uL Lymphocytes # (1.0-4.8) k/uL APTT (22.0-30.0) sec ABG pCO2 (35-45) mmHg ABG pO2 (83-108) mmHg ABG HCO3 (21-25) mmol/L ABG Total CO2 (19-24) mmol/L ABG O2 Saturation (94-97) % ABG Hematocrit (34.0-46.0) % ABG Ionized Calcium (4.5-5.3) mg/dL ABG Glucose (75-99) mg/dL Hemoglobin (11.4-16.0) gm/dL Sodium (137-145) mmol/L BUN (7-17) mg/dL Glucose (74-99) mg/dL POC Glucose (mg/dL) 116 H (75-99) mg/dL Calcium (8.4-10.2) mg/dL AST (14-36) U/L Total Protein (6.3-8.2) g/dL Albumin (3.5-5.0) g/dL Arterial Blood Glucose (75-99) mg/dL Crossmatch - Imaging and Cardiology Chest x-ray: report reviewed, image reviewed Assessment and Plan Assessment: 1. Severe aortic insufficiency, status post bioprosthetic aortic valve replacement 2. Moderate to severe mitral regurgitation, status post mitral valve repair 3. Single-vessel coronary artery disease, status post bypass to the RCA 4. History of coronary artery disease with myocardial infarction, status post stent placement to the RCA 5. History of hypertension, currently hypotensive 6. History of hyperlipidemia, treated 7. Right internal carotid artery stenosis 50-69% 8. Chronic kidney disease stage III 9. Hypothyroid 10. TIA in 2004 without residual 11. Remote history of pneumonia 12. Previous tobacco dependence 13. Moderate lung restriction with preoperative FEV1 58% of predicted, pulmonary fibrosis seen on CT 14. Family history of premature coronary artery disease 15. Postoperative acute blood loss anemia, status post transfusion 16. Postoperative and intraoperative atrial fibrillation, status post clip ligation of left atrial appendage and amiodarone initiation 17. Postoperative prolonged mechanical ventilation 18. Postoperative pericardial effusion/tamponade, status post re-exploration of the chest, evacuation of clot, irrigation of chest cavity Plan: 1. Continue low-dose aspirin, statin. Will hold off on Plavix and beta alan. Will start afterload reduction 2. Continue amiodarone for A. fib prophylaxis, will transition to oral. No anticoagulation 3. Mechanical ventilation, bronchodilators per pulmonology. Wean from ventilator if able 4. Will monitor daily labs and x-rays. Electrolyte replacement per protocol. Potassium and mag replacement today. No transfusion today 5. Wean dobutamine as tolerated 6. GI/DVT prophylaxis. Hold heparin SQ for platelet count <100,000 7. Will give 40 mg IVP lasix x 1 8. Pain control with current medication regimen. 9. Insulin management per primary care service. Preoperative hemoglobin A1c 5.5% 10. Continue to monitor chest tube output and consistency 11. Continue to pace patient at 90 bpm 12. More recommendations to follow Time with Patient: Greater than 30
[2019-10-15 07:52] LABS: Glucose,Whole Blood 101 mg/dL (75-99)
[2019-10-15] MEDS: PANTOPRAZOLE 40 MG/10 ML VIAL IVP SCH (08:03)
[2019-10-15] MEDS: ATORVASTATIN 40 MG TAB PO SCH (08:03)
[2019-10-15] MEDS: ACETAMINOPHEN TAB 500 MG TAB PO PRN ×2 (08:03→13:18)
[2019-10-15] MEDS: CHLORHEXIDINE GLUCONATE 15 ML CUP MUCOUS MEM SCH ×2 (08:03→21:43)
[2019-10-15] MEDS: AMIODARONE 200 MG TAB PO SCH ×2 (08:03→23:00)
[2019-10-15] MEDS: ASPIRIN 81 MG PO SCH (08:03)
[2019-10-15] MEDS: INSULIN ASPART (NovoLOG) 100 UNIT/ML VIAL SQ SCH ×4 (08:04→21:43)
[2019-10-15] MEDS: IPRATROPIUM-ALBUTEROL 3 ML NEB INHALATION SCH ×4 (08:10→20:36)
[2019-10-15] MEDS ORDERED: lisinopriL 5 MG TAB PO SCH (09:00)
[2019-10-15] MEDS ORDERED: DEXMEDETOMIDINE/0.9% NACL(PMX) 400 MCG in EMPTY BAG 1 BAG IV SCH (09:45)
[2019-10-15 11:47] LABS: Glucose,Whole Blood 107 mg/dL (75-99)
[2019-10-15] MEDS: MILRINONE-D5W PMX 20 MG in DEXTROSE/WATER 1 100ML.BAG IV SCH (11:58)
--- NOTE | 2019-10-15 12:09 | PN ---
PROGRESS NOTE Mrs. Quiroz is a 79-year-old female who has been followed by Dr. Kyle in the past, has underwent a coronary bypass grafting with a saphenous vein graft to the right coronary artery with aortic valve replacement and mitral valve repair. Her surgery was done on 10/11. She had to be taken back to the operating room yesterday to evacuated a post pericardial effusion and tamponade with evacuation of clots. She remains intubated and sedated. She is on IV amiodarone. She is paced. She is on dobutamine, but no norepinephrine. Her echocardiogram postoperatively showed ejection fraction of 40% to 45%. Her urine output has been stable. She has some similar rhythm at this time. She switched to oral amiodarone 200 mg twice a day. She is on aspirin, Lipitor, lisinopril 5 mg daily. PHYSICAL EXAMINATION: Blood pressure running in the 110s with a heart rate in the 60s. Her PA pressure is systolic in the 40s. LUNGS: Clear anteriorly. HEART: Regular rate and rhythm, S1, S2. No S3 with systolic murmur, no diastolic murmur. ABDOMEN: Soft. No organomegaly. EXTREMITIES: No significant edema. LAB DATA: Revealed BUN creatinine of 18.85, potassium 3.7, hemoglobin of 9.2. Her chest x-ray revealed effusion on the left side, bigger than the right side, but no evidence of acute infiltrate. She has received PRBC and frozen plasma and platelets at the time of her redo surgery. IMPRESSION: 1. Status post aortic valve replacement and mitral valve repair with single bypass. 2. Status post reoperation for pericardial effusion. 3. Paroxysmal atrial fibrillation. 4. History of TIA today. RECOMMENDATIONS: Patient will continue on the present treatment. Will try to wean and extubate. Follow her renal function closely and depending on her progress, further recommendation will be made. MMODL / IJN: [id number] / [email or web address]
[2019-10-15] MEDS ORDERED: POTASSIUM BICARBONATE/CIT AC 20 MEQ TABLET.EFF NG-TUBE SCH (13:00)
--- NOTE | 2019-10-15 14:51 | P.PN ---
Subjective Progress Note Date: 10/15/19 Principal diagnosis: Status post CABG, aortic valve replacement and mitral valve repair postoperative day #3. 2019, the patient is postop day #1. The patient underwent single-vessel bypass surgery, aortic valve replacement and mitral valve repair. She is known to have coronary artery disease, valvular insufficiency, hypertension and hyperlipidemia and chronic stage III kidney disease. The patient also is known to have carotid artery disease 50% on the right, hypothyroidism, and history of interstitial lung disease with pulmonary fibrosis and severe restrictive lung d isease with a FVC in the 50% range preoperatively. On today's evaluation, the patient is still intubated on mechanical ventilator. Were unable to wean the patient off the mechanical ventilator and extubated because of her ongoing difficulties with hemodynamics and bleeding from the chest tubes. Note that the patient is still in intensive care unit and she is still sedated for now at propofol which is running at 20 g per KG per minute. The patient is still requiring inotropes. The patient was quite hypotensive after arrival from the operating room and she was having difficulties with donis ycardia. She is currently paced at the rate of 80. She is on norepinephrine infusion which is running at 0.26 mg per KG per minute. She was started on milrinone yesterday at 0.2 g and at a later stage dobutamine was also added. Earlier this morning, cardiothoracic surgery saw the patient and increase the paced rhythm of 200 beats per minutes. Her underlying rhythm this morning is normal sinus rate of 60. She is at dobutamine at the medical grams per KG per minute and milrinone at 0.2 mics respiratory KG per minute. She is also on amiodarone at 0.5 mg/m. The right is being titrated pH has an adequate urine output. Most recent hemodynamics indicate a cardiac index of 1.9. Pulmonary artery pressures are 46/25 mmHg. A bedside echocardiogram was done and there is no evidence of any pericardial effusion. Valve functions were adequate. The mediastinal chest tubes are in place and the pleural chest tube is in place. There was ongoing issues with clotting and drainage from the chest tubes. Appropriate cleaning and suctioning of the chest tubes were done. Overall, the patient received a total of 4 units of packed RBC, 3 units of fresh frozen plasma, 2 units of packed RBC and 2 packs of cryoprecipitate in addition to call is in the form of IV albumin throughout the resuscitation. No ongoing or active bleed at this point in time. No attempts for weaning off the mechanical ventilator. The patient is currently on a assist-control mode of ventilation at the rate of 20 with tidal volume of 400 and FiO2 of 50% with a PEEP of 5. Blood gas showed a pH of 7.38 with a pCO2 of 41 and pO2 of 206. Chest x-ray showed adequate expansion of both lungs. There is underlying chronic incision infiltrates. ET tube is in a good location. Chest x-rays well expanded. No pneumothorax. No atelectasis. 10/14/2019 the patient is postop day #2. The patient underwent single vessel bypass surgery, aortic valve replacement, mitral valve repair. The bleeding has subsided from the mediastinal tubes. Output from the tubes have dropped down considerably since yesterday. Nevertheless, there is some widening of the mediastinum and the patient is going to have a limited echocardiogram to rule out any hematoma or blood collection around the pericardium. The patient currently is still intubated on a mechanical ventilator. The patient remains on assist control mode of ventilation at the rate of 20 with a tidal volume of 400 and FiO2 of 40% with a PEEP of 5. The peak airway pressure is 26. Blood gases showed a pH of 7.44 with a pCO2 of 37 and pO2 129. Chest x-ray showed adequate expansion of both lungs. Chest tubes are all in good location. ET tube is in a good location. The patient is still has his [place] catheter in place. The mediastinum is slightly widened. In terms of hemodynamics, the patient is currently on milrinone at a dose of 0.1 g per KG per minute. The patient is also on dobutamine at 3 mg per KG per minute. Levo fed is running at 0.03 mics respiratory KG per minute. The patient is also on amiodarone at 0.5 mg/m. She is was sedated with propofol at 25 g per KG per minute. Insulin is running at 2.5 units an hour. Cardiac index is at 1.5. The heart rate is being paced the rate of 80. Underlying rhythm is sinus with a rate of 70. The patient is receiving enteral feeding for nutritional support. The most recent hemoglobin is at 7.3. The platelet count is down to 65. Patient was reevaluated today on 10/15/19, she is postoperative day #3. Patient had to be taken back to the operating room last night for excessive bleeding or recurrent effusion/temporal not. Patient underwent reexploration of the chest, evacuation of clots, and irrigation of the chest cavity. Today she is in the ICU on mechanical ventilation, her ventilator settings are assist control rate 20, volume is 400 FiO2 is 40% and PEEP of 5. ABG this morning showed a pO2 of 158 pCO2 of 38 pH of 7.40 and I was on 40% FiO2. Patient remains on propofol at 20 mcg/kg/m, she is off all pressors and inotropes except she is still on Dobutrex at 2 mcg/kg/m. Patient has a low cardiac output requiring inotropes, she is in atrial fibrillation requiring amiodarone, and she was quite anemic received a total of 9 units of packed RBCs, 3 units of fresh frozen plasma, 4 units of platelets, 2 packs of cryoprecipitate, and albumin. Hemoglobin this morning is 9.2. Patient is arousable, and she follows simple instructions, hence we will likely check weaning parameters and decide accordingly. Objective - Vital Signs Vital signs: Vital Signs Temp 98.7 F 10/15/19 12:00 Pulse 100 10/15/19 14:00 Resp 33 H 10/15/19 14:00 BP 99/39 10/15/19 14:00 Pulse Ox 98 10/15/19 14:00 Intake & Output 10/14/19 10/15/19 10/15/19 18:59 06:59 18:59 Intake Total 2032.634 3468.353 801.837 Output Total 5897 056 1899 Balance 040.954 4828.353 -218.163 Weight 68.7 kg 68.7 kg Intake: IV 951.0 1969.0 551.5 .9NS Cardiac Output 120 160 60 0.9NS Pressure Bags 99 108 72 Albumin Human 5% 250 ml 500 In Empty Bag 1 bag @ 250 mls/hr IVPB Q1HR PRN Rx#: [id number] Amiodarone 300 mg In 100 250 25 Dextrose 5% in Water 250 ml @ 0.5 MG/MIN 25 mls/hr IV .Q10H PRN Rx#: [id number] Amiodarone 360 mg In 50 25 Dextrose 5% in Water 200 ml @ 1 MG/MIN 33.333 mls/ hr IV .Q6H PRN Rx#: [id number] DOBUTamine DRIP 500 mg In 42.0 36.0 4.5 Dextrose/Water 1 250ml. bag @ 2 MCG/KG/MIN 3.048 mls/hr IV .Q24H JAYE Rx#: [id number] Magnesium Sulfate-D5w Pmx 200 1 gm In Dextrose/Water 1 100ml.bag @ 100 mls/hr IVPB Q1H JAYE Rx#: [id number] Potassium Chloride 10 meq 200 In Water For Injection 1 100ml.bag @ 100 mls/hr IVPB Q1H JAYE Rx#: [id number] Sodium Chloride 0.9% 1, 540 490 390 000 ml @ 50 mls/hr IV . Q20H JAYE Rx#:[id number] Intake, IV Titration 661.634 851.353 90.337 Amount Amiodarone 300 mg In 250 484.583 Dextrose 5% in Water 250 ml @ 0.5 MG/MIN 25 mls/hr IV .Q10H PRN Rx#: [id number] DOBUTamine DRIP 500 mg In 213.131 54.178 Dextrose/Water 1 250ml. bag @ 2 MCG/KG/MIN 3.048 mls/hr IV .Q24H JAYE Rx#: [id number] Dexmedetomidine/0.9% NaCl 18.434 (Pmx) 400 mcg In Empty Bag 1 bag @ Titrate IV . Q0M JAYE Rx#:[id number] Insulin Regular 100 unit 21.642 13.692 In Sodium Chloride 0.9% 100 ml @ Per Protocol IV .Q0M JAYE Rx#:[id number] Milrinone-D5w Pmx 20 mg 52.476 In Dextrose/Water 1 100ml .bag @ 0.1 MCG/KG/MIN 1. 524 mls/hr IV .Q24H JAYE Rx#:[id number] Norepinephrine 4 mg In 237.516 Sodium Chloride 0.9% 250 ml @ 0.05 MCG/KG/MIN 9. 677 mls/hr IV .Q24H JAYE Rx#:[id number] propofoL 1,000 mg In 100.000 139.947 17.725 Empty Bag 1 bag @ Titrate IV .Q0M JAYE Rx#: [id number] Oral 160 Tube Feeding 80 Blood Product 310 648 Platelet Irr Pheresis Pas 338 -C Unit [id number] Rc Irr As1 Unit 310 [id number] Rc Irr As1 Unit 0 310 [id number] Other 30 Output: Chest Tube Drainage 851 772 230 Bilateral Mediastinal 190 300 100 Left 270 216 90 Mediastinal Chest Tube 1 Right 390 256 40 Gastric Drainage 500 Urine 325 225 790 Estimated Blood Loss 100 Other: Voiding Method Indwelling Catheter Indwelling Catheter Indwelling Catheter ABP, PAP, CO, CI - Last Documented Arterial Blood Pressure 76/36 Pulmonary Artery Pressure 29/14 Cardiac Output 3.9 Cardiac Index 2.5 - Exam Physical Exam: Revealed 79-year-old female in no distress, on mechanical ventilation. Head: Atraumatic, normocephalic, endotracheal tube and orogastric tube are intact. HEENT:[Neck is supple.] [No neck masses.] [No thyromegaly.] [No JVD.] Chest: Symmetrical chest expansion, crackles at the bases,Mediastinal chest tube present, connected to continuous wall suction, 110 mL thin serosanguinous drainage overnight, 500 mL since surgery yesterday afternoon. Left pleural chest tube present and connected to continuous wall suction, 120 mL thin serosanguineous drainage overnight, 350 mL since surgery yesterday. Right ple ural chest tube present and connected to continuous wall suction, 145 mL serosanguineous drainage overnight, 350 mL since surgery yesterday. No air leaks present. Cardiac Exam: [Normal S1 and S2, no S3 gallop, no murmur.] Atrial pacing is noted. Rate of 60 bpm. Sternum is stable. Cardiac index is 1.9. Patient is on amiodarone and on Dobutrex. Abdomen: [Soft, nontender, no megaly, no rebound, no guarding, normal bowel sounds.] Extremities: [No clubbing, generalized edema is noted. Stockings noted. Neurological Exam: [No focal neurologic deficit.] Arousable, follows simple instructions, mental status seems to be intact. Psychiatric: Normal mood, affect and normal mental status examination. - Labs CBC & Chem 7: 10/15/19 04:05 10/15/19 11:46 Labs: Abnormal Lab Results - Last 24 Hours (Table) 10/08/19 10/14/19 10/14/19 Range/Units 09:08 15:13 15:56 WBC (3.8-10.6) k/uL RBC (3.80-5.40) m/uL Hgb (11.4-16.0) gm/dL Hct (34.0-46.0) % RDW (11.5-15.5) % Plt Count (150-450) k/uL Neutrophils # (1.3-7.7) k/uL Lymphocytes # (1.0-4.8) k/uL APTT (22.0-30.0) sec ABG pCO2 34 L (35-45) mmHg ABG pO2 286 H 181 H (83-108) mmHg ABG Total CO2 25 H (19-24) mmol/L ABG O2 Saturation 100.0 H 99.5 H (94-97) % ABG Hematocrit 19 L* 22 L (34.0-46.0) % ABG Ionized Calcium 4.4 L (4.5-5.3) mg/dL ABG Glucose 122 H (75-99) mg/dL Hemoglobin 6.2 L* 7.1 L (11.4-16.0) gm/dL Sodium (137-145) mmol/L BUN (7-17) mg/dL Glucose (74-99) mg/dL POC Glucose (mg/dL) (75-99) mg/dL Calcium (8.4-10.2) mg/dL AST (14-36) U/L Total Protein (6.3-8.2) g/dL Albumin (3.5-5.0) g/dL Arterial Blood Glucose 122 H (75-99) mg/dL Crossmatch See Detail 10/14/19 10/14/19 10/14/19 Range/Units 16:20 16:20 16:25 WBC (3.8-10.6) k/uL RBC 2.48 L (3.80-5.40) m/uL Hgb 7.3 L (11.4-16.0) gm/dL Hct 22.3 L (34.0-46.0) % RDW (11.5-15.5) % Plt Count 41 L (150-450) k/uL Neutrophils # (1.3-7.7) k/uL Lymphocytes # (1.0-4.8) k/uL APTT 36.0 H (22.0-30.0) sec ABG pCO2 (35-45) mmHg ABG pO2 (83-108) mmHg ABG Total CO2 (19-24) mmol/L ABG O2 Saturation (94-97) % ABG Hematocrit (34.0-46.0) % ABG Ionized Calcium (4.5-5.3) mg/dL ABG Glucose (75-99) mg/dL Hemoglobin (11.4-16.0) gm/dL Sodium (137-145) mmol/L BUN (7-17) mg/dL Glucose (74-99) mg/dL POC Glucose (mg/dL) 132 H (75-99) mg/dL Calcium (8.4-10.2) mg/dL AST (14-36) U/L Total Protein (6.3-8.2) g/dL Albumin (3.5-5.0) g/dL Arterial Blood Glucose (75-99) mg/dL Crossmatch 10/14/19 10/14/19 10/14/19 Range/Units 17:11 18:13 20:54 WBC (3.8-10.6) k/uL RBC (3.80-5.40) m/uL Hgb (11.4-16.0) gm/dL Hct (34.0-46.0) % RDW (11.5-15.5) % Plt Count (150-450) k/uL Neutrophils # (1.3-7.7) k/uL Lymphocytes # (1.0-4.8) k/uL APTT (22.0-30.0) sec ABG pCO2 (35-45) mmHg ABG pO2 (83-108) mmHg ABG Total CO2 (19-24) mmol/L ABG O2 Saturation (94-97) % ABG Hematocrit (34.0-46.0) % ABG Ionized Calcium (4.5-5.3) mg/dL ABG Glucose (75-99) mg/dL Hemoglobin (11.4-16.0) gm/dL Sodium (137-145) mmol/L BUN (7-17) mg/dL Glucose (74-99) mg/dL POC Glucose (mg/dL) 136 H 142 H 122 H (75-99) mg/dL Calcium (8.4-10.2) mg/dL AST (14-36) U/L Total Protein (6.3-8.2) g/dL Albumin (3.5-5.0) g/dL Arterial Blood Glucose (75-99) mg/dL Crossmatch 10/14/19 10/14/19 10/14/19 Range/Units 21:50 21:50 22:29 WBC 11.1 H (3.8-10.6) k/uL RBC 2.99 L (3.80-5.40) m/uL Hgb 8.9 L D (11.4-16.0) gm/dL Hct 26.3 L (34.0-46.0) % RDW (11.5-15.5) % Plt Count 93 L D (150-450) k/uL Neutrophils # 9.1 H (1.3-7.7) k/uL Lymphocytes # 0.9 L (1.0-4.8) k/uL APTT 34.8 H (22.0-30.0) sec ABG pCO2 (35-45) mmHg ABG pO2 154 H (83-108) mmHg ABG Total CO2 25 H (19-24) mmol/L ABG O2 Saturation 99.0 H (94-97) % ABG Hematocrit (34.0-46.0) % ABG Ionized Calcium (4.5-5.3) mg/dL ABG Glucose (75-99) mg/dL Hemoglobin (11.4-16.0) gm/dL Sodium (137-145) mmol/L BUN (7-17) mg/dL Glucose (74-99) mg/dL POC Glucose (mg/dL) (75-99) mg/dL Calcium (8.4-10.2) mg/dL AST (14-36) U/L Total Protein (6.3-8.2) g/dL Albumin (3.5-5.0) g/dL Arterial Blood Glucose (75-99) mg/dL Crossmatch 10/14/19 10/15/19 10/15/19 Range/Units 22:39 01:00 03:04 WBC (3.8-10.6) k/uL RBC (3.80-5.40) m/uL Hgb (11.4-16.0) gm/dL Hct (34.0-46.0) % RDW (11.5-15.5) % Plt Count (150-450) k/uL Neutrophils # (1.3-7.7) k/uL Lymphocytes # (1.0-4.8) k/uL APTT (22.0-30.0) sec ABG pCO2 (35-45) mmHg ABG pO2 31 L* (83-108) mmHg ABG Total CO2 26 H (19-24) mmol/L ABG O2 Saturation 65.0 L (94-97) % ABG Hematocrit (34.0-46.0) % ABG Ionized Calcium (4.5-5.3) mg/dL ABG Glucose (75-99) mg/dL Hemoglobin (11.4-16.0) gm/dL Sodium (137-145) mmol/L BUN (7-17) mg/dL Glucose (74-99) mg/dL POC Glucose (mg/dL) 114 H 124 H (75-99) mg/dL Calcium (8.4-10.2) mg/dL AST (14-36) U/L Total Protein (6.3-8.2) g/dL Albumin (3.5-5.0) g/dL Arterial Blood Glucose (75-99) mg/dL Crossmatch 10/15/19 10/15/19 10/15/19 Range/Units 04:05 04:05 04:05 WBC 12.0 H (3.8-10.6) k/uL RBC 3.10 L (3.80-5.40) m/uL Hgb 9.2 L (11.4-16.0) gm/dL Hct 27.1 L (34.0-46.0) % RDW 15.6 H (11.5-15.5) % Plt Count 98 L (150-450) k/uL Neutrophils # 10.2 H (1.3-7.7) k/uL Lymphocytes # 0.8 L (1.0-4.8) k/uL APTT 30.5 H (22.0-30.0) sec ABG pCO2 (35-45) mmHg ABG pO2 (83-108) mmHg ABG Total CO2 (19-24) mmol/L ABG O2 Saturation (94-97) % ABG Hematocrit (34.0-46.0) % ABG Ionized Calcium (4.5-5.3) mg/dL ABG Glucose (75-99) mg/dL Hemoglobin (11.4-16.0) gm/dL Sodium 133 L (137-145) mmol/L BUN 18 H (7-17) mg/dL Glucose 104 H (74-99) mg/dL POC Glucose (mg/dL) (75-99) mg/dL Calcium 7.5 L (8.4-10.2) mg/dL AST 43 H (14-36) U/L Total Protein 4.0 L (6.3-8.2) g/dL Albumin 2.5 L (3.5-5.0) g/dL Arterial Blood Glucose (75-99) mg/dL Crossmatch 10/15/19 10/15/19 10/15/19 Range/Units 04:31 05:06 06:57 WBC (3.8-10.6) k/uL RBC (3.80-5.40) m/uL Hgb (11.4-16.0) gm/dL Hct (34.0-46.0) % RDW (11.5-15.5) % Plt Count (150-450) k/uL Neutrophils # (1.3-7.7) k/uL Lymphocytes # (1.0-4.8) k/uL APTT (22.0-30.0) sec ABG pCO2 (35-45) mmHg ABG pO2 158 H (83-108) mmHg ABG Total CO2 25 H (19-24) mmol/L ABG O2 Saturation 99.1 H (94-97) % ABG Hematocrit (34.0-46.0) % ABG Ionized Calcium (4.5-5.3) mg/dL ABG Glucose (75-99) mg/dL Hemoglobin (11.4-16.0) gm/dL Sodium (137-145) mmol/L BUN (7-17) mg/dL Glucose (74-99) mg/dL POC Glucose (mg/dL) 124 H 116 H (75-99) mg/dL Calcium (8.4-10.2) mg/dL AST (14-36) U/L Total Protein (6.3-8.2) g/dL Albumin (3.5-5.0) g/dL Arterial Blood Glucose (75-99) mg/dL Crossmatch 10/15/19 10/15/19 Range/Units 07:51 11:46 WBC (3.8-10.6) k/uL RBC (3.80-5.40) m/uL Hgb (11.4-16.0) gm/dL Hct (34.0-46.0) % RDW (11.5-15.5) % Plt Count (150-450) k/uL Neutrophils # (1.3-7.7) k/uL Lymphocytes # (1.0-4.8) k/uL APTT (22.0-30.0) sec ABG pCO2 (35-45) mmHg ABG pO2 (83-108) mmHg ABG Total CO2 (19-24) mmol/L ABG O2 Saturation (94-97) % ABG Hematocrit (34.0-46.0) % ABG Ionized Calcium (4.5-5.3) mg/dL ABG Glucose (75-99) mg/dL Hemoglobin (11.4-16.0) gm/dL Sodium (137-145) mmol/L BUN (7-17) mg/dL Glucose (74-99) mg/dL POC Glucose (mg/dL) 101 H 107 H (75-99) mg/dL Calcium (8.4-10.2) mg/dL AST (14-36) U/L Total Protein (6.3-8.2) g/dL Albumin (3.5-5.0) g/dL Arterial Blood Glucose (75-99) mg/dL Crossmatch Assessment and Plan Assessment: Impression: Status post bioprosthetic aortic valve replacement, mitral valve repair, single- vessel CABG, bypass to RCA. Postoperative day #3.. Chronic kidney disease stage III Postoperative acute blood loss, status post multiple transfusions Postoperative pericardial effusion/temponade requiring reexploration and evacuation of clot, postoperative day #1. Hypothyroidism. Dyslipidemia. Severe aortic insufficiency status post bioprosthetic aortic valve replacement. Moderate mitral regurgitation requiring mitral valve repair. Benign essential hypertension. Recommendation: Continue low-dose aspirin. Hold Plavix and beta blockers for now. Continue mechanical ventilation. However the patient will be given possibly a weaning trial later today. Continue to monitor x-ray on a daily basis. Continue inotropes for now since the patient has a relatively low cardiac index. Agree with diuretics. Chest x-ray is showing mild congestive changes and the patient received significant amount of fluids and blood products. GI prophylaxis. Enteral feeding. DVT prophylaxis. We'll continue to follow. Critical care time is 32 minutes Time with Patient: Greater than 30
[2019-10-15 15:49] LABS: Glucose,Whole Blood 107 mg/dL (75-99)
[2019-10-15 15:49] LABS: ABG HCO3 25 mmol/L (21-25); ABG Oxygen Saturation 99.3 % (94-97); ABG PCO2 38 mmHg (35-45); ABG PH 7.43 (7.35-7.45); ABG PO2 169 mmHg (83-108); ABG TCO2 26 mmol/L (19-24)
[2019-10-15 16:21] LABS: Anisocytosis Slight; HGB 8.6 gm/dL (11.4-16.0); MCHC 34.3 g/dL (31.0-37.0); MCV 87.3 fL (80.0-100.0); Mean Platelet Volume 8.5; Poikilocytosis Slight; RBC 2.86 m/uL (3.80-5.40); RDW 16.4 % (11.5-15.5)
[2019-10-15 16:27] LABS: Platelet Count 91 k/uL (150-450)
[2019-10-15] MEDS ORDERED: ALBUMIN HUMAN 25% 50 ML in EMPTY BAG 1 BAG IVPB ONE (16:30)
[2019-10-15] MEDS: DOBUTamine DRIP 500 MG in DEXTROSE/WATER 1 250ML.BAG IV SCH (23:21)
[2019-10-15] MEDS: SENNOSIDES-DOCUSATE SODIUM 1 EACH TAB PO SCH (23:59)
[2019-10-16] MEDS: SODIUM CHLORIDE 0.9% 1,000 ML IV SCH
[2019-10-16] MEDS: ACETAMINOPHEN TAB 500 MG TAB PO PRN ×3 (00:50→23:29)
[2019-10-16 00:54] LABS: Glucose,Whole Blood 88 mg/dL (75-99)
[2019-10-16] MEDS: INSULIN ASPART (NovoLOG) 100 UNIT/ML VIAL SQ SCH ×6 (00:55→20:58)
--- NOTE | 2019-10-16 01:54 | P.PN ---
Subjective Progress Note Date: 10/15/19 Principal diagnosis: Aortic valve replacement and CABG Ms. Quiroz is a 79-year-old female with a past medical history of asthma, COPD, CVA, TIA, GERD, hypertension, hyperlipidemia, mitral valve prolapse underwent aortic valve replacement with #2 Herrera bioprosthetic aortic valve and mitral valve repair with [employer] band and CABG x1 with SVG to RCA. Patient had multiple runs of atrial fibrillation in case. Postoperatively she had episodes of hypotension and A. fib as well so started on amiodarone drip. She is being monitored closely in the ICU setting. She is mechanically ventilated. Patient's blood pressure has been running low, so she has been st arted on Levophed. Patient has issues with clotting and drainage from the chest tubes. The patient received a total of 4 PRBCs, 3 units of FFP's, 2 units of PRBCs and 2 units of cryoprecipitate with no 1 bag of IV albumin. Chest x-ray from this morning showed no pneumothorax or atelectasis. On 10/14/2019 -The patient is postoperative day 2 from aortic valve replacement, mitral valve repair and CABG. As there was significant decrease in the output from her mediastinal and chest tubes, patient had an echocardiogram done. It showed moderate generalized pericardial effusion. So the patient was taken back to the OR and she had drainage of the pericardial effusion/tamponade. Patient just got back from the procedure. She is sedated and mechanically ventilated. Review of systems could not be done as the patient is mechanically ventilated and sedated. On 10/15/19 - Patient underwent reexploration of the chest with evacuation of clots and irrigation of the chest cavity. She was on mechanical ventilation until this afternoon. Around late afternoon patient has been successfully extubated. She opened her eyes on calling her name and squeeze my finger. She is still in atrial fibrillation requiring amiodarone. She has been off of all pressor support. She did not require any more blood transfusion since reexploration. Patient's labs from this morning show hemoglobin of 8.6. As per the nursing staff report even though patient's map has been running on the lower side, patient has good urinary output. Active Medications Acetaminophen (Tylenol Tab) 1,000 mg PO Q6HR PRN PRN Reason: Fever and/ or Pain Last Admin: 10/16/19 00:50 Dose: 1,000 mg Documented by: Albuterol/Ipratropium (Duoneb 0.5 Mg-3 Mg/3 Ml Soln) 3 ml INHALATION RT-Q2H PRN PRN Reason: Shortness Of Breath Or Wheezing Albuterol/Ipratropium (Duoneb 0.5 Mg-3 Mg/3 Ml Soln) 3 ml INHALATION RT-QID [facility] Last Admin: 10/15/19 20:36 Dose: 3 ml Documented by: Amiodarone HCl (Cordarone) 200 mg PO BID [facility] Last Admin: 10/15/19 23:00 Dose: 200 mg Documented by: Ascorbic Acid (Vitamin C) 500 mg PO BID-W/MEALS [facility] Last Admin: 10/15/19 16:10 Dose: Not Given Documented by: Aspirin (Aspirin) 81 mg PO DAILY [facility] Last Admin: 10/15/19 08:03 Dose: 81 mg Documented by: Atorvastatin Calcium (Lipitor) 40 mg PO DAILY [facility] Last Admin: 10/15/19 08:03 Dose: 40 mg Documented by: Benzocaine/Menthol (Cepacol Lozenge) 1 each MUCOUS MEM Q2H PRN PRN Reason: Sore Throat Bisacodyl (Dulcolax) 10 mg RECTAL DAILY PRN PRN Reason: Constipation Chlorhexidine Gluconate (Peridex) 15 ml MUCOUS MEM BID [facility] Last Admin: 10/15/19 21:43 Dose: Not Given Documented by: Ferrous Sulfate (Feosol) 300 mg PO BID-W/MEALS [facility] Last Admin: 10/15/19 16:10 Dose: Not Given Documented by: Heparin Sodium (Porcine) (Heparin) 5,000 unit SQ Q8H [facility] Last Admin: 10/15/19 21:44 Dose: Not Given Documented by: Propofol 1,000 mg/ IV Solution 100 mls @ 0 mls/hr IV .Q0M [facility]; Protocol Last Titration: 10/15/19 09:43 Dose: 0 mcg/kg/min, 0 mls/hr Documented by: Dobutamine HCl/Dextrose 500 mg (/ IV Solution) 250 mls @ 3.048 mls/hr IV .Q24H [facility] Last Admin: 10/15/19 23:21 Dose: Not Given Documented by: Sodium Chloride (Saline 0.9%) 1,000 mls @ 50 mls/hr IV .Q20H [facility] Last Admin: 10/16/19 00:00 Dose: Not Given Documented by: Dexmedetomidine HCl 400 mcg/ (IV Solution) 100 mls @ 0 mls/hr IV .Q0M [facility]; Protocol Stop: 10/16/19 09:41 Last Titration: 10/15/19 17:30 Dose: 0 mcg/kg/hr, 0 mls/hr Documented by: Insulin Aspart (Novolog) 0 unit SQ Q4H [facility]; Protocol Last Admin: 10/16/19 00:55 Dose: Not Given Documented by: Levothyroxine Sodium (Synthroid) 75 mcg PO DAILY@0630 [facility] Last Admin: 10/15/19 05:32 Dose: 75 mcg Documented by: Lisinopril (Zestril) 5 mg PO DAILY [facility] Last Admin: 10/15/19 08:09 Dose: 5 mg Documented by: Magnesium Hydroxide (Milk Of Magnesia) 2,400 mg PO BID PRN PRN Reason: Constipation Metoclopramide HCl (Reglan) 10 mg IVP Q4H PRN PRN Reason: Nausea And Vomiting Miscellaneous Information (Magnesium Per Protocol) 1 each MISCELLANE DAILY PRN; Protocol PRN Reason: Per Protocol Miscellaneous Information (Phosphorus Per Protocol) 1 each MISCELLANE DAILY PRN; Protocol PRN Reason: Per Protocol Miscellaneous Information (Potassium Per Protocol) 1 each MISCELLANE DAILY PRN; Protocol PRN Reason: Per Protocol Ondansetron HCl (Zofran) 4 mg IVP Q6HR PRN PRN Reason: Nausea And Vomiting Pantoprazole Sodium (Protonix) 40 mg IVP DAILY [facility] Last Admin: 10/15/19 08:03 Dose: 40 mg Documented by: Senna/Docusate Sodium (Senokot-S) 2 each PO HS [facility] Last Admin: 10/15/19 23:59 Dose: Not Given Documented by: Sodium Chloride (Saline Flush) 10 ml IV BID [facility] Last Admin: 10/15/19 21:44 Dose: Not Given Documented by: Objective - Vital Signs Vital signs: Vital Signs Temp 98.7 F 10/15/19 16:00 Pulse 100 10/15/19 17:00 Resp 18 10/15/19 17:00 BP 83/33 10/15/19 17:00 Pulse Ox 100 10/15/19 17:00 Intake & Output 10/14/19 10/15/19 10/15/19 18:59 06:59 18:59 Intake Total 2032.634 3468.353 1110.440 Output Total 4091 202 6251 Balance 178.951 8198.353 -509.560 Weight 68.7 kg 68.7 kg Intake: IV 951.0 1969.0 818.5 .9NS Cardiac Output 120 160 80 0.9NS Pressure Bags 99 108 99 Albumin Human 25% 50 ml 100 In Empty Bag 1 bag @ 50 mls/hr IVPB ONCE ONE Rx#: [id number] Albumin Human 5% 250 ml 500 In Empty Bag 1 bag @ 250 mls/hr IVPB Q1HR PRN Rx#: [id number] Amiodarone 300 mg In 100 250 25 Dextrose 5% in Water 250 ml @ 0.5 MG/MIN 25 mls/hr IV .Q10H PRN Rx#: [id number] Amiodarone 360 mg In 50 25 Dextrose 5% in Water 200 ml @ 1 MG/MIN 33.333 mls/ hr IV .Q6H PRN Rx#: [id number] DOBUTamine DRIP 500 mg In 42.0 36.0 4.5 Dextrose/Water 1 250ml. bag @ 2 MCG/KG/MIN 3.048 mls/hr IV .Q24H [facility] Rx#: [id number] Magnesium Sulfate-D5w Pmx 200 1 gm In Dextrose/Water 1 100ml.bag @ 100 mls/hr IVPB Q1H [facility] Rx#: [id number] Potassium Chloride 10 meq 200 In Water For Injection 1 100ml.bag @ 100 mls/hr IVPB Q1H [facility] Rx#: [id number] Sodium Chloride 0.9% 1, 540 490 510 000 ml @ 50 mls/hr IV . Q20H [facility] Rx#:[id number] Intake, IV Titration 661.634 851.353 131.940 Amount Amiodarone 300 mg In 250 484.583 Dextrose 5% in Water 250 ml @ 0.5 MG/MIN 25 mls/hr IV .Q10H PRN Rx#: [id number] DOBUTamine DRIP 500 mg In 213.131 61.315 Dextrose/Water 1 250ml. bag @ 2 MCG/KG/MIN 3.048 mls/hr IV .Q24H [facility] Rx#: [id number] Dexmedetomidine/0.9% NaCl 52.900 (Pmx) 400 mcg In Empty Bag 1 bag @ Titrate IV . Q0M [facility] Rx#:[id number] Insulin Regular 100 unit 21.642 13.692 In Sodium Chloride 0.9% 100 ml @ Per Protocol IV .Q0M [facility] Rx#:[id number] Milrinone-D5w Pmx 20 mg 52.476 In Dextrose/Water 1 100ml .bag @ 0.1 MCG/KG/MIN 1. 524 mls/hr IV .Q24H [facility] Rx#:[id number] Norepinephrine 4 mg In 237.516 Sodium Chloride 0.9% 250 ml @ 0.05 MCG/KG/MIN 9. 677 mls/hr IV .Q24H [facility] Rx#:[id number] propofoL 1,000 mg In 100.000 139.947 17.725 Empty Bag 1 bag @ Titrate IV .Q0M [facility] Rx#: [id number] Oral 160 Tube Feeding 80 Blood Product 310 648 Platelet Irr Pheresis Pas 338 -C Unit [id number] Rc Irr As1 Unit 310 [id number] Rc Irr As1 Unit 0 310 [id number] Other 30 Output: Chest Tube Drainage 851 772 310 Bilateral Mediastinal 190 300 140 Left 270 216 100 Mediastinal Chest Tube 1 Right 390 256 70 Gastric Drainage 500 250 Urine 683 946 9978 Estimated Blood Loss 100 Other: Voiding Method Indwelling Catheter Indwelling Catheter Indwelling Catheter ABP, PAP, CO, CI - Last Documented Arterial Blood Pressure 74/31 Pulmonary Artery Pressure 32/11 Cardiac Output 3.7 Cardiac Index 2.4 - Exam GENERAL EXAM: comfortable in no apparent distress. HEENT: No pallor, No icterus, no JVD CHEST: Symmetrical expansion. 1 mediastinal chest tube in place, and left and right pleural chest tubes in place LUNGS: Equal air entry with no crackles, wheeze, rhonchi or dullness. Diminished in the lower lobes CVS: Regular rate and rhythm, normal S1 and S2, no gallops, no murmurs, no rubs ABDOMEN: Soft, nontender. normal bowel sounds EXTREMITIES: No clubbing, no edema, no cyanosis, 2+ pulses and upper and lower extremities. SKIN: No rashes, left leg endoscopic harvest vein site is covered with the dressing and Lanre wrapped CENTRAL NERVOUS SYSTEM: sedated. No focal deficits - Labs CBC & Chem 7: 10/15/19 15:51 10/15/19 11:46 Labs: Abnormal Lab Results - Last 24 Hours (Table) 10/08/19 10/14/19 10/14/19 Range/Units 09:08 16:20 16:20 WBC (3.8-10.6) k/uL RBC 2.48 L (3.80-5.40) m/uL Hgb 7.3 L (11.4-16.0) gm/dL Hct 22.3 L (34.0-46.0) % RDW (11.5-15.5) % Plt Count 41 L (150-450) k/uL Neutrophils # (1.3-7.7) k/uL Lymphocytes # (1.0-4.8) k/uL APTT 36.0 H (22.0-30.0) sec ABG pO2 (83-108) mmHg ABG Total CO2 (19-24) mmol/L ABG O2 Saturation (94-97) % Sodium (137-145) mmol/L BUN (7-17) mg/dL Glucose (74-99) mg/dL POC Glucose (mg/dL) (75-99) mg/dL Calcium (8.4-10.2) mg/dL AST (14-36) U/L Total Protein (6.3-8.2) g/dL Albumin (3.5-5.0) g/dL Crossmatch See Detail 10/14/19 10/14/19 10/14/19 Range/Units 18:13 20:54 21:50 WBC 11.1 H (3.8-10.6) k/uL RBC 2.99 L (3.80-5.40) m/uL Hgb 8.9 L D (11.4-16.0) gm/dL Hct 26.3 L (34.0-46.0) % RDW (11.5-15.5) % Plt Count 93 L D (150-450) k/uL Neutrophils # 9.1 H (1.3-7.7) k/uL Lymphocytes # 0.9 L (1.0-4.8) k/uL APTT (22.0-30.0) sec ABG pO2 (83-108) mmHg ABG Total CO2 (19-24) mmol/L ABG O2 Saturation (94-97) % Sodium (137-145) mmol/L BUN (7-17) mg/dL Glucose (74-99) mg/dL POC Glucose (mg/dL) 142 H 122 H (75-99) mg/dL Calcium (8.4-10.2) mg/dL AST (14-36) U/L Total Protein (6.3-8.2) g/dL Albumin (3.5-5.0) g/dL Crossmatch 10/14/19 10/14/19 10/14/19 Range/Units 21:50 22:29 22:39 WBC (3.8-10.6) k/uL RBC (3.80-5.40) m/uL Hgb (11.4-16.0) gm/dL Hct (34.0-46.0) % RDW (11.5-15.5) % Plt Count (150-450) k/uL Neutrophils # (1.3-7.7) k/uL Lymphocytes # (1.0-4.8) k/uL APTT 34.8 H (22.0-30.0) sec ABG pO2 154 H 31 L* (83-108) mmHg ABG Total CO2 25 H 26 H (19-24) mmol/L ABG O2 Saturation 99.0 H 65.0 L (94-97) % Sodium (137-145) mmol/L BUN (7-17) mg/dL Glucose (74-99) mg/dL POC Glucose (mg/dL) (75-99) mg/dL Calcium (8.4-10.2) mg/dL AST (14-36) U/L Total Protein (6.3-8.2) g/dL Albumin (3.5-5.0) g/dL Crossmatch 10/15/19 10/15/19 10/15/19 Range/Units 01:00 03:04 04:05 WBC 12.0 H (3.8-10.6) k/uL RBC 3.10 L (3.80-5.40) m/uL Hgb 9.2 L (11.4-16.0) gm/dL Hct 27.1 L (34.0-46.0) % RDW 15.6 H (11.5-15.5) % Plt Count 98 L (150-450) k/uL Neutrophils # 10.2 H (1.3-7.7) k/uL Lymphocytes # 0.8 L (1.0-4.8) k/uL APTT (22.0-30.0) sec ABG pO2 (83-108) mmHg ABG Total CO2 (19-24) mmol/L ABG O2 Saturation (94-97) % Sodium (137-145) mmol/L BUN (7-17) mg/dL Glucose (74-99) mg/dL POC Glucose (mg/dL) 114 H 124 H (75-99) mg/dL Calcium (8.4-10.2) mg/dL AST (14-36) U/L Total Protein (6.3-8.2) g/dL Albumin (3.5-5.0) g/dL Crossmatch 10/15/19 10/15/19 10/15/19 Range/Units 04:05 04:05 04:31 WBC (3.8-10.6) k/uL RBC (3.80-5.40) m/uL Hgb (11.4-16.0) gm/dL Hct (34.0-46.0) % RDW (11.5-15.5) % Plt Count (150-450) k/uL Neutrophils # (1.3-7.7) k/uL Lymphocytes # (1.0-4.8) k/uL APTT 30.5 H (22.0-30.0) sec ABG pO2 158 H (83-108) mmHg ABG Total CO2 25 H (19-24) mmol/L ABG O2 Saturation 99.1 H (94-97) % Sodium 133 L (137-145) mmol/L BUN 18 H (7-17) mg/dL Glucose 104 H (74-99) mg/dL POC Glucose (mg/dL) (75-99) mg/dL Calcium 7.5 L (8.4-10.2) mg/dL AST 43 H (14-36) U/L Total Protein 4.0 L (6.3-8.2) g/dL Albumin 2.5 L (3.5-5.0) g/dL Crossmatch 10/15/19 10/15/19 10/15/19 Range/Units 05:06 06:57 07:51 WBC (3.8-10.6) k/uL RBC (3.80-5.40) m/uL Hgb (11.4-16.0) gm/dL Hct (34.0-46.0) % RDW (11.5-15.5) % Plt Count (150-450) k/uL Neutrophils # (1.3-7.7) k/uL Lymphocytes # (1.0-4.8) k/uL APTT (22.0-30.0) sec ABG pO2 (83-108) mmHg ABG Total CO2 (19-24) mmol/L ABG O2 Saturation (94-97) % Sodium (137-145) mmol/L BUN (7-17) mg/dL Glucose (74-99) mg/dL POC Glucose (mg/dL) 124 H 116 H 101 H (75-99) mg/dL Calcium (8.4-10.2) mg/dL AST (14-36) U/L Total Protein (6.3-8.2) g/dL Albumin (3.5-5.0) g/dL Crossmatch 10/15/19 10/15/19 10/15/19 Range/Units 11:46 15:45 15:47 WBC (3.8-10.6) k/uL RBC (3.80-5.40) m/uL Hgb (11.4-16.0) gm/dL Hct (34.0-46.0) % RDW (11.5-15.5) % Plt Count (150-450) k/uL Neutrophils # (1.3-7.7) k/uL Lymphocytes # (1.0-4.8) k/uL APTT (22.0-30.0) sec ABG pO2 169 H (83-108) mmHg ABG Total CO2 26 H (19-24) mmol/L ABG O2 Saturation 99.3 H (94-97) % Sodium (137-145) mmol/L BUN (7-17) mg/dL Glucose (74-99) mg/dL POC Glucose (mg/dL) 107 H 107 H (75-99) mg/dL Calcium (8.4-10.2) mg/dL AST (14-36) U/L Total Protein (6.3-8.2) g/dL Albumin (3.5-5.0) g/dL Crossmatch 10/15/19 Range/Units 15:51 WBC 13.0 H (3.8-10.6) k/uL RBC 2.86 L (3.80-5.40) m/uL Hgb 8.6 L (11.4-16.0) gm/dL Hct 25.0 L (34.0-46.0) % RDW 16.4 H (11.5-15.5) % Plt Count 91 L (150-450) k/uL Neutrophils # (1.3-7.7) k/uL Lymphocytes # (1.0-4.8) k/uL APTT (22.0-30.0) sec ABG pO2 (83-108) mmHg ABG Total CO2 (19-24) mmol/L ABG O2 Saturation (94-97) % Sodium (137-145) mmol/L BUN (7-17) mg/dL Glucose (74-99) mg/dL POC Glucose (mg/dL) (75-99) mg/dL Calcium (8.4-10.2) mg/dL AST (14-36) U/L Total Protein (6.3-8.2) g/dL Albumin (3.5-5.0) g/dL Crossmatch Assessment and Plan Assessment: ASSESSMENT Pericardial Effusion/tamponade - taken to the OR and s/p evacuation of clots Acute respiratory failure - s/p extubation today Status post aortic valve replacement with bioprosthetic aortic valve and mitral valve repair Status post CABG Acute blood loss anemia History of asthma/COPD Persistent atrial fibrillation GERD Hypertension Hyperlipidemia History of mitral valve prolapse Chronic kidney disease stage II Hypothyroidism Remote history of nicotine dependence Plan: Re exploration of the chest done yesterday due to concerns of pericardial tamponnade/effusion . Patient has been successfully extubated this afternoon. Patient is awake and following simple commands. She has good urinary output. She is not requiring pressor support. Minimal amount of output from the mediastinal chest tubes. Continue with current medical management. Overall prognosis is poor. Further recommendations depending on the progress of the patient.
[2019-10-16 05:15] LABS: Anisocytosis Slight; HCT 25.9 % (34.0-46.0); HGB 8.8 gm/dL (11.4-16.0); MCH 30.6 pg (25.0-35.0); MCHC 33.9 g/dL (31.0-37.0); MCV 90.3 fL (80.0-100.0); Mean Platelet Volume 8.9; Poikilocytosis Slight; RBC 2.87 m/uL (3.80-5.40); RDW 16.1 % (11.5-15.5); WBC 12.3 k/uL (3.8-10.6)
[2019-10-16 05:17] LABS: Platelet Count 93 k/uL (150-450)
[2019-10-16 05:26] LABS: Ionized Calcium 4.6 mg/dL (4.5-5.3)
[2019-10-16 05:55] LABS: Albumin 2.5 g/dL (3.5-5.0); Calcium 7.6 mg/dL (8.4-10.2); Potassium 3.9 mmol/L (3.5-5.1); Total Bilirubin 1.1 mg/dL (0.2-1.3); Total Protein 4.3 g/dL (6.3-8.2)
[2019-10-16] MEDS: HEPARIN SODIUM,PORCINE 5,000 UNIT/ML 1 ML VIAL SQ SCH ×3 (06:29→19:46)
[2019-10-16] MEDS: LEVOTHYROXINE 75 MCG TAB PO SCH (07:04)
[2019-10-16] MEDS ORDERED: Potassium Replacement Protocol 1 EACH MISC MISCELLANE PRN (07:12)
--- NOTE | 2019-10-16 07:16 | XR ---
EXAMINATION TYPE: XR chest 1V DATE OF EXAM: 10/16/2019 COMPARISON: 10/15/2019 HISTORY: Shortness of breath postop CABG TECHNIQUE: Single frontal view of the chest is obtained. FINDINGS: endotracheal and orogastric tubes have been removed. Stable right internal jugular [place] catheter. Bilateral chest tubes along with overlying epicardial pacer wires and EKG leads. Atrial appendage closure clip along with metallic aortic valve and adjacent surrounding sutures are all rede monstrated. Background chronic parenchymal fibrotic change along with moderate to severe biapical pleural/parench ymal thickening remains present. Cardiac silhouette size is stable and upper limits of normal with at herosclerotic thoracic aorta. Suspect a lucency along the medial margin of the left upper lobe repres ents a less than 5% left apical pneumothorax. Increased left mid to lower lung opacity remains presen t. Suspect stable small to tiny bilateral pleural effusions. IMPRESSION: 1. Stable postsurgical changes with bilateral consolidation pleural effusion correlate for underlying venous congestion. 2. Marked biapical pleural thickening. Suspect a lucency along the medial margin of the left upper lo be represents a less than 5% apical pneumothorax.
[2019-10-16] MEDS: IPRATROPIUM-ALBUTEROL 3 ML NEB INHALATION SCH ×4 (07:49→20:40)
[2019-10-16] MEDS ORDERED: POTASSIUM BICARBONATE/CIT AC 20 MEQ TABLET.EFF NG-TUBE SCH (08:00)
[2019-10-16] MEDS: CHLORHEXIDINE GLUCONATE 15 ML CUP MUCOUS MEM SCH ×2 (08:03→20:53)
--- NOTE | 2019-10-16 08:29 | P.PN ---
Subjective Progress Note Date: 10/16/19 Principal diagnosis: Severe aortic insufficiency, moderate to severe mitral regurgitation, single- vessel coronary artery disease. Previous medical history of coronary artery disease with myocardial infarction and stent placement to the RCA, hypertension, hyperlipidemia, chronic kidney disease stage III, right internal carotid artery stenosis 50-69%, hypothyroidism, TIA in 2004 without residual, remote history of pneumonia, previous tobacco dependence, moderate restriction with preoperative FEV1 50% of predicted, and family history of premature coronary artery disease. POD #4 aortic valve replacement with 21 mm Herrera Inspiris bioprosthetic aortic valve, mitral valve repair with a #28 mm [employer]bo[employer] AnnuloFlex band, reverse saphenous vein graft off the aorta to the right coronary artery with right lower extremity greater saphenous endoscopic vein harvesting, clip ligation of left atrial appendage 35mm AtriClip and intraoperative transesophageal echocardiogram. Postoperative acute blood loss anemia, expected given hemodilution and cardiopulmonary bypass pump Postoperative and intraoperative atrial fibrillation, unexpected but potential outcome of valvular heart surgery Postoperative prolonged mechanical ventilation secondary to hemodynamic instability, unexpected Postoperative pericardial effusion/tamponade POD #2 Re-exploration of the chest, evacuation of clot, irrigation of chest cavity The patient's currently sitting up in bed in the intensive care unit in no acute distress. She was successfully extubated yesterday at 15:55. She has had an ev entful postoperative course with hypotension requiring pressor support, low cardiac output requiring inotropes, atrial fibrillation requiring amiodarone, and anemia requiring blood transfusion. She has received 9 units packed red blood cells total, 3 units fresh frozen plasma, 4 packs of platelets, and 2 packs of cryoprecipitate, in addition to IV albumin, no blood needed yesterday. Hemaglobin more stable this AM at 8.8. She is currently being paced at 70 bpm to help support her blood pressure, underlying rhythm sinus with a rate in the 60s. Invasive lines include right internal jugular [place]/Cordis, left radial arterial line, mediastinal as well as right and left pleural chest tubes, and Pratt catheter. Has been off IV pressors and inotropes since yesterday. She does complain of back and neck pain which is not completely controlled with Tylenol, does complain of weakness but is able to move all extremities. Objective - Vital Signs Vital signs: Vital Signs Temp 98.6 F 08/11/20 04:00 Pulse 67 10/16/19 08:00 Resp 20 10/16/19 08:00 BP 112/43 10/16/19 08:00 Pulse Ox 99 10/16/19 08:00 Intake & Output 10/15/19 10/16/19 10/16/19 18:59 06:59 18:59 Intake Total 1169.440 595.664 88 Output Total 1655 690 40 Balance -485.560 -94.336 48 Weight 68.7 kg 69.8 kg Intake: IV 877.5 590 88 .9NS Cardiac Output 80 90 0.9NS Pressure Bags 108 90 18 Albumin Human 25% 50 ml 100 In Empty Bag 1 bag @ 50 mls/hr IVPB ONCE ONE Rx#: [id number] Amiodarone 300 mg In 25 Dextrose 5% in Water 250 ml @ 0.5 MG/MIN 25 mls/hr IV .Q10H PRN Rx#: [id number] DOBUTamine DRIP 500 mg In 4.5 Dextrose/Water 1 250ml. bag @ 2 MCG/KG/MIN 3.048 mls/hr IV .Q24H [facility] Rx#: [id number] Sodium Chloride 0.9% 1, 560 410 70 000 ml @ 50 mls/hr IV . Q20H [facility] Rx#:[id number] Intake, IV Titration 131.940 5.664 Amount DOBUTamine DRIP 500 mg In 61.315 5.664 Dextrose/Water 1 250ml. bag @ 2 MCG/KG/MIN 3.048 mls/hr IV .Q24H [facility] Rx#: [id number] Dexmedetomidine/0.9% NaCl 52.900 (Pmx) 400 mcg In Empty Bag 1 bag @ Titrate IV . Q0M [facility] Rx#:[id number] propofoL 1,000 mg In 17.725 Empty Bag 1 bag @ Titrate IV .Q0M [facility] Rx#: [id number] Oral 160 Output: Chest Tube Drainage 320 320 Bilateral Mediastinal 140 100 Left 100 90 Right 80 130 Gastric Drainage 250 Urine 1085 370 40 Other: Voiding Method Indwelling Catheter Indwelling Catheter ABP, PAP, CO, CI - Last Documented Arterial Blood Pressure 137/60 Pulmonary Artery Pressure 57/36 Cardiac Output 3.8 Cardiac Index 2.5 - Constitutional General appearance: Present: cooperative, no acute distress - Respiratory Details: Lungs sounds diminished bilaterally. Respirations even, nonlabored. Currently on 2 L nasal cannula with oxygen saturation 99%. Only able to achieve 500 mL on incentive spirometry. Mediastinal chest tube present, connected to continuous wall suction, 30 mL thin serosanguinous drainage overnight, 300 mL in the last 24 hours. Left pleural chest tube present and connected to continuous wall suction, 40 mL thin serosanguineous drainage overnight, 200 mL in the last 24 hours. Right pleural chest tube present and connected to continuous wall suction, 40 mL serosanguineous drainage overnight, 400 mL since surgery yesterda y. No air leaks present. - Cardiovascular Details: S1, S2 present. Regular rate and rhythm, atrially paced on telemetry at 80 bpm, underlying sinus rhythm at 60 beats/minute. Sternum stable. A/V epicardial pacemaker wires present, connected to generator, AAI mode with rate 80 bpm. Palpable peripheral pulses bilaterally. Generalized edema present. Right internal jugular [place]/Cordis, left radial arterial line present. Last CO/CI 4.1/2.6 on no inotropes or pressors. Heart hugger, SCDs, antiembolism stockings all present. - Gastrointestinal Gastrointestinal Comment(s): Abdomen soft, nontender, nondistended. Hypoactive bowel sounds present 4 quadrants. Tolerating clear liquids - Genitourinary Genitourinary Comment(s): Pratt present draining clear, yellow urine. Urine output overnight 25-30 mL per hour overnight, 1455 mL in the last 24 hours, excellent diuresis after Lasix given yesterday - Integumentary Integumentary Comment(s): Skin is warm and dry. No evidence of skin breakdown. - Neurologic Neurologic: Present: CNII-XII intact - Musculoskeletal Musculoskeletal: Present: generalized weakness, strength equal bilaterally - Psychiatric Psychiatric: Present: A&O x's 3, appropriate affect, intact judgment & insight - Allied health notes Allied health notes reviewed: nursing - Labs CBC & Chem 7: 10/16/19 05:00 10/16/19 05:00 Labs: Abnormal Lab Results - Last 24 Hours (Table) 10/15/19 10/15/19 10/15/19 Range/Units 11:46 15:45 15:47 WBC (3.8-10.6) k/uL RBC (3.80-5.40) m/uL Hgb (11.4-16.0) gm/dL Hct (34.0-46.0) % RDW (11.5-15.5) % Plt Count (150-450) k/uL ABG pO2 169 H (83-108) mmHg ABG Total CO2 26 H (19-24) mmol/L ABG O2 Saturation 99.3 H (94-97) % Sodium (137-145) mmol/L BUN (7-17) mg/dL Creatinine (0.52-1.04) mg/dL POC Glucose (mg/dL) 107 H 107 H (75-99) mg/dL Calcium (8.4-10.2) mg/dL AST (14-36) U/L Total Protein (6.3-8.2) g/dL Albumin (3.5-5.0) g/dL 10/15/19 10/16/19 10/16/19 Range/Units 15:51 05:00 05:00 WBC 13.0 H 12.3 H (3.8-10.6) k/uL RBC 2.86 L 2.87 L (3.80-5.40) m/uL Hgb 8.6 L 8.8 L (11.4-16.0) gm/dL Hct 25.0 L 25.9 L (34.0-46.0) % RDW 16.4 H 16.1 H (11.5-15.5) % Plt Count 91 L 93 L (150-450) k/uL ABG pO2 (83-108) mmHg ABG Total CO2 (19-24) mmol/L ABG O2 Saturation (94-97) % Sodium 132 L (137-145) mmol/L BUN 24 H (7-17) mg/dL Creatinine 1.06 H (0.52-1.04) mg/dL POC Glucose (mg/dL) (75-99) mg/dL Calcium 7.6 L (8.4-10.2) mg/dL AST 58 H (14-36) U/L Total Protein 4.3 L (6.3-8.2) g/dL Albumin 2.5 L (3.5-5.0) g/dL - Imaging and Cardiology Chest x-ray: report reviewed, image reviewed Assessment and Plan Assessment: 1. Severe aortic insufficiency, status post bioprosthetic aortic valve replacement 2. Moderate to severe mitral regurgitation, status post mitral valve repair 3. Single-vessel coronary artery disease, status post bypass to the RCA 4. History of coronary artery disease with myocardial infarction, status post stent placement to the RCA 5. History of hypertension, currently hypotensive 6. History of hyperlipidemia, treated 7. Right internal carotid artery stenosis 50-69% 8. Chronic kidney disease stage III 9. Hypothyroid 10. TIA in 2004 without residual 11. Remote history of pneumonia 12. Previous tobacco dependence 13. Moderate lung restriction with preoperative FEV1 58% of predicted, pulmonary fibrosis seen on CT 14. Family history of premature coronary artery disease 15. Postoperative acute blood loss anemia, status post transfusion 16. Postoperative and intraoperative atrial fibrillation, status post clip ligation of left atrial appendage and amiodarone initiation 17. Postoperative prolonged mechanical ventilation 18. Postoperative pericardial effusion/tamponade, status post re-exploration of the chest, evacuation of clot, irrigation of chest cavity Plan: 1. Continue low-dose aspirin, statin. Will hold off on Plavix. Will restart low-dose beta alan. 2. Continue amiodarone for A. fib prophylaxis. No anticoagulation 3. Wean O2 as tolerated. Encourage incentive spirometry 10 times every hour while awake. Bronchodilators per pulmonology. 4. Will monitor daily labs and x-rays. Electrolyte replacement per protocol. No transfusion today 5. Discontinue [place], connect Cordis to continue CVP monitoring. Discontinue arterial line 6. GI/DVT prophylaxis. Hold heparin SQ for platelet count <100,000 7. Will start Lasix 10 mg IV push every 8 hours 8. Pain control with current medication regimen. Will add tramadol for better pain control 9. Insulin management per primary care service. Preoperative hemoglobin A1c 5.5% 10. Continue to monitor chest tube output and consistency 11. More recommendations to follow Time with Patient: Greater than 30
[2019-10-16] MEDS: ASPIRIN 81 MG PO SCH (08:32)
[2019-10-16] MEDS: AMIODARONE 200 MG TAB PO SCH ×2 (08:32→23:28)
[2019-10-16] MEDS: ASCORBIC ACID 500 MG TAB PO SCH ×2 (08:32→17:03)
[2019-10-16] MEDS: PANTOPRAZOLE 40 MG/10 ML VIAL IVP SCH (08:32)
[2019-10-16] MEDS: ATORVASTATIN 40 MG TAB PO SCH (08:33)
[2019-10-16] MEDS: traMADol 50 MG TAB PO PRN ×2 (08:46→16:07)
[2019-10-16 08:53] LABS: Glucose,Whole Blood 84 mg/dL (75-99)
[2019-10-16] MEDS: FUROSEMIDE 10 MG/ML 2 ML VIAL IV SCH ×2 (08:55→16:07)
[2019-10-16] MEDS: FERROUS SULFATE 325 MG TAB PO SCH ×2 (09:01→17:03)
[2019-10-16] MEDS: METOPROLOL TARTRATE 12.5 MG TAB PO SCH ×2 (09:17→21:00)
--- NOTE | 2019-10-16 09:57 | PN ---
PROGRESS NOTE Mrs. Quiroz is a 79-year-old female, status post coronary bypass grafting with mitral valve repair and aortic valve replacement, who had to be taken back to the operating room to remove blood clot. She is extubated, sitting up in the chair. She is paced with underlying sinus mechanism. She has she has been on no vasopressors. She her urine output is stable. She has no dizziness or palpitation. She feels weak. She denies any nausea or vomiting. She continues to be at this time on amiodarone 200 mg twice a day, aspirin once a day, Lipitor 80 mg daily, furosemide 10 mg IV q.8 hours, lisinopril 2.5 mg daily. PHYSICAL EXAMINATION: Blood pressure 112/50 with a heart rate in the 60s. LUNGS: With decreased air exchange at the bases, no wheezes. HEART: Regular rate and rhythm, S1, S2. No S3 with systolic murmur, no diastolic murmur, no rub. ABDOMEN: Soft nontender positive bowel sounds, no organomegaly. EXTREMITIES: No significant edema. Chest x-ray revealed apical thickening with a small pneumothorax. IMPRESSION: 1. Status post aortic valve replacement, mitral valve repair and coronary artery bypass grafting. 2. Status post repeat surgery for bleeding. 3. Hypertension. 4. Hyperlipidemia. RECOMMENDATION: We will continue on the present therapy. Continue incentive spirometry, increase her physical activity, follow her rhythm. Will follow her heart rate and depending on that, further recommendation will be made. MMODL / IJN: [id number] /
[2019-10-16] MEDS ORDERED: POTASSIUM CHLORIDE 20 MEQ in WATER FOR INJECTION 1 100ML.BAG IVPB STA (10:08)
[2019-10-16] MEDS ORDERED: ALBUMIN HUMAN 5% 250 ML IVPB ONE (10:16)
[2019-10-16 12:30] LABS: Glucose,Whole Blood 92 mg/dL (75-99)
[2019-10-16] MEDS: lisinopriL 5 MG TAB PO SCH (12:34)
--- NOTE | 2019-10-16 14:33 | P.PN ---
Subjective Progress Note Date: 10/16/19 Principal diagnosis: Status post CABG, aortic valve replacement and mitral valve repair postoperative day #4 2019, the patient is postop day #1. The patient underwent single-vessel bypass surgery, aortic valve replacement and mitral valve repair. She is known to have coronary artery disease, valvular insufficiency, hypertension and hyperlipidemia and chronic stage III kidney disease. The patient also is known to have carotid artery disease 50% on the right, hypothyroidism, and history of interstitial lung disease with pulmonary fibrosis and severe restrictive lung di sease with a FVC in the 50% range preoperatively. On today's evaluation, the patient is still intubated on mechanical ventilator. Were unable to wean the patient off the mechanical ventilator and extubated because of her ongoing difficulties with hemodynamics and bleeding from the chest tubes. Note that the patient is still in intensive care unit and she is still sedated for now at propofol which is running at 20 g per KG per minute. The patient is still requiring inotropes. The patient was quite hypotensive after arrival from the operating room and she was having difficulties with sonia cardia. She is currently paced at the rate of 80. She is on norepinephrine infusion which is running at 0.26 mg per KG per minute. She was started on milrinone yesterday at 0.2 g and at a later stage dobutamine was also added. Earlier this morning, cardiothoracic surgery saw the patient and increase the paced rhythm of 200 beats per minutes. Her underlying rhythm this morning is normal sinus rate of 60. She is at dobutamine at the medical grams per KG per minute and milrinone at 0.2 mics respiratory KG per minute. She is also on amiodarone at 0.5 mg/m. The right is being titrated pH has an adequate urine output. Most recent hemodynamics indicate a cardiac index of 1.9. Pulmonary a rtery pressures are 46/25 mmHg. A bedside echocardiogram was done and there is no evidence of any pericardial effusion. Valve functions were adequate. The mediastinal chest tubes are in place and the pleural chest tube is in place. There was ongoing issues with clotting and drainage from the chest tubes. Appropriate cleaning and suctioning of the chest tubes were done. Overall, the patient received a total of 4 units of packed RBC, 3 units of fresh frozen plasma, 2 units of packed RBC and 2 packs of cryoprecipitate in addition to call is in the form of IV albumin throughout the resuscitation. No ongoing or active bleed at this point in time. No attempts for weaning off the mechanical ventilator. The patient is currently on a assist-control mode of ventilation at the rate of 20 with tidal volume of 400 and FiO2 of 50% with a PEEP of 5. Blood gas showed a pH of 7.38 with a pCO2 of 41 and pO2 of 206. Chest x-ray showed adequate expansion of both lungs. There is underlying chronic incision infiltrates. ET tube is in a good location. Chest x-rays well expanded. No pneumothorax. No atelectasis. 10/14/2019 the patient is postop day #2. The patient underwent single vessel bypass surgery, aortic valve replacement, mitral valve repair. The bleeding has subsided from the mediastinal tubes. Output from the tubes have dropped down considerably since yesterday. Nevertheless, there is some widening of the mediastinum and the patient is going to have a limited echocardiogram to rule out any hematoma or blood collection around the pericardium. The patient currently is still intubated on a mechanical ventilator. The patient remains on assist control mode of ventilation at the rate of 20 with a tidal volume of 400 and FiO2 of 40% with a PEEP of 5. The peak airway pressure is 26. Blood gases showed a pH of 7.44 with a pCO2 of 37 and pO2 129. Chest x-ray showed adequate expansion of both lungs. Chest tubes are all in good location. ET tube is in a good location. The patient is still has his Inez-Sarah catheter in place. The mediastinum is slightly widened. In terms of hemodynamics, the patient is currently on milrinone at a dose of 0.1 g per KG per minute. The patient is also on dobutamine at 3 mg per KG per minute. Levo fed is running at 0.03 mics respiratory KG per minute. The patient is also on amiodarone at 0.5 mg/m. She is was sedated with propofol at 25 g per KG per minute. Insulin is running at 2.5 units an hour. Cardiac index is at 1.5. The heart rate is being paced the rate of 80. Underlying rhythm is sinus with a rate of 70. The patient is receiving enteral feeding for nutritional support. The most recent hemoglobin is at 7.3. The platelet count is down to 65. Patient was reevaluated today on 10/15/19, she is postoperative day #3. Patient had to be taken back to the operating room last night for excessive bleeding or recurrent effusion/temporal not. Patient underwent reexploration of the chest, evacuation of clots, and irrigation of the chest cavity. Today she is in the ICU on mechanical ventilation, her ventilator settings are assist control rate 20, volume is 400 FiO2 is 40% and PEEP of 5. ABG this morning showed a pO2 of 158 pCO2 of 38 pH of 7.40 and I was on 40% FiO2. Patient remains on propofol at 20 mcg/kg/m, she is off all pressors and inotropes except she is still on Dobutrex at 2 mcg/kg/m. Patient has a low cardiac output requiring inotropes, she is in atrial fibrillation requiring amiodarone, and she was quite anemic received a total of 9 units of packed RBCs, 3 units of fresh frozen plasma, 4 units of platelets, 2 packs of cryoprecipitate, and albumin. Hemoglobin this morning is 9.2. Patient is arousable, and she follows simple instructions, hence we will likely check weaning parameters and decide accordingly. Reevaluated today on 10/16/19, patient is postoperative day #4. Patient was extubated yesterday uneventfully, looking back, patient had a relatively uneventful postoperative course with profound hypotension, low cardiac output, required wrestlers, inotropes, she also required amiodarone for atrial fibrillation, and blood transfusions, multiple units of blood products were given as noted above. At any rate the patient is now off mechanical ventilation, she is on few liters nasal cannula, seems to be doing much better over the last 24 hours, and she is pleased that she is off the ventilator. She is now off pressors and off inotropes since yesterday. She is generally weak. Hemoglobin today is 8.8, Electrolytesenc normal, and renal profile is relatively normal. Chest x-ray showed mostly interstitial lung disease and postoperative atelectasis Objective - Vital Signs Vital signs: Vital Signs Temp 98.6 F 10/16/19 04:00 Pulse 69 10/16/19 14:00 Resp 20 10/16/19 14:00 BP 125/64 10/16/19 14:00 Pulse Ox 90 L 10/16/19 14:00 Intake & Output 08/10/20 08/11/20 08/11/20 18:59 06:59 18:59 Intake Total 1169.440 595.664 258 Output Total 1655 690 563 Balance -485.560 -94.336 -305 Weight 68.7 kg 69.8 kg Intake: IV 877.5 590 208 .9NS Cardiac Output 80 90 0.9NS Pressure Bags 108 90 48 Albumin Human 25% 50 ml 100 In Empty Bag 1 bag @ 50 mls/hr IVPB ONCE ONE Rx#: [id number] Amiodarone 300 mg In 25 Dextrose 5% in Water 250 ml @ 0.5 MG/MIN 25 mls/hr IV .Q10H PRN Rx#: [id number] DOBUTamine DRIP 500 mg In 4.5 Dextrose/Water 1 250ml. bag @ 2 MCG/KG/MIN 3.048 mls/hr IV .Q24H [facility] Rx#: [id number] Sodium Chloride 0.9% 1, 560 410 160 000 ml @ 20 mls/hr IV . Q24H [facility] Rx#:[id number] Intake, IV Titration 131.940 5.664 50 Amount DOBUTamine DRIP 500 mg In 61.315 5.664 Dextrose/Water 1 250ml. bag @ 2 MCG/KG/MIN 3.048 mls/hr IV .Q24H [facility] Rx#: [id number] Dexmedetomidine/0.9% NaCl 52.900 (Pmx) 400 mcg In Empty Bag 1 bag @ Titrate IV . Q0M [facility] Rx#:[id number] Potassium Chloride 20 meq 50 In Water For Injection 1 100ml.bag @ 50 mls/hr IVPB ONCE STA Rx#: [id number] propofoL 1,000 mg In 17.725 Empty Bag 1 bag @ Titrate IV .Q0M [facility] Rx#: [id number] Oral 160 Output: Chest Tube Drainage 320 320 330 Bilateral Mediastinal 140 100 80 Left 100 90 110 Right 80 130 140 Gastric Drainage 250 Urine 1085 370 233 Other: Voiding Method Indwelling Catheter Indwelling Catheter ABP, PAP, CO, CI - Last Documented Arterial Blood Pressure 126/49 Pulmonary Artery Pressure 57/36 Cardiac Output 3.8 Cardiac Index 2.5 - Exam Physical Exam: Revealed 79-year-old female in no distress, on 2 L nasal cannula. Head: Atraumatic, normocephalic, HEENT:[Neck is supple.] [No neck masses.] [No thyromegaly.] [No JVD.] Chest: Symmetrical chest expansion, crackles at the bases Mediastinal chest tube present, connected to continuous wall suction, 30 mL thin serosanguinous draina ge overnight, 300 mL in the last 24 hours. Left pleural chest tube present and connected to continuous wall suction, 40 mL thin serosanguineous drainage overnight, 200 mL in the last 24 hours. Right pleural chest tube present and connected to continuous wall suction, 40 mL serosanguineous drainage overnight, 400 mL since surgery yesterday. No air leaks present. Cardiac Exam: [Normal S1 and S2, no S3 gallop, no murmur.] Atrial pacing is noted. Rate of 80 bpm. Sternum is stable. Cardiac index is 2.6. Off inotropes. Abdomen: [Soft, nontender, no megaly, no rebound, no guarding, normal bowel sounds.] Extremities: [No clubbing, generalized edema is noted. Stockings noted. Neurological Exam: [No focal neurologic deficit.] Arousable, follows simple instructions, mental status seems to be intact. Psychiatric: Normal mood, affect and normal mental status examination. - Labs CBC & Chem 7: 10/16/19 05:00 10/16/19 13:17 Labs: Abnormal Lab Results - Last 24 Hours (Table) 10/15/19 10/15/19 10/15/19 Range/Units 15:45 15:47 15:51 WBC 13.0 H (3.8-10.6) k/uL RBC 2.86 L (3.80-5.40) m/uL Hgb 8.6 L (11.4-16.0) gm/dL Hct 25.0 L (34.0-46.0) % RDW 16.4 H (11.5-15.5) % Plt Count 91 L (150-450) k/uL ABG pO2 169 H (83-108) mmHg ABG Total CO2 26 H (19-24) mmol/L ABG O2 Saturation 99.3 H (94-97) % Sodium (137-145) mmol/L BUN (7-17) mg/dL Creatinine (0.52-1.04) mg/dL POC Glucose (mg/dL) 107 H (75-99) mg/dL Calcium (8.4-10.2) mg/dL AST (14-36) U/L Total Protein (6.3-8.2) g/dL Albumin (3.5-5.0) g/dL 10/16/19 10/16/19 Range/Units 05:00 05:00 WBC 12.3 H (3.8-10.6) k/uL RBC 2.87 L (3.80-5.40) m/uL Hgb 8.8 L (11.4-16.0) gm/dL Hct 25.9 L (34.0-46.0) % RDW 16.1 H (11.5-15.5) % Plt Count 93 L (150-450) k/uL ABG pO2 (83-108) mmHg ABG Total CO2 (19-24) mmol/L ABG O2 Saturation (94-97) % Sodium 132 L (137-145) mmol/L BUN 24 H (7-17) mg/dL Creatinine 1.06 H (0.52-1.04) mg/dL POC Glucose (mg/dL) (75-99) mg/dL Calcium 7.6 L (8.4-10.2) mg/dL AST 58 H (14-36) U/L Total Protein 4.3 L (6.3-8.2) g/dL Albumin 2.5 L (3.5-5.0) g/dL Assessment and Plan Assessment: Impression: Status post bioprosthetic aortic valve replacement, mitral valve repair, single- vessel CABG, bypass to RCA. Postoperative day #4 Chronic kidney disease stage III Postoperative acute blood loss, status post multiple transfusions Postoperative pericardial effusion/temponade requiring reexploration and evacuation of clot, postoperative day #2 Hypothyroidism. Dyslipidemia. Severe aortic insufficiency status post bioprosthetic aortic valve replacement. Moderate mitral regurgitation requiring mitral valve repair. Benign essential hypertension. Recommendation: Continue low-dose aspirin. Extubated yesterday, continue titrating oxygen keep O2 saturation above 90% Continue to monitor x-ray on a daily basis. Diuretics as needed. GI prophylaxis. Advanced diet as tolerated. DVT prophylaxis. We'll continue to follow. Time with Patient: Less than 30
[2019-10-16] MEDS ORDERED: FUROSEMIDE 10 MG/ML 4 ML VIAL IV STA (16:26)
[2019-10-16 16:56] LABS: Glucose,Whole Blood 109 mg/dL (75-99)
[2019-10-16] MEDS: LIDOCAINE 5% PATCH TOPICAL SCH (16:58)
[2019-10-16 20:58] LABS: Glucose,Whole Blood 101 mg/dL (75-99)
[2019-10-16] MEDS: SENNOSIDES-DOCUSATE SODIUM 1 EACH TAB PO SCH (21:00)
--- NOTE | 2019-10-16 22:14 | P.PN ---
Subjective Progress Note Date: 10/16/19 Principal diagnosis: Aortic valve replacement and CABG , Re exploration of the chest on 10/14/19 Ms. Quiroz is a 79-year-old female with a past medical history of asthma, COPD, CVA, TIA, GERD, hypertension, hyperlipidemia, mitral valve prolapse underwent aortic valve replacement with #2 Herrera bioprosthetic aortic valve and mitral valve repair with CarboMedics band and CABG x1 with SVG to RCA. Patient had multiple runs of atrial fibrillation in case. Postoperatively she had episodes of hypotension and A. fib as well so started on amiodarone drip. She is being monitored closely in the ICU setting. She is mechanically ventilated. Patient's blood pressure has been running low, so she has been started on Levophed. Patient has issues with clotting and drainage from the chest tubes. The patient received a total of 4 PRBCs, 3 units of FFP's, 2 units of PRBCs and 2 units of cryoprecipitate with no 1 bag of IV albumin. Chest x- ray from this morning showed no pneumothorax or atelectasis. On 10/14/2019 -The patient is postoperative day 2 from aortic valve replacement, mitral valve repair and CABG. As there was significant decrease in the output from her mediastinal and chest tubes, patient had an echocardiogram done. It showed moderate generalized pericardial effusion. So the patient was taken back to the OR and she had drainage of the pericardial effusion/tamponade. Patient just got back from the procedure. She is sedated and mechanically ventilated. Review of systems could not be done as the patient is mechanically ventilated and sedated. On 10/15/19 - Patient underwent reexploration of the chest with evacuation of clots and irrigation of the chest cavity. She was on mechanical ventilation until this afternoon. Around late afternoon patient has been successfully extubated. She opened her eyes on calling her name and squeeze my finger. She is still in atrial fibrillation requiring amiodarone. She has been off of all pressor support. She did not require any more blood transfusion since reexploration. Patient's labs from this morning show hemoglobin of 8.6. As per the nursing staff report even though patient's map has been running on the lower side, patient has good urinary output. On 10/16/2019-patient is up and sitting in a chair by the bedside. She complains of chest soreness. She also states that she has being overwhelmed with all the things that are happening. She denies any shortness of breath. On reviewing her vitals blood pressure is maintained 122/58, heart rate in 70s on p.o. am iodarone, saturating at 95% on 2 L of nasal cannula. On reviewing the patient's labs hemoglobin is stable around 8.8 sodium 132, BUN 24, creatinine 1.06, that is slightly up from yesterday. Active Medications Acetaminophen (Tylenol Tab) 1,000 mg PO Q6HR PRN PRN Reason: Fever and/ or Pain Last Admin: 10/16/19 12:34 Dose: 1,000 mg Documented by: Albuterol/Ipratropium (Duoneb 0.5 Mg-3 Mg/3 Ml Soln) 3 ml INHALATION RT-Q2H PRN PRN Reason: Shortness Of Breath Or Wheezing Albuterol/Ipratropium (Duoneb 0.5 Mg-3 Mg/3 Ml Soln) 3 ml INHALATION RT-QID [facility] Last Admin: 10/16/19 11:41 Dose: 3 ml Documented by: Amiodarone HCl (Cordarone) 200 mg PO BID [facility] Last Admin: 10/16/19 08:32 Dose: 200 mg Documented by: Ascorbic Acid (Vitamin C) 500 mg PO BID-W/MEALS [facility] Last Admin: 10/16/19 08:32 Dose: 500 mg Documented by: Aspirin (Aspirin) 81 mg PO DAILY [facility] Last Admin: 10/16/19 08:32 Dose: 81 mg Documented by: Atorvastatin Calcium (Lipitor) 40 mg PO DAILY [facility] Last Admin: 10/16/19 08:33 Dose: 40 mg Documented by: Benzocaine/Menthol (Cepacol Lozenge) 1 each MUCOUS MEM Q2H PRN PRN Reason: Sore Throat Bisacodyl (Dulcolax) 10 mg RECTAL DAILY PRN PRN Reason: Constipation Chlorhexidine Gluconate (Peridex) 15 ml MUCOUS MEM BID [facility] Last Admin: 10/16/19 08:03 Dose: Not Given Documented by: Ferrous Sulfate (Feosol) 325 mg PO BID-W/MEALS [facility] Last Admin: 10/16/19 09:01 Dose: 325 mg Documented by: Furosemide (Lasix) 10 mg IV Q8HR [facility] Last Admin: 08/11/20 08:55 Dose: 10 mg Documented by: Heparin Sodium (Porcine) (Heparin) 5,000 unit SQ Q8H [facility] Last Admin: 10/16/19 14:34 Dose: 5,000 unit Documented by: Sodium Chloride (Saline 0.9%) 1,000 mls @ 20 mls/hr IV .Q24H [facility] Last Admin: 10/16/19 00:00 Dose: Not Given Documented by: Insulin Aspart (Novolog) 0 unit SQ ACHS [facility]; Protocol Last Admin: 10/16/19 12:44 Dose: Not Given Documented by: Levothyroxine Sodium (Synthroid) 75 mcg PO DAILY@0630 [facility] Last Admin: 10/16/19 07:04 Dose: 75 mcg Documented by: Lisinopril (Zestril) 2.5 mg PO DAILY@1200 [facility] Last Admin: 10/16/19 12:34 Dose: 2.5 mg Documented by: Magnesium Hydroxide (Milk Of Magnesia) 2,400 mg PO BID PRN PRN Reason: Constipation Metoclopramide HCl (Reglan) 10 mg IVP Q4H PRN PRN Reason: Nausea And Vomiting Metoprolol Tartrate (Lopressor) 12.5 mg PO BID [facility] Last Admin: 10/16/19 09:17 Dose: 12.5 mg Documented by: Miscellaneous Information (Magnesium Per Protocol) 1 each MISCELLANE DAILY PRN; Protocol PRN Reason: Per Protocol Miscellaneous Information (Phosphorus Per Protocol) 1 each MISCELLANE DAILY PRN; Protocol PRN Reason: Per Protocol Miscellaneous Information (Potassium Per Protocol) 1 each MISCELLANE DAILY PRN; Protocol PRN Reason: Per Protocol Miscellaneous Information (Potassium Per Protocol) 1 each MISCELLANE DAILY PRN; Protocol PRN Reason: Per Protocol Ondansetron HCl (Zofran) 4 mg IVP Q6HR PRN PRN Reason: Nausea And Vomiting Pantoprazole Sodium (Protonix) 40 mg PO AC-BRKFST [facility] Senna/Docusate Sodium (Senokot-S) 2 each PO HS [facility] Last Admin: 10/15/19 23:59 Dose: Not Given Documented by: Sodium Chloride (Saline Flush) 10 ml IV BID [facility] Last Admin: 10/16/19 09:03 Dose: 10 ml Documented by: Tramadol HCl (Ultram) 50 mg PO Q8HR PRN PRN Reason: Pain Last Admin: 10/16/19 08:46 Dose: 50 mg Documented by: Objective - Vital Signs Vital signs: Vital Signs Temp 98.6 F 10/16/19 04:00 Pulse 69 10/16/19 15:00 Resp 18 10/16/19 15:00 BP 121/39 10/16/19 15:00 Pulse Ox 100 10/16/19 15:00 Intake & Output 10/15/19 10/16/19 10/16/19 18:59 06:59 18:59 Intake Total 1169.440 595.664 360 Output Total 1655 690 658 Balance -485.560 -94.336 -298 Weight 68.7 kg 69.8 kg Intake: IV 877.5 590 310 .9NS Cardiac Output 80 90 0.9NS Pressure Bags 108 90 60 Albumin Human 25% 50 ml 100 In Empty Bag 1 bag @ 50 mls/hr IVPB ONCE ONE Rx#: [id number] Amiodarone 300 mg In 25 Dextrose 5% in Water 250 ml @ 0.5 MG/MIN 25 mls/hr IV .Q10H PRN Rx#: [id number] DOBUTamine DRIP 500 mg In 4.5 Dextrose/Water 1 250ml. bag @ 2 MCG/KG/MIN 3.048 mls/hr IV .Q24H JAYE Rx#: [id number] Sodium Chloride 0.9% 1, 560 410 250 000 ml @ 20 mls/hr IV . Q24H JAYE Rx#:[id number] Intake, IV Titration 131.940 5.664 50 Amount DOBUTamine DRIP 500 mg In 61.315 5.664 Dextrose/Water 1 250ml. bag @ 2 MCG/KG/MIN 3.048 mls/hr IV .Q24H JAYE Rx#: [id number] Dexmedetomidine/0.9% NaCl 52.900 (Pmx) 400 mcg In Empty Bag 1 bag @ Titrate IV . Q0M JAYE Rx#:[id number] Potassium Chloride 20 meq 50 In Water For Injection 1 100ml.bag @ 50 mls/hr IVPB ONCE STA Rx#: [id number] propofoL 1,000 mg In 17.725 Empty Bag 1 bag @ Titrate IV .Q0M JAYE Rx#: [id number] Oral 160 Output: Chest Tube Drainage 320 320 365 Bilateral Mediastinal 140 100 85 Left 100 90 110 Right 80 130 170 Gastric Drainage 250 Urine 1085 370 293 Other: Voiding Method Indwelling Catheter Indwelling Catheter Indwelling Catheter ABP, PAP, CO, CI - Last Documented Arterial Blood Pressure 126/49 Pulmonary Artery Pressure 57/36 Cardiac Output 3.8 Cardiac Index 2.5 - Exam GENERAL EXAM: comfortable in no apparent distress. HEENT: No pallor, No icterus, no JVD CHEST: Symmetrical expansion. 1 mediastinal chest tube in place, and left and right pleural chest tubes in place LUNGS: Equal air entry with no crackles, wheeze, rhonchi or dullness. Diminished in the lower lobes CVS: Regular rate and rhythm, normal S1 and S2, no gallops, no murmurs, no rubs ABDOMEN: Soft, nontender. normal bowel sounds EXTREMITIES: mild edema in lower extremities SKIN: Lanre wrapped CENTRAL NERVOUS SYSTEM: No focal deficits on gross exam - Labs CBC & Chem 7: 10/16/19 05:00 10/16/19 13:17 Labs: Abnormal Lab Results - Last 24 Hours (Table) 10/15/19 10/15/19 10/15/19 Range/Units 15:45 15:47 15:51 WBC 13.0 H (3.8-10.6) k/uL RBC 2.86 L (3.80-5.40) m/uL Hgb 8.6 L (11.4-16.0) gm/dL Hct 25.0 L (34.0-46.0) % RDW 16.4 H (11.5-15.5) % Plt Count 91 L (150-450) k/uL ABG pO2 169 H (83-108) mmHg ABG Total CO2 26 H (19-24) mmol/L ABG O2 Saturation 99.3 H (94-97) % Sodium (137-145) mmol/L BUN (7-17) mg/dL Creatinine (0.52-1.04) mg/dL POC Glucose (mg/dL) 107 H (75-99) mg/dL Calcium (8.4-10.2) mg/dL AST (14-36) U/L Total Protein (6.3-8.2) g/dL Albumin (3.5-5.0) g/dL 08/11/20 08/11/20 Range/Units 05:00 05:00 WBC 12.3 H (3.8-10.6) k/uL RBC 2.87 L (3.80-5.40) m/uL Hgb 8.8 L (11.4-16.0) gm/dL Hct 25.9 L (34.0-46.0) % RDW 16.1 H (11.5-15.5) % Plt Count 93 L (150-450) k/uL ABG pO2 (83-108) mmHg ABG Total CO2 (19-24) mmol/L ABG O2 Saturation (94-97) % Sodium 132 L (137-145) mmol/L BUN 24 H (7-17) mg/dL Creatinine 1.06 H (0.52-1.04) mg/dL POC Glucose (mg/dL) (75-99) mg/dL Calcium 7.6 L (8.4-10.2) mg/dL AST 58 H (14-36) U/L Total Protein 4.3 L (6.3-8.2) g/dL Albumin 2.5 L (3.5-5.0) g/dL Assessment and Plan Assessment: ASSESSMENT Pericardial Effusion/tamponade - taken to the OR and s/p evacuation of clots Acute respiratory failure - s/p extubation today Status post aortic valve replacement with bioprosthetic aortic valve and mitral valve repair Status post CABG Acute blood loss anemia History of asthma/COPD Persistent atrial fibrillation GERD Hypertension Hyperlipidemia History of mitral valve prolapse Chronic kidney disease stage II Hypothyroidism Remote history of nicotine dependence Plan: Re exploration of the chest done on 10/14/19 due to concerns of pericardial tamponnade/effusion . Patient has been successfully extubated on 10/15/19 .She is not requiring pressor support. Minimal amount of output from the mediastinal chest tubes. Continue with current medical management. Overall prognosis is poor. Further recommendations depending on the progress of the patient.
[2019-10-17 04:35] LABS: Anisocytosis Slight; Basophils % (A) 0 %; Eosinophils # (A) 0.6 k/uL (0-0.7); Eosinophils % (A) 4 %; HCT 27.8 % (34.0-46.0); HGB 9.1 gm/dL (11.4-16.0); Lymphocytes # (A) 0.9 k/uL (1.0-4.8); Lymphocytes % (A) 7 %; MCH 30.6 pg (25.0-35.0); Mean Platelet Volume 7.7; Monocytes # (A) 0.6 k/uL (0-1.0); Monocytes % (A) 5 %; Neutrophils # (A) 11.6 k/uL (1.3-7.7); Neutrophils % (A) 83 %; Platelet Count 115 k/uL (150-450); RBC 2.99 m/uL (3.80-5.40); WBC 14.1 k/uL (3.8-10.6)
[2019-10-17 04:39] LABS: Ionized Calcium 4.8 mg/dL (4.5-5.3)
[2019-10-17 04:44] LABS: Albumin 2.7 g/dL (3.5-5.0); Magnesium 2.3 mg/dL (1.6-2.3); Potassium 4.5 mmol/L (3.5-5.1); Total Bilirubin 0.9 mg/dL (0.2-1.3); Total Protein 4.6 g/dL (6.3-8.2)
[2019-10-17] MEDS ORDERED: DEXTROSE 5% IN WATER 100 ML with AMIODARONE 150 MG IV ONE ×2 (05:49→12:00)
[2019-10-17] MEDS: HEPARIN SODIUM,PORCINE 5,000 UNIT/ML 1 ML VIAL SQ SCH ×3 (06:15→21:14)
[2019-10-17] MEDS: ASCORBIC ACID 500 MG TAB PO SCH ×2 (06:15→18:00)
[2019-10-17] MEDS: LEVOTHYROXINE 75 MCG TAB PO SCH (06:15)
[2019-10-17] MEDS: FERROUS SULFATE 325 MG TAB PO SCH ×2 (06:15→18:00)
[2019-10-17] MEDS: traMADol 50 MG TAB PO PRN ×2 (06:15→21:26)
[2019-10-17] MEDS: METOPROLOL TARTRATE 12.5 MG TAB PO SCH ×2 (06:15→18:34)
[2019-10-17] MEDS: PANTOPRAZOLE 40 MG TABLET PO SCH (06:15)
[2019-10-17] MEDS: INSULIN ASPART (NovoLOG) 100 UNIT/ML VIAL SQ SCH ×4 (06:52→20:51)
--- NOTE | 2019-10-17 07:30 | XR ---
EXAMINATION TYPE: XR chest 1V portable DATE OF EXAM: 10/17/2019 Comparison: 10/16/2019, 10/08/2019 Clinical History: 79-year-old female post cardiac surgery Findings: Median sternotomy wires are present with prosthetic aortic valve. Some epicardial pacer leads are not ed mediastinal drain remains in place as well as the right-sided chest tube. The right IJ [place] c atheter and left-sided chest tube have been removed. Dense biapical pleural parenchymal scarring. Small lucency measuring 5 mm along the medial left apex versus 6 mm, previously. It also appears to h ave been present back to the preoperative 10/08/2019 radiographic suggesting projectional artifact rath er than a true pneumothorax. Extensive subcutaneous emphysema persists in dense atherosclerotic calci fications throughout the thoracic aorta. Diffuse interstitial and patchy airspace opacities persist, left greater than right. Impression: 1. Continued extensive subcutaneous emphysema. Underlying interstitial fibrosis and biapical pleural parenchymal scarring. 2. The left-sided chest tube has been removed. Small 5 mm medial left apical lucency was present back to the preoperative 10/08/2019 exam suggesting projectional artifact rather than a trace pneumothorax. No progressive pneumothorax identified. Continued follow-up can be performed. 3. Multifocal interstitial and patchy opacities, possible atypical pulmonary edema and/or multifocal pneumonitis.
[2019-10-17] MEDS: IPRATROPIUM-ALBUTEROL 3 ML NEB INHALATION SCH ×4 (07:43→19:30)
[2019-10-17] MEDS: SODIUM CHLORIDE 0.9% 1,000 ML IV SCH (08:09)
[2019-10-17] MEDS: ATORVASTATIN 40 MG TAB PO SCH (08:40)
[2019-10-17] MEDS: ASPIRIN 81 MG PO SCH (08:40)
[2019-10-17] MEDS: AMIODARONE 200 MG TAB PO SCH ×2 (08:40→21:14)
[2019-10-17] MEDS: ONDANSETRON 4 MG/2 ML VIAL IVP PRN ×2 (08:49→15:03)
[2019-10-17] MEDS: ACETAMINOPHEN TAB 500 MG TAB PO PRN (08:52)
--- NOTE | 2019-10-17 09:48 | PN ---
PROGRESS NOTE Mrs. Quiroz is a 79-year-old female status post aortic valve replacement, coronary artery bypass grafting and mitral valve repair who had to undergo redo exploration because of bleeding. She had a burst of atrial fibrillation earlier. She is back in sinus mechanism. She is paced. Hemodynamically, she is on no pressors. She is feeling tired but she has no significant other complaints. She denies any dizziness or palpitation. She denies any nausea. She continues to be at this time on amiodarone 200 mg twice a day, aspirin once a day, lisinopril 2.5 mg daily, metoprolol tartrate 12.5 mg twice a day. PHYSICAL EXAMINATION: Blood pressure 105/40 with a heart in the 70s. Lungs with decreased air exchange at the bases, no wheezes. HEART: Regular rate and rhythm, S1-S2 with a systolic murmur. No rub. ABDOMEN: Soft, nontender. EXTREMITIES: No significant edema. LAB DATA: Revealed a hemoglobin 9.1, BUN and creatinine 29 and 1.07. Her chest x-ray shows subcutaneous emphysema with a small apical pneumothorax. IMPRESSION: 1. Status post coronary artery bypass grafting with single bypass in addition to aortic valve replacement, mitral valve repair and clipping of the left atrial appendage. 2. Re-exploration because of bleeding, stable. 3. Paroxysmal atrial fibrillation. 4. Underlying sinus bradycardia. 5. emphysema. 6. History of hypertension. 7. History of hyperlipidemia. RECOMMENDATION: Will continue present therapy. If she continues to be require pacemaker activity, she may be a candidate for permanent pacemaker implantation. Because of the recurrent episode of atrial fibrillation, she would require to be anticoagulated. Will follow her hemoglobin closely because of her recurrent bleeding before initiating anticoagulation. MMODL / IJN: [id number] /
--- NOTE | 2019-10-17 10:17 | P.PN ---
Subjective Progress Note Date: 10/17/19 Principal diagnosis: Severe aortic valve insufficiency, moderate to severe mitral valve regurgitation, single-vessel coronary artery disease. Past medical history significant for coronary artery disease with myocardial infarction and stent placement to the RCA, hypertension, hyperlipidemia, chronic kidney disease stage III, right internal carotid artery stenosis 50-69%, hypothyroidism, TIA in 2004 without residual, remote history of pneumonia, previous tobacco dependence, mo derate restriction with preoperative FEV1 50% of predicted, and family history of premature coronary artery disease. POD #5 aortic valve replacement with 21 mm Herrera Inspiris bioprosthetic aortic valve, mitral valve repair with a #28 mm CarboMedics AnnuloFlex band, a reverse greater saphenous vein graft off the aorta to the right coronary artery with right lower extremity greater saphenous endoscopic vein harvesting, clip ligation of left atrial appendage 35mm AtriClip and intraoperative larson sesophageal echocardiogram. Postoperative acute blood loss anemia, expected given hemodilution and cardiopulmonary bypass pump. Postoperative and intraoperative atrial fibrillation, unexpected but potential outcome of valvular heart surgery. Postoperative prolonged mechanical ventilation secondary to hemodynamic instability, unexpected. Postoperative pericardial effusion/tamponade. POD #3 Re-exploration of the chest, evacuation of clot, irrigation of chest cavity. The patient was seen in follow-up today 10/17/2019 at her bedside in the intensive care unit. Currently she is sitting up to the bedside chair, is awake, alert and oriented 3 and is in no acute distress. Denies any complaints of shortness of breath although was complaining of some back pain which she reports is chronic in nature. Bedside monitor is currently showing atrial paced heart rhythm in the 70s with an underlying rhythm showing sinus bradycardia heart rate 57. Her night nurse reports that she had an episode of atrial fibrillation with RVR, and was given 1 dose of 150 mg IV bolus of amiodarone. She remains hemodynamically stable and is currently on no inotropic or pressor support. Mediastinal and right pleural chest tubes remain in place to low continuous wall suction -20 cm H2O. No air leak is present. Draining thin serosanguineous drainage. Mediastinal chest tube drained 75 mL output in the last 8 hours and 140 mL output in the last 24 hours. Right pleural chest tube drained 140 mL output in the last 8 hours, and 400 mL output in the last 24 hours. Hemoglobin this morning is 9.1, since surgery she has received 9 units of packed red blood cells, 3 units of fresh frozen plasma, 4 packs of platelets and 2 packs of cryoprecipitate. Pratt catheter remains in place for accurate I&O with 300 mL of clear yellow urine output in the last 8 hours. She was given 1 dose of Lasix 40 mg IV yesterday with good diuretic response of 600 mL of output. Objective - Vital Signs Vital signs: Vital Signs Temp 97.7 F 10/17/19 04:00 Pulse 70 10/17/19 07:56 Resp 19 10/17/19 07:00 BP 105/44 10/17/19 07:00 Pulse Ox 96 10/17/19 07:00 Intake & Output 10/16/19 10/17/19 10/17/19 18:59 06:59 18:59 Intake Total 438 106 Output Total 1063 990 70 Balance -625 -884 -70 Intake: IV 388 106 .9NS Cardiac Output 0 0.9NS Pressure Bags 78 6 Dextrose 5% in Water 100 100 ml @ 618 mls/hr IV .Q10M ONE with Amiodarone 150 mg Rx#:[id number] Sodium Chloride 0.9% 1, 310 0 000 ml @ 20 mls/hr IV . Q24H JAYE Rx#:[id number] Intake, IV Titration 50 Amount Potassium Chloride 20 meq 50 In Water For Injection 1 100ml.bag @ 50 mls/hr IVPB ONCE STA Rx#: [id number] Output: Chest Tube Drainage 390 320 50 Bilateral Mediastinal 90 15 Left 110 Right 190 220 20 single mediastinal 85 30 Urine 673 670 20 Other: Voiding Method Indwelling Catheter Indwelling Catheter ABP, PAP, CO, CI - Last Documented Arterial Blood Pressure 126/49 Pulmonary Artery Pressure 57/36 Cardiac Output 3.8 Cardiac Index 2.5 - Constitutional General appearance: Present: cooperative, no acute distress - EENT Eyes: Present: PERRLA. Absent: scleral icterus ENT: Present: hearing grossly normal. Absent: thrush - Neck Details: Neck is supple, no JVD. - Respiratory Details: Lung sounds with few scattered crackles throughout, diminished bilateral bases. Respirations are symmetrical and nonlabored. Oxygen saturation are 96% on 2 L nasal cannula. Achieving 500 mL on her incentive spirometry with much encouragement. Mediastinal and right pleural chest tubes remain in place to low continuous wall suction -20 cm H2O. No air leak is present. Draining thin serosanguineous drainage. Mediastinal chest tube drained 75 mL output in the last 8 hours and 140 mL output in the last 24 hours. Right pleural chest tube drained 140 mL output in the last 8 hours, and 400 mL output in the last 24 hours. - Cardiovascular Details: Regular rhythm and rate. S1 and S2 present, negative for S3, gallop or murmur. Sternum is stable. Bedside telemetry showing atrial paced rhythm heart rate 70, underlying rhythm is showing sinus bradycardia heart rate 57. Generalized +1 edema. Knee-high MONISHA hose and sequential compression devices in place to her bilateral lower extremities. Heart hugger is in place and she is demonstrating appropriate use. - Gastrointestinal Gastrointestinal Comment(s): Abdomen is soft, nontender and nondistended. Hypoactive bowel sounds present in all 4 abdominal quadrants. Tolerating oral intake. No guarding or rigidity. - Genitourinary Genitourinary Comment(s): Pratt catheter for accurate I&O. Draining clear yellow urine. 300 mL output last 8 hours. Lasix 40 mg IV given yesterday 1 with 600 mL of diuresis. - Integumentary Integumentary Comment(s): Skin is warm and dry. No clubbing or cyanosis is present. Midline sternal incision is clean, dry and approximated. No drainage or redness is present. Scant ecchymosis surrounding her midline sternal incision. Left lower extremity EVH site is clean, dry and approximated. No drainage or redness is present. - Neurologic Neurologic: Present: CNII-XII intact - Musculoskeletal Musculoskeletal: Present: generalized weakness, strength equal bilaterally - Psychiatric Psychiatric: Present: A&O x's 3, appropriate affect, intact judgment & insight - Allied health notes Allied health notes reviewed: nursing - Labs CBC & Chem 7: 10/17/19 04:18 10/17/19 04:18 Labs: Abnormal Lab Results - Last 24 Hours (Table) 10/16/19 10/16/19 10/17/19 Range/Units 16:55 20:56 04:18 WBC 14.1 H (3.8-10.6) k/uL RBC 2.99 L (3.80-5.40) m/uL Hgb 9.1 L (11.4-16.0) gm/dL Hct 27.8 L (34.0-46.0) % RDW 17.0 H (11.5-15.5) % Plt Count 115 L (150-450) k/uL Neutrophils # 11.6 H (1.3-7.7) k/uL Lymphocytes # 0.9 L (1.0-4.8) k/uL Sodium (137-145) mmol/L BUN (7-17) mg/dL Creatinine (0.52-1.04) mg/dL POC Glucose (mg/dL) 109 H 101 H (75-99) mg/dL Calcium (8.4-10.2) mg/dL AST (14-36) U/L Total Protein (6.3-8.2) g/dL Albumin (3.5-5.0) g/dL 10/17/19 Range/Units 04:18 WBC (3.8-10.6) k/uL RBC (3.80-5.40) m/uL Hgb (11.4-16.0) gm/dL Hct (34.0-46.0) % RDW (11.5-15.5) % Plt Count (150-450) k/uL Neutrophils # (1.3-7.7) k/uL Lymphocytes # (1.0-4.8) k/uL Sodium 131 L (137-145) mmol/L BUN 29 H (7-17) mg/dL Creatinine 1.07 H (0.52-1.04) mg/dL POC Glucose (mg/dL) (75-99) mg/dL Calcium 8.0 L (8.4-10.2) mg/dL AST 65 H (14-36) U/L Total Protein 4.6 L (6.3-8.2) g/dL Albumin 2.7 L (3.5-5.0) g/dL - Imaging and Cardiology Chest x-ray: report reviewed, image reviewed Assessment and Plan Assessment: 1. Severe aortic valve insufficiency, status post bioprosthetic aortic valve replacement 2. Moderate to severe mitral valve regurgitation, status post mitral valve repair 3. Single-vessel coronary artery disease, status post coronary artery bypass to the RCA 4. History of coronary artery disease with myocardial infarction, status post stent placement to the RCA 5. History of hypertension 6. History of hyperlipidemia, treated 7. Right internal carotid artery stenosis 50-69% 8. Chronic kidney disease stage III 9. Hypothyroid 10. TIA in 2004 without residual 11. Remote history of pneumonia 12. Previous tobacco dependence 13. Moderate lung restriction with preoperative FEV1 58% of predicted, pulmonary fibrosis seen on CT 14. Family history of premature coronary artery disease 15. Postoperative acute blood loss anemia, status post transfusion 16. Postoperative and intraoperative atrial fibrillation, status post clip ligation of left atrial appendage and amiodarone initiation 17. Postoperative prolonged mechanical ventilation 18. Postoperative pericardial effusion/tamponade, status post re-exploration of the chest, evacuation of clot, irrigation of chest cavity Plan: 1. Continue low-dose aspirin, statin and metoprolol tartrate 12.5 mg by mouth twice a day with hold parameters. Will continue to hold off on Plavix. 2. Continue amiodarone 200 mg by mouth twice a day for A. fib prophylaxis. No anticoagulation. 3. Wean O2 as tolerated. Encourage incentive spirometry 10 times every hour while awake. Bronchodilators per pulmonology. 4. Will monitor daily labs and chest x-rays. Electrolyte replacement per protocol. No transfusion today. 5. Increase activity as tolerated. Physical/occupational therapy and cardiac rehab following. 6. GI/DVT prophylaxis. Hold heparin SQ for platelet count <100,000. 7. Pain control with current medication regimen. 8. Insulin management per primary care service. Preoperative hemoglobin A1c 5.5% 9. Continue to monitor chest tube output and consistency, continue to record accurate I's and O's. 11. Keep atrial and ventricular epicardial pacemaker wires in place and connected to back up pacemaker generator. Keep on current mode of AAI Heart rate 70. 12. Consult Dr. Morales for permanent pacemaker placement. 13. More recommendations to follow based on patient's clinical course. Time with Patient: Greater than 30
[2019-10-17] MEDS: LIDOCAINE 5% PATCH TOPICAL SCH (11:55)
[2019-10-17 11:56] LABS: Glucose,Whole Blood 115 mg/dL (75-99)
--- NOTE | 2019-10-17 12:43 | CDI ---
Documentation Clarification Form Date: 10/17/2019 12:22:35 PM From: Angela Beltran CCS, CCDS Admit Date: 10/12/2019 05:30:00 AM Patient Name: Gayle Quiroz Visit Number: [id number] Discharge Date: ATTENTION: The Clinical Documentation Specialists (CDI) and [facility] Coding Staff appreciate your assistance in clarifying documentation. Please respond to the clarification below the line at the bottom and electronically sign. The CDI & [facility] Coding staff will review the response and follow-up if needed. Please note: Queries are made part of the Legal Health Record. If you have any questions, please contact the author of this message via ITS. Dr. Zayra Hairston: Per the 10/15 & 10/16 Medical Management Progress Notes: "Acute respiratory failure - s/p extubation today.", without further specificity. History/Risk Factors: CAD status post PCI, Valvular Heart Disease: Severe Aortic Stenosis & Mitral Regurgitation, Hypertension, Myocardial Infarction, Hyperlipidemia, COPD, CKD 3 & Former Smoker. Clinical Indicators: Presented for elective Aortic & Mitral Valve Replacement & CABG x1 vessel on 10/11. On 10/13, the patient was taken back to the OR due to postoperative pericardial effusion/tamponade & ABLA. 10/13 Procedure: Re-exploration of chest, evacuation of clot, irrigation of chest cavity. Patient returned to ICU on vent on 10/11, remained on vent until 10/14. Per the CTS Progress Notes postoperatively: "Postoperative prolonged mechanical ventilation secondary to hemodynamic instability, unexpected." Respiratory Rate 10/11: 16 - 50 (vent), 10/12: 20-25; 10/13: 20; 10/14: 23 - 30^-33^. Pulse oximetry 10/11: 97-91*-89*; 10/12: 92*-100; 10/13: 93-83*; 10/14: 94*-87*-100 ABG 10/11: pH (7.36), pO2 >420^, pCO2 (38). 10/12: pH (7.38), pO2 206^, pCO2 (41) 10/13: pH (7.38), pO2 30*, pCO2 (36) Treatment: Remained intubated & on vent until 10/14 postoperatively. IV Heparin, Magnesium, Insulin & Nitro. IV antibiotics. IV sedation & pressor. IV Amiodarone (A fib), IV Albumin, Blood Transfusions: 9 units PRBCs, 3 units FFP, 2 units Platelets, 2 units Irrad Pheresis Platelets, 2 units Pooled Cryoprecipitate. In your professional opinion, can you please clarify if these findings signify one of the following conditions? Acute Respiratory Failure Acute on Chronic Respiratory Failure Other Diagnosis, please specify Unable to determine Specificity: o With hypercapnia? o With hypoxia? (Last Query Form Revision: November 2018) Acute Respiratory failure S/p CABG due to hemodynamic instability MTDD
--- NOTE | 2019-10-17 12:52 | CDI ---
Documentation Clarification Form Date: 10/17/2019 12:44:56 PM From: Angela Beltran CCS, CCDS Admit Date: 10/12/2019 05:30:00 AM Patient Name: Gayle Quiroz Visit Number: [id number] Discharge Date: ATTENTION: The Clinical Documentation Specialists (CDI) and [facility] Coding Staff appreciate your assistance in clarifying documentation. Please respond to the clarification below the line at the bottom and electronically sign. The CDI & [facility] Coding staff will review the response and follow-up if needed. Please note: Queries are made part of the Legal Health Record. If you have any questions, please contact the author of this message via ITS. Dr. Derik Ellsworth: Per the Cardiothoracic Surgery Progress Note on 10/15 & 10/16: "Postoperative pericardial effusion/tamponade, status post re-exploration of the chest, evacuation of clot, irrigation of chest cavity." History/Risk Factors: CAD status post PCI, Valvular Heart Disease: Severe Aortic Stenosis & Mitral Regurgitation, Hypertension, Myocardial Infarction, Hyperlipidemia, COPD, CKD 3 & Former Smoker. Clinical Indicators: Presented for elective Aortic & Mitral Valve Replacement & CABG x1 vessel on 10/11. On 10/13, the patient was taken back to the OR due to postoperative pericardial effusion/tamponade & ABLA. 10/13 Procedure: Re-exploration of chest, evacuation of clot, irrigation of chest cavity. Patient returned to ICU on vent on 10/11, remained on vent until 10/14. Per the CTS Progress Notes: "Postoperative prolonged mechanical ventilation secondary to hemodynamic instability, unexpected." 10/13 Bedside ECHO: Moderate generalized pericardial effusion. Respiratory Rate 10/11: 16 - 50 (vent), 10/12: 20-25; 10/13: 20; 10/14: 23 - 30^-33^. Pulse oximetry 10/11: 97-91*-89*; 10/12: 92*-100; 10/13: 93-83*; 10/14: 94*-87*-100 ABG 10/11: pH (7.36), pO2 >420^, pCO2 (38). 10/12: pH (7.38), pO2 206^, pCO2 (41) 10/13: pH (7.38), pO2 30*, pCO2 (36) Treatment: Remained intubated & on vent until 10/14 postoperatively. IV Heparin, Magnesium, Insulin & Nitro. IV antibiotics. IV sedation & pressor. IV Amiodarone (A fib), IV Albumin, Blood Transfusions: 9 units PRBCs, 3 units FFP, 2 units Platelets, 2 units Irrad Pheresis Platelets, 2 units Pooled Cryoprecipitate. In order to accurately reflect this patients severity of illness, please clarify if the pericardial effusion/tamponade is: A complication of surgical procedure An expected outcome of the surgical procedure Related to co-morbid condition(s) of Other please specify: Unable to determine (Last Revision: April 2019) MTDD
--- NOTE | 2019-10-17 14:04 | P.PN ---
Subjective Progress Note Date: 10/17/19 Principal diagnosis: Status post CABG, aortic valve replacement and mitral valve repair postoperative day #5 2019, the patient is postop day #1. The patient underwent single-vessel bypass surgery, aortic valve replacement and mitral valve repair. She is known to have coronary artery disease, valvular insufficiency, hypertension and hyperlipidemia and chronic stage III kidney disease. The patient also is known to have carotid artery disease 50% on the right, hypothyroidism, and history of interstitial lung disease with pulmonary fibrosis and severe restrictive lung di sease with a FVC in the 50% range preoperatively. On today's evaluation, the patient is still intubated on mechanical ventilator. Were unable to wean the patient off the mechanical ventilator and extubated because of her ongoing difficulties with hemodynamics and bleeding from the chest tubes. Note that the patient is still in intensive care unit and she is still sedated for now at propofol which is running at 20 g per KG per minute. The patient is still requiring inotropes. The patient was quite hypotensive after arrival from the operating room and she was having difficulties with sonia cardia. She is currently paced at the rate of 80. She is on norepinephrine infusion which is running at 0.26 mg per KG per minute. She was started on milrinone yesterday at 0.2 g and at a later stage dobutamine was also added. Earlier this morning, cardiothoracic surgery saw the patient and increase the paced rhythm of 200 beats per minutes. Her underlying rhythm this morning is normal sinus rate of 60. She is at dobutamine at the medical grams per KG per minute and milrinone at 0.2 mics respiratory KG per minute. She is also on amiodarone at 0.5 mg/m. The right is being titrated pH has an adequate urine output. Most recent hemodynamics indicate a cardiac index of 1.9. Pulmonary a rtery pressures are 46/25 mmHg. A bedside echocardiogram was done and there is no evidence of any pericardial effusion. Valve functions were adequate. The mediastinal chest tubes are in place and the pleural chest tube is in place. There was ongoing issues with clotting and drainage from the chest tubes. Appropriate cleaning and suctioning of the chest tubes were done. Overall, the patient received a total of 4 units of packed RBC, 3 units of fresh frozen plasma, 2 units of packed RBC and 2 packs of cryoprecipitate in addition to call is in the form of IV albumin throughout the resuscitation. No ongoing or active bleed at this point in time. No attempts for weaning off the mechanical ventilator. The patient is currently on a assist-control mode of ventilation at the rate of 20 with tidal volume of 400 and FiO2 of 50% with a PEEP of 5. Blood gas showed a pH of 7.38 with a pCO2 of 41 and pO2 of 206. Chest x-ray showed adequate expansion of both lungs. There is underlying chronic incision infiltrates. ET tube is in a good location. Chest x-rays well expanded. No pneumothorax. No atelectasis. 10/14/2019 the patient is postop day #2. The patient underwent single vessel bypass surgery, aortic valve replacement, mitral valve repair. The bleeding has subsided from the mediastinal tubes. Output from the tubes have dropped down considerably since yesterday. Nevertheless, there is some widening of the mediastinum and the patient is going to have a limited echocardiogram to rule out any hematoma or blood collection around the pericardium. The patient currently is still intubated on a mechanical ventilator. The patient remains on assist control mode of ventilation at the rate of 20 with a tidal volume of 400 and FiO2 of 40% with a PEEP of 5. The peak airway pressure is 26. Blood gases showed a pH of 7.44 with a pCO2 of 37 and pO2 129. Chest x-ray showed adequate expansion of both lungs. Chest tubes are all in good location. ET tube is in a good location. The patient is still has his Alpine-Sarah catheter in place. The mediastinum is slightly widened. In terms of hemodynamics, the patient is currently on milrinone at a dose of 0.1 g per KG per minute. The patient is also on dobutamine at 3 mg per KG per minute. Levo fed is running at 0.03 mics respiratory KG per minute. The patient is also on amiodarone at 0.5 mg/m. She is was sedated with propofol at 25 g per KG per minute. Insulin is running at 2.5 units an hour. Cardiac index is at 1.5. The heart rate is being paced the rate of 80. Underlying rhythm is sinus with a rate of 70. The patient is receiving enteral feeding for nutritional support. The most recent hemoglobin is at 7.3. The platelet count is down to 65. Patient was reevaluated today on 10/15/19, she is postoperative day #3. Patient had to be taken back to the operating room last night for excessive bleeding or recurrent effusion/temporal not. Patient underwent reexploration of the chest, evacuation of clots, and irrigation of the chest cavity. Today she is in the ICU on mechanical ventilation, her ventilator settings are assist control rate 20, volume is 400 FiO2 is 40% and PEEP of 5. ABG this morning showed a pO2 of 158 pCO2 of 38 pH of 7.40 and I was on 40% FiO2. Patient remains on propofol at 20 mcg/kg/m, she is off all pressors and inotropes except she is still on Dobutrex at 2 mcg/kg/m. Patient has a low cardiac output requiring inotropes, she is in atrial fibrillation requiring amiodarone, and she was quite anemic received a total of 9 units of packed RBCs, 3 units of fresh frozen plasma, 4 units of platelets, 2 packs of cryoprecipitate, and albumin. Hemoglobin this morning is 9.2. Patient is arousable, and she follows simple instructions, hence we will likely check weaning parameters and decide accordingly. Reevaluated today on 10/16/19, patient is postoperative day #4. Patient was extubated yesterday uneventfully, looking back, patient had a relatively uneventful postoperative course with profound hypotension, low cardiac output, required wrestlers, inotropes, she also required amiodarone for atrial fibrillation, and blood transfusions, multiple units of blood products were given as noted above. At any rate the patient is now off mechanical ventilation, she is on few liters nasal cannula, seems to be doing much better over the last 24 hours, and she is pleased that she is off the ventilator. She is now off pressors and off inotropes since yesterday. She is generally weak. Hemoglobin today is 8.8, Electrolytesenc normal, and renal profile is relatively normal. Chest x-ray showed mostly interstitial lung disease and postoperative atelectasis Reevaluated today on 10/17/19, patient is postoperative day #5. Remains on nasal cannula, O2 saturations 96%, patient is on 2 L. She had an episode of atrial fibrillation with RVR last night, and she was loaded with amiodarone. Currently patient is fully paced. Chest x-ray continues to show evidence of interstitial lung disease, and atelectasis. Patient is awake, alert, denies any shortness of breath, she does have some vague chest discomfort. Bedside monitor is showing atrial pacing rhythm in the 70s with underlying rhythm showing sinus bradycardia rate of 57. Patient received 1 dose of IV bolus of amiodarone 150 mg 1 last night. Patient is not requiring any inotropic or pressor support. Mediastinal and right pleural chest tubes remain in place. No air leak is noted. Serosanguineous drainage is noted. Mediastinal tube drained 75 ML over the last 8 hours and 140 ML's in the last 24 hours. Right pleural chest tube drained 140 ML in the last 8 hours and 400 MLS the last 24 hours. Her hemoglobin remains stable. Patient did receive yesterday 40 mg of Lasix with good response Objective - Vital Signs Vital signs: Vital Signs Temp 98.3 F 10/17/19 12:00 Pulse 70 10/17/19 12:00 Resp 16 10/17/19 12:00 BP 103/37 10/17/19 12:00 Pulse Ox 94 L 10/17/19 12:00 Intake & Output 10/16/19 10/17/19 10/17/19 18:59 06:59 18:59 Intake Total 438 106 100 Output Total 1063 990 295 Balance -625 -884 -195 Weight 69.8 kg Intake: IV 388 106 .9NS Cardiac Output 0 0.9NS Pressure Bags 78 6 Dextrose 5% in Water 100 100 ml @ 618 mls/hr IV .Q10M ONE with Amiodarone 150 mg Rx#:[id number] Sodium Chloride 0.9% 1, 310 0 000 ml @ 20 mls/hr IV . Q24H [facility] Rx#:[id number] Intake, IV Titration 50 100 Amount Dextrose 5% in Water 100 100 ml @ 618 mls/hr IV .Q10M ONE with Amiodarone 150 mg Rx#:[id number] Potassium Chloride 20 meq 50 In Water For Injection 1 100ml.bag @ 50 mls/hr IVPB ONCE STA Rx#: [id number] Output: Chest Tube Drainage 390 320 170 Bilateral Mediastinal 90 15 Left 110 Right 190 220 140 single mediastinal 85 30 Urine 673 670 125 Other: Voiding Method Indwelling Catheter Indwelling Catheter ABP, PAP, CO, CI - Last Documented Arterial Blood Pressure 126/49 Pulmonary Artery Pressure 57/36 Cardiac Output 3.8 Cardiac Index 2.5 - Exam Physical Exam: Revealed 79-year-old female in no distress, on 2 L nasal cannula. Head: Atraumatic, normocephalic, HEENT:[Neck is supple.] [No neck masses.] [No thyromegaly.] [No JVD.] Chest: Symmetrical chest expansion, crackles at the bases Mediastinal chest tube present, his chest tubes as noted earlier Cardiac Exam: [Normal S1 and S2, no S3 gallop, no murmur.] Atrial pacing is noted. Rate of 70 bpm. Sternum is stable. Abdomen: [Soft, nontender, no megaly, no rebound, no guarding, normal bowel sounds.] Extremities: [No clubbing, generalized edema is noted. Stockings noted. Neurological Exam: [No focal neurologic deficit.] Arousable, follows simple instructions, mental status seems to be intact. Psychiatric: Normal mood, affect and normal mental status examination. - Labs CBC & Chem 7: 10/17/19 04:18 10/17/19 04:18 Labs: Abnormal Lab Results - Last 24 Hours (Table) 10/16/19 10/16/19 10/17/19 Range/Units 16:55 20:56 04:18 WBC 14.1 H (3.8-10.6) k/uL RBC 2.99 L (3.80-5.40) m/uL Hgb 9.1 L (11.4-16.0) gm/dL Hct 27.8 L (34.0-46.0) % RDW 17.0 H (11.5-15.5) % Plt Count 115 L (150-450) k/uL Neutrophils # 11.6 H (1.3-7.7) k/uL Lymphocytes # 0.9 L (1.0-4.8) k/uL Sodium (137-145) mmol/L BUN (7-17) mg/dL Creatinine (0.52-1.04) mg/dL POC Glucose (mg/dL) 109 H 101 H (75-99) mg/dL Calcium (8.4-10.2) mg/dL AST (14-36) U/L Total Protein (6.3-8.2) g/dL Albumin (3.5-5.0) g/dL 10/17/19 10/17/19 Range/Units 04:18 11:55 WBC (3.8-10.6) k/uL RBC (3.80-5.40) m/uL Hgb (11.4-16.0) gm/dL Hct (34.0-46.0) % RDW (11.5-15.5) % Plt Count (150-450) k/uL Neutrophils # (1.3-7.7) k/uL Lymphocytes # (1.0-4.8) k/uL Sodium 131 L (137-145) mmol/L BUN 29 H (7-17) mg/dL Creatinine 1.07 H (0.52-1.04) mg/dL POC Glucose (mg/dL) 115 H (75-99) mg/dL Calcium 8.0 L (8.4-10.2) mg/dL AST 65 H (14-36) U/L Total Protein 4.6 L (6.3-8.2) g/dL Albumin 2.7 L (3.5-5.0) g/dL Assessment and Plan Assessment: Impression: Status post bioprosthetic aortic valve replacement, mitral valve repair, single- vessel CABG, bypass to RCA. Postoperative day #5 Chronic kidney disease stage III Postoperative acute blood loss, status post multiple transfusions Postoperative pericardial effusion/temponade requiring reexploration and evacuation of clot, postoperative day #3 Hypothyroidism. Dyslipidemia. Severe aortic insufficiency status post bioprosthetic aortic valve replacement. Moderate mitral regurgitation requiring mitral valve repair. Benign essential hypertension. Recommendation: Continue low-dose aspirin. Extubated 2 days ago, and she tolerated the extubation well. Continue to monitor x-ray on a daily basis. Diuretics as needed. GI prophylaxis. Advanced diet as tolerated. DVT prophylaxis. We'll continue to follow. Time with Patient: Less than 30
[2019-10-17] MEDS: lisinopriL 5 MG TAB PO SCH (15:09)
[2019-10-17 16:49] LABS: Glucose,Whole Blood 102 mg/dL (75-99)
[2019-10-17] MEDS: METOCLOPRAMIDE 5 MG/ML 2 ML VIAL IVP PRN (16:56)
[2019-10-17] MEDS: bisacodyL 10 MG SUPP RECTAL PRN (17:02)
[2019-10-17 20:48] LABS: Glucose,Whole Blood 121 mg/dL (75-99)
[2019-10-17] MEDS: MIDODRINE 5 MG TAB PO SCH ×2 (20:58→21:14)
[2019-10-17] MEDS ORDERED: ALBUMIN HUMAN 5% 500 ML in EMPTY BAG 1 BAG IVPB ONE (21:00)
[2019-10-17] MEDS: SENNOSIDES-DOCUSATE SODIUM 1 EACH TAB PO SCH (21:14)
--- NOTE | 2019-10-17 22:15 | P.PN ---
Subjective Progress Note Date: 10/17/19 Principal diagnosis: Aortic valve replacement and CABG , Re exploration of the chest on 10/14/19 Ms. Quiroz is a 79-year-old female with a past medical history of asthma, COPD, CVA, TIA, GERD, hypertension, hyperlipidemia, mitral valve prolapse underwent aortic valve replacement with #2 Herrera bioprosthetic aortic valve and mitral valve repair with CarboMedics band and CABG x1 with SVG to RCA. Patient had multiple runs of atrial fibrillation in case. Postoperatively she had episodes of hypotension and A. fib as well so started on amiodarone drip. She is being monitored closely in the ICU setting. She is mechanically ventilated. Patient's blood pressure has been running low, so she has been started on Levophed. Patient has issues with clotting and drainage from the chest tubes. The patient received a total of 4 PRBCs, 3 units of FFP's, 2 units of PRBCs and 2 units of cryoprecipitate with no 1 bag of IV albumin. Chest x- ray from this morning showed no pneumothorax or atelectasis. On 10/14/2019 -The patient is postoperative day 2 from aortic valve replacement, mitral valve repair and CABG. As there was significant decrease in the output from her mediastinal and chest tubes, patient had an echocardiogram done. It showed moderate generalized pericardial effusion. So the patient was taken back to the OR and she had drainage of the pericardial effusion/tamponade. Patient just got back from the procedure. She is sedated and mechanically ventilated. Review of systems could not be done as the patient is mechanically ventilated and sedated. On 10/15/19 - Patient underwent reexploration of the chest with evacuation of clots and irrigation of the chest cavity. She was on mechanical ventilation until this afternoon. Around late afternoon patient has been successfully extubated. She opened her eyes on calling her name and squeeze my finger. She is still in atrial fibrillation requiring amiodarone. She has been off of all pressor support. She did not require any more blood transfusion since reexploration. Patient's labs from this morning show hemoglobin of 8.6. As per the nursing staff report even though patient's map has been running on the lower side, patient has good urinary output. On 10/16/2019-patient is up and sitting in a chair by the bedside. She complains of chest soreness. She also states that she has being overwhelmed with all the things that are happening. She denies any shortness of breath. On reviewing her vitals blood pressure is maintained 122/58, heart rate in 70s on p.o. am iodarone, saturating at 95% on 2 L of nasal cannula. On reviewing the patient's labs hemoglobin is stable around 8.8 sodium 132, BUN 24, creatinine 1.06, that is slightly up from yesterday. On 10/17/2019 patient is sitting up in a chair by the bedside doing incentive spirometry. She states that she is anxious with everything going on. She complains of chest soreness. She states that she has mild cough but is not able to bring up anything due to chest tightness. She complains of generalized fatigue and weakness. She thinks that her lower extremity swelling is getting better. She denies having any abdominal pain, nausea or vomiting. On reviewing her vitals her T-max is 97.6, blood pressure 108/49 saturating at 93% on 2 L of nasal cannula. She had a chest x-ray showing interstitial lung disease and mild atelectasis. Reviewing her labs white count of 14.1 hemoglobin of 9.1, platelets 115. Sodium 131, potassium 4.5, chloride 101, bicarb 25, BUN 29, creatinine 1.07. As per the nursing staff report patient has been having junctional rhythm and A. fib at times. She had IV amiodarone bolus last night. Active Medications Acetaminophen (Tylenol Tab) 1,000 mg PO Q6HR PRN PRN Reason: Fever and/ or Pain Last Admin: 10/17/19 08:52 Dose: 1,000 mg Documented by: Albuterol/Ipratropium (Duoneb 0.5 Mg-3 Mg/3 Ml Soln) 3 ml INHALATION RT-Q2H PRN PRN Reason: Shortness Of Breath Or Wheezing Albuterol/Ipratropium (Duoneb 0.5 Mg-3 Mg/3 Ml Soln) 3 ml INHALATION RT-QID [facility] Last Admin: 10/17/19 19:30 Dose: 3 ml Documented by: Amiodarone HCl (Cordarone) 400 mg PO BID [facility] Last Admin: 10/17/19 21:14 Dose: 400 mg Documented by: Ascorbic Acid (Vitamin C) 500 mg PO BID-W/MEALS [facility] Last Admin: 10/17/19 18:00 Dose: 500 mg Documented by: Aspirin (Aspirin) 81 mg PO DAILY [facility] Last Admin: 10/17/19 08:40 Dose: 81 mg Documented by: Atorvastatin Calcium (Lipitor) 40 mg PO DAILY [facility] Last Admin: 10/17/19 08:40 Dose: 40 mg Documented by: Benzocaine/Menthol (Cepacol Lozenge) 1 each MUCOUS MEM Q2H PRN PRN Reason: Sore Throat Bisacodyl (Dulcolax) 10 mg RECTAL DAILY PRN PRN Reason: Constipation Last Admin: 10/17/19 17:02 Dose: 10 mg Documented by: Ferrous Sulfate (Feosol) 325 mg PO BID-W/MEALS [facility] Last Admin: 10/17/19 18:00 Dose: 325 mg Documented by: Heparin Sodium (Porcine) (Heparin) 5,000 unit SQ Q8H [facility] Last Admin: 10/17/19 21:14 Dose: 5,000 unit Documented by: Insulin Aspart (Novolog) 0 unit SQ [facility]; Protocol Last Admin: 10/17/19 20:51 Dose: Not Given Documented by: Levothyroxine Sodium (Synthroid) 75 mcg PO DAILY@0630 [facility] Last Admin: 10/17/19 06:15 Dose: 75 mcg Documented by: Lidocaine (Lidoderm) 1 patch TOPICAL DAILY [facility] Last Admin: 10/17/19 11:55 Dose: 1 patch Documented by: Lisinopril (Zestril) 2.5 mg PO DAILY@1200 [facility] Last Admin: 10/17/19 15:09 Dose: 2.5 mg Documented by: Magnesium Hydroxide (Milk Of Magnesia) 2,400 mg PO BID PRN PRN Reason: Constipation Metoclopramide HCl (Reglan) 5 mg IVP Q4H PRN PRN Reason: Nausea And Vomiting Last Admin: 10/17/19 16:56 Dose: 5 mg Documented by: Metoprolol Tartrate (Lopressor) 12.5 mg PO BID [facility] Last Admin: 10/17/19 18:34 Dose: 12.5 mg Documented by: Midodrine (Proamatine) 5 mg PO AC-TID [facility] Last Admin: 10/17/19 21:14 Dose: 5 mg Ondansetron HCl (Zofran) 4 mg IVP Q6HR PRN PRN Reason: Nausea And Vomiting Last Admin: 10/17/19 15:03 Dose: 4 mg Documented by: Pantoprazole Sodium (Protonix) 40 mg PO AC-BRKFST [facility] Last Admin: 10/17/19 06:15 Dose: 40 mg Documented by: Senna/Docusate Sodium (Senokot-S) 2 each PO HS [facility] Last Admin: 10/17/19 21:14 Dose: 2 each Documented by: Sodium Chloride (Saline Flush) 10 ml IV BID [facility] Last Admin: 10/17/19 21:14 Dose: 10 ml Documented by: Tramadol HCl (Ultram) 50 mg PO Q8HR PRN PRN Reason: Pain Last Admin: 10/17/19 21:26 Dose: 50 mg Documented by: Objective - Vital Signs Vital signs: Vital Signs Temp 97.1 F L 10/17/19 20:00 Pulse 80 10/17/19 21:00 Resp 16 10/17/19 21:00 BP 108/49 10/17/19 21:00 Pulse Ox 93 L 10/17/19 21:00 Intake & Output 10/17/19 10/17/19 10/18/19 06:59 18:59 06:59 Intake Total 106 100 Output Total 990 413 103 Balance -884 -313 -103 Weight 69.8 kg Intake: IV 106 .9NS Cardiac Output 0 0.9NS Pressure Bags 6 Dextrose 5% in Water 100 100 ml @ 618 mls/hr IV .Q10M ONE with Amiodarone 150 mg Rx#:[id number] Sodium Chloride 0.9% 1, 0 000 ml @ 20 mls/hr IV . Q24H [facility] Rx#:[id number] Intake, IV Titration 100 Amount Dextrose 5% in Water 100 100 ml @ 618 mls/hr IV .Q10M ONE with Amiodarone 150 mg Rx#:[id number] Output: Chest Tube Drainage 320 170 70 Bilateral Mediastinal 15 Right 220 140 70 single mediastinal 85 30 Urine 670 243 33 Other: Voiding Method Indwelling Catheter Indwelling Catheter Indwelling Catheter ABP, PAP, CO, CI - Last Documented Arterial Blood Pressure 126/49 Pulmonary Artery Pressure 57/36 Cardiac Output 3.8 Cardiac Index 2.5 - Exam GENERAL EXAM: comfortable in no apparent distress. HEENT: No pallor, No icterus, no JVD CHEST: Symmetrical expansion. 1 mediastinal chest tube in place, and left and right pleural chest tubes in place LUNGS: Equal air entry with no crackles, wheeze, rhonchi or dullness. Diminished in the lower lobes CVS: Regular rate and rhythm, normal S1 and S2 ABDOMEN: Soft, nontender. normal bowel sounds EXTREMITIES: mild edema in lower extremities CENTRAL NERVOUS SYSTEM: No focal deficits on gross exam - Labs CBC & Chem 7: 10/17/19 04:18 10/17/19 04:18 Labs: Abnormal Lab Results - Last 24 Hours (Table) 10/17/19 10/17/19 10/17/19 Range/Units 04:18 04:18 11:55 WBC 14.1 H (3.8-10.6) k/uL RBC 2.99 L (3.80-5.40) m/uL Hgb 9.1 L (11.4-16.0) gm/dL Hct 27.8 L (34.0-46.0) % RDW 17.0 H (11.5-15.5) % Plt Count 115 L (150-450) k/uL Neutrophils # 11.6 H (1.3-7.7) k/uL Lymphocytes # 0.9 L (1.0-4.8) k/uL Sodium 131 L (137-145) mmol/L BUN 29 H (7-17) mg/dL Creatinine 1.07 H (0.52-1.04) mg/dL POC Glucose (mg/dL) 115 H (75-99) mg/dL Calcium 8.0 L (8.4-10.2) mg/dL AST 65 H (14-36) U/L Total Protein 4.6 L (6.3-8.2) g/dL Albumin 2.7 L (3.5-5.0) g/dL 10/17/19 10/17/19 Range/Units 16:47 20:46 WBC (3.8-10.6) k/uL RBC (3.80-5.40) m/uL Hgb (11.4-16.0) gm/dL Hct (34.0-46.0) % RDW (11.5-15.5) % Plt Count (150-450) k/uL Neutrophils # (1.3-7.7) k/uL Lymphocytes # (1.0-4.8) k/uL Sodium (137-145) mmol/L BUN (7-17) mg/dL Creatinine (0.52-1.04) mg/dL POC Glucose (mg/dL) 102 H 121 H (75-99) mg/dL Calcium (8.4-10.2) mg/dL AST (14-36) U/L Total Protein (6.3-8.2) g/dL Albumin (3.5-5.0) g/dL Assessment and Plan Assessment: ASSESSMENT Pericardial Effusion/tamponade - taken to the OR and s/p evacuation of clots Acute respiratory failure - s/p extubation Status post aortic valve replacement with bioprosthetic aortic valve and mitral valve repair Status post CABG Acute blood loss anemia History of asthma/COPD Persistent atrial fibrillation GERD Hypertension Hyperlipidemia History of mitral valve prolapse Chronic kidney disease stage II Hypothyroidism Remote history of nicotine dependence Plan: Re exploration of the chest done on 10/14/19 due to concerns of pericardial tamponade/effusion . Patient has been successfully extubated on 10/15/19 .She is not requiring pressor support. Minimal amount of output from the mediastinal chest tubes. She is been in and out of junctional rhythm along with atrial fibrillation on and off. Patient received 1 dose of IV amiodarone last night. Cardiology following. Postop management as per CT surgery recommendations. Continue with current medical management. Overall prognosis is poor. Further recommendations depending on the progress of the patient.
[2019-10-18] MEDS: ONDANSETRON 4 MG/2 ML VIAL IVP PRN (02:38)
[2019-10-18 05:18] LABS: Anisocytosis Slight; HCT 28.6 % (34.0-46.0); HGB 9.3 gm/dL (11.4-16.0); Hypochromasia Slight; MCH 30.8 pg (25.0-35.0); MCHC 32.5 g/dL (31.0-37.0); MCV 94.9 fL (80.0-100.0); Platelet Count 170 k/uL (150-450); RBC 3.02 m/uL (3.80-5.40); RDW 17.1 % (11.5-15.5); WBC 20.9 k/uL (3.8-10.6)
[2019-10-18] MEDS: METOCLOPRAMIDE 5 MG/ML 2 ML VIAL IVP PRN ×2 (05:23→12:29)
[2019-10-18] MEDS: HEPARIN SODIUM,PORCINE 5,000 UNIT/ML 1 ML VIAL SQ SCH ×3 (05:25→21:42)
[2019-10-18 05:33] LABS: Calcium 8.4 mg/dL (8.4-10.2); Potassium 5.5 mmol/L (3.5-5.1)
[2019-10-18] MEDS: PANTOPRAZOLE 40 MG TABLET PO SCH (05:35)
[2019-10-18] MEDS: METOPROLOL TARTRATE 12.5 MG TAB PO SCH ×2 (05:35→20:31)
[2019-10-18] MEDS: LEVOTHYROXINE 75 MCG TAB PO SCH (05:35)
[2019-10-18] MEDS: ASCORBIC ACID 500 MG TAB PO SCH ×2 (05:35→16:36)
[2019-10-18] MEDS: bisacodyL 10 MG SUPP RECTAL PRN (05:35)
[2019-10-18] MEDS: FERROUS SULFATE 325 MG TAB PO SCH ×2 (05:35→16:36)
[2019-10-18] MEDS: INSULIN ASPART (NovoLOG) 100 UNIT/ML VIAL SQ SCH ×4 (06:50→21:48)
[2019-10-18] MEDS ORDERED: FUROSEMIDE 10 MG/ML 4 ML VIAL IV STA (06:59)
[2019-10-18] MEDS ORDERED: FUROSEMIDE 10 MG/ML 4 ML VIAL ONE (07:00)
--- NOTE | 2019-10-18 07:20 | XR ---
EXAMINATION TYPE: XR chest 1V portable DATE OF EXAM: 10/18/2019 COMPARISON: 10/17/2019 HISTORY: Postop TECHNIQUE: Single frontal view of the chest is obtained. FINDINGS: Biapical pleural thickening and pleural calcification with diffuse bilateral airspace dise ase and pleural effusion noted. Epicardial leads seen with chest tube. Mediastinal drain not seen wit h certainty on today's exam. Lucency near the medial aspect of the left lung apex is stable. There is a lucency along the lateral margin of the right midlung. Postsurgical changes. IMPRESSION: 1. Diffuse airspace disease with tiny less than 5% bilateral pneumothoraces. 2 marked apical pleural thickening. 2. Postoperative changes.
--- NOTE | 2019-10-18 08:27 | CDI ---
Documentation Clarification Form Date: 10/17/2019 12:22:00 PM From: Angela Beltran CCS, CCDS Admit Date: 10/12/2019 05:30:00 AM Patient Name: Gayle Quiroz Visit Number: [id number] Discharge Date: ATTENTION: The Clinical Documentation Specialists (CDI) and [facility] Coding Staff appreciate your assistance in clarifying documentation. Please respond to the clarification below the line at the bottom and electronically sign. The CDI & [facility] Coding staff will review the response and follow-up if needed. Please note: Queries are made part of the Legal Health Record. If you have any questions, please contact the author of this message via ITS. Dr. Zayra Hairston: *Thank you for responding to the following query, please add the specificity if known. Per the 10/15 & 10/16 Medical Management Progress Notes: "Acute respiratory failure - s/p extubation today.", without further specificity. History/Risk Factors: CAD status post PCI, Valvular Heart Disease: Severe Aortic Stenosis & Mitral Regurgitation, Hypertension, Myocardial Infarction, Hyperlipidemia, COPD, CKD 3 & Former Smoker. Clinical Indicators: Presented for elective Aortic & Mitral Valve Replacement & CABG x1 vessel on 10/11. On 10/13, the patient was taken back to the OR due to postoperative pericardial effusion/tamponade & ABLA. 10/13 Procedure: Re-exploration of chest, evacuation of clot, irrigation of chest cavity. Patient returned to ICU on vent on 10/11, remained on vent until 10/14. Per the CTS Progress Notes postoperatively: "Postoperative prolonged mechanical ventilation secondary to hemodynamic instability, unexpected." Respiratory Rate 10/11: 16 - 50 (vent), 10/12: 20-25; 10/13: 20; 10/14: 23 - 30^-33^. Pulse oximetry 10/11: 97-91*-89*; 10/12: 92*-100; 10/13: 93-83*; 10/14: 94*-87*-100 ABG 10/11: pH (7.36), pO2 >420^, pCO2 (38). 10/12: pH (7.38), pO2 206^, pCO2 (41) 10/13: pH (7.38), pO2 30*, pCO2 (36) Treatment: Remained intubated & on vent until 10/14 postoperatively. IV Heparin, Magnesium, Insulin & Nitro. IV antibiotics. IV sedation & pressor. IV Amiodarone (A fib), IV Albumin, Blood Transfusions: 9 units PRBCs, 3 units FFP, 2 units Platelets, 2 units Irrad Pheresis Platelets, 2 units Pooled Cryoprecipitate. In your professional opinion, can you please clarify if these findings signify one of the following conditions? Acute Respiratory Failure Acute on Chronic Respiratory Failure Other Diagnosis, please specify Unable to determine *Specificity: With hypercapnia? With hypoxia? (Last Query Form Revision: November 2018) Acute Respiratory Failure due to hemodynamic instability MTDD
[2019-10-18] MEDS: IPRATROPIUM-ALBUTEROL 3 ML NEB INHALATION SCH ×4 (08:31→19:32)
[2019-10-18] MEDS: AMIODARONE 200 MG TAB PO SCH ×2 (08:50→21:39)
[2019-10-18] MEDS: ATORVASTATIN 40 MG TAB PO SCH (08:50)
[2019-10-18] MEDS: LIDOCAINE 5% PATCH TOPICAL SCH (08:50)
[2019-10-18] MEDS: ASPIRIN 81 MG PO SCH (08:50)
[2019-10-18] MEDS: MIDODRINE 5 MG TAB PO SCH ×3 (09:00→16:21)
--- NOTE | 2019-10-18 09:58 | P.PN ---
Subjective Progress Note Date: 10/18/19 Principal diagnosis: Severe aortic insufficiency, moderate to severe mitral regurgitation, single- vessel coronary artery disease. Previous medical history of coronary artery disease with myocardial infarction and stent placement to the RCA, hypertension, hyperlipidemia, chronic kidney disease stage III, right internal carotid artery stenosis 50-69%, hypothyroidism, TIA in 2004 without residual, remote history of pneumonia, previous tobacco dependence, moderate restriction with preoperative FEV1 50% of predicted, and family history of premature coronary artery disease. POD #6 aortic valve replacement with 21 mm Herrera Inspiris bioprosthetic aortic valve, mitral valve repair with a #28 mm CarboMedics AnnuloFlex band, reverse saphenous vein graft off the aorta to the right coronary artery with right lower extremity greater saphenous endoscopic vein harvesting, clip ligation of left atrial appendage 35mm AtriClip and intraoperative transesophageal echocardiogram. Postoperative acute blood loss anemia, expected given hemodilution and cardiopulmonary bypass pump Postoperative and intraoperative atrial fibrillation, unexpected but potential outcome of valvular heart surgery Postoperative prolonged mechanical ventilation secondary to hemodynamic instability, unexpected Postoperative pericardial effusion/tamponade POD #4 Re-exploration of the chest, evacuation of clot, irrigation of chest cavity The patient's currently sitting up in a recliner in the intensive care unit. She has had an eventful postoperative course with hypotension requiring pressor support, low cardiac output requiring inotropes, atrial fibrillation requiring amiodarone, and anemia requiring blood transfusion. She has received 9 units packed red blood cells total, 3 units fresh frozen plasma, 4 packs of platelets, and 2 packs of cryoprecipitate, in addition to IV albumin. She goes back and forth between sinus rhythm/atrially paced at 70 bpm and A. fib with RVR. Blood pressure was marginal again yesterday evening, patient was started on Midodrine orally and given 500 mL IV albumin. Overnight her oxygen requirements increased, lung sounds very coarse, patient complains of increased shortness of breath. Recommendations were made yesterday for Dobbhoff placement to support her nutritional status, patient refusing, in addition she has a milk ALLERGY and we have no tube feeding formulas currently available which are nondairy. Dr. Morales was consulted yesterday for placement of permanent pacemaker, would like chest tube removed first to decrease heart irritability. Objective - Vital Signs Vital signs: Vital Signs Temp 97.1 F L 10/18/19 00:00 Pulse 121 H 10/18/19 07:00 Resp 24 10/18/19 07:00 BP 114/73 10/18/19 07:00 Pulse Ox 91 L 10/18/19 07:00 Intake & Output 10/17/19 10/18/19 10/18/19 18:59 06:59 18:59 Intake Total 100 1040 Output Total 413 571 40 Balance -313 469 -40 Weight 69.8 kg Intake: IV 500 Albumin Human 5% 500 ml 500 In Empty Bag 1 bag @ 500 mls/hr IVPB ONCE ONE Rx#: [id number] Intake, IV Titration 100 Amount Dextrose 5% in Water 100 100 ml @ 618 mls/hr IV .Q10M ONE with Amiodarone 150 mg Rx#:[id number] Oral 540 Output: Chest Tube Drainage 170 300 Right 140 300 single mediastinal 30 Urine 243 271 40 Other: Voiding Method Indwelling Catheter Indwelling Catheter ABP, PAP, CO, CI - Last Documented Arterial Blood Pressure 126/49 Pulmonary Artery Pressure 57/36 Cardiac Output 3.8 Cardiac Index 2.5 - Constitutional General appearance: Present: cooperative, no acute distress - Respiratory Details: Lungs sounds diminished bilaterally with crackles in the bases. Respirations even, slightly tacchypneic. Currently on 10 L high flow nasal cannula with oxygen saturation 90-92%. Not even able to achieve 500 mL on incentive spirometry. Right pleural chest tube present and connected to continuous wall suction, 180 mL serous drainage overnight, 550 mL since in the last 24 hours. No air leaks present. - Cardiovascular Details: S1, S2 present. Irregular, tachycardic rate and rhythm, A. fib RVR on telemetry, occasionally sinus/atrial paced at 70 bpm. Sternum stable. A/V epicardial pacemaker wires present, connected to generator, AAI mode with rate 70 bpm. Palpable peripheral pulses bilaterally. Generalized edema present. Heart hugger, SCDs, antiembolism stockings all present. - Gastrointestinal Gastrointestinal Comment(s): Abdomen soft, nontender, nondistended. Hypoactive bowel sounds present 4 quadrants. Tolerating diet - Genitourinary Genitourinary Comment(s): Pratt present draining clear, yellow urine. Output 10-20 mL/h overnight. - Integumentary Integumentary Comment(s): Skin is warm and dry. No evidence of skin breakdown. - Neurologic Neurologic: Present: CNII-XII intact - Musculoskeletal Musculoskeletal: Present: generalized weakness, strength equal bilaterally - Psychiatric Psychiatric: Present: A&O x's 3, appropriate affect - Allied health notes Allied health notes reviewed: nursing - Labs CBC & Chem 7: 10/18/19 05:00 10/18/19 05:00 Labs: Abnormal Lab Results - Last 24 Hours (Table) 10/17/19 10/17/19 10/17/19 Range/Units 11:55 16:47 20:46 WBC (3.8-10.6) k/uL RBC (3.80-5.40) m/uL Hgb (11.4-16.0) gm/dL Hct (34.0-46.0) % RDW (11.5-15.5) % Sodium (137-145) mmol/L Potassium (3.5-5.1) mmol/L Chloride (98-107) mmol/L BUN (7-17) mg/dL POC Glucose (mg/dL) 115 H 102 H 121 H (75-99) mg/dL 10/18/19 10/18/19 Range/Units 05:00 05:00 WBC 20.9 H (3.8-10.6) k/uL RBC 3.02 L (3.80-5.40) m/uL Hgb 9.3 L (11.4-16.0) gm/dL Hct 28.6 L (34.0-46.0) % RDW 17.1 H (11.5-15.5) % Sodium 128 L (137-145) mmol/L Potassium 5.5 H (3.5-5.1) mmol/L Chloride 97 L (98-107) mmol/L BUN 31 H (7-17) mg/dL POC Glucose (mg/dL) (75-99) mg/dL - Imaging and Cardiology Chest x-ray: report reviewed, image reviewed Assessment and Plan Assessment: 1. Severe aortic insufficiency, status post bioprosthetic aortic valve replacement 2. Moderate to severe mitral regurgitation, status post mitral valve repair 3. Single-vessel coronary artery disease, status post bypass to the RCA 4. History of coronary artery disease with myocardial infarction, status post stent placement to the RCA 5. History of hypertension, currently hypotensive 6. History of hyperlipidemia, treated 7. Right internal carotid artery stenosis 50-69% 8. Chronic kidney disease stage III 9. Hypothyroid 10. TIA in 2004 without residual 11. Remote history of pneumonia 12. Previous tobacco dependence 13. Moderate lung restriction with preoperative FEV1 58% of predicted, pulmonary fibrosis seen on CT 14. Family history of premature coronary artery disease 15. Postoperative acute blood loss anemia, status post transfusion 16. Postoperative and intraoperative atrial fibrillation, status post clip ligation of left atrial appendage and amiodarone initiation 17. Postoperative prolonged mechanical ventilation 18. Postoperative pericardial effusion/tamponade, status post re-exploration of the chest, evacuation of clot, irrigation of chest cavity Plan: 1. Continue low-dose aspirin, statin. Will hold off on Plavix. Continue low- dose beta alan with parameters. 2. Continue amiodarone for A. fib prophylaxis, dose increased yesterday by Dr. Morales. 3. Wean O2 as tolerated. Encourage incentive spirometry 10 times every hour while awake. Bronchodilators per pulmonology. 4. Will monitor daily labs and x-rays. Electrolyte replacement per protocol. 5. IV Lasix given this morning, will start IV Lasix 20 mg IV every 8 hours. 6. GI/DVT prophylaxis. 7. Continue Midodrine for blood pressure 8. Pain control with current medication regimen. 9. Insulin management per primary care service. Preoperative hemoglobin A1c 5.5% 10. Continue to monitor chest tube output and consistency 11. More recommendations to follow Time with Patient: Greater than 30
--- NOTE | 2019-10-18 10:19 | PN ---
PROGRESS NOTE Mrs. Quiroz is a 79-year-old female who underwent aortic valve replacement, mitral valve repair and coronary artery bypass grafting. She had to be taken back to the operating room because of bleeding. She has been having episode of paroxysmal atrial fibrillation. She is feeling weak and tired this morning, short of breath. She has no chest pain. She is in atrial fibrillation this morning. She was evaluated by Dr. Morales for permanent pacemaker implantation. At this time, she would favor continued temporary pacing until early next week when the chest tube is removed. She had some increased drainage from the chest tube, but no active bleeding. She is on no vasopressors. She continues on aspirin once a day, Lipitor 40 mg daily, lisinopril 2.5 mg daily, metoprolol tartrate 12.5 mg twice a day. PHYSICAL EXAMINATION: Blood pressure 114/70 with a heart rate in the 110s. LUNGS: With decreased breath sounds at both bases with a with few crackles. HEART: Irregular regular, S1, S2. No S3 with systolic murmur, no diastolic murmur. ABDOMEN: Soft, nontender, positive bowel sounds. EXTREMITIES: No significant edema. Chest x-ray revealed an apical pneumothorax with evidence of air space disease. Her hemoglobin 9.3, BUN and creatinine 31 and 0.98. IMPRESSION: 1. Status post coronary bypass grafting from a mitral valve repair and aortic valve replacement. 2. Paroxysmal atrial fibrillation, recurrent with a sinus bradycardia requiring pacing. 3. Postoperative bleed with reexploration is stable. 4. History of hyperlipidemia. 5. Prior history of hypertension. RECOMMENDATION: The patient would require to be anticoagulated at this time. I will use IV heparin until the permanent pacemaker is implanted. I discussed her case with Dr. Morales who feels that it will be safer to wait until early next week when the chest tube is removed and once she has normal drainage. In the meantime, will continue the present therapy. Continue to increase her level of activity and depending on her progress, further recommendation will be made. MMODL / IJN: [id number] /
[2019-10-18 12:12] LABS: Glucose,Whole Blood 137 mg/dL (75-99)
[2019-10-18 12:23] LABS: Amylase 55 U/L (30-110)
[2019-10-18 12:23] LABS: Amorphous Sediment,Urine Occasional /hpf; Appearance,Urine Clear (Clear); Bacteria,Urine Rare /hpf; Bilirubin,Urine Negative (Negative); Blood,Urine Trace (Negative); Color,Urine Yellow; Glucose,Urine (UA) Negative (Negative); Granular Casts,Urine 1 /lpf (0); Hyaline Casts,Urine 6 /lpf (0-2); Ketones,Urine Trace (Negative); Leukocyte Esterase,Urine Negative (Negative); Mucus,Urine Rare /hpf; Nitrite,Urine Negative (Negative); PH, Urine 5.5 (5.0-8.0); Protein,Urine 1+ (Negative); RBC,Urine 8 /hpf (0-5); Specific Gravity,Urine 1.018 (1.001-1.035); Squamous Epithelial Cell,Urine <1 /hpf (0-4); Urobilinogen,Urine <2.0 mg/dL (<2.0); WBC,Urine 3 /hpf (0-5)
--- NOTE | 2019-10-18 12:24 | P.HPCAR ---
History of Present Illness This is Dr. Morales dictating a consult on this patient on October 17 The patient was interviewed and examined on October IMPRESSION / ASSESSMENT: Sick Sinus Syndrome/severe bradycardia requiring atrial pacing via the external wires Paroxysmal atrial fibrillation with RVR despite multiple doses of IV amiodarone CAD status post coronary artery bypass grafting Mitral valve repair Aortic valve replacement Patient has a chest tube for redo procedure for postoperative bleeding requiring evacuation of blood History of hypertension and dyslipidemia PLAN: Increase dose of amiodarone to 400 mg twice daily for AF suppression Continue overdrive atrial pacing for partial suppression of A. fib. When I would back down on the atrial pacing rate she would have bursts of atrial fibrillation Once the chest tube was removed and she has a longer duration of amiodarone therapy, permanent pacing would be recommended, possibly early next week In the interim continue atrial pacing via the external wires seem to be func tioning well Anticoagulation with IV heparin without bolus may be considered for A. fib HPI Electrophysiology consult requested for management of recurrent atrial fibrillation with RVR despite amiodarone and sick sinus syndrome requiring external wire pacing Patient underwent coronary artery bypass grafting, mitral valve repair and and aortic valve replacement ROS: No fever chills or rigors, no cough, phlegm or expectoration, no nausea, vomiting or diarrhea, no hematuria, dysuria, no musculoskeletal complaints, no strokes or seizures, no skin lesions. EXAMINATION: Blood pressure 140/70, heart rate 110 beats a minute Decreased breath sounds bilaterally with crackles at the bases Irregular rhythm patient for atrial fibrillation no S3 gallop Conductive sounds over the chest Abdomen is soft nontender No edema REVIEW OF LABS, ECG & MEDICAL DATA Chest x-ray shows an apical pneumothorax Hemoglobin 9.3 Creatinine 0.98 White count 21,000, potassium 5.5 Physical Exam Vitals: Vital Signs Temp Pulse Resp BP Pulse Ox 10/18/19 11:00 70 22 98/34 92 L 10/18/19 10:00 69 18 108/33 94 L 10/18/19 09:00 129 H 20 94/48 91 L 10/18/19 08:00 98.4 F 79 25 H 100/69 91 L 10/18/19 07:00 121 H 24 114/73 91 L 10/18/19 06:00 80 23 106/60 93 L 10/18/19 05:00 80 17 106/70 88 L 10/18/19 04:00 138 H 20 131/47 91 L 10/18/19 03:00 80 22 98/58 93 L 10/18/19 02:00 80 21 120/43 96 10/18/19 01:00 80 16 117/57 96 10/18/19 00:12 80 18 93 L 10/18/19 00:00 97.1 F L 80 19 94/49 93 L 10/17/19 23:51 16 10/17/19 23:00 80 16 92/48 95 10/17/19 22:00 80 20 102/59 93 L 10/17/19 21:00 80 16 108/49 93 L 10/17/19 20:00 97.1 F L 80 20 97/41 93 L 10/17/19 19:40 80 10/17/19 19:30 80 10/17/19 19:00 80 19 113/87 93 L 10/17/19 18:00 75 15 82/37 93 L 10/17/19 17:00 69 18 102/45 94 L 10/17/19 16:00 123 H 18 106/52 94 L 10/17/19 15:25 72 10/17/19 15:11 69 10/17/19 15:00 69 18 104/63 98 10/17/19 14:00 70 20 98/41 98 10/17/19 13:00 70 20 106/58 98 Intake and Output 10/17/19 10/18/19 10/18/19 22:59 06:59 14:59 Intake Total 500 540 Output Total 263 393 425 Balance 237 147 -425 Intake: IV 500 Albumin Human 5% 500 ml 500 In Empty Bag 1 bag @ 500 mls/hr IVPB ONCE ONE Rx#: [id number] Oral 540 Output: Chest Tube Drainage 70 230 Right 70 230 Urine 193 163 425 Other: Voiding Method Indwelling Catheter Indwelling Catheter Weight 69.8 kg ABP, PAP, CO, CI - Last 8 Hours Cardiac Output 3.8 Cardiac Output 3.8 Cardiac Index 2.5 Cardiac Index 2.5 Past Medical History Past Medical History: Asthma, Coronary Artery Disease (CAD), COPD, CVA/TIA, GERD/Reflux, Hyperlipidemia, Myocardial Infarction (PR), Mitral Valve Prolapse (MVP), Musculoskeletal Disorder, Pneumonia, Renal Disease, Respiratory Disorder, Thyroid Disorder Additional Past Medical History / Comment(s): ECZEMA/STAGE 3 RENAL DIS EASE/HYPOTHYROIDISM/PR X2/DEGEN. DISC DS,mini stroke prior to 2004-no residual,dry eyes kimberley eyes,MIx2,pancreatisis,unable to eat large meals Last Myocardial Infarction Date:: 1997 History of Any Multi-Drug Resistant Organisms: None Reported Past Surgical History: Appendectomy, Cholecystectomy, Heart Catheterization With Stent, Hysterectomy Additional Past Surgical History / Comment(s): LUNG SURG-WEDGE RESECTION/CALCIFICATION RMOVED FROM LT BREAST/R&L CATARACT SURG/ORAL SURG W/ 5 IMPLANTS,bladder suspension,PTCA Past Anesthesia/Blood Transfusion Reactions: No Reported Reaction Additional Past Anesthesia/Blood Transfusion Reaction / Comment(s): stated "had trouble remembering numbers for approx a month after a surgery when I was given versed but I have had versed after that without problems.". No hx of blood transfusion. Date of Last Stent Placement:: 1997 Smoking Status: Former smoker - Past Family History Mother Family Medical History: Cancer Additional Family Medical History / Comment(s): SKIN Father Family Medical History: Myocardial Infarction (PR) Additional Family Medical History / Comment(s): with PR at age 47 Physical Examination Vital Signs Temp Pulse Resp BP Pulse Ox 10/18/19 11:00 70 22 98/34 92 L 10/18/19 10:00 69 18 108/33 94 L 10/18/19 09:00 129 H 20 94/48 91 L 10/18/19 08:00 98.4 F 79 25 H 100/69 91 L 10/18/19 07:00 121 H 24 114/73 91 L 10/18/19 06:00 80 23 106/60 93 L 10/18/19 05:00 80 17 106/70 88 L 10/18/19 04:00 138 H 20 131/47 91 L 10/18/19 03:00 80 22 98/58 93 L 10/18/19 02:00 80 21 120/43 96 10/18/19 01:00 80 16 117/57 96 10/18/19 00:12 80 18 93 L 10/18/19 00:00 97.1 F L 80 19 94/49 93 L 10/17/19 23:51 16 10/17/19 23:00 80 16 92/48 95 10/17/19 22:00 80 20 102/59 93 L 10/17/19 21:00 80 16 108/49 93 L 10/17/19 20:00 97.1 F L 80 20 97/41 93 L 10/17/19 19:40 80 10/17/19 19:30 80 10/17/19 19:00 80 19 113/87 93 L 10/17/19 18:00 75 15 82/37 93 L 10/17/19 17:00 69 18 102/45 94 L 10/17/19 16:00 123 H 18 106/52 94 L 10/17/19 15:25 72 10/17/19 15:11 69 10/17/19 15:00 69 18 104/63 98 10/17/19 14:00 70 20 98/41 98 10/17/19 13:00 70 20 106/58 98 Intake and Output 10/17/19 10/18/19 10/18/19 22:59 06:59 14:59 Intake Total 500 540 Output Total 263 393 425 Balance 237 147 -425 Intake: IV 500 Albumin Human 5% 500 ml 500 In Empty Bag 1 bag @ 500 mls/hr IVPB ONCE ONE Rx#: [id number] Oral 540 Output: Chest Tube Drainage 70 230 Right 70 230 Urine 193 163 425 Other: Voiding Method Indwelling Catheter Indwelling Catheter Weight 69.8 kg ABP, PAP, CO, CI - Last 8 Hours Cardiac Output 3.8 Cardiac Output 3.8 Cardiac Index 2.5 Cardiac Index 2.5 Results 10/18/19 05:00 10/18/19 05:00 CBC 10/18/19 Range/Units 05:00 WBC 20.9 H (3.8-10.6) k/uL RBC 3.02 L (3.80-5.40) m/uL Hgb 9.3 L (11.4-16.0) gm/dL Hct 28.6 L (34.0-46.0) % Plt Count 170 (150-450) k/uL Comprehensive Metabolic Panel 10/18/19 Range/Units 05:00 Sodium 128 L (137-145) mmol/L Potassium 5.5 H (3.5-5.1) mmol/L Chloride 97 L (98-107) mmol/L Carbon Dioxide 25 (22-30) mmol/L BUN 31 H (7-17) mg/dL Creatinine 0.98 (0.52-1.04) mg/dL Glucose 96 (74-99) mg/dL Calcium 8.4 (8.4-10.2) mg/dL Current Medications Generic Name Dose Route Start Last Admin Trade Name Freq PRN Reason Stop Dose Admin Acetaminophen 1,000 mg 10/13/19 11:46 10/17/19 08:52 Tylenol Tab PO 1,000 mg Q6HR PRN Administration Fever and/ or Pain Albuterol/Ipratropium 3 ml 10/12/19 13:00 Duoneb 0.5 Mg-3 Mg/3 Ml Soln INHALATION RT-Q2H PRN Shortness Of Breath Or Wheezing Albuterol/Ipratropium 3 ml 10/12/19 18:22 10/18/19 08:31 Duoneb 0.5 Mg-3 Mg/3 Ml Soln INHALATION Not Given RT-QID [facility] Amiodarone HCl 400 mg 10/17/19 21:00 10/18/19 08:50 Cordarone PO 400 mg BID [facility] Administration Ascorbic Acid 500 mg 10/13/19 17:30 10/18/19 05:35 Vitamin C PO 500 mg BID-W/MEALS [facility] Administration Aspirin 81 mg 10/13/19 09:00 10/18/19 08:50 Aspirin PO 81 mg DAILY [facility] Administration Atorvastatin Calcium 40 mg 10/13/19 09:00 10/18/19 08:50 Lipitor PO 40 mg DAILY J[facility]E Administration Benzocaine/Menthol 1 each 10/12/19 13:00 Cepacol Lozenge MUCOUS MEM Q2H PRN Sore Throat Bisacodyl 10 mg 10/13/19 09:00 10/18/19 05:35 Dulcolax RECTAL 10 mg DAILY PRN Administration Constipation Ferrous Sulfate 325 mg 10/16/19 08:45 10/18/19 05:35 Feosol PO 325 mg BID-W/MEALS [facility] Administration Furosemide 20 mg 10/18/19 16:00 Lasix IV Q8HR [facility] Heparin Sodium (Porcine) 5,000 unit 10/12/19 21:00 10/18/19 05:25 Heparin SQ 5,000 unit Q8H JAYE Administration Insulin Aspart 0 unit 10/16/19 12:30 10/18/19 06:50 Novolog SQ Not Given [facility] Protocol Levothyroxine Sodium 75 mcg 10/13/19 06:30 10/18/19 05:35 Synthroid PO 75 mcg DAILY@0630 JAYE Administration Lidocaine 1 patch 10/16/19 16:15 10/18/19 08:50 Lidoderm TOPICAL 1 patch DAILY J[facility]E Administration Lisinopril 2.5 mg 10/16/19 12:00 10/17/19 15:09 Zestril PO 2.5 mg DAILY@1200 JAYE Administration Magnesium Hydroxide 2,400 mg 10/13/19 09:00 Milk Of Magnesia PO BID PRN Constipation Metoclopramide HCl 5 mg 10/17/19 16:24 10/18/19 05:23 Reglan IVP 5 mg Q4H PRN Administration Nausea And Vomiting Metoprolol Tartrate 12.5 mg 10/16/19 09:00 10/18/19 05:35 Lopressor PO 12.5 mg BID JAYE Administration Midodrine 5 mg 10/18/19 07:30 10/18/19 09:00 Proamatine PO 5 mg AC-TID JAYE Administration Miscellaneous Information 1 each 10/12/19 13:00 Magnesium Per Protocol MISCELLANE DAILY PRN Per Protocol Protocol Miscellaneous Information 1 each 10/12/19 13:00 Phosphorus Per Protocol MISCELLANE DAILY PRN Per Protocol Protocol Miscellaneous Information 1 each 10/12/19 13:00 Potassium Per Protocol MISCELLANE DAILY PRN Per Protocol Protocol Miscellaneous Information 1 each 10/16/19 07:12 Potassium Per Protocol MISCELLANE DAILY PRN Per Protocol Protocol Ondansetron HCl 4 mg 10/12/19 13:00 10/18/19 02:38 Zofran IVP 4 mg Q6HR PRN Administration Nausea And Vomiting Pantoprazole Sodium 40 mg 10/17/19 07:30 10/18/19 05:35 Protonix PO 40 mg AC-BRKFST JAYE Administration Senna/Docusate Sodium 2 each 10/13/19 21:00 10/17/19 21:14 Senokot-S PO 2 each HS JAYE Administration Sodium Chloride 10 ml 10/12/19 21:00 10/18/19 08:51 Saline Flush IV 10 ml BID JAYE Administration Tramadol HCl 50 mg 10/16/19 07:21 10/17/19 21:26 Ultram PO 50 mg Q8HR PRN Administration Pain Intake and Output 0810/18/19 10/18/19 22:59 06:59 14:59 Intake Total 500 540 Output Total 263 393 425 Balance 237 147 -425 Intake: IV 500 Albumin Human 5% 500 ml 500 In Empty Bag 1 bag @ 500 mls/hr IVPB ONCE ONE Rx#: [id number] Oral 540 Output: Chest Tube Drainage 70 230 Right 70 230 Urine 193 163 425 Other: Voiding Method Indwelling Catheter Indwelling Catheter Weight 69.8 kg Patient Weight 10/19/19 06:59 Weight 69.8 kg 10/18/19 05:00 10/18/19 05:00
[2019-10-18] MEDS: lisinopriL 5 MG TAB PO SCH (12:26)
--- NOTE | 2019-10-18 13:38 | P.PN ---
Subjective Progress Note Date: 10/18/19 Principal diagnosis: Status post CABG, aortic valve replacement and mitral valve repair postoperative day # 6 2019, the patient is postop day #1. The patient underwent single-vessel bypass surgery, aortic valve replacement and mitral valve repair. She is known to have coronary artery disease, valvular insufficiency, hypertension and hyperlipidemia and chronic stage III kidney disease. The patient also is known to have carotid artery disease 50% on the right, hypothyroidism, and history of interstitial lung disease with pulmonary fibrosis and severe restrictive lung d isease with a FVC in the 50% range preoperatively. On today's evaluation, the patient is still intubated on mechanical ventilator. Were unable to wean the patient off the mechanical ventilator and extubated because of her ongoing difficulties with hemodynamics and bleeding from the chest tubes. Note that the patient is still in intensive care unit and she is still sedated for now at propofol which is running at 20 g per KG per minute. The patient is still requiring inotropes. The patient was quite hypotensive after arrival from the operating room and she was having difficulties with donis ycardia. She is currently paced at the rate of 80. She is on norepinephrine infusion which is running at 0.26 mg per KG per minute. She was started on milrinone yesterday at 0.2 g and at a later stage dobutamine was also added. Earlier this morning, cardiothoracic surgery saw the patient and increase the paced rhythm of 200 beats per minutes. Her underlying rhythm this morning is normal sinus rate of 60. She is at dobutamine at the medical grams per KG per minute and milrinone at 0.2 mics respiratory KG per minute. She is also on amiodarone at 0.5 mg/m. The right is being titrated pH has an adequate urine output. Most recent hemodynamics indicate a cardiac index of 1.9. Pulmonary artery pressures are 46/25 mmHg. A bedside echocardiogram was done and there is no evidence of any pericardial effusion. Valve functions were adequate. The mediastinal chest tubes are in place and the pleural chest tube is in place. There was ongoing issues with clotting and drainage from the chest tubes. Appropriate cleaning and suctioning of the chest tubes were done. Overall, the patient received a total of 4 units of packed RBC, 3 units of fresh frozen plasma, 2 units of packed RBC and 2 packs of cryoprecipitate in addition to call is in the form of IV albumin throughout the resuscitation. No ongoing or active bleed at this point in time. No attempts for weaning off the mechanical ventilator. The patient is currently on a assist-control mode of ventilation at the rate of 20 with tidal volume of 400 and FiO2 of 50% with a PEEP of 5. Blood gas showed a pH of 7.38 with a pCO2 of 41 and pO2 of 206. Chest x-ray showed adequate expansion of both lungs. There is underlying chronic incision infiltrates. ET tube is in a good location. Chest x-rays well expanded. No pneumothorax. No atelectasis. 10/14/2019 the patient is postop day #2. The patient underwent single vessel bypass surgery, aortic valve replacement, mitral valve repair. The bleeding has subsided from the mediastinal tubes. Output from the tubes have dropped down considerably since yesterday. Nevertheless, there is some widening of the mediastinum and the patient is going to have a limited echocardiogram to rule out any hematoma or blood collection around the pericardium. The patient currently is still intubated on a mechanical ventilator. The patient remains on assist control mode of ventilation at the rate of 20 with a tidal volume of 400 and FiO2 of 40% with a PEEP of 5. The peak airway pressure is 26. Blood gases showed a pH of 7.44 with a pCO2 of 37 and pO2 129. Chest x-ray showed adequate expansion of both lungs. Chest tubes are all in good location. ET tube is in a good location. The patient is still has his [place] catheter in place. The mediastinum is slightly widened. In terms of hemodynamics, the patient is currently on milrinone at a dose of 0.1 g per KG per minute. The patient is also on dobutamine at 3 mg per KG per minute. Levo fed is running at 0.03 mics respiratory KG per minute. The patient is also on amiodarone at 0.5 mg/m. She is was sedated with propofol at 25 g per KG per minute. Insulin is running at 2.5 units an hour. Cardiac index is at 1.5. The heart rate is being paced the rate of 80. Underlying rhythm is sinus with a rate of 70. The patient is receiving enteral feeding for nutritional support. The most recent hemoglobin is at 7.3. The platelet count is down to 65. Patient was reevaluated today on 10/15/19, she is postoperative day #3. Patient had to be taken back to the operating room last night for excessive bleeding or recurrent effusion/temporal not. Patient underwent reexploration of the chest, evacuation of clots, and irrigation of the chest cavity. Today she is in the ICU on mechanical ventilation, her ventilator settings are assist control rate 20, volume is 400 FiO2 is 40% and PEEP of 5. ABG this morning showed a pO2 of 158 pCO2 of 38 pH of 7.40 and I was on 40% FiO2. Patient remains on propofol at 20 mcg/kg/m, she is off all pressors and inotropes except she is still on Dobutrex at 2 mcg/kg/m. Patient has a low cardiac output requiring inotropes, she is in atrial fibrillation requiring amiodarone, and she was quite anemic received a total of 9 units of packed RBCs, 3 units of fresh frozen plasma, 4 units of platelets, 2 packs of cryoprecipitate, and albumin. Hemoglobin this morning is 9.2. Patient is arousable, and she follows simple instructions, hence we will likely check weaning parameters and decide accordingly. Reevaluated today on 10/16/19, patient is postoperative day #4. Patient was extubated yesterday uneventfully, looking back, patient had a relatively uneventful postoperative course with profound hypotension, low cardiac output, required wrestlers, inotropes, she also required amiodarone for atrial fibrillation, and blood transfusions, multiple units of blood products were given as noted above. At any rate the patient is now off mechanical ventilation, she is on few liters nasal cannula, seems to be doing much better over the last 24 hours, and she is pleased that she is off the ventilator. She is now off pressors and off inotropes since yesterday. She is generally weak. Hemoglobin today is 8.8, Electrolytesenc normal, and renal profile is relatively normal. Chest x-ray showed mostly interstitial lung disease and postoperative atelectasis Reevaluated today on 10/17/19, patient is postoperative day #5. Remains on nasal cannula, O2 saturations 96%, patient is on 2 L. She had an episode of atrial fibrillation with RVR last night, and she was loaded with amiodarone. Currently patient is fully paced. Chest x-ray continues to show evidence of interstitial lung disease, and atelectasis. Patient is awake, alert, denies any shortness of breath, she does have some vague chest discomfort. Bedside monitor is showing atrial pacing rhythm in the 70s with underlying rhythm showing sinus bradycardia rate of 57. Patient received 1 dose of IV bolus of amiodarone 150 mg 1 last night. Patient is not requiring any inotropic or pressor support. Mediastinal and right pleural chest tubes remain in place. No air leak is noted. Serosanguineous drainage is noted. Mediastinal tube drained 75 ML over the last 8 hours and 140 ML's in the last 24 hours. Right pleural chest tube drained 140 ML in the last 8 hours and 400 MLS the last 24 hours. Her hemoglobin remains stable. Patient did receive yesterday 40 mg of Lasix with good response Patient was reevaluated today on 10/18/19 she is postoperative day #6. Patient is sitting in a recliner, patient remains in the ICU, very frail looking and weak, patient did have a very mehreen postoperative course since her surgery. Last night the patient developed low blood pressure, and low urine output, patient was given albumin, she was in and out of atrial fibrillation with RVR, Lasix was given earlier today, and the patient had slight improvement in her urine output with Lasix. Again the patient remains in a relatively atrial fibrillation blood pressure is marginal. Hence she was started on midodrine and she was given albumin last night. Chest x-ray continues to show interstitial lung disease, and possibly some interstitial pulmonary edema. Objective - Vital Signs Vital signs: Vital Signs Temp 97.7 F 10/18/19 12:00 Pulse 69 10/18/19 13:00 Resp 18 10/18/19 13:00 BP 107/49 10/18/19 13:00 Pulse Ox 94 L 10/18/19 13:00 Intake & Output 10/17/19 10/18/19 10/18/19 18:59 06:59 18:59 Intake Total 100 1040 Output Total 413 571 445 Balance -313 469 -445 Weight 69.8 kg 69.8 kg Intake: IV 500 Albumin Human 5% 500 ml 500 In Empty Bag 1 bag @ 500 mls/hr IVPB ONCE ONE Rx#: [id number] Intake, IV Titration 100 Amount Dextrose 5% in Water 100 100 ml @ 618 mls/hr IV .Q10M ONE with Amiodarone 150 mg Rx#:[id number] Oral 540 Output: Chest Tube Drainage 170 300 Right 140 300 single mediastinal 30 Urine 243 271 445 Other: Voiding Method Indwelling Catheter Indwelling Catheter Indwelling Catheter ABP, PAP, CO, CI - Last Documented Arterial Blood Pressure 126/49 Pulmonary Artery Pressure 57/36 Cardiac Output 3.8 Cardiac Index 2.5 - Exam Physical Exam: Revealed 79-year-old female in no distress, on 10 L high flow nasal cannula. Head: Atraumatic, normocephalic, HEENT:[Neck is supple.] [No neck masses.] [No thyromegaly.] [No JVD.] Chest: Symmetrical chest expansion, crackles at the bases Right pleural chest tube present and connected to continuous wall suction, 180 mL serous drainage overnight, 550 mL since in the last 24 hours. No air leaks present. Cardiac Exam: Irregular irregular rhythm. A. fib on the monitor. [Normal S1 and S2, no S3 gallop, no murmur.] Atrial pacing is noted. Rate of 70 bpm. Sternum is stable. Abdomen: [Soft, nontender, no megaly, no rebound, no guarding, normal bowel sounds.] Extremities: [No clubbing, generalized edema is noted. Stockings noted. Neurological Exam: [No focal neurologic deficit.] Arousable, follows simple instructions, mental status seems to be intact. Psychiatric: Normal mood, affect and normal mental status examination. - Labs CBC & Chem 7: 10/18/19 05:00 10/18/19 05:00 Labs: Abnormal Lab Results - Last 24 Hours (Table) 10/17/19 10/17/19 10/18/19 Range/Units 16:47 20:46 05:00 WBC (3.8-10.6) k/uL RBC (3.80-5.40) m/uL Hgb (11.4-16.0) gm/dL Hct (34.0-46.0) % RDW (11.5-15.5) % Sodium 128 L (137-145) mmol/L Potassium 5.5 H (3.5-5.1) mmol/L Chloride 97 L (98-107) mmol/L BUN 31 H (7-17) mg/dL POC Glucose (mg/dL) 102 H 121 H (75-99) mg/dL Urine Protein (Negative) Urine Ketones (Negative) Urine Blood (Negative) Urine RBC (0-5) /hpf Amorphous Sediment (None) /hpf Urine Bacteria (None) /hpf Hyaline Casts (0-2) /lpf Urine Mucus (None) /hpf 10/18/19 10/18/19 10/18/19 Range/Units 05:00 11:55 12:10 WBC 20.9 H (3.8-10.6) k/uL RBC 3.02 L (3.80-5.40) m/uL Hgb 9.3 L (11.4-16.0) gm/dL Hct 28.6 L (34.0-46.0) % RDW 17.1 H (11.5-15.5) % Sodium (137-145) mmol/L Potassium (3.5-5.1) mmol/L Chloride (98-107) mmol/L BUN (7-17) mg/dL POC Glucose (mg/dL) 137 H (75-99) mg/dL Urine Protein 1+ H (Negative) Urine Ketones Trace H (Negative) Urine Blood Trace H (Negative) Urine RBC 8 H (0-5) /hpf Amorphous Sediment Occasional H (None) /hpf Urine Bacteria Rare H (None) /hpf Hyaline Casts 6 H (0-2) /lpf Urine Mucus Rare H (None) /hpf Assessment and Plan Assessment: Impression: Status post bioprosthetic aortic valve replacement, mitral valve repair, single- vessel CABG, bypass to RCA. Postoperative day #6 Chronic kidney disease stage III Postoperative acute blood loss, status post multiple transfusions Postoperative pericardial effusion/temponade requiring reexploration and evacuation of clot, postoperative day #4 Hypothyroidism. Dyslipidemia. Severe aortic insufficiency status post bioprosthetic aortic valve replacement. Moderate mitral regurgitation requiring mitral valve repair. Benign essential hypertension. Postoperative atrial fibrillation, expected. Recommendation: Continue low-dose aspirin. Extubated 3 days ago, and she tolerated the extubation well. However her oxygen requirement had been steadily increasing, and she is now on 10 L high flow nasal cannula. Continue to monitor x-ray on a daily basis. Diuretics as needed. GI prophylaxis. Advanced diet as tolerated. DVT prophylaxis. Patient remains critically ill, prognosis is guarded. We'll continue to follow. While in the ICU Time with Patient: Less than 30
[2019-10-18] MEDS ORDERED: guaiFENesin 600 MG TABLET.ER PO PRN (13:46)
--- NOTE | 2019-10-18 13:52 | XR ---
EXAMINATION TYPE: XR chest 1V portable DATE OF EXAM: 10/18/2019 COMPARISON: 10/18/2019 HISTORY: Shortness of breath TECHNIQUE: Single frontal view of the chest is obtained. FINDINGS: Biapical pleural thickening calcification with diffuse bilateral airspace disease. Postsur gical changes and epicardial lead noted there is atherosclerotic change aorta. Diffuse osteopenia. Ap proximately 5-10% right-sided pneumothorax stable with chest tube in position. Tiny area of lucency i nvolving the left lung apex is stable from previous exam. IMPRESSION: 1. Stable bilateral small pneumothoraces 2. Persistent diffuse widespread airspace disease. Correlate for diffuse pneumonia, ARDS or pulmonary edema.
[2019-10-18 15:19] LABS: ABG Base Excess -1.3 mmol/L; ABG HCO3 25 mmol/L (21-25); ABG PCO2 53 mmHg (35-45); ABG PH 7.29 (7.35-7.45); ABG TCO2 27 mmol/L (19-24); Allen Test Performed? Yes
[2019-10-18 15:22] LABS: ABG PO2 59 mmHg (83-108)
[2019-10-18] MEDS ORDERED: metOLazone 2.5 MG TAB PO SCH (15:45)
[2019-10-18] MEDS ORDERED: FUROSEMIDE 10 MG/ML 4 ML VIAL IV SCH (16:00)
[2019-10-18] MEDS ORDERED: FUROSEMIDE 10 MG/ML 2 ML VIAL IV SCH (16:00)
[2019-10-18 16:01] LABS: Calcium 8.1 mg/dL (8.4-10.2)
[2019-10-18 16:07] LABS: Potassium 6.2 mmol/L (3.5-5.1)
[2019-10-18] MEDS ORDERED: DEXTROSE 50% SYRINGE 50 ML IVP STA (16:08)
[2019-10-18] MEDS ORDERED: INSULIN REGULAR 100 UNIT/ML VIAL IV ONE (16:08)
[2019-10-18] MEDS: polyethylene glycoL 3350 17 GM POWD.PACK PO SCH (16:21)
[2019-10-18] MEDS ORDERED: CALCIUM GLUCONATE 1 GM in SODIUM CHLORIDE 0.9% 100 ML IVPB ONE (17:00)
[2019-10-18 17:03] LABS: Glucose,Whole Blood 211 mg/dL (75-99)
[2019-10-18 18:31] LABS: ABG Base Excess -1.1 mmol/L; ABG HCO3 27 mmol/L (21-25); ABG Oxygen Saturation 96.5 % (94-97); ABG PCO2 67 mmHg (35-45); ABG PH 7.21 (7.35-7.45); ABG PO2 100 mmHg (83-108); ABG TCO2 29 mmol/L (19-24); Allen Test Performed? Yes
[2019-10-18] MEDS ORDERED: propofoL 100 ML IV ONE (18:57)
[2019-10-18 19:04] LABS: Calcium 8.5 mg/dL (8.4-10.2); Potassium 5.2 mmol/L (3.5-5.1)
[2019-10-18] MEDS ORDERED: SODIUM POLYSTYRENE SULFONATE 15 GM/60 ML BOTTLE PO STA (19:32)
--- NOTE | 2019-10-18 19:52 | XR ---
EXAMINATION TYPE: XR chest 1V portable DATE OF EXAM: 10/18/2019 COMPARISON: Today HISTORY: Short of breath check tube placement. TECHNIQUE: FINDINGS: There is diffuse bilateral pulmonary infiltrates. There is right-sided chest tube with the tip over the lateral right upper lobe. I see no definite pneumothorax. There is endotracheal tube 4 c m from the mauro. There is nasogastric tube there is probably with tip in the stomach. There are ann st leads. There are sternal wires. IMPRESSION: Bilateral extensive pulmonary infiltrates could relate to RDS and congestive heart failur e and appear slightly worse than exam 6 hours ago.
--- NOTE | 2019-10-18 19:54 | XR ---
EXAMINATION TYPE: XR abdomen 1V DATE OF EXAM: 10/18/2019 COMPARISON: NONE HISTORY: Check tube placement TECHNIQUE: Single view FINDINGS: Supine view shows no sign of intestinal obstruction or pneumoperitoneum. There is nasogastr ic tube with the tip over the gastric fundus. There is thoracolumbar levoscoliotic deformity. IMPRESSION: NG tube is in the gastric fundus.
[2019-10-18 20:06] LABS: ABG Base Excess -0.5 mmol/L; ABG HCO3 28 mmol/L (21-25); ABG Oxygen Saturation 99.4 % (94-97); ABG PCO2 70 mmHg (35-45); ABG PO2 293 mmHg (83-108); ABG TCO2 30 mmol/L (19-24); Allen Test Performed? Yes
[2019-10-18] MEDS: ALBUMIN HUMAN 5% 250 ML in EMPTY BAG 1 BAG IVPB ONE ×2 (20:58→21:10)
[2019-10-18] MEDS ORDERED: ALBUMIN HUMAN 5% 500 ML in EMPTY BAG 1 BAG IVPB ONE (21:00)
--- NOTE | 2019-10-18 21:11 | P.ANPRN ---
Procedure Note - Anesthesia - Invasive Line Right Central Line Time Out Performed: Yes Date of Procedure: 10/18/19 Time of Procedure: 20:45 Preparation: Sterile Prep, Sterile Dressing (ICU) Ultrasound Used: No Narrative: Central line placement per sterile protocol utilized.
--- NOTE | 2019-10-18 21:14 | XR ---
EXAMINATION TYPE: XR chest 1V portable DATE OF EXAM: 10/18/2019 COMPARISON: Today HISTORY: Check line placement TECHNIQUE: Single view there is right jugular catheter with the tip in the superior vena cava. There is extensive patchy bi lateral pulmonary airspace infiltrates. Endotracheal tube is 4.5 cm from the mauro. There is nasogas tric tube in the stomach. There are chest leads. There is right-sided chest tube along the right late ral lung field. I see no pneumothorax. Trachea is midline. IMPRESSION: Extensive pulmonary infiltrates unchanged and consistent with RDS.
[2019-10-18] MEDS: SENNOSIDES-DOCUSATE SODIUM 1 EACH TAB PO SCH (21:42)
[2019-10-18] MEDS: CHLORHEXIDINE GLUCONATE 15 ML CUP MUCOUS MEM SCH (21:42)
[2019-10-18 21:45] LABS: Glucose,Whole Blood 90 mg/dL (75-99)
[2019-10-18] MEDS: PIPERACILLIN-TAZOBACTAM 3.375 GM in SODIUM CHLORIDE 0.9% 100 ML IVPB SCH (21:48)
--- NOTE | 2019-10-19 01:00 | P.PN ---
Subjective Progress Note Date: 10/18/19 Principal diagnosis: Aortic valve replacement and CABG , Re exploration of the chest on 10/14/19 Ms. Quiroz is a 79-year-old female with a past medical history of asthma, COPD, CVA, TIA, GERD, hypertension, hyperlipidemia, mitral valve prolapse underwent aortic valve replacement with #2 Herrera bioprosthetic aortic valve and mitral valve repair with [employer] band and CABG x1 with SVG to RCA. Patient had multiple runs of atrial fibrillation in case. Postoperatively she had episodes of hypotension and A. fib as well so started on amiodarone drip. She is being monitored closely in the ICU setting. She is mechanically ventilated. Patient's blood pressure has been running low, so she has been started on Levophed. Patient has issues with clotting and drainage from the chest tubes. The patient received a total of 4 PRBCs, 3 units of FFP's, 2 units of PRBCs and 2 units of cryoprecipitate with no 1 bag of IV albumin. Chest x- ray from this morning showed no pneumothorax or atelectasis. On 10/14/2019 -The patient is postoperative day 2 from aortic valve replacement, mitral valve repair and CABG. As there was significant decrease in the output from her mediastinal and chest tubes, patient had an echocardiogram done. It showed moderate generalized pericardial effusion. So the patient was taken back to the OR and she had drainage of the pericardial effusion/tamponade. Patient just got back from the procedure. She is sedated and mechanically ventilated. Review of systems could not be done as the patient is mechanically ventilated and sedated. On 10/15/19 - Patient underwent reexploration of the chest with evacuation of clots and irrigation of the chest cavity. She was on mechanical ventilation until this afternoon. Around late afternoon patient has been successfully extubated. She opened her eyes on calling her name and squeeze my finger. She is still in atrial fibrillation requiring amiodarone. She has been off of all pressor support. She did not require any more blood transfusion since reexploration. Patient's labs from this morning show hemoglobin of 8.6. As per the nursing staff report even though patient's map has been running on the lower side, patient has good urinary output. On 10/16/2019-patient is up and sitting in a chair by the bedside. She complains of chest soreness. She also states that she has being overwhelmed with all the things that are happening. She denies any shortness of breath. On reviewing her vitals blood pressure is maintained 122/58, heart rate in 70s on p.o. am iodarone, saturating at 95% on 2 L of nasal cannula. On reviewing the patient's labs hemoglobin is stable around 8.8 sodium 132, BUN 24, creatinine 1.06, that is slightly up from yesterday. On 10/17/2019 patient is sitting up in a chair by the bedside doing incentive spirometry. She states that she is anxious with everything going on. She complains of chest soreness. She states that she has mild cough but is not able to bring up anything due to chest tightness. She complains of generalized fatigue and weakness. She thinks that her lower extremity swelling is getting better. She denies having any abdominal pain, nausea or vomiting. On reviewing her vitals her T-max is 97.6, blood pressure 108/49 saturating at 93% on 2 L of nasal cannula. She had a chest x-ray showing interstitial lung disease and mild atelectasis. Reviewing her labs white count of 14.1 hemoglobin of 9.1, platelets 115. Sodium 131, potassium 4.5, chloride 101, bicarb 25, BUN 29, creatinine 1.07. As per the nursing staff report patient has been having junctional rhythm and A. fib at times. She had IV amiodarone bolus last night. On 10/18/2019 -patient is lying in bed. She was having difficulty in breathing and is placed on BiPAP. She appears to be in respiratory distress. She could not reply to most of my questions, stating that she is having difficulty in breathing and that she is feeling very weak and fatigued. Last night patient's blood pressure was low with low urine output and she was in A. fib with rapid ventricular rate. She received albumin last night. On reviewing the vitals patient is saturating in the 90s on BiPAP, blood pressure 90 x 63, heart rate 100s in atrial fibrillation. On reviewing the vitals patient's white count was 20.9, hemoglobin 9.3, sodium 128, potassium 5.5, chloride 97, bicarb 25, BUN 31, creatinine of 0.98. Active Medications Acetaminophen (Tylenol Tab) 1,000 mg PO Q6HR PRN PRN Reason: Fever and/ or Pain Last Admin: 10/17/19 08:52 Dose: 1,000 mg Documented by: Albuterol/Ipratropium (Duoneb 0.5 Mg-3 Mg/3 Ml Soln) 3 ml INHALATION RT-Q2H PRN PRN Reason: Shortness Of Breath Or Wheezing Albuterol/Ipratropium (Duoneb 0.5 Mg-3 Mg/3 Ml Soln) 3 ml INHALATION RT-QID [facility] Last Admin: 10/18/19 19:32 Dose: 3 ml Documented by: Amiodarone HCl (Cordarone) 400 mg PO BID [facility] Last Admin: 10/18/19 21:39 Dose: 400 mg Documented by: Ascorbic Acid (Vitamin C) 500 mg PO BID-W/MEALS [facility] Last Admin: 10/18/19 16:36 Dose: Not Given Documented by: Aspirin (Aspirin) 81 mg PO DAILY [facility] Last Admin: 10/18/19 08:50 Dose: 81 mg Documented by: Atorvastatin Calcium (Lipitor) 40 mg PO DAILY [facility] Last Admin: 10/18/19 08:50 Dose: 40 mg Documented by: Benzocaine/Menthol (Cepacol Lozenge) 1 each MUCOUS MEM Q2H PRN PRN Reason: Sore Throat Bisacodyl (Dulcolax) 10 mg RECTAL DAILY [facility] Chlorhexidine Gluconate (Peridex) 15 ml MUCOUS MEM BID [facility] Last Admin: 10/18/19 21:42 Dose: 15 ml Documented by: Ferrous Sulfate (Feosol) 325 mg PO BID-W/MEALS [facility] Last Admin: 10/18/19 16:36 Dose: Not Given Documented by: Guaifenesin (Mucinex) 600 mg PO Q12HR PRN PRN Reason: Cough Heparin Sodium (Porcine) (Heparin) 5,000 unit SQ Q8H [facility] Last Admin: 10/18/19 21:42 Dose: 5,000 unit Documented by: Propofol 1,000 mg/ IV Solution 100 mls @ 0 mls/hr IV .Q0M [facility]; Protocol Last Titration: 10/18/19 22:30 Dose: 10 mcg/kg/min, 4.188 mls/hr Documented by: Piperacillin Sod/Tazobactam (Sod 3.375 gm/ Sodium Chloride) 100 mls @ 25 mls/hr IVPB Q8H [facility] Last Admin: 10/18/19 21:48 Dose: 25 mls/hr Documented by: Insulin Aspart (Novolog) 0 unit SQ ACHS [facility]; Protocol Last Admin: 10/18/19 21:48 Dose: Not Given Documented by: Insulin Aspart (Novolog) 0 unit SQ Q6H [facility]; Protocol Levothyroxine Sodium (Synthroid) 75 mcg PO DAILY@0630 [facility] Last Admin: 10/18/19 05:35 Dose: 75 mcg Documented by: Lidocaine (Lidoderm) 1 patch TOPICAL DAILY [facility] Last Admin: 10/18/19 08:50 Dose: 1 patch Documented by: Lisinopril (Zestril) 2.5 mg PO DAILY@1200 [facility] Last Admin: 10/18/19 12:26 Dose: Not Given Documented by: Magnesium Hydroxide (Milk Of Magnesia) 2,400 mg PO BID PRN PRN Reason: Constipation Methylprednisolone Sodium Succinate (Solu-Medrol) 40 mg IV Q8HR [facility] Metoclopramide HCl (Reglan) 5 mg IVP Q4H PRN PRN Reason: Nausea And Vomiting Last Admin: 10/18/19 12:29 Dose: 5 mg Documented by: Metoprolol Tartrate (Lopressor) 12.5 mg PO BID [facility] Last Admin: 10/18/19 20:31 Dose: Not Given Documented by: Midodrine (Proamatine) 5 mg PO AC-TID [facility] Last Admin: 10/18/19 16:21 Dose: 5 mg Documented by: Ondansetron HCl (Zofran) 4 mg IVP Q6HR PRN PRN Reason: Nausea And Vomiting Last Admin: 10/18/19 02:38 Dose: 4 mg Documented by: Pantoprazole Sodium (Protonix) 40 mg PO AC-BRKFST [facility] Last Admin: 10/18/19 05:35 Dose: 40 mg Documented by: Polyethylene Glycol (Miralax) 17 gm PO DAILY [facility] Last Admin: 10/18/19 16:21 Dose: Not Given Documented by: Senna/Docusate Sodium (Senokot-S) 2 each PO HS [facility] Last Admin: 10/18/19 21:42 Dose: 2 each Documented by: Sodium Chloride (Saline Flush) 10 ml IV BID [facility] Last Admin: 10/18/19 21:42 Dose: 10 ml Documented by: Tramadol HCl (Ultram) 50 mg PO Q8HR PRN PRN Reason: Pain Last Admin: 10/17/19 21:26 Dose: 50 mg Documented by: Objective - Vital Signs Vital signs: Vital Signs Temp 97.7 F 10/18/19 12:00 Pulse 70 10/18/19 16:28 Resp 22 10/18/19 15:00 BP 127/51 10/18/19 15:00 Pulse Ox 89 L 10/18/19 15:00 Intake & Output 10/17/19 10/18/19 10/18/19 18:59 06:59 18:59 Intake Total 100 1040 Output Total 413 571 490 Balance -313 469 -490 Weight 69.8 kg 69.8 kg Intake: IV 500 Albumin Human 5% 500 ml 500 In Empty Bag 1 bag @ 500 mls/hr IVPB ONCE ONE Rx#: [id number] Intake, IV Titration 100 Amount Dextrose 5% in Water 100 100 ml @ 618 mls/hr IV .Q10M ONE with Amiodarone 150 mg Rx#:[id number] Oral 540 Output: Chest Tube Drainage 170 300 Right 140 300 single mediastinal 30 Urine 243 271 490 Other: Voiding Method Indwelling Catheter Indwelling Catheter Indwelling Catheter ABP, PAP, CO, CI - Last Documented Arterial Blood Pressure 126/49 Pulmonary Artery Pressure 57/36 Cardiac Output 3.8 Cardiac Index 2.5 - Exam GENERAL EXAM: appears to be in respiratory distress, currently on BiPAP HEENT: She looks pale, LUIS CHEST: Symmetrical expansion. 1 mediastinal chest tube in place, and left and right pleural chest tubes in place LUNGS: Equal air entry with no crackles, wheeze, rhonchi or dullness. Diminished in the lower lobes CVS: Irregularly irregular ABDOMEN: Soft, nontender. normal bowel sounds EXTREMITIES: edema in lower extremities CENTRAL NERVOUS SYSTEM: confused, moving all extremities - Labs CBC & Chem 7: 10/18/19 05:00 10/18/19 18:30 Labs: Abnormal Lab Results - Last 24 Hours (Table) 10/17/19 10/18/19 10/18/19 Range/Units 20:46 05:00 05:00 WBC 20.9 H (3.8-10.6) k/uL RBC 3.02 L (3.80-5.40) m/uL Hgb 9.3 L (11.4-16.0) gm/dL Hct 28.6 L (34.0-46.0) % RDW 17.1 H (11.5-15.5) % ABG pH (7.35-7.45) ABG pCO2 (35-45) mmHg ABG pO2 (83-108) mmHg ABG Total CO2 (19-24) mmol/L ABG O2 Saturation (94-97) % Sodium 128 L (137-145) mmol/L Potassium 5.5 H (3.5-5.1) mmol/L Chloride 97 L (98-107) mmol/L BUN 31 H (7-17) mg/dL Creatinine (0.52-1.04) mg/dL Glucose (74-99) mg/dL POC Glucose (mg/dL) 121 H (75-99) mg/dL Calcium (8.4-10.2) mg/dL Urine Protein (Negative) Urine Ketones (Negative) Urine Blood (Negative) Urine RBC (0-5) /hpf Amorphous Sediment (None) /hpf Urine Bacteria (None) /hpf Hyaline Casts (0-2) /lpf Urine Mucus (None) /hpf 10/18/19 10/18/19 10/18/19 Range/Units 11:55 12:10 15:15 WBC (3.8-10.6) k/uL RBC (3.80-5.40) m/uL Hgb (11.4-16.0) gm/dL Hct (34.0-46.0) % RDW (11.5-15.5) % ABG pH 7.29 L (7.35-7.45) ABG pCO2 53 H (35-45) mmHg ABG pO2 59 L* (83-108) mmHg ABG Total CO2 27 H (19-24) mmol/L ABG O2 Saturation 88.0 L (94-97) % Sodium (137-145) mmol/L Potassium (3.5-5.1) mmol/L Chloride (98-107) mmol/L BUN (7-17) mg/dL Creatinine (0.52-1.04) mg/dL Glucose (74-99) mg/dL POC Glucose (mg/dL) 137 H (75-99) mg/dL Calcium (8.4-10.2) mg/dL Urine Protein 1+ H (Negative) Urine Ketones Trace H (Negative) Urine Blood Trace H (Negative) Urine RBC 8 H (0-5) /hpf Amorphous Sediment Occasional H (None) /hpf Urine Bacteria Rare H (None) /hpf Hyaline Casts 6 H (0-2) /lpf Urine Mucus Rare H (None) /hpf 10/18/19 Range/Units 15:18 WBC (3.8-10.6) k/uL RBC (3.80-5.40) m/uL Hgb (11.4-16.0) gm/dL Hct (34.0-46.0) % RDW (11.5-15.5) % ABG pH (7.35-7.45) ABG pCO2 (35-45) mmHg ABG pO2 (83-108) mmHg ABG Total CO2 (19-24) mmol/L ABG O2 Saturation (94-97) % Sodium 129 L (137-145) mmol/L Potassium 6.2 H* (3.5-5.1) mmol/L Chloride (98-107) mmol/L BUN 39 H (7-17) mg/dL Creatinine 1.21 H (0.52-1.04) mg/dL Glucose 105 H (74-99) mg/dL POC Glucose (mg/dL) (75-99) mg/dL Calcium 8.1 L (8.4-10.2) mg/dL Urine Protein (Negative) Urine Ketones (Negative) Urine Blood (Negative) Urine RBC (0-5) /hpf Amorphous Sediment (None) /hpf Urine Bacteria (None) /hpf Hyaline Casts (0-2) /lpf Urine Mucus (None) /hpf Assessment and Plan Assessment: ASSESSMENT Pericardial Effusion/tamponade - taken to the OR and s/p evacuation of clots Acute respiratory failure - on BiPAP currently Status post aortic valve replacement with bioprosthetic aortic valve and mitral valve repair Status post CABG Acute blood loss anemia History of asthma/COPD Persistent atrial fibrillation GERD Hypertension Hyperlipidemia History of mitral valve prolapse Chronic kidney disease stage II Hypothyroidism Remote history of nicotine dependence Plan: Re exploration of the chest done on 10/14/19 due to concerns of pericardial tamponade/effusion . Patient has been successfully extubated on 10/15/19 .Last night patient dropped her blood pressure, with decreased urinary output. She was given albumin. She also went into atrial fibrillation with rapid v entricular rate and she was given amiodarone. Since this morning patient appears to be in respiratory distress and was placed on BiPAP. CT surgery at bedside, planning to intubate. Overall prognosis seems to be poor. Further recommendations depending on the progress of the patient.
[2019-10-19] MEDS ORDERED: ALBUMIN HUMAN 5% 250 ML in EMPTY BAG 1 BAG IVPB ONE (01:41)
[2019-10-19] MEDS: methylPREDNISolone SOD SUCCI 40 MG/ML 1 ML VIAL IV SCH ×4 (01:54→23:38)
[2019-10-19] MEDS: DEXTROSE 5%-0.45% NACL 1,000 ML IV SCH ×2 (02:00→20:20)
[2019-10-19 04:28] LABS: Glucose,Whole Blood 128 mg/dL (75-99)
[2019-10-19 04:35] LABS: Anisocytosis Slight; HCT 23.8 % (34.0-46.0); Hypochromasia Slight; MCHC 31.3 g/dL (31.0-37.0); MCV 95.9 fL (80.0-100.0); Macrocytosis Slight; Mean Platelet Volume 8.6; Platelet Count 154 k/uL (150-450); RBC 2.49 m/uL (3.80-5.40); RDW 17.7 % (11.5-15.5)
[2019-10-19 04:40] LABS: Ionized Calcium 4.9 mg/dL (4.5-5.3)
[2019-10-19 04:43] LABS: HGB 7.5 gm/dL (11.4-16.0)
[2019-10-19 04:47] LABS: Albumin 3.1 g/dL (3.5-5.0); Calcium 8.2 mg/dL (8.4-10.2); Magnesium 2.2 mg/dL (1.6-2.3); Potassium 5.1 mmol/L (3.5-5.1); Total Bilirubin 1.6 mg/dL (0.2-1.3); Total Protein 4.9 g/dL (6.3-8.2)
[2019-10-19 05:20] LABS: Band Neutrophils % 1 %; Lymphocytes # (M) 0.64 k/uL (1.0-4.8); Monocytes # (M) 0.51 k/uL (0-1.0); Myelocytes # (M) 0.13 k/uL (0); Myelocytes % 1 %; Neutrophils % (M) 91 %; Nucleated Red Blood Cells 1 /100 WBC (0-0); Polychromasia Present; Total Cells Counted 200; WBC 12.7 k/uL (3.8-10.6)
[2019-10-19] MEDS: INSULIN ASPART (NovoLOG) 100 UNIT/ML VIAL SQ SCH ×3 (06:05→20:06)
[2019-10-19] MEDS: HEPARIN SODIUM,PORCINE 5,000 UNIT/ML 1 ML VIAL SQ SCH ×3 (06:14→20:20)
[2019-10-19] MEDS: FERROUS SULFATE 325 MG TAB PO SCH ×2 (06:14→16:42)
[2019-10-19] MEDS: ASCORBIC ACID 500 MG TAB PO SCH ×2 (06:14→16:41)
[2019-10-19] MEDS: LEVOTHYROXINE 75 MCG TAB PO SCH (06:15)
[2019-10-19] MEDS: PANTOPRAZOLE 40 MG TABLET PO SCH (06:15)
[2019-10-19] MEDS: MIDODRINE 5 MG TAB PO SCH ×3 (06:15→16:41)
[2019-10-19] MEDS: PIPERACILLIN-TAZOBACTAM 3.375 GM in SODIUM CHLORIDE 0.9% 100 ML IVPB SCH ×3 (06:15→22:26)
[2019-10-19] MEDS: IPRATROPIUM-ALBUTEROL 3 ML NEB INHALATION SCH ×4 (07:13→20:22)
--- NOTE | 2019-10-19 07:47 | XR ---
EXAMINATION TYPE: XR chest 1V portable DATE OF EXAM: 10/19/2019 Comparison: 10/18/2019 Clinical History: 79-year-old female Tube placement Findings: ET tube is satisfactory. NG tube courses below the diaphragm. Right IJ CVC tip at the right atrium. E picardial pacer leads. Median sternotomy wires and prosthetic aortic valve. Right-sided chest tube re kristin in place. Prominent biapical pleural-parenchymal scarring. No definite pneumothorax. Some volum e loss in the left hemithorax and patchy and confluent airspace opacities, left greater than right. S uspect small left effusion. Overall unchanged findings. Impression: Overall unchanged extensive patchy and confluent airspace disease, left greater than right with right -sided chest tube in place and biapical pleural parenchymal scarring. No definite pneumothorax.
[2019-10-19 07:56] LABS: ABG Base Excess -1.6 mmol/L; ABG HCO3 25 mmol/L (21-25); ABG Oxygen Saturation 92.1 % (94-97); ABG PCO2 47 mmHg (35-45); ABG PH 7.32 (7.35-7.45); ABG PO2 64 mmHg (83-108); ABG TCO2 26 mmol/L (19-24)
[2019-10-19 07:57] LABS: Allen Test Performed? no
[2019-10-19 08:13] LABS: Glucose,Whole Blood 142 mg/dL (75-99)
[2019-10-19] MEDS ORDERED: METOPROLOL TARTRATE 5 MG/5 ML VIAL IVP ONE ×2 (08:36→08:37)
[2019-10-19] MEDS: CHLORHEXIDINE GLUCONATE 15 ML CUP MUCOUS MEM SCH ×2 (08:42→20:20)
[2019-10-19] MEDS: ATORVASTATIN 40 MG TAB PO SCH (08:42)
[2019-10-19] MEDS: ASPIRIN 81 MG PO SCH (08:42)
[2019-10-19] MEDS: AMIODARONE 200 MG TAB PO SCH (08:42)
[2019-10-19] MEDS: METOPROLOL TARTRATE 12.5 MG TAB PO SCH ×2 (08:42→20:21)
[2019-10-19] MEDS ORDERED: bisacodyL 10 MG SUPP RECTAL SCH (09:00)
[2019-10-19] MEDS ORDERED: DIGOXIN 250 MCG/ML 2 ML AMP IVP STA (09:13)
--- NOTE | 2019-10-19 09:30 | P.PN ---
Subjective Progress Note Date: 10/19/19 Principal diagnosis: Severe aortic insufficiency, moderate to severe mitral regurgitation, single- vessel coronary artery disease. Previous medical history of coronary artery disease with myocardial infarction and stent placement to the RCA, hypertension, hyperlipidemia, chronic kidney disease stage III, right internal carotid artery stenosis 50-69%, hypothyroidism, TIA in 2004 without residual, remote history of pneumonia, previous tobacco dependence, moderate restriction with preoperative FEV1 50% of predicted, and family history of premature coronary artery disease. POD #7 aortic valve replacement with 21 mm Herrera Inspiris bioprosthetic aortic valve, mitral valve repair with a #28 mm [employer]bo[employer] AnnuloFlex band, reverse saphenous vein graft off the aorta to the right coronary artery with right lower extremity greater saphenous endoscopic vein harvesting, clip ligation of left atrial appendage 35mm AtriClip and intraoperative transesophageal echocardiogram. Postoperative acute blood loss anemia, expected given hemodilution and cardiopulmonary bypass pump Postoperative and intraoperative atrial fibrillation, unexpected but potential outcome of valvular heart surgery Postoperative prolonged mechanical ventilation secondary to hemodynamic instability, unexpected Postoperative pericardial effusion/tamponade POD #5 Re-exploration of the chest, evacuation of clot, irrigation of chest cavity Postoperative transaminitis, likely shocked liver secondary to hypotension, unexpected The patient's currently laying in bed in the intensive care unit. She has had an eventful postoperative course with hypotension requiring pressor support, low cardiac output requiring inotropes, atrial fibrillation requiring amiodarone, and anemia requiring blood transfusion. She has received 9 units packed red blood cells total, 3 units fresh frozen plasma, 4 packs of platelets, and 2 packs of cryoprecipitate, in addition to IV albumin. She goes back and forth between sinus rhythm/atrially paced at 70 bpm and A. fib with RVR. Yesterday she was becoming less responsive, chest x-ray obtained, and ABGs obtained demonstrating respiratory acidosis, the patient was trialed on BiPAP unsuccessfully and she was reintubated yesterday evening. Dobbhoff was placed for nutritional support. Triple-lumen central line and right radial arterial line were placed. Patient's blood pressure has been very labile requiring frequent adjustment of medications. This morning she was quite tachycardic and was given IV push Lopressor. White blood cell count was 20.9 yesterday, 12.7 this morning, she was started on IV Zosyn yesterday as well as IV steroids per pulmonology. She was sedated on very low-dose propofol, still squeezes with both her hands and toes, nuts or head yes appropriately. Echocardiogram obtained this morning. Objective - Vital Signs Vital signs: Vital Signs Temp 99.5 F 10/19/19 08:00 Pulse 126 H 10/19/19 08:00 Resp 19 10/19/19 08:00 BP 104/35 10/19/19 08:00 Pulse Ox 92 L 10/19/19 08:00 Intake & Output 10/18/19 10/19/19 10/19/19 18:59 06:59 18:59 Intake Total 103 878.514 86 Output Total 740 517 35 Balance -637 361.514 51 Weight 69.8 kg 68.8 kg Intake: IV 3 723 66 0.9NS Pressure Bags 3 63 6 Albumin Human 5% 250 ml 250 In Empty Bag 1 bag @ 250 mls/hr IVPB ONCE ONE Rx#: [id number] Dextrose 5%-0.45% NaCl 1, 300 60 000 ml @ 60 mls/hr IV . [id number] [facility] Rx#:[id number] Piperacillin-Tazobactam 3 100 .375 gm In Sodium Chloride 0.9% 100 ml @ 25 mls/hr IVPB Q8H [facility] Rx#: [id number] Sodium Chloride 0.9% 1, 10 000 ml @ 20 mls/hr IV . Q24H [facility] Rx#:[id number] Intake, IV Titration 100 5.514 Amount Calcium Gluconate 1 gm In 100 Sodium Chloride 0.9% 100 ml @ 100 mls/hr IVPB ONCE ONE Rx#:[id number] propofoL 1,000 mg In 5.514 Empty Bag 1 bag @ Titrate IV .Q0M [facility] Rx#: [id number] Tube Feeding 90 20 Other 60 Output: Chest Tube Drainage 200 100 Right 200 100 Urine 540 417 35 Other: Voiding Method Indwelling Catheter Indwelling Catheter ABP, PAP, CO, CI - Last Documented Arterial Blood Pressure 121/46 Pulmonary Artery Pressure 57/36 Cardiac Output 3.8 Cardiac Index 2.5 - Constitutional General appearance: Present: mild distress - Respiratory Details: Lungs sounds diminished bilaterally with crackles in the bases. Respirations even, slightly tacchypneic on mechanical ventilation. Current ventilator settings assist control mode, FiO2 40%, tidal volume 350, respiratory rate 24, PEEP 5. ABGs this morning on those settings 7.32/47/60/25/92%/-1.6. Right pleural chest tube present and connected to continuous wall suction, 50 mL serous drainage overnight, 300 mL since in the last 24 hours. No air leaks present. - Cardiovascular Details: S1, S2 present. Irregular, tachycardic rate and rhythm, A. fib RVR on telemetry, occasionally sinus/atrial paced at 70 bpm. Sternum stable. A/V epicardial pacemaker wires present, connected to generator, AAI mode with rate 70 bpm. Palpable peripheral pulses bilaterally. Generalized edema present. Right internal jugular triple-lumen central line, right radial arterial line present. Heart hugger, SCDs, antiembolism stockings all present. - Gastrointestinal Gastrointestinal Comment(s): Abdomen soft, nontender, nondistended. Hypoactive bowel sounds present. Tympanic to percussion. Dobbhoff tube present, tube feeding infusing. - Genitourinary Genitourinary Comment(s): Pratt present draining clear yellow urine. Output is 30-40 mL per hour overnight - Integumentary Integumentary Comment(s): Skin is warm and dry. No evidence of skin breakdown. - Neurologic Neurologic: Present: CNII-XII intact - Musculoskeletal Musculoskeletal: Present: generalized weakness, strength equal bilaterally - Psychiatric Psychiatric Comment(s): Patient currently sedated on mechanical ventilation, does nod her head, follows commands, squeezes both hands, and wiggles toes. - Allied health notes Allied health notes reviewed: nursing - Labs CBC & Chem 7: 10/19/19 04:30 10/19/19 04:30 Labs: Abnormal Lab Results - Last 24 Hours (Table) 10/18/19 10/18/19 10/18/19 Range/Units 11:55 12:10 15:15 WBC (3.8-10.6) k/uL RBC (3.80-5.40) m/uL Hgb (11.4-16.0) gm/dL Hct (34.0-46.0) % RDW (11.5-15.5) % Neutrophils # (Manual) (1.3-7.7) k/uL Lymphocytes # (Manual) (1.0-4.8) k/uL Myelocytes # (Manual) (0) k/uL Nucleated RBCs (0-0) /100 WBC ABG pH 7.29 L (7.35-7.45) ABG pCO2 53 H (35-45) mmHg ABG pO2 59 L* (83-108) mmHg ABG HCO3 (21-25) mmol/L ABG Total CO2 27 H (19-24) mmol/L ABG O2 Saturation 88.0 L (94-97) % Sodium (137-145) mmol/L Potassium (3.5-5.1) mmol/L BUN (7-17) mg/dL Creatinine (0.52-1.04) mg/dL Glucose (74-99) mg/dL POC Glucose (mg/dL) 137 H (75-99) mg/dL Calcium (8.4-10.2) mg/dL Total Bilirubin (0.2-1.3) mg/dL AST (14-36) U/L ALT (4-34) U/L Total Protein (6.3-8.2) g/dL Albumin (3.5-5.0) g/dL Urine Protein 1+ H (Negative) Urine Ketones Trace H (Negative) Urine Blood Trace H (Negative) Urine RBC 8 H (0-5) /hpf Amorphous Sediment Occasional H (None) /hpf Urine Bacteria Rare H (None) /hpf Hyaline Casts 6 H (0-2) /lpf Urine Mucus Rare H (None) /hpf 10/18/19 10/18/19 10/18/19 Range/Units 15:18 17:01 18:27 WBC (3.8-10.6) k/uL RBC (3.80-5.40) m/uL Hgb (11.4-16.0) gm/dL Hct (34.0-46.0) % RDW (11.5-15.5) % Neutrophils # (Manual) (1.3-7.7) k/uL Lymphocytes # (Manual) (1.0-4.8) k/uL Myelocytes # (Manual) (0) k/uL Nucleated RBCs (0-0) /100 WBC ABG pH 7.21 L (7.35-7.45) ABG pCO2 67 H (35-45) mmHg ABG pO2 (83-108) mmHg ABG HCO3 27 H (21-25) mmol/L ABG Total CO2 29 H (19-24) mmol/L ABG O2 Saturation (94-97) % Sodium 129 L (137-145) mmol/L Potassium 6.2 H* (3.5-5.1) mmol/L BUN 39 H (7-17) mg/dL Creatinine 1.21 H (0.52-1.04) mg/dL Glucose 105 H (74-99) mg/dL POC Glucose (mg/dL) 211 H (75-99) mg/dL Calcium 8.1 L (8.4-10.2) mg/dL Total Bilirubin (0.2-1.3) mg/dL AST (14-36) U/L ALT (4-34) U/L Total Protein (6.3-8.2) g/dL Albumin (3.5-5.0) g/dL Urine Protein (Negative) Urine Ketones (Negative) Urine Blood (Negative) Urine RBC (0-5) /hpf Amorphous Sediment (None) /hpf Urine Bacteria (None) /hpf Hyaline Casts (0-2) /lpf Urine Mucus (None) /hpf 10/18/19 10/18/19 10/19/19 Range/Units 18:30 20:00 04:27 WBC (3.8-10.6) k/uL RBC (3.80-5.40) m/uL Hgb (11.4-16.0) gm/dL Hct (34.0-46.0) % RDW (11.5-15.5) % Neutrophils # (Manual) (1.3-7.7) k/uL Lymphocytes # (Manual) (1.0-4.8) k/uL Myelocytes # (Manual) (0) k/uL Nucleated RBCs (0-0) /100 WBC ABG pH 7.20 L (7.35-7.45) ABG pCO2 70 H (35-45) mmHg ABG pO2 293 H (83-108) mmHg ABG HCO3 28 H (21-25) mmol/L ABG Total CO2 30 H (19-24) mmol/L ABG O2 Saturation 99.4 H (94-97) % Sodium 130 L (137-145) mmol/L Potassium 5.2 H (3.5-5.1) mmol/L BUN 42 H (7-17) mg/dL Creatinine 1.33 H (0.52-1.04) mg/dL Glucose 101 H (74-99) mg/dL POC Glucose (mg/dL) 128 H (75-99) mg/dL Calcium (8.4-10.2) mg/dL Total Bilirubin (0.2-1.3) mg/dL AST (14-36) U/L ALT (4-34) U/L Total Protein (6.3-8.2) g/dL Albumin (3.5-5.0) g/dL Urine Protein (Negative) Urine Ketones (Negative) Urine Blood (Negative) Urine RBC (0-5) /hpf Amorphous Sediment (None) /hpf Urine Bacteria (None) /hpf Hyaline Casts (0-2) /lpf Urine Mucus (None) /hpf 10/19/19 10/19/19 10/19/19 Range/Units 04:30 04:30 07:54 WBC 12.7 H (3.8-10.6) k/uL RBC 2.49 L (3.80-5.40) m/uL Hgb 7.5 L D (11.4-16.0) gm/dL Hct 23.8 L (34.0-46.0) % RDW 17.7 H (11.5-15.5) % Neutrophils # (Manual) 11.60 H (1.3-7.7) k/uL Lymphocytes # (Manual) 0.64 L (1.0-4.8) k/uL Myelocytes # (Manual) 0.13 H (0) k/uL Nucleated RBCs 1 H (0-0) /100 WBC ABG pH 7.32 L (7.35-7.45) ABG pCO2 47 H (35-45) mmHg ABG pO2 64 L (83-108) mmHg ABG HCO3 (21-25) mmol/L ABG Total CO2 26 H (19-24) mmol/L ABG O2 Saturation 92.1 L (94-97) % Sodium 131 L (137-145) mmol/L Potassium (3.5-5.1) mmol/L BUN 43 H (7-17) mg/dL Creatinine 1.43 H (0.52-1.04) mg/dL Glucose 110 H (74-99) mg/dL POC Glucose (mg/dL) (75-99) mg/dL Calcium 8.2 L (8.4-10.2) mg/dL Total Bilirubin 1.6 H (0.2-1.3) mg/dL AST 777 H (14-36) U/L ALT 271 H (4-34) U/L Total Protein 4.9 L (6.3-8.2) g/dL Albumin 3.1 L (3.5-5.0) g/dL Urine Protein (Negative) Urine Ketones (Negative) Urine Blood (Negative) Urine RBC (0-5) /hpf Amorphous Sediment (None) /hpf Urine Bacteria (None) /hpf Hyaline Casts (0-2) /lpf Urine Mucus (None) /hpf 10/19/19 Range/Units 08:12 WBC (3.8-10.6) k/uL RBC (3.80-5.40) m/uL Hgb (11.4-16.0) gm/dL Hct (34.0-46.0) % RDW (11.5-15.5) % Neutrophils # (Manual) (1.3-7.7) k/uL Lymphocytes # (Manual) (1.0-4.8) k/uL Myelocytes # (Manual) (0) k/uL Nucleated RBCs (0-0) /100 WBC ABG pH (7.35-7.45) ABG pCO2 (35-45) mmHg ABG pO2 (83-108) mmHg ABG HCO3 (21-25) mmol/L ABG Total CO2 (19-24) mmol/L ABG O2 Saturation (94-97) % Sodium (137-145) mmol/L Potassium (3.5-5.1) mmol/L BUN (7-17) mg/dL Creatinine (0.52-1.04) mg/dL Glucose (74-99) mg/dL POC Glucose (mg/dL) 142 H (75-99) mg/dL Calcium (8.4-10.2) mg/dL Total Bilirubin (0.2-1.3) mg/dL AST (14-36) U/L ALT (4-34) U/L Total Protein (6.3-8.2) g/dL Albumin (3.5-5.0) g/dL Urine Protein (Negative) Urine Ketones (Negative) Urine Blood (Negative) Urine RBC (0-5) /hpf Amorphous Sediment (None) /hpf Urine Bacteria (None) /hpf Hyaline Casts (0-2) /lpf Urine Mucus (None) /hpf Microbiology - Last 24 Hours (Table) 10/18/19 13:00 Sputum Culture - Preliminary Sputum 10/18/19 11:55 Urine Culture - Preliminary Urine,Catheterized - Imaging and Cardiology Chest x-ray: report reviewed, image reviewed Assessment and Plan Assessment: 1. Severe aortic insufficiency, status post bioprosthetic aortic valve replacement 2. Moderate to severe mitral regurgitation, status post mitral valve repair 3. Single-vessel coronary artery disease, status post bypass to the RCA 4. History of coronary artery disease with myocardial infarction, status post stent placement to the RCA 5. History of hypertension, currently hypotensive 6. History of hyperlipidemia, treated 7. Right internal carotid artery stenosis 50-69% 8. Chronic kidney disease stage III 9. Hypothyroid 10. TIA in 2004 without residual 11. Remote history of pneumonia 12. Previous tobacco dependence 13. Moderate lung restriction with preoperative FEV1 58% of predicted, pul monary fibrosis seen on CT 14. Family history of premature coronary artery disease 15. Postoperative acute blood loss anemia, status post transfusion 16. Postoperative and intraoperative atrial fibrillation, status post clip ligation of left atrial appendage and amiodarone initiation 17. Postoperative prolonged mechanical ventilation with reintubation 18. Postoperative pericardial effusion/tamponade, status post re-exploration of the chest, evacuation of clot, irrigation of chest cavity 19. Transaminitis, shock liver, likely from hypotension Plan: 1. Continue low-dose aspirin, statin. Will hold off on Plavix. Continue low- dose beta alan with parameters. Will start IV hydralazine with parameters for afterload reduction 2. Discontinue amiodarone due to transaminitis. Will give digoxin 500 g 1, followed by 250 g 2. No anticoagulation 3. Mechanical ventilator support per pulmonology. Antibiotics, steroids per pulmonology 4. Will monitor daily labs and x-rays. Electrolyte replacement per protocol. 5. No nephrotoxins. Continue IV fluids 6. GI/DVT prophylaxis. 7. Continue Midodrine for blood pressure 8. Pain control with current medication regimen. 9. Insulin management per primary care service. Preoperative hemoglobin A1c 5 .5% 10. Continue to monitor chest tube output and consistency 11. More recommendations to follow Time with Patient: Greater than 30
[2019-10-19] MEDS: LIDOCAINE 5% PATCH TOPICAL SCH (09:33)
[2019-10-19] MEDS: polyethylene glycoL 3350 17 GM POWD.PACK PO SCH (09:33)
[2019-10-19] MEDS: bisacodyL 10 MG SUPP RECTAL SCH ×2 (09:34→20:20)
[2019-10-19] MEDS: MAGNESIUM HYDROXIDE 2,400 MG/10 ML CUP PO SCH ×2 (09:39→20:21)
--- NOTE | 2019-10-19 10:35 | PN ---
PROGRESS NOTE Mrs. Quiroz is a 79-year-old female with a history of status post aortic valve replacement, mitral valve repair and coronary artery bypass grafting, paroxysmal atrial fibrillation, had underwent re-exploration for vessel bleeding. Yesterday, became more hypoxemic requiring mechanical ventilation. She is intubated. She continued to have paroxysmal atrial fibrillation. She is on no vasopressor. She is in atrial pace when she is in sinus mechanism. She continues to be otherwise on amiodarone 400 mg twice a day, aspirin once a day, lisinopril 2.5 mg daily, metoprolol tartrate 12.5 mg twice a day. PHYSICAL EXAMINATION: Blood pressure 120/50 with a heart rate in the 70s to 80s. LUNGS: Clear to auscultation anteriorly. NEUROLOGICALLY: She is intubated. HEART: Regular rate and rhythm, S1, S2. No S3 with systolic heart. No diastolic murmur, no rub. ABDOMEN: Soft, positive bowel sounds, no organomegaly. EXTREMITIES: +1 edema. LAB DATA: Revealed BUN and creatinine 43 and 1.43. AST of 777, which has worsened compared to yesterday. ALT of 271. White blood cell of 12.7. Her chest x-ray shows patchy and confluent air space bilaterally. IMPRESSION: 1. Respiratory failure, status post open heart surgery. 2. Status post aortic valve replacement, mitral valve repair and coronary artery bypass grafting. 3. Paroxysmal atrial fibrillation. 4. Elevated liver function tests and renal function, probably related to hypoperfusion. 5. Sinus bradycardia. Patient in sinus mechanism. 6. Status post re-exploration because of bleeding. 7. Prior history of hyperlipidemia. RECOMMENDATION: At this time with supportive care. Unfortunately prognosis is guarded at this time. Will follow her renal function closely. The patient is not anticoagulated. She had clipping of the left atrial appendage. Will review the results for repeat echocardiogram to rule out any further pericardial effusion. Depending on her progress, further recommendation will be made. MMODL / IJN: [id number] /
--- NOTE | 2019-10-19 10:37 | ECHOF ---
Referral Reason:eval LV MEASUREMENTS -------- HEIGHT: 182.9 cm WEIGHT: 72.6 kg BP: TR Vmax: 2.60 m/s TR maxP.13 mmHg RAP: 5.00 mmHg RVSP: 32.13 mmHg FINDINGS -------- Resting tachycardia (HR>100bpm). Echo done 10/14/19: Pt had CABG Limited study for LV Function. [id number] tricuspid regurgitation present. Right ventricular systolic pressure is normal at < 35 mmHg. There is no pericardial effusion. CONCLUSIONS -------- 1. Resting tachycardia (HR>100bpm). 2. Echo done 10/14/19: Pt had CABG Limited study for LV Function. 3. [id number] tricuspid regurgitation present. 4. Right ventricular systolic pressure is normal at < 35 mmHg. 5. There is no pericardial effusion. 6. can not asesss lv fx due to heart rates of 178 7 LV fx may be around 30% with basal inferior wall akinesis [employer] S[employer]OR OPERATOR: Isabel Patricio RDCS
[2019-10-19 10:47] VITALS: BMI 25.2
[2019-10-19 11:28] LABS: Glucose,Whole Blood 168 mg/dL (75-99)
[2019-10-19] MEDS ORDERED: DIGOXIN 250 MCG/ML 2 ML AMP IVP SCH ×2 (16:00→22:00)
--- NOTE | 2019-10-19 16:01 | P.PN ---
Subjective Progress Note Date: 10/19/19 Principal diagnosis: Status post CABG, aortic valve replacement and mitral valve repair postoperative day # 7 2019, the patient is postop day #1. The patient underwent single-vessel bypass surgery, aortic valve replacement and mitral valve repair. She is known to have coronary artery disease, valvular insufficiency, hypertension and hyperlipidemia and chronic stage III kidney disease. The patient also is known to have carotid artery disease 50% on the right, hypothyroidism, and history of interstitial lung disease with pulmonary fibrosis and severe restrictive lung d isease with a FVC in the 50% range preoperatively. On today's evaluation, the patient is still intubated on mechanical ventilator. Were unable to wean the patient off the mechanical ventilator and extubated because of her ongoing difficulties with hemodynamics and bleeding from the chest tubes. Note that the patient is still in intensive care unit and she is still sedated for now at propofol which is running at 20 g per KG per minute. The patient is still requiring inotropes. The patient was quite hypotensive after arrival from the operating room and she was having difficulties with donis ycardia. She is currently paced at the rate of 80. She is on norepinephrine infusion which is running at 0.26 mg per KG per minute. She was started on milrinone yesterday at 0.2 g and at a later stage dobutamine was also added. Earlier this morning, cardiothoracic surgery saw the patient and increase the paced rhythm of 200 beats per minutes. Her underlying rhythm this morning is normal sinus rate of 60. She is at dobutamine at the medical grams per KG per minute and milrinone at 0.2 mics respiratory KG per minute. She is also on amiodarone at 0.5 mg/m. The right is being titrated pH has an adequate urine output. Most recent hemodynamics indicate a cardiac index of 1.9. Pulmonary artery pressures are 46/25 mmHg. A bedside echocardiogram was done and there is no evidence of any pericardial effusion. Valve functions were adequate. The mediastinal chest tubes are in place and the pleural chest tube is in place. There was ongoing issues with clotting and drainage from the chest tubes. Appropriate cleaning and suctioning of the chest tubes were done. Overall, the patient received a total of 4 units of packed RBC, 3 units of fresh frozen plasma, 2 units of packed RBC and 2 packs of cryoprecipitate in addition to call is in the form of IV albumin throughout the resuscitation. No ongoing or active bleed at this point in time. No attempts for weaning off the mechanical ventilator. The patient is currently on a assist-control mode of ventilation at the rate of 20 with tidal volume of 400 and FiO2 of 50% with a PEEP of 5. Blood gas showed a pH of 7.38 with a pCO2 of 41 and pO2 of 206. Chest x-ray showed adequate expansion of both lungs. There is underlying chronic incision infiltrates. ET tube is in a good location. Chest x-rays well expanded. No pneumothorax. No atelectasis. 10/14/2019 the patient is postop day #2. The patient underwent single vessel bypass surgery, aortic valve replacement, mitral valve repair. The bleeding has subsided from the mediastinal tubes. Output from the tubes have dropped down considerably since yesterday. Nevertheless, there is some widening of the mediastinum and the patient is going to have a limited echocardiogram to rule out any hematoma or blood collection around the pericardium. The patient currently is still intubated on a mechanical ventilator. The patient remains on assist control mode of ventilation at the rate of 20 with a tidal volume of 400 and FiO2 of 40% with a PEEP of 5. The peak airway pressure is 26. Blood gases showed a pH of 7.44 with a pCO2 of 37 and pO2 129. Chest x-ray showed adequate expansion of both lungs. Chest tubes are all in good location. ET tube is in a good location. The patient is still has his [place] catheter in place. The mediastinum is slightly widened. In terms of hemodynamics, the patient is currently on milrinone at a dose of 0.1 g per KG per minute. The patient is also on dobutamine at 3 mg per KG per minute. Levo fed is running at 0.03 mics respiratory KG per minute. The patient is also on amiodarone at 0.5 mg/m. She is was sedated with propofol at 25 g per KG per minute. Insulin is running at 2.5 units an hour. Cardiac index is at 1.5. The heart rate is being paced the rate of 80. Underlying rhythm is sinus with a rate of 70. The patient is receiving enteral feeding for nutritional support. The most recent hemoglobin is at 7.3. The platelet count is down to 65. Patient was reevaluated today on 10/15/19, she is postoperative day #3. Patient had to be taken back to the operating room last night for excessive bleeding or recurrent effusion/temporal not. Patient underwent reexploration of the chest, evacuation of clots, and irrigation of the chest cavity. Today she is in the ICU on mechanical ventilation, her ventilator settings are assist control rate 20, volume is 400 FiO2 is 40% and PEEP of 5. ABG this morning showed a pO2 of 158 pCO2 of 38 pH of 7.40 and I was on 40% FiO2. Patient remains on propofol at 20 mcg/kg/m, she is off all pressors and inotropes except she is still on Dobutrex at 2 mcg/kg/m. Patient has a low cardiac output requiring inotropes, she is in atrial fibrillation requiring amiodarone, and she was quite anemic received a total of 9 units of packed RBCs, 3 units of fresh frozen plasma, 4 units of platelets, 2 packs of cryoprecipitate, and albumin. Hemoglobin this morning is 9.2. Patient is arousable, and she follows simple instructions, hence we will likely check weaning parameters and decide accordingly. Reevaluated today on 10/16/19, patient is postoperative day #4. Patient was extubated yesterday uneventfully, looking back, patient had a relatively uneventful postoperative course with profound hypotension, low cardiac output, required wrestlers, inotropes, she also required amiodarone for atrial fibrillation, and blood transfusions, multiple units of blood products were given as noted above. At any rate the patient is now off mechanical ventilation, she is on few liters nasal cannula, seems to be doing much better over the last 24 hours, and she is pleased that she is off the ventilator. She is now off pressors and off inotropes since yesterday. She is generally weak. Hemoglobin today is 8.8, Electrolytesenc normal, and renal profile is relatively normal. Chest x-ray showed mostly interstitial lung disease and postoperative atelectasis Reevaluated today on 10/17/19, patient is postoperative day #5. Remains on nasal cannula, O2 saturations 96%, patient is on 2 L. She had an episode of atrial fibrillation with RVR last night, and she was loaded with amiodarone. Currently patient is fully paced. Chest x-ray continues to show evidence of interstitial lung disease, and atelectasis. Patient is awake, alert, denies any shortness of breath, she does have some vague chest discomfort. Bedside monitor is showing atrial pacing rhythm in the 70s with underlying rhythm showing sinus bradycardia rate of 57. Patient received 1 dose of IV bolus of amiodarone 150 mg 1 last night. Patient is not requiring any inotropic or pressor support. Mediastinal and right pleural chest tubes remain in place. No air leak is noted. Serosanguineous drainage is noted. Mediastinal tube drained 75 ML over the last 8 hours and 140 ML's in the last 24 hours. Right pleural chest tube drained 140 ML in the last 8 hours and 400 MLS the last 24 hours. Her hemoglobin remains stable. Patient did receive yesterday 40 mg of Lasix with good response Patient was reevaluated today on 10/18/19 she is postoperative day #6. Patient is sitting in a recliner, patient remains in the ICU, very frail looking and weak, patient did have a very mehreen postoperative course since her surgery. Last night the patient developed low blood pressure, and low urine output, patient was given albumin, she was in and out of atrial fibrillation with RVR, Lasix was given earlier today, and the patient had slight improvement in her urine output with Lasix. Again the patient remains in a relatively atrial fibrillation blood pressure is marginal. Hence she was started on midodrine and she was given albumin last night. Chest x-ray continues to show interstitial lung disease, and possibly some interstitial pulmonary edema. Patient was reevaluated today on 10/19/19, she is postoperative day #7. Yesterday the patient continues to do poorly, and continued to have hypercapnia with low pO2 and elevated pCO2. Did poorly with BiPAP, hence I recommended intubating the patient and she was reintubated presently on assist control rate of 24 tidal volume of 350, FiO2 of 40%. And PEEP of 5. ABG this morning showed a pO2 of 64 pCO2 of 47 pH of 7.32, hence I increased her rate up to 26 and increased her FiO2 to 45%. Patient is on a small dose of propofol at 10 mcg/kg/m, her IV fluid is D5 4 5 at 60 ML per hour. I restarted the patient on antibiotics in the form of Zosyn, and I recommended steroids, the findings on the chest x-ray are suspicious for noncardiogenic pulmonary edema, could also be cardiogenic pulmonary edema, underlying pneumonia is not entirely ruled out. Hence I felt would be safe to start the patient on Zosyn and Solu-Medrol. Patient continues to have intermittent episodes of A. fib with RVR, presently on amiodarone. Patient is also on tube feeding/enteral feeding. And did not yet to goal. She is arousable, she follows very simple instructions although she is on a small dose of propofol. Patient did have a triple lumen catheter placed by anesthesia yesterday, echocardiogram this morning showed LV dysfunction with 30% FiO2, and basal inferior wall akinesis Objective - Vital Signs Vital signs: Vital Signs Temp 99.5 F 10/19/19 08:00 Pulse 69 10/19/19 15:00 Resp 26 H 10/19/19 15:00 BP 111/44 10/19/19 15:00 Pulse Ox 99 10/19/19 15:00 Intake & Output 10/18/19 10/19/19 10/19/19 18:59 06:59 18:59 Intake Total 103 878.514 528.125 Output Total 740 517 195 Balance -637 361.514 333.125 Weight 69.8 kg 68.8 kg 68.8 kg Intake: IV 3 723 330 0.9NS Pressure Bags 3 63 30 Albumin Human 5% 250 ml 250 In Empty Bag 1 bag @ 250 mls/hr IVPB ONCE ONE Rx#: [id number] Dextrose 5%-0.45% NaCl 1, 300 300 000 ml @ 60 mls/hr IV . [id number] JAYE Rx#:[id number] Piperacillin-Tazobactam 3 100 .375 gm In Sodium Chloride 0.9% 100 ml @ 25 mls/hr IVPB Q8H JAYE Rx#: [id number] Sodium Chloride 0.9% 1, 10 000 ml @ 20 mls/hr IV . Q24H JAYE Rx#:[id number] Intake, IV Titration 100 5.514 68.125 Amount Calcium Gluconate 1 gm In 100 Sodium Chloride 0.9% 100 ml @ 100 mls/hr IVPB ONCE ONE Rx#:[id number] propofoL 1,000 mg In 5.514 68.125 Empty Bag 1 bag @ Titrate IV .Q0M JAYE Rx#: [id number] Tube Feeding 90 100 Other 60 30 Output: Chest Tube Drainage 200 100 Right 200 100 Urine 540 417 195 Other: Voiding Method Indwelling Catheter Indwelling Catheter ABP, PAP, CO, CI - Last Documented Arterial Blood Pressure 133/37 Pulmonary Artery Pressure 57/36 Cardiac Output 3.8 Cardiac Index 2.5 - Exam Physical Exam: Revealed 79-year-old female in no distress, on mechanical ventilation, arousable, follows very simple instructions although she is on a small dose of propofol at 10 mcg/kg/m. Head: Atraumatic, normocephalic, endotracheal tube and orogastric tube are intact, right IJ central line is noted/triple-lumen catheter. HEENT:[Neck is supple.] [No neck masses.] [No thyromegaly.] [No JVD.] Chest: Symmetrical chest expansion, crackles at the bases Right pleural chest tube present and connected to continuous wall suction, 50 mL serous drainage overnight, 300 mL since in the last 24 hours. No air leaks present. Cardiac Exam: Irregular, tachycardic rate and rhythm, A. fib RVR on telemetry, occasionally sinus/atrial paced at 70 bpm. Sternum stable. A/V epicardial pacemaker wires present, connected to generator, AAI mode with rate 70 bpm. Palpable peripheral pulses bilaterally. Generalized edema present. Right internal jugular triple-lumen central line, right radial arterial line present. Heart hugger, SCDs, antiembolism stockings all present. Abdomen: [Soft, nontender, no megaly, no rebound, no guarding, normal bowel sounds.] Extremities: [No clubbing, generalized edema is noted. Stockings noted. Neurological Exam: [No focal neurologic deficit.] Arousable, follows simple instructions, mental status seems to be intact. Psychiatric: Normal mood, affect and normal mental status examination. - Labs CBC & Chem 7: 10/19/19 04:30 10/19/19 04:30 Labs: Abnormal Lab Results - Last 24 Hours (Table) 10/18/19 10/18/19 10/18/19 Range/Units 15:18 17:01 18:27 WBC (3.8-10.6) k/uL RBC (3.80-5.40) m/uL Hgb (11.4-16.0) gm/dL Hct (34.0-46.0) % RDW (11.5-15.5) % Neutrophils # (Manual) (1.3-7.7) k/uL Lymphocytes # (Manual) (1.0-4.8) k/uL Myelocytes # (Manual) (0) k/uL Nucleated RBCs (0-0) /100 WBC ABG pH 7.21 L (7.35-7.45) ABG pCO2 67 H (35-45) mmHg ABG pO2 (83-108) mmHg ABG HCO3 27 H (21-25) mmol/L ABG Total CO2 29 H (19-24) mmol/L ABG O2 Saturation (94-97) % Sodium 129 L (137-145) mmol/L Potassium 6.2 H* (3.5-5.1) mmol/L BUN 39 H (7-17) mg/dL Creatinine 1.21 H (0.52-1.04) mg/dL Glucose 105 H (74-99) mg/dL POC Glucose (mg/dL) 211 H (75-99) mg/dL Calcium 8.1 L (8.4-10.2) mg/dL Total Bilirubin (0.2-1.3) mg/dL AST (14-36) U/L ALT (4-34) U/L Total Protein (6.3-8.2) g/dL Albumin (3.5-5.0) g/dL 10/18/19 10/18/19 10/19/19 Range/Units 18:30 20:00 04:27 WBC (3.8-10.6) k/uL RBC (3.80-5.40) m/uL Hgb (11.4-16.0) gm/dL Hct (34.0-46.0) % RDW (11.5-15.5) % Neutrophils # (Manual) (1.3-7.7) k/uL Lymphocytes # (Manual) (1.0-4.8) k/uL Myelocytes # (Manual) (0) k/uL Nucleated RBCs (0-0) /100 WBC ABG pH 7.20 L (7.35-7.45) ABG pCO2 70 H (35-45) mmHg ABG pO2 293 H (83-108) mmHg ABG HCO3 28 H (21-25) mmol/L ABG Total CO2 30 H (19-24) mmol/L ABG O2 Saturation 99.4 H (94-97) % Sodium 130 L (137-145) mmol/L Potassium 5.2 H (3.5-5.1) mmol/L BUN 42 H (7-17) mg/dL Creatinine 1.33 H (0.52-1.04) mg/dL Glucose 101 H (74-99) mg/dL POC Glucose (mg/dL) 128 H (75-99) mg/dL Calcium (8.4-10.2) mg/dL Total Bilirubin (0.2-1.3) mg/dL AST (14-36) U/L ALT (4-34) U/L Total Protein (6.3-8.2) g/dL Albumin (3.5-5.0) g/dL 10/19/19 10/19/19 10/19/19 Range/Units 04:30 04:30 07:54 WBC 12.7 H (3.8-10.6) k/uL RBC 2.49 L (3.80-5.40) m/uL Hgb 7.5 L D (11.4-16.0) gm/dL Hct 23.8 L (34.0-46.0) % RDW 17.7 H (11.5-15.5) % Neutrophils # (Manual) 11.60 H (1.3-7.7) k/uL Lymphocytes # (Manual) 0.64 L (1.0-4.8) k/uL Myelocytes # (Manual) 0.13 H (0) k/uL Nucleated RBCs 1 H (0-0) /100 WBC ABG pH 7.32 L (7.35-7.45) ABG pCO2 47 H (35-45) mmHg ABG pO2 64 L (83-108) mmHg ABG HCO3 (21-25) mmol/L ABG Total CO2 26 H (19-24) mmol/L ABG O2 Saturation 92.1 L (94-97) % Sodium 131 L (137-145) mmol/L Potassium (3.5-5.1) mmol/L BUN 43 H (7-17) mg/dL Creatinine 1.43 H (0.52-1.04) mg/dL Glucose 110 H (74-99) mg/dL POC Glucose (mg/dL) (75-99) mg/dL Calcium 8.2 L (8.4-10.2) mg/dL Total Bilirubin 1.6 H (0.2-1.3) mg/dL AST 777 H (14-36) U/L ALT 271 H (4-34) U/L Total Protein 4.9 L (6.3-8.2) g/dL Albumin 3.1 L (3.5-5.0) g/dL 10/19/19 10/19/19 Range/Units 08:12 11:27 WBC (3.8-10.6) k/uL RBC (3.80-5.40) m/uL Hgb (11.4-16.0) gm/dL Hct (34.0-46.0) % RDW (11.5-15.5) % Neutrophils # (Manual) (1.3-7.7) k/uL Lymphocytes # (Manual) (1.0-4.8) k/uL Myelocytes # (Manual) (0) k/uL Nucleated RBCs (0-0) /100 WBC ABG pH (7.35-7.45) ABG pCO2 (35-45) mmHg ABG pO2 (83-108) mmHg ABG HCO3 (21-25) mmol/L ABG Total CO2 (19-24) mmol/L ABG O2 Saturation (94-97) % Sodium (137-145) mmol/L Potassium (3.5-5.1) mmol/L BUN (7-17) mg/dL Creatinine (0.52-1.04) mg/dL Glucose (74-99) mg/dL POC Glucose (mg/dL) 142 H 168 H (75-99) mg/dL Calcium (8.4-10.2) mg/dL Total Bilirubin (0.2-1.3) mg/dL AST (14-36) U/L ALT (4-34) U/L Total Protein (6.3-8.2) g/dL Albumin (3.5-5.0) g/dL Microbiology - Last 24 Hours (Table) 10/18/19 13:00 Gram Stain - Preliminary Sputum Sputum Culture - Preliminary Anastasiia albicans 10/18/19 11:55 Urine Culture - Preliminary Urine,Catheterized Assessment and Plan Assessment: Impression: Postoperative hypoxic and hypercapnic respiratory failure requiring reintubation, suspect this to be secondary to underlying interstitial lung disease/pulmonary fibrosis with suspected postoperative acute lung injury, possible pneumonia but this is felt to be less likely. Status post bioprosthetic aortic valve replacement, mitral valve repair, single- vessel CABG, bypass to RCA. Postoperative day #7 Chronic kidney disease stage III Postoperative acute blood loss, status post multiple transfusions, this may be a contributing factor to acute lung injury and that is truly the case. Postoperative pericardial effusion/temponade requiring reexploration and evacuation of clot, postoperative day #5 Hypothyroidism. Dyslipidemia. Severe aortic insufficiency status post bioprosthetic aortic valve replacement. Moderate mitral regurgitation requiring mitral valve repair. Benign essential hypertension. Postoperative atrial fibrillation, expected. Recommendation: Continue ventilatory support. Continue hemodynamic support if necessary. Start the nutritional support via [place] tube. Continue empiric antibiotics and Solu-Medrol for now. Diuretics as needed. GI prophylaxis. Advanced diet as tolerated. DVT prophylaxis. Patient remains critically ill, critical care time is 32 minutes. We'll continue to follow the ICU. Prognosis is guarded. Time with Patient: Greater than 30
[2019-10-19] MEDS: hydrALAZINE HCL 20 MG/ML 1 ML VIAL IVP SCH ×2 (16:41→23:37)
[2019-10-19 17:34] LABS: Glucose,Whole Blood 141 mg/dL (75-99)
[2019-10-19 18:14] LABS: ABG HCO3 27 mmol/L (21-25); ABG Oxygen Saturation 99.8 % (94-97); ABG PCO2 36 mmHg (35-45); ABG PH 7.48 (7.35-7.45); ABG PO2 205 mmHg (83-108); ABG TCO2 28 mmol/L (19-24); Allen Test Performed? Yes
[2019-10-19 19:59] LABS: Glucose,Whole Blood 181 mg/dL (75-99)
[2019-10-19] MEDS: SENNOSIDES-DOCUSATE SODIUM 1 EACH TAB PO SCH (20:21)
[2019-10-20 00:03] LABS: Glucose,Whole Blood 178 mg/dL (75-99)
[2019-10-20] MEDS: INSULIN ASPART (NovoLOG) 100 UNIT/ML VIAL SQ SCH ×4 (00:14→18:10)
--- NOTE | 2019-10-20 00:27 | P.PN ---
Subjective Progress Note Date: 10/19/19 Principal diagnosis: Aortic valve replacement and CABG , Re exploration of the chest on 10/14/19 Ms. Quiroz is a 79-year-old female with a past medical history of asthma, COPD, CVA, TIA, GERD, hypertension, hyperlipidemia, mitral valve prolapse underwent aortic valve replacement with #2 Herrera bioprosthetic aortic valve and mitral valve repair with [employer] band and CABG x1 with SVG to RCA. Patient had multiple runs of atrial fibrillation in case. Postoperatively she had episodes of hypotension and A. fib as well so started on amiodarone drip. She is being monitored closely in the ICU setting. She is mechanically ventilated. Patient's blood pressure has been running low, so she has been started on Levophed. Patient has issues with clotting and drainage from the chest tubes. The patient received a total of 4 PRBCs, 3 units of FFP's, 2 units of PRBCs and 2 units of cryoprecipitate with no 1 bag of IV albumin. Chest x- ray from this morning showed no pneumothorax or atelectasis. On 10/14/2019 -The patient is postoperative day 2 from aortic valve replacement, mitral valve repair and CABG. As there was significant decrease in the output from her mediastinal and chest tubes, patient had an echocardiogram done. It showed moderate generalized pericardial effusion. So the patient was taken back to the OR and she had drainage of the pericardial effusion/tamponade. Patient just got back from the procedure. She is sedated and mechanically ventilated. Review of systems could not be done as the patient is mechanically ventilated and sedated. On 10/15/19 - Patient underwent reexploration of the chest with evacuation of clots and irrigation of the chest cavity. She was on mechanical ventilation until this afternoon. Around late afternoon patient has been successfully extubated. She opened her eyes on calling her name and squeeze my finger. She is still in atrial fibrillation requiring amiodarone. She has been off of all pressor support. She did not require any more blood transfusion since reexploration. Patient's labs from this morning show hemoglobin of 8.6. As per the nursing staff report even though patient's map has been running on the lower side, patient has good urinary output. On 10/16/2019-patient is up and sitting in a chair by the bedside. She complains of chest soreness. She also states that she has being overwhelmed with all the things that are happening. She denies any shortness of breath. On reviewing her vitals blood pressure is maintained 122/58, heart rate in 70s on p.o. am iodarone, saturating at 95% on 2 L of nasal cannula. On reviewing the patient's labs hemoglobin is stable around 8.8 sodium 132, BUN 24, creatinine 1.06, that is slightly up from yesterday. On 10/17/2019 patient is sitting up in a chair by the bedside doing incentive spirometry. She states that she is anxious with everything going on. She complains of chest soreness. She states that she has mild cough but is not able to bring up anything due to chest tightness. She complains of generalized fatigue and weakness. She thinks that her lower extremity swelling is getting better. She denies having any abdominal pain, nausea or vomiting. On reviewing her vitals her T-max is 97.6, blood pressure 108/49 saturating at 93% on 2 L of nasal cannula. She had a chest x-ray showing interstitial lung disease and mild atelectasis. Reviewing her labs white count of 14.1 hemoglobin of 9.1, platelets 115. Sodium 131, potassium 4.5, chloride 101, bicarb 25, BUN 29, creatinine 1.07. As per the nursing staff report patient has been having junctional rhythm and A. fib at times. She had IV amiodarone bolus last night. On 10/18/2019 -patient is lying in bed. She was having difficulty in breathing and is placed on BiPAP. She appears to be in respiratory distress. She could not reply to most of my questions, stating that she is having difficulty in breathing and that she is feeling very weak and fatigued. Last night patient's blood pressure was low with low urine output and she was in A. fib with rapid ventricular rate. She received albumin last night. On reviewing the vitals patient is saturating in the 90s on BiPAP, blood pressure 90 x 63, heart rate 100s in atrial fibrillation. On reviewing the vitals patient's white count was 20.9, hemoglobin 9.3, sodium 128, potassium 5.5, chloride 97, bicarb 25, BUN 31, creatinine of 0.98. On 10/19/2019 -patient was having difficulty in breathing, she was placed on BiPAP for few hours, then yesterday around evening she was intubated. Patient is currently intubated and sedated. Patient has been in and out of atrial fibrillation. On reviewing the patient's labs she has a white count of 20.9, and also her creatinine has been trending up today it is 1.43. Her sputum cultures are positive for Anastasiia albicans. Objective - Vital Signs Vital signs: Vital Signs Temp 99.5 F 10/19/19 08:00 Pulse 69 10/19/19 13:00 Resp 26 H 10/19/19 13:00 BP 105/41 10/19/19 13:00 Pulse Ox 99 10/19/19 13:00 Intake & Output 10/18/19 10/19/19 10/19/19 18:59 06:59 18:59 Intake Total 103 878.514 528.125 Output Total 740 517 195 Balance -637 361.514 333.125 Weight 69.8 kg 68.8 kg 68.8 kg Intake: IV 3 723 330 0.9NS Pressure Bags 3 63 30 Albumin Human 5% 250 ml 250 In Empty Bag 1 bag @ 250 mls/hr IVPB ONCE ONE Rx#: [id number] Dextrose 5%-0.45% NaCl 1, 300 300 000 ml @ 60 mls/hr IV . [id number] [facility] Rx#:[id number] Piperacillin-Tazobactam 3 100 .375 gm In Sodium Chloride 0.9% 100 ml @ 25 mls/hr IVPB Q8H [facility] Rx#: [id number] Sodium Chloride 0.9% 1, 10 000 ml @ 20 mls/hr IV . Q24H [facility] Rx#:[id number] Intake, IV Titration 100 5.514 68.125 Amount Calcium Gluconate 1 gm In 100 Sodium Chloride 0.9% 100 ml @ 100 mls/hr IVPB ONCE ONE Rx#:[id number] propofoL 1,000 mg In 5.514 68.125 Empty Bag 1 bag @ Titrate IV .Q0M [facility] Rx#: [id number] Tube Feeding 90 100 Other 60 30 Output: Chest Tube Drainage 200 100 Right 200 100 Urine 540 417 195 Other: Voiding Method Indwelling Catheter Indwelling Catheter ABP, PAP, CO, CI - Last Documented Arterial Blood Pressure 138/36 Pulmonary Artery Pressure 57/36 Cardiac Output 3.8 Cardiac Index 2.5 - Exam GENERAL EXAM: intubated and sedated HEENT: She looks pale, LUIS CHEST: Symmetrical expansion. 1 mediastinal chest tube in place, and left and right pleural chest tubes in place LUNGS: Equal air entry with no wheeze, rhonchi or dullness. Diminished in the lower lobes CVS: Irregularly irregular ABDOMEN: Soft, nontender. normal bowel sounds EXTREMITIES: edema in both upper and lower extremities CENTRAL NERVOUS SYSTEM: sedated - Labs CBC & Chem 7: 10/19/19 04:30 10/19/19 04:30 Labs: Abnormal Lab Results - Last 24 Hours (Table) 10/18/19 10/18/19 10/18/19 Range/Units 15:15 15:18 17:01 WBC (3.8-10.6) k/uL RBC (3.80-5.40) m/uL Hgb (11.4-16.0) gm/dL Hct (34.0-46.0) % RDW (11.5-15.5) % Neutrophils # (Manual) (1.3-7.7) k/uL Lymphocytes # (Manual) (1.0-4.8) k/uL Myelocytes # (Manual) (0) k/uL Nucleated RBCs (0-0) /100 WBC ABG pH 7.29 L (7.35-7.45) ABG pCO2 53 H (35-45) mmHg ABG pO2 59 L* (83-108) mmHg ABG HCO3 (21-25) mmol/L ABG Total CO2 27 H (19-24) mmol/L ABG O2 Saturation 88.0 L (94-97) % Sodium 129 L (137-145) mmol/L Potassium 6.2 H* (3.5-5.1) mmol/L BUN 39 H (7-17) mg/dL Creatinine 1.21 H (0.52-1.04) mg/dL Glucose 105 H (74-99) mg/dL POC Glucose (mg/dL) 211 H (75-99) mg/dL Calcium 8.1 L (8.4-10.2) mg/dL Total Bilirubin (0.2-1.3) mg/dL AST (14-36) U/L ALT (4-34) U/L Total Protein (6.3-8.2) g/dL Albumin (3.5-5.0) g/dL 10/18/19 10/18/19 10/18/19 Range/Units 18:27 18:30 20:00 WBC (3.8-10.6) k/uL RBC (3.80-5.40) m/uL Hgb (11.4-16.0) gm/dL Hct (34.0-46.0) % RDW (11.5-15.5) % Neutrophils # (Manual) (1.3-7.7) k/uL Lymphocytes # (Manual) (1.0-4.8) k/uL Myelocytes # (Manual) (0) k/uL Nucleated RBCs (0-0) /100 WBC ABG pH 7.21 L 7.20 L (7.35-7.45) ABG pCO2 67 H 70 H (35-45) mmHg ABG pO2 293 H (83-108) mmHg ABG HCO3 27 H 28 H (21-25) mmol/L ABG Total CO2 29 H 30 H (19-24) mmol/L ABG O2 Saturation 99.4 H (94-97) % Sodium 130 L (137-145) mmol/L Potassium 5.2 H (3.5-5.1) mmol/L BUN 42 H (7-17) mg/dL Creatinine 1.33 H (0.52-1.04) mg/dL Glucose 101 H (74-99) mg/dL POC Glucose (mg/dL) (75-99) mg/dL Calcium (8.4-10.2) mg/dL Total Bilirubin (0.2-1.3) mg/dL AST (14-36) U/L ALT (4-34) U/L Total Protein (6.3-8.2) g/dL Albumin (3.5-5.0) g/dL 10/19/19 10/19/19 10/19/19 Range/Units 04:27 04:30 04:30 WBC 12.7 H (3.8-10.6) k/uL RBC 2.49 L (3.80-5.40) m/uL Hgb 7.5 L D (11.4-16.0) gm/dL Hct 23.8 L (34.0-46.0) % RDW 17.7 H (11.5-15.5) % Neutrophils # (Manual) 11.60 H (1.3-7.7) k/uL Lymphocytes # (Manual) 0.64 L (1.0-4.8) k/uL Myelocytes # (Manual) 0.13 H (0) k/uL Nucleated RBCs 1 H (0-0) /100 WBC ABG pH (7.35-7.45) ABG pCO2 (35-45) mmHg ABG pO2 (83-108) mmHg ABG HCO3 (21-25) mmol/L ABG Total CO2 (19-24) mmol/L ABG O2 Saturation (94-97) % Sodium 131 L (137-145) mmol/L Potassium (3.5-5.1) mmol/L BUN 43 H (7-17) mg/dL Creatinine 1.43 H (0.52-1.04) mg/dL Glucose 110 H (74-99) mg/dL POC Glucose (mg/dL) 128 H (75-99) mg/dL Calcium 8.2 L (8.4-10.2) mg/dL Total Bilirubin 1.6 H (0.2-1.3) mg/dL AST 777 H (14-36) U/L ALT 271 H (4-34) U/L Total Protein 4.9 L (6.3-8.2) g/dL Albumin 3.1 L (3.5-5.0) g/dL 10/19/19 10/19/19 10/19/19 Range/Units 07:54 08:12 11:27 WBC (3.8-10.6) k/uL RBC (3.80-5.40) m/uL Hgb (11.4-16.0) gm/dL Hct (34.0-46.0) % RDW (11.5-15.5) % Neutrophils # (Manual) (1.3-7.7) k/uL Lymphocytes # (Manual) (1.0-4.8) k/uL Myelocytes # (Manual) (0) k/uL Nucleated RBCs (0-0) /100 WBC ABG pH 7.32 L (7.35-7.45) ABG pCO2 47 H (35-45) mmHg ABG pO2 64 L (83-108) mmHg ABG HCO3 (21-25) mmol/L ABG Total CO2 26 H (19-24) mmol/L ABG O2 Saturation 92.1 L (94-97) % Sodium (137-145) mmol/L Potassium (3.5-5.1) mmol/L BUN (7-17) mg/dL Creatinine (0.52-1.04) mg/dL Glucose (74-99) mg/dL POC Glucose (mg/dL) 142 H 168 H (75-99) mg/dL Calcium (8.4-10.2) mg/dL Total Bilirubin (0.2-1.3) mg/dL AST (14-36) U/L ALT (4-34) U/L Total Protein (6.3-8.2) g/dL Albumin (3.5-5.0) g/dL Microbiology - Last 24 Hours (Table) 10/18/19 13:00 Gram Stain - Preliminary Sputum Sputum Culture - Preliminary Anastasiia albicans 10/18/19 11:55 Urine Culture - Preliminary Urine,Catheterized Assessment and Plan Assessment: ASSESSMENT Pericardial Effusion/tamponade - taken to the OR and s/p evacuation of clots Acute respiratory failure - on BiPAP currently Status post aortic valve replacement with bioprosthetic aortic valve and mitral valve repair Status post CABG Acute blood loss anemia History of asthma/COPD Persistent atrial fibrillation GERD Hypertension Hyperlipidemia History of mitral valve prolapse Chronic kidney disease stage II Hypothyroidism Remote history of nicotine dependence Plan: Re exploration of the chest done on 10/14/19 due to concerns of pericardial tamponade/effusion . Patient has been successfully extubated on 10/15/19 .As the patient developed respiratory distress, she was initially placed on BiPAP and eventually intubated on 10/18/19 around evening. Patient has been in and out of atrial fibrillation. There was increase in her white count, and she was started empirically on Zosyn. Will order blood cultures. Patient is also started on IV Solu-Medrol. She has been started on Dobbhoff tube for nutritional support. Overall prognosis is poor. Further recommendations to follow depending on the progress of the patient.
[2019-10-20 04:12] LABS: Anisocytosis Slight; Basophils % (A) 0 %; Eosinophils # (A) 0.1 k/uL (0-0.7); Eosinophils % (A) 1 %; HCT 24.9 % (34.0-46.0); HGB 7.8 gm/dL (11.4-16.0); Hypochromasia Slight; Lymphocytes # (A) 0.5 k/uL (1.0-4.8); Lymphocytes % (A) 3 %; MCH 29.9 pg (25.0-35.0); MCHC 31.4 g/dL (31.0-37.0); Macrocytosis Slight; Mean Platelet Volume 7.9; Monocytes # (A) 0.7 k/uL (0-1.0); Monocytes % (A) 4 %; Neutrophils # (A) 17.6 k/uL (1.3-7.7); Neutrophils % (A) 92 %; Platelet Count 226 k/uL (150-450); RBC 2.62 m/uL (3.80-5.40); RDW 18.2 % (11.5-15.5); WBC 19.1 k/uL (3.8-10.6)
[2019-10-20 04:21] LABS: Albumin 2.8 g/dL (3.5-5.0); Calcium 7.6 mg/dL (8.4-10.2); Potassium 3.8 mmol/L (3.5-5.1); Total Bilirubin 1.5 mg/dL (0.2-1.3); Total Protein 4.6 g/dL (6.3-8.2)
[2019-10-20] MEDS: HEPARIN SODIUM,PORCINE 5,000 UNIT/ML 1 ML VIAL SQ SCH ×3 (05:20→20:07)
[2019-10-20] MEDS ORDERED: POTASSIUM CHLORIDE ER 20 MEQ TAB.ER PO SCH (06:00)
[2019-10-20 06:09] LABS: Glucose,Whole Blood 191 mg/dL (75-99)
[2019-10-20] MEDS: ASCORBIC ACID 500 MG TAB PO SCH ×2 (06:55→17:58)
[2019-10-20] MEDS: LEVOTHYROXINE 75 MCG TAB PO SCH (06:55)
[2019-10-20] MEDS: MIDODRINE 5 MG TAB PO SCH ×3 (06:55→17:58)
[2019-10-20] MEDS: PIPERACILLIN-TAZOBACTAM 3.375 GM in SODIUM CHLORIDE 0.9% 100 ML IVPB SCH ×3 (06:58→22:17)
--- NOTE | 2019-10-20 07:21 | XR ---
EXAMINATION TYPE: XR chest 1V portable DATE OF EXAM: 10/20/2019 CLINICAL HISTORY: Difficulty breathing progress study. TECHNIQUE: Single AP portable semiupright view of the chest is obtained. COMPARISON: Chest x-ray from one day earlier and older studies. FINDINGS: Current exam suboptimal as does not include the entire lung apices. Suspect some interval cranial retraction of endotracheal tube now suspected above clavicles and aortic knob. Stable oral ga stric tube and right internal jugular central venous catheter. Stable right-sided chest tube. Overlyi ng sternal wires along with left atrial appendage clipping and cardiac valvular surgical changes are redemonstrated. Overlying epicardial pacer wires are redemonstrated. Patchy areas of increased opacity bilateral lower lungs and left hilar level redemonstrated. Persiste nt small bilateral pleural effusions. Cardiac silhouette size is stable and within normal limits with atherosclerotic thoracic aorta. No obvious pneumothorax. Osseous structures are intact. Left apical pleural thickening suspected. IMPRESSION: 1. Interval retraction of endotracheal tube now high in position. 2. Suboptimal study with persistent multifocal areas of infiltrate and/or edema on background chronic parenchymal change with small bilateral pleural effusions. Right-sided chest tube without definitive pneumothorax.
[2019-10-20 07:32] LABS: ABG Base Excess 4.3 mmol/L; ABG HCO3 28 mmol/L (21-25); ABG Oxygen Saturation 98.9 % (94-97); ABG PCO2 41 mmHg (35-45); ABG PH 7.45 (7.35-7.45); ABG PO2 115 mmHg (83-108); ABG TCO2 30 mmol/L (19-24); Allen Test Performed? Yes
[2019-10-20] MEDS: IPRATROPIUM-ALBUTEROL 3 ML NEB INHALATION SCH ×4 (07:51→20:25)
[2019-10-20] MEDS: MAGNESIUM HYDROXIDE 2,400 MG/10 ML CUP PO SCH ×2 (08:50→20:07)
[2019-10-20] MEDS: METOPROLOL TARTRATE 12.5 MG TAB PO SCH ×2 (08:50→20:07)
[2019-10-20] MEDS: ATORVASTATIN 40 MG TAB PO SCH (08:51)
[2019-10-20] MEDS: bisacodyL 10 MG SUPP RECTAL SCH ×2 (08:51→20:09)
[2019-10-20] MEDS: methylPREDNISolone SOD SUCCI 40 MG/ML 1 ML VIAL IV SCH ×2 (08:51→16:46)
[2019-10-20] MEDS: ASPIRIN 81 MG PO SCH (08:51)
[2019-10-20] MEDS: hydrALAZINE HCL 20 MG/ML 1 ML VIAL IVP SCH ×2 (08:52→16:45)
[2019-10-20] MEDS: PANTOPRAZOLE 40 MG/10 ML VIAL IVP SCH (08:52)
[2019-10-20] MEDS: CHLORHEXIDINE GLUCONATE 15 ML CUP MUCOUS MEM SCH ×2 (08:52→20:07)
--- NOTE | 2019-10-20 09:58 | PN ---
PROGRESS NOTE Mrs. Quiroz is a 79-year-old female who underwent aortic valve replacement, mitral valve repair and coronary artery bypass grafting. She had to be taken back to the operating room because of bleeding. She was extubated and had to be reintubated. She is intubated and sedated at this time. She is in persistent atrial fibrillation. Her blood pressure has been under good control. Her ventricular response is stable. She had a repeat echocardiogram yesterday that showed impairment of left ventricular systolic function with mild to moderate tricuspid regurgitation and no evidence of perforated effusion. She is maintained on aspirin, Lipitor 40 mg daily, metoprolol 12.5 mg twice a day. PHYSICAL EXAMINATION: Blood pressure 101/38 with a heart rate in the 80s. LUNGS: Clear anteriorly. Heart irregularly irregular, S1, S2. No S3 with systolic murmur heard at the base. No diastolic murmur. No rub. ABDOMEN: Soft, positive bowel sounds. No organomegaly. Extremities 1+ edema. LAB DATA: Revealed hemoglobin of 7.8, white blood cell of 19.1, BUN and creatinine 43 and 1.13 which has improved compared to yesterday. Her AST is 738 and her ALT is 388. IMPRESSION: 1. Respiratory failure, status post coronary artery bypass grafting with aortic valve replacement and mitral valve repair. 2. Status post revascularization and valve surgery. 3. Chronic kidney disease. 4. Atrial fibrillation, persistent at this time. 5. Shock liver, stabilizing. 6. Cardiomyopathy. RECOMMENDATIONS: We will continue supportive care at this time on the present therapy. Patient had the external pacer wire. Depending on her progress, we will make a decision regarding the need to undergo permanent pacemaker implantation. We will follow her renal function closely as well as a liver function test. Depending on her blood pressure, the dose of her beta alan can be further adjusted. MMODL / IJN: [id number] /
[2019-10-20] MEDS: LIDOCAINE 5% PATCH TOPICAL SCH (10:15)
[2019-10-20] MEDS: DEXTROSE 5%-0.45% NACL 1,000 ML IV SCH ×2 (11:27→22:13)
[2019-10-20 11:36] LABS: Glucose,Whole Blood 174 mg/dL (75-99)
[2019-10-20] MEDS ORDERED: DIGOXIN 250 MCG/ML 2 ML AMP IVP ONE (12:17)
--- NOTE | 2019-10-20 12:40 | P.PN ---
Subjective Progress Note Date: 10/20/19 Principal diagnosis: Severe aortic valve insufficiency, moderate to severe mitral valve regurgitation, single-vessel coronary artery disease. Past medical history significant for coronary artery disease with myocardial infarction and stent placement to the RCA, hypertension, hyperlipidemia, chronic kidney disease stage III, right internal carotid artery stenosis 50-69%, hypothyroidism, TIA in 2004 without residual, remote history of pneumonia, previous tobacco dependence, mo derate restriction with preoperative FEV1 50% of predicted, and family history of premature coronary artery disease. POD #8 aortic valve replacement with 21 mm Herrera Inspiris bioprosthetic aortic valve, mitral valve repair with a #28 mm [employer] AnnuloFlex band, a reverse greater saphenous vein graft off the aorta to the right coronary artery with right lower extremity greater saphenous endoscopic vein harvesting, clip ligation of left atrial appendage 35mm AtriClip and intraoperative larson sesophageal echocardiogram. Postoperative acute blood loss anemia, expected given hemodilution and cardiopulmonary bypass pump. Postoperative and intraoperative atrial fibrillation, unexpected but potential outcome of valvular heart surgery. Postoperative prolonged mechanical ventilation secondary to hemodynamic instability, unexpected. Postoperative pericardial effusion/tamponade. POD #6 Re-exploration of the chest, evacuation of clot, irrigation of chest cavity. Postoperative transaminitis, likely shocked liver secondary to hypotension, unexpected. Postoperative hypoxic and hypercapnic respiratory failure requiring reintubation, unexpected, potentially secondary to underlying Interstitial lung disease/pulmonary fibrosis. The patient was seen in follow-up today 10/20/2019 at her bedside in the intensive care unit. She remained intubated with mechanical ventilator support and is currently sedated on propofol drip. She is not following any verbal commands at this time. Dobbhoff tube remains in place with vital high-protein to feeding infusing at goal rate of 45 mL per hour with 30 mL every 4 hour water flushes. Bedside telemetry continues to show atrial fibrillation heart rate 105 BPM. Digoxin 0.5 mg IV was given yesterday and her dig levels morning is 2.2. Remains with a right IJ triple-lumen central catheter in place with the current CVP monitoring showing 15 mmHg. WBC count today is 19.1, she remains afebrile and remains on Zosyn for a antibiotic coverage and remains on Solu-Medrol 40 mg IV every 8 hours. Limited 2-D echocardiogram was completed yesterday 10/19/2019 which demonstrates no pericardial effusion, mild to moderate tricuspid valve regurgitation, and an estimated LV function to be around 30% with basal inferior wall akinesis. The report states that it could not assess the LV function appropriately due to the heart rate of 178 BPM. Objective - Vital Signs Vital signs: Vital Signs Temp 98.1 F 10/20/19 08:00 Pulse 81 10/20/19 11:47 Resp 28 H 10/20/19 11:47 BP 103/52 10/20/19 11:00 Pulse Ox 100 10/20/19 11:00 Intake & Output 10/19/19 10/20/19 10/20/19 18:59 06:59 18:59 Intake Total 0134.416 2642.857 739.983 Output Total 495 1285 305 Balance 755.125 189.857 434.983 Weight 68.8 kg 70.1 kg Intake: IV 792 877 315 0.9NS Pressure Bags 72 57 15 Dextrose 5%-0.45% NaCl 1, 720 720 300 000 ml @ 60 mls/hr IV . [id number] JAYE Rx#:[id number] Piperacillin-Tazobactam 3 100 .375 gm In Sodium Chloride 0.9% 100 ml @ 25 mls/hr IVPB Q8H JAYE Rx#: [id number] Intake, IV Titration 68.125 42.857 169.983 Amount Piperacillin-Tazobactam 3 100 .375 gm In Sodium Chloride 0.9% 100 ml @ 25 mls/hr IVPB Q8H JAYE Rx#: [id number] propofoL 1,000 mg In 68.125 42.857 69.983 Empty Bag 1 bag @ Titrate IV .Q0M JAYE Rx#: [id number] Tube Feeding 300 465 225 Other 90 90 30 Output: Chest Tube Drainage 340 60 Right 340 60 Urine 495 945 245 Other: Voiding Method Indwelling Catheter Indwelling Catheter ABP, PAP, CO, CI - Last Documented Arterial Blood Pressure 157/47 Pulmonary Artery Pressure 57/36 Cardiac Output 3.8 Cardiac Index 2.5 - Constitutional General appearance: Present: average body habitus, no acute distress - EENT Eyes: Present: PERRLA, normal appearance. Absent: scleral icterus - Neck Details: Neck is supple, no JVD. - Respiratory Details: Lungs sounds essentially diminished throughout with few scattered crackles to her bilateral bases. No wheezes or rhonchi present. Respirations are symmetrical and nonlabored with mechanical ventilator support. Current ve ntilator settings are as follows: Assist control 26, TV 350, FiO2 40% and PEEP of 5. ABGs this morning show a pH of 7.45, pCO2 41, pO2 115, HCO3 28, O2 sat 98.9 and base excess 4.3. Right pleural chest tube remains in place to low continuous wall suction -20 cm H2O. No air leak is present. 340 mL output in the last 8 hours, 600 mL output in the last 24 hours of thin serosanguineous drainage. - Cardiovascular Details: Irregular rhythm with a tachycardic rate. S1 and S2 present, negative for S3, gallop or murmur. Sternum is stable. Generalized edema. Atrial and ventricular epicardial pacemaker wires in place and connected to a backup pacemaker generator on a VVI 60 BPM. Peripheral pulses palpable. Right IJ triple-lumen catheter in place with continuous CVP monitoring, current CVP pressure 15 mmHg. Heart hugger is in place. Knee-high sequential compression devices and MONISHA hose in place to bilateral lower extremities. - Gastrointestinal Gastrointestinal Comment(s): Abdomen is soft, and nondistended. Hypoactive bowel sounds present all 4 abdominal quadrants. Bowel movement this a.m. Dobbhoff tube in place with continuous tube feedings infusing at goal rate of 45 mL per hour of vital high-p rotein. - Genitourinary Genitourinary Comment(s): Pratt catheter in place for accurate I&O. Draining clear vanessa urine. 630 mL output in the last 8 hours. - Integumentary Integumentary Comment(s): Skin is warm and dry. No clubbing or cyanosis is present. Midline sternal incision is clean, dry and approximated. No drainage or redness is present. - Neurologic Neurologic Comment(s): Unable to assess at this time due to sedation in place of propofol drip. - Musculoskeletal Musculoskeletal: Present: generalized weakness - Psychiatric Psychiatric Comment(s): Unable to assess at this time due to sedation in place of propofol drip. - Allied health notes Allied health notes reviewed: nursing - Labs CBC & Chem 7: 10/20/19 03:58 10/20/19 03:58 Labs: Abnormal Lab Results - Last 24 Hours (Table) 10/19/19 10/19/1910/18/20 Range/Units 17:32 18:12 19:58 WBC (3.8-10.6) k/uL RBC (3.80-5.40) m/uL Hgb (11.4-16.0) gm/dL Hct (34.0-46.0) % RDW (11.5-15.5) % Neutrophils # (1.3-7.7) k/uL Lymphocytes # (1.0-4.8) k/uL ABG pH 7.48 H (7.35-7.45) ABG pO2 205 H (83-108) mmHg ABG HCO3 27 H (21-25) mmol/L ABG Total CO2 28 H (19-24) mmol/L ABG O2 Saturation 99.8 H (94-97) % Sodium (137-145) mmol/L BUN (7-17) mg/dL Creatinine (0.52-1.04) mg/dL Glucose (74-99) mg/dL POC Glucose (mg/dL) 141 H 181 H (75-99) mg/dL Calcium (8.4-10.2) mg/dL Total Bilirubin (0.2-1.3) mg/dL AST (14-36) U/L ALT (4-34) U/L Total Protein (6.3-8.2) g/dL Albumin (3.5-5.0) g/dL 10/20/19 10/20/19 10/20/19 Range/Units 00:01 03:58 03:58 WBC 19.1 H (3.8-10.6) k/uL RBC 2.62 L (3.80-5.40) m/uL Hgb 7.8 L (11.4-16.0) gm/dL Hct 24.9 L (34.0-46.0) % RDW 18.2 H (11.5-15.5) % Neutrophils # 17.6 H (1.3-7.7) k/uL Lymphocytes # 0.5 L (1.0-4.8) k/uL ABG pH (7.35-7.45) ABG pO2 (83-108) mmHg ABG HCO3 (21-25) mmol/L ABG Total CO2 (19-24) mmol/L ABG O2 Saturation (94-97) % Sodium 130 L (137-145) mmol/L BUN 43 H (7-17) mg/dL Creatinine 1.13 H (0.52-1.04) mg/dL Glucose 162 H (74-99) mg/dL POC Glucose (mg/dL) 178 H (75-99) mg/dL Calcium 7.6 L (8.4-10.2) mg/dL Total Bilirubin 1.5 H (0.2-1.3) mg/dL AST 738 H (14-36) U/L ALT 388 H (4-34) U/L Total Protein 4.6 L (6.3-8.2) g/dL Albumin 2.8 L (3.5-5.0) g/dL 10/20/19 10/20/19 10/20/19 Range/Units 06:07 07:30 11:35 WBC (3.8-10.6) k/uL RBC (3.80-5.40) m/uL Hgb (11.4-16.0) gm/dL Hct (34.0-46.0) % RDW (11.5-15.5) % Neutrophils # (1.3-7.7) k/uL Lymphocytes # (1.0-4.8) k/uL ABG pH (7.35-7.45) ABG pO2 115 H (83-108) mmHg ABG HCO3 28 H (21-25) mmol/L ABG Total CO2 30 H (19-24) mmol/L ABG O2 Saturation 98.9 H (94-97) % Sodium (137-145) mmol/L BUN (7-17) mg/dL Creatinine (0.52-1.04) mg/dL Glucose (74-99) mg/dL POC Glucose (mg/dL) 191 H 174 H (75-99) mg/dL Calcium (8.4-10.2) mg/dL Total Bilirubin (0.2-1.3) mg/dL AST (14-36) U/L ALT (4-34) U/L Total Protein (6.3-8.2) g/dL Albumin (3.5-5.0) g/dL Microbiology - Last 24 Hours (Table) 10/18/19 13:00 Gram Stain - Final Sputum Sputum Culture - Final Anastasiia albicans 10/18/19 11:55 Urine Culture - Final Urine,Catheterized - Imaging and Cardiology Chest x-ray: report reviewed, image reviewed Assessment and Plan Assessment: 1. Severe aortic valve insufficiency, status post bioprosthetic aortic valve replacement 2. Moderate to severe mitral valve regurgitation, status post mitral valve repair 3. Single-vessel coronary artery disease, status post coronary artery bypass to the RCA 4. History of coronary artery disease with myocardial infarction, status post stent placement to the RCA 5. History of hypertension 6. History of hyperlipidemia, treated 7. Right internal carotid artery stenosis 50-69% 8. Chronic kidney disease stage III 9. Hypothyroid 10. TIA in 2004 without residual 11. Remote history of pneumonia 12. Previous tobacco dependence 13. Moderate lung restriction with preoperative FEV1 58% of predicted, pulmonary fibrosis seen on CT 14. Family history of premature coronary artery disease 15. Postoperative acute blood loss anemia, status post transfusion 16. Postoperative and intraoperative atrial fibrillation, status post clip ligation of left atrial appendage and amiodarone initiation 17. Postoperative prolonged mechanical ventilation 18. Postoperative pericardial effusion/tamponade, status post re-exploration of the chest, evacuation of clot, irrigation of chest cavity 19. Transaminitis, shock liver, likely from hypotension 20. Postoperative hypoxic and hypercapnic respiratory failure requiring reintubation, an unexpected outcome, potentially secondary to underlying interstitial lung disease/pulmonary fibrosis Plan: 1. Continue low-dose aspirin, statin and metoprolol tartrate 12.5 mg by mouth twice a day with hold parameters. Will continue to hold off on Plavix. 2. Amiodarone has been discontinued due to her transaminitis. She was given digoxin 500 g 1 IV followed by digoxin 250 g IV 2 doses. Digoxin level this morning was 2.2, we will give digoxin 125 g IV 1. 3. Bronchodilators, antibiotics, corticosteroids and mechanical ventilator management per pulmonology/critical care medicine recommendations. 4. Will monitor daily labs and chest x-rays. Electrolyte replacement per protocol. 5. Increase activity as tolerated. Physical/occupational therapy and cardiac rehab following. 6. GI/DVT prophylaxis. 7. Pain control with current medication regimen. 8. Insulin management per primary care service. Preoperative hemoglobin A1c 5.5% 9. Continue to monitor chest tube output and consistency, continue to record accurate I's and O's. 11. Keep atrial and ventricular epicardial pacemaker wires in place and connected to back up pacemaker generator. Keep on current mode of AAI Heart rate 70. 12. Continue Midodrine for blood pressure. 13. More recommendations to follow based on patient's clinical course. Time with Patient: Greater than 30
[2019-10-20] MEDS: ACETAMINOPHEN TAB 500 MG TAB PO PRN (13:57)
--- NOTE | 2019-10-20 14:01 | P.PN ---
Subjective Progress Note Date: 10/20/19 Principal diagnosis: Status post CABG, aortic valve replacement and mitral valve repair postoperative day # 8 2019, the patient is postop day #1. The patient underwent single-vessel bypass surgery, aortic valve replacement and mitral valve repair. She is known to have coronary artery disease, valvular insufficiency, hypertension and hyperlipidemia and chronic stage III kidney disease. The patient also is known to have carotid artery disease 50% on the right, hypothyroidism, and history of interstitial lung disease with pulmonary fibrosis and severe restrictive lung d isease with a FVC in the 50% range preoperatively. On today's evaluation, the patient is still intubated on mechanical ventilator. Were unable to wean the patient off the mechanical ventilator and extubated because of her ongoing difficulties with hemodynamics and bleeding from the chest tubes. Note that the patient is still in intensive care unit and she is still sedated for now at propofol which is running at 20 g per KG per minute. The patient is still requiring inotropes. The patient was quite hypotensive after arrival from the operating room and she was having difficulties with donis ycardia. She is currently paced at the rate of 80. She is on norepinephrine infusion which is running at 0.26 mg per KG per minute. She was started on milrinone yesterday at 0.2 g and at a later stage dobutamine was also added. Earlier this morning, cardiothoracic surgery saw the patient and increase the paced rhythm of 200 beats per minutes. Her underlying rhythm this morning is normal sinus rate of 60. She is at dobutamine at the medical grams per KG per minute and milrinone at 0.2 mics respiratory KG per minute. She is also on amiodarone at 0.5 mg/m. The right is being titrated pH has an adequate urine output. Most recent hemodynamics indicate a cardiac index of 1.9. Pulmonary artery pressures are 46/25 mmHg. A bedside echocardiogram was done and there is no evidence of any pericardial effusion. Valve functions were adequate. The mediastinal chest tubes are in place and the pleural chest tube is in place. There was ongoing issues with clotting and drainage from the chest tubes. Appropriate cleaning and suctioning of the chest tubes were done. Overall, the patient received a total of 4 units of packed RBC, 3 units of fresh frozen plasma, 2 units of packed RBC and 2 packs of cryoprecipitate in addition to call is in the form of IV albumin throughout the resuscitation. No ongoing or active bleed at this point in time. No attempts for weaning off the mechanical ventilator. The patient is currently on a assist-control mode of ventilation at the rate of 20 with tidal volume of 400 and FiO2 of 50% with a PEEP of 5. Blood gas showed a pH of 7.38 with a pCO2 of 41 and pO2 of 206. Chest x-ray showed adequate expansion of both lungs. There is underlying chronic incision infiltrates. ET tube is in a good location. Chest x-rays well expanded. No pneumothorax. No atelectasis. 10/14/2019 the patient is postop day #2. The patient underwent single vessel bypass surgery, aortic valve replacement, mitral valve repair. The bleeding has subsided from the mediastinal tubes. Output from the tubes have dropped down considerably since yesterday. Nevertheless, there is some widening of the mediastinum and the patient is going to have a limited echocardiogram to rule out any hematoma or blood collection around the pericardium. The patient currently is still intubated on a mechanical ventilator. The patient remains on assist control mode of ventilation at the rate of 20 with a tidal volume of 400 and FiO2 of 40% with a PEEP of 5. The peak airway pressure is 26. Blood gases showed a pH of 7.44 with a pCO2 of 37 and pO2 129. Chest x-ray showed adequate expansion of both lungs. Chest tubes are all in good location. ET tube is in a good location. The patient is still has his [place] catheter in place. The mediastinum is slightly widened. In terms of hemodynamics, the patient is currently on milrinone at a dose of 0.1 g per KG per minute. The patient is also on dobutamine at 3 mg per KG per minute. Levo fed is running at 0.03 mics respiratory KG per minute. The patient is also on amiodarone at 0.5 mg/m. She is was sedated with propofol at 25 g per KG per minute. Insulin is running at 2.5 units an hour. Cardiac index is at 1.5. The heart rate is being paced the rate of 80. Underlying rhythm is sinus with a rate of 70. The patient is receiving enteral feeding for nutritional support. The most recent hemoglobin is at 7.3. The platelet count is down to 65. Patient was reevaluated today on 10/15/19, she is postoperative day #3. Patient had to be taken back to the operating room last night for excessive bleeding or recurrent effusion/temporal not. Patient underwent reexploration of the chest, evacuation of clots, and irrigation of the chest cavity. Today she is in the ICU on mechanical ventilation, her ventilator settings are assist control rate 20, volume is 400 FiO2 is 40% and PEEP of 5. ABG this morning showed a pO2 of 158 pCO2 of 38 pH of 7.40 and I was on 40% FiO2. Patient remains on propofol at 20 mcg/kg/m, she is off all pressors and inotropes except she is still on Dobutrex at 2 mcg/kg/m. Patient has a low cardiac output requiring inotropes, she is in atrial fibrillation requiring amiodarone, and she was quite anemic received a total of 9 units of packed RBCs, 3 units of fresh frozen plasma, 4 units of platelets, 2 packs of cryoprecipitate, and albumin. Hemoglobin this morning is 9.2. Patient is arousable, and she follows simple instructions, hence we will likely check weaning parameters and decide accordingly. Reevaluated today on 10/16/19, patient is postoperative day #4. Patient was extubated yesterday uneventfully, looking back, patient had a relatively uneventful postoperative course with profound hypotension, low cardiac output, required wrestlers, inotropes, she also required amiodarone for atrial fibrillation, and blood transfusions, multiple units of blood products were given as noted above. At any rate the patient is now off mechanical ventilation, she is on few liters nasal cannula, seems to be doing much better over the last 24 hours, and she is pleased that she is off the ventilator. She is now off pressors and off inotropes since yesterday. She is generally weak. Hemoglobin today is 8.8, Electrolytesenc normal, and renal profile is relatively normal. Chest x-ray showed mostly interstitial lung disease and postoperative atelectasis Reevaluated today on 10/17/19, patient is postoperative day #5. Remains on nasal cannula, O2 saturations 96%, patient is on 2 L. She had an episode of atrial fibrillation with RVR last night, and she was loaded with amiodarone. Currently patient is fully paced. Chest x-ray continues to show evidence of interstitial lung disease, and atelectasis. Patient is awake, alert, denies any shortness of breath, she does have some vague chest discomfort. Bedside monitor is showing atrial pacing rhythm in the 70s with underlying rhythm showing sinus bradycardia rate of 57. Patient received 1 dose of IV bolus of amiodarone 150 mg 1 last night. Patient is not requiring any inotropic or pressor support. Mediastinal and right pleural chest tubes remain in place. No air leak is noted. Serosanguineous drainage is noted. Mediastinal tube drained 75 ML over the last 8 hours and 140 ML's in the last 24 hours. Right pleural chest tube drained 140 ML in the last 8 hours and 400 MLS the last 24 hours. Her hemoglobin remains stable. Patient did receive yesterday 40 mg of Lasix with good response Patient was reevaluated today on 10/18/19 she is postoperative day #6. Patient is sitting in a recliner, patient remains in the ICU, very frail looking and weak, patient did have a very mehreen postoperative course since her surgery. Last night the patient developed low blood pressure, and low urine output, patient was given albumin, she was in and out of atrial fibrillation with RVR, Lasix was given earlier today, and the patient had slight improvement in her urine output with Lasix. Again the patient remains in a relatively atrial fibrillation blood pressure is marginal. Hence she was started on midodrine and she was given albumin last night. Chest x-ray continues to show interstitial lung disease, and possibly some interstitial pulmonary edema. Patient was reevaluated today on 10/19/19, she is postoperative day #7. Yesterday the patient continues to do poorly, and continued to have hypercapnia with low pO2 and elevated pCO2. Did poorly with BiPAP, hence I recommended intubating the patient and she was reintubated presently on assist control rate of 24 tidal volume of 350, FiO2 of 40%. And PEEP of 5. ABG this morning showed a pO2 of 64 pCO2 of 47 pH of 7.32, hence I increased her rate up to 26 and increased her FiO2 to 45%. Patient is on a small dose of propofol at 10 mcg/kg/m, her IV fluid is D5 4 5 at 60 ML per hour. I restarted the patient on antibiotics in the form of Zosyn, and I recommended steroids, the findings on the chest x-ray are suspicious for noncardiogenic pulmonary edema, could also be cardiogenic pulmonary edema, underlying pneumonia is not entirely ruled out. Hence I felt would be safe to start the patient on Zosyn and Solu-Medrol. Patient continues to have intermittent episodes of A. fib with RVR, presently on amiodarone. Patient is also on tube feeding/enteral feeding. And did not yet to goal. She is arousable, she follows very simple instructions although she is on a small dose of propofol. Patient did have a triple lumen catheter placed by anesthesia yesterday, echocardiogram this morning showed LV dysfunction with 30% FiO2, and basal inferior wall akinesis Reevaluated today on 10/20/19, she is now postoperative day #8. Patient remains on mechanical ventilation, her ventilator settings are assist control rate of 26 tidal volume of 350 FiO2 of 40% and I cut it down to 35% PEEP is at 5. Patient is on propofol at 50 mcg/kg/m. She is on enteral feeding via Dobbhoff tube. She is also on antibiotics empirically on Zosyn and she is also on Solu-Medrol. Chest x-ray is showing definite improvement and that is reflected on her ABG today. ABG showed a pO2 of 115 pCO2 of 41 pH of 7.45 this was on 40% and I cut down to 35%. Patient remains in atrial fibrillation, but rate seems to be fairly well controlled. I have recommended sedation holiday today, assessment of mental status, and depending on how she does off sedation will likely recommend weaning parameters and may be a weaning trial. However the patient does poorly off sedation, then we'll continue sedation again and address on a daily basis trials of weaning. WBC count is up to 19.1, however I believe this is mostly steroids related. Doubt infection, and patient will remain on Zosyn empirically. Objective - Vital Signs Vital signs: Vital Signs Temp 98.4 F 10/20/19 12:00 Pulse 77 10/20/19 13:00 Resp 30 H 10/20/19 13:00 BP 118/60 10/20/19 13:00 Pulse Ox 98 10/20/19 13:00 Intake & Output 10/19/19 10/20/19 10/20/19 18:59 06:59 18:59 Intake Total 2738.805 6740.857 1003.859 Output Total 495 1285 380 Balance 755.125 189.857 623.859 Weight 68.8 kg 70.1 kg Intake: IV 792 877 441 0.9NS Pressure Bags 72 57 21 Dextrose 5%-0.45% NaCl 1, 720 720 420 000 ml @ 60 mls/hr IV . [id number] [facility] Rx#:[id number] Piperacillin-Tazobactam 3 100 .375 gm In Sodium Chloride 0.9% 100 ml @ 25 mls/hr IVPB Q8H [facility] Rx#: [id number] Intake, IV Titration 68.125 42.857 187.859 Amount Piperacillin-Tazobactam 3 100 .375 gm In Sodium Chloride 0.9% 100 ml @ 25 mls/hr IVPB Q8H [facility] Rx#: [id number] propofoL 1,000 mg In 68.125 42.857 87.859 Empty Bag 1 bag @ Titrate IV .Q0M [facility] Rx#: [id number] Tube Feeding 300 465 315 Other 90 90 60 Output: Chest Tube Drainage 340 60 Right 340 60 Urine 495 945 320 Other: Voiding Method Indwelling Catheter Indwelling Catheter Indwelling Catheter ABP, PAP, CO, CI - Last Documented Arterial Blood Pressure 157/47 Pulmonary Artery Pressure 57/36 Cardiac Output 3.8 Cardiac Index 2.5 - Exam Physical Exam: Revealed 79-year-old female in no distress, on mechanical ventilation, arousable, follows very simple instructions although she is on a small dose of propofol at 10 mcg/kg/m. Head: Atraumatic, normocephalic, endotracheal tube and orogastric tube are intact, right IJ central line is noted/triple-lumen catheter. HEENT:[Neck is supple.] [No neck masses.] [No thyromegaly.] [No JVD.] Chest: Symmetrical chest expansion, crackles at the bases Right pleural chest tube remains in place to low continuous wall suction -20 cm H2O. No air leak is present. 340 mL output in the last 8 hours, 600 mL output in the last 24 hours of thin serosanguineous drainage. Cardiac Exam: Irregular, tachycardic rate and rhythm, A. fib RVR on telemetry, Atrial and ventricular epicardial pacemaker wires in place and connected to a backup pacemaker generator on a VVI 60 BPM. Peripheral pulses palpable. Right IJ triple-lumen catheter in place with continuous CVP monitoring, current CVP pressure 15 mmHg. Heart hugger is in place. Knee-high sequential compression devices and MONISHA hose in place to bilateral lower extremities. Abdomen: [Soft, nontender, no megaly, no rebound, no guarding, normal bowel s ounds.] Extremities: [No clubbing, generalized edema is noted. Stockings noted. Neurological Exam: [No focal neurologic deficit.] Arousable, follows simple instructions, mental status seems to be intact. Psychiatric: Normal mood, affect and normal mental status examination. - Labs CBC & Chem 7: 10/20/19 03:58 10/20/19 03:58 Labs: Abnormal Lab Results - Last 24 Hours (Table) 10/19/19 10/19/19 10/19/19 Range/Units 17:32 18:12 19:58 WBC (3.8-10.6) k/uL RBC (3.80-5.40) m/uL Hgb (11.4-16.0) gm/dL Hct (34.0-46.0) % RDW (11.5-15.5) % Neutrophils # (1.3-7.7) k/uL Lymphocytes # (1.0-4.8) k/uL ABG pH 7.48 H (7.35-7.45) ABG pO2 205 H (83-108) mmHg ABG HCO3 27 H (21-25) mmol/L ABG Total CO2 28 H (19-24) mmol/L ABG O2 Saturation 99.8 H (94-97) % Sodium (137-145) mmol/L BUN (7-17) mg/dL Creatinine (0.52-1.04) mg/dL Glucose (74-99) mg/dL POC Glucose (mg/dL) 141 H 181 H (75-99) mg/dL Calcium (8.4-10.2) mg/dL Total Bilirubin (0.2-1.3) mg/dL AST (14-36) U/L ALT (4-34) U/L Total Protein (6.3-8.2) g/dL Albumin (3.5-5.0) g/dL 10/20/19 10/20/19 10/20/19 Range/Units 00:01 03:58 03:58 WBC 19.1 H (3.8-10.6) k/uL RBC 2.62 L (3.80-5.40) m/uL Hgb 7.8 L (11.4-16.0) gm/dL Hct 24.9 L (34.0-46.0) % RDW 18.2 H (11.5-15.5) % Neutrophils # 17.6 H (1.3-7.7) k/uL Lymphocytes # 0.5 L (1.0-4.8) k/uL ABG pH (7.35-7.45) ABG pO2 (83-108) mmHg ABG HCO3 (21-25) mmol/L ABG Total CO2 (19-24) mmol/L ABG O2 Saturation (94-97) % Sodium 130 L (137-145) mmol/L BUN 43 H (7-17) mg/dL Creatinine 1.13 H (0.52-1.04) mg/dL Glucose 162 H (74-99) mg/dL POC Glucose (mg/dL) 178 H (75-99) mg/dL Calcium 7.6 L (8.4-10.2) mg/dL Total Bilirubin 1.5 H (0.2-1.3) mg/dL AST 738 H (14-36) U/L ALT 388 H (4-34) U/L Total Protein 4.6 L (6.3-8.2) g/dL Albumin 2.8 L (3.5-5.0) g/dL 10/20/19 10/20/19 10/20/19 Range/Units 06:07 07:30 11:35 WBC (3.8-10.6) k/uL RBC (3.80-5.40) m/uL Hgb (11.4-16.0) gm/dL Hct (34.0-46.0) % RDW (11.5-15.5) % Neutrophils # (1.3-7.7) k/uL Lymphocytes # (1.0-4.8) k/uL ABG pH (7.35-7.45) ABG pO2 115 H (83-108) mmHg ABG HCO3 28 H (21-25) mmol/L ABG Total CO2 30 H (19-24) mmol/L ABG O2 Saturation 98.9 H (94-97) % Sodium (137-145) mmol/L BUN (7-17) mg/dL Creatinine (0.52-1.04) mg/dL Glucose (74-99) mg/dL POC Glucose (mg/dL) 191 H 174 H (75-99) mg/dL Calcium (8.4-10.2) mg/dL Total Bilirubin (0.2-1.3) mg/dL AST (14-36) U/L ALT (4-34) U/L Total Protein (6.3-8.2) g/dL Albumin (3.5-5.0) g/dL Microbiology - Last 24 Hours (Table) 10/18/19 13:00 Gram Stain - Final Sputum Sputum Culture - Final Anastasiia albicans 10/18/19 11:55 Urine Culture - Final Urine,Catheterized Assessment and Plan Assessment: Impression: Postoperative hypoxic and hypercapnic respiratory failure requiring reintubation, suspect this to be secondary to underlying interstitial lung disease/pulmonary fibrosis with suspected postoperative acute lung injury, possible pneumonia but this is felt to be less likely. Status post bioprosthetic aortic valve replacement, mitral valve repair, single- vessel CABG, bypass to RCA. Postoperative day #8 Chronic kidney disease stage III Postoperative acute blood loss, status post multiple transfusions, this may be a contributing factor to acute lung injury and that is truly the case. Postoperative pericardial effusion/temponade requiring reexploration and evacuation of clot, postoperative day #6 Hypothyroidism. Dyslipidemia. Severe aortic insufficiency status post bioprosthetic aortic valve replacement. Moderate mitral regurgitation requiring mitral valve repair. Benign essential hypertension. Postoperative atrial fibrillation, expected. Recommendation: Continue ventilatory support. Continue antiarrhythmic agents for her atrial fibrillation with RVR. Presently seems to be under control. Start the nutritional support via Dobbhoff tube. Continue empiric antibiotics and Solu-Medrol for now. Diuretics as needed. GI prophylaxis. Advanced diet as tolerated. Continue enteral feeding via Dobbhoff. DVT prophylaxis. Patient remains critically ill, critical care time is 33 minutes. Will give the patient a trial off sedation, assess weaning parameters, and decide whether the patient is reasonable and extubation will today. We'll continue to follow the ICU. Prognosis is guarded. Time with Patient: Greater than 30
[2019-10-20 17:40] LABS: Glucose,Whole Blood 150 mg/dL (75-99)
[2019-10-20] MEDS: FERROUS SULFATE ORAL ELIXIR 300 MG/5 ML CUP NG-TUBE SCH (17:58)
[2019-10-20] MEDS: SENNOSIDES-DOCUSATE SODIUM 1 EACH TAB PO SCH (20:07)
--- NOTE | 2019-10-20 21:33 | P.PN ---
Subjective This is a pleasant 79 years old female with multiple medical problems as below she was admitted to the ICU with prolonged course, initially she was admitted for coronary artery disease and she underwent CABG surgery with aortic valve replacement and nocturnal valve repair, postoperatively she got intubated and sedated in the ICU, her hospital course was complicated by bleeding from chest tube and received several units of blood transfusion, status post exploratory duration of the chest and removal of blood clots and irrigation of the chest ca vity. Patient was extubated on 10/15. However yesterday she had respiratory distress with hypercapnia and she was intubated again. Her course also was complicated by several bouts of atrial fibrillation with RVR that needed amiodarone drip, she is currently on the operative antibiotics with Zosyn and also Solu-Medrol. Currently she remains intubated and sedated. Pulmonary/critical care team are f ollowing the case closely with weaning a trial is tried with sedation holiday possibly over the weekend. Currently her heart rate is controlled for her A. fib. She has adequate urine output, she's tolerated tube feeding. Review of systems: N/a, patient is intubated Active Medications Generic Name Dose Route Start Last Admin Trade Name Freq PRN Reason Stop Dose Admin Acetaminophen 1,000 mg 10/13/19 11:46 10/20/19 13:57 Tylenol Tab PO 1,000 mg Q6HR PRN Administration Fever and/ or Pain Albuterol/Ipratropium 3 ml 10/12/19 13:00 Duoneb 0.5 Mg-3 Mg/3 Ml Soln INHALATION RT-Q2H PRN Shortness Of Breath Or Wheezing Albuterol/Ipratropium 3 ml 10/12/19 18:22 10/20/19 20:25 Duoneb 0.5 Mg-3 Mg/3 Ml Soln INHALATION 3 ml RT-QID JAYE Administration Ascorbic Acid 500 mg 10/13/19 17:30 10/20/19 17:58 Vitamin C PO 500 mg BID-W/MEALS JAYE Administration Aspirin 81 mg 10/13/19 09:00 10/20/19 08:51 Aspirin PO 81 mg DAILY JAYE Administration Atorvastatin Calcium 40 mg 10/13/19 09:00 10/20/19 08:51 Lipitor PO 40 mg DAILY JAYE Administration Benzocaine/Menthol 1 each 10/12/19 13:00 Cepacol Lozenge MUCOUS MEM Q2H PRN Sore Throat Bisacodyl 10 mg 10/19/19 09:15 10/20/19 20:09 Dulcolax RECTAL Not Given BID [facility] Chlorhexidine Gluconate 15 ml 10/18/19 21:00 10/20/19 20:07 Peridex MUCOUS MEM 15 ml BID JAYE Administration Ferrous Sulfate 300 mg 10/20/19 17:30 10/20/19 17:58 Feosol NG-TUBE 300 mg BID-W/MEALS JAYE Administration Heparin Sodium (Porcine) 5,000 unit 10/12/19 21:00 10/20/19 20:07 Heparin SQ 5,000 unit Q8H JAYE Administration Hydralazine HCl 5 mg 10/19/19 16:00 10/20/19 16:45 Apresoline IVP 5 mg Q8HR JAYE Administration Propofol 1,000 mg/ IV Solution 100 mls @ 0 mls/hr 10/18/19 19:45 10/20/19 18:55 IV 30 mcg/kg/min .Q0M JAYE 12.618 mls/hr Administration Protocol Titrate Piperacillin Sod/Tazobactam 100 mls @ 25 mls/hr 10/18/19 22:00 10/20/19 14:41 Sod 3.375 gm/ Sodium Chloride IVPB 25 mls/hr Q8H JAYE Administration Dextrose/Sodium Chloride 1,000 mls @ 60 mls/hr 10/19/19 01:45 10/20/19 11:27 Dextrose 5%-1/2ns Iv Soln IV 60 mls/hr .[id number] JAYE Administration Insulin Aspart 0 unit 10/19/19 06:00 10/20/19 18:10 Novolog SQ 2 unit Q6H JAEY Administration Protocol Levothyroxine Sodium 75 mcg 10/13/19 06:30 10/20/19 06:55 Synthroid PO 75 mcg DAILY@0630 JAYE Administration Lidocaine 1 patch 10/16/19 16:15 10/20/19 10:15 Lidoderm TOPICAL 1 patch DAILY JAYE Administration Magnesium Hydroxide 2,400 mg 10/19/19 09:15 10/20/19 20:07 Milk Of Magnesia PO 2,400 mg BID JAYE Administration Methylprednisolone Sodium Succinate 40 mg 10/19/19 00:00 10/20/19 16:46 Solu-Medrol IV 40 mg Q8HR JAYE Administration Metoclopramide HCl 5 mg 10/17/19 16:24 10/18/19 12:29 Reglan IVP 5 mg Q4H PRN Administration Nausea And Vomiting Metoprolol Tartrate 12.5 mg 10/16/19 09:00 10/20/19 20:07 Lopressor PO 12.5 mg BID JAYE Administration Midodrine 5 mg 10/18/19 07:30 10/20/19 17:58 Proamatine PO 5 mg AC-TID JAYE Administration Miscellaneous Information 1 each 10/12/19 13:00 Magnesium Per Protocol MISCELLANE DAILY PRN Per Protocol Protocol Miscellaneous Information 1 each 10/12/19 13:00 Phosphorus Per Protocol MISCELLANE DAILY PRN Per Protocol Protocol Miscellaneous Information 1 each 10/16/19 07:12 Potassium Per Protocol MISCELLANE DAILY PRN Per Protocol Protocol Ondansetron HCl 4 mg 10/12/19 13:00 10/18/19 02:38 Zofran IVP 4 mg Q6HR PRN Administration Nausea And Vomiting Pantoprazole Sodium 40 mg 10/20/19 09:00 10/20/19 08:52 Protonix IVP 40 mg DAILY JAYE Administration Senna/Docusate Sodium 2 each 10/13/19 21:00 10/20/19 20:07 Senokot-S PO 2 each HS JAYE Administration Sodium Chloride 10 ml 10/12/19 21:00 10/20/19 20:08 Saline Flush IV 10 ml BID JAYE Administration Tramadol HCl 50 mg 10/16/19 07:21 10/17/19 21:26 Ultram PO 50 mg Q8HR PRN Administration Pain Objective - Vital Signs Vital signs: Vital Signs Temp 98.4 F 10/20/19 12:00 Pulse 90 10/20/19 14:00 Resp 21 10/20/19 14:00 BP 122/61 10/20/19 14:00 Pulse Ox 98 10/20/19 14:00 Intake & Output 10/19/19 10/20/19 10/20/19 18:59 06:59 18:59 Intake Total 6644.759 3513.857 1112.280 Output Total 495 1285 445 Balance 755.125 189.857 667.280 Weight 68.8 kg 70.1 kg Intake: IV 792 877 504 0.9NS Pressure Bags 72 57 24 Dextrose 5%-0.45% NaCl 1, 720 720 480 000 ml @ 60 mls/hr IV . [id number] JAYE Rx#:[id number] Piperacillin-Tazobactam 3 100 .375 gm In Sodium Chloride 0.9% 100 ml @ 25 mls/hr IVPB Q8H JAYE Rx#: [id number] Intake, IV Titration 68.125 42.857 188.280 Amount Piperacillin-Tazobactam 3 100 .375 gm In Sodium Chloride 0.9% 100 ml @ 25 mls/hr IVPB Q8H JAYE Rx#: [id number] propofoL 1,000 mg In 68.125 42.857 88.280 Empty Bag 1 bag @ Titrate IV .Q0M JAYE Rx#: [id number] Tube Feeding 300 465 360 Other 90 90 60 Output: Chest Tube Drainage 340 80 Right 340 80 Urine 495 945 365 Other: Voiding Method Indwelling Catheter Indwelling Catheter Indwelling Catheter ABP, PAP, CO, CI - Last Documented Arterial Blood Pressure 157/47 Pulmonary Artery Pressure 57/36 Cardiac Output 3.8 Cardiac Index 2.5 - Exam -GENERAL: The patient is intubated and sedated HEENT: Pupils are round and equally reacting to light. EOMI. No scleral icterus. No conjunctival pallor. Normocephalic, atraumatic. No pharyngeal erythema. No thyromegaly. CARDIOVASCULAR: S1 and S2 present. No murmurs, rubs, or gallops. PULMONARY: Chest is clear to auscultation, no wheezing or crackles. ABDOMEN: Soft, nontender, nondistended, normoactive bowel sounds. No palpable organomegaly. MUSCULOSKELETAL: No joint swelling or deformity. EXTREMITIES: No cyanosis, clubbing, or pedal edema. NEUROLOGICAL: Gross neurological examination did not reveal any focal deficits. SKIN: No rashes. no petechiae. - Labs CBC & Chem 7: 10/20/19 03:58 10/20/19 03:58 Labs: Abnormal Lab Results - Last 24 Hours (Table) 10/19/19 10/19/19 10/19/19 Range/Units 17:32 18:12 19:58 WBC (3.8-10.6) k/uL RBC (3.80-5.40) m/uL Hgb (11.4-16.0) gm/dL Hct (34.0-46.0) % RDW (11.5-15.5) % Neutrophils # (1.3-7.7) k/uL Lymphocytes # (1.0-4.8) k/uL ABG pH 7.48 H (7.35-7.45) ABG pO2 205 H (83-108) mmHg ABG HCO3 27 H (21-25) mmol/L ABG Total CO2 28 H (19-24) mmol/L ABG O2 Saturation 99.8 H (94-97) % Sodium (137-145) mmol/L BUN (7-17) mg/dL Creatinine (0.52-1.04) mg/dL Glucose (74-99) mg/dL POC Glucose (mg/dL) 141 H 181 H (75-99) mg/dL Calcium (8.4-10.2) mg/dL Total Bilirubin (0.2-1.3) mg/dL AST (14-36) U/L ALT (4-34) U/L Total Protein (6.3-8.2) g/dL Albumin (3.5-5.0) g/dL 10/20/19 10/20/19 10/20/19 Range/Units 00:01 03:58 03:58 WBC 19.1 H (3.8-10.6) k/uL RBC 2.62 L (3.80-5.40) m/uL Hgb 7.8 L (11.4-16.0) gm/dL Hct 24.9 L (34.0-46.0) % RDW 18.2 H (11.5-15.5) % Neutrophils # 17.6 H (1.3-7.7) k/uL Lymphocytes # 0.5 L (1.0-4.8) k/uL ABG pH (7.35-7.45) ABG pO2 (83-108) mmHg ABG HCO3 (21-25) mmol/L ABG Total CO2 (19-24) mmol/L ABG O2 Saturation (94-97) % Sodium 130 L (137-145) mmol/L BUN 43 H (7-17) mg/dL Creatinine 1.13 H (0.52-1.04) mg/dL Glucose 162 H (74-99) mg/dL POC Glucose (mg/dL) 178 H (75-99) mg/dL Calcium 7.6 L (8.4-10.2) mg/dL Total Bilirubin 1.5 H (0.2-1.3) mg/dL AST 738 H (14-36) U/L ALT 388 H (4-34) U/L Total Protein 4.6 L (6.3-8.2) g/dL Albumin 2.8 L (3.5-5.0) g/dL 10/20/19 10/20/19 10/20/19 Range/Units 06:07 07:30 11:35 WBC (3.8-10.6) k/uL RBC (3.80-5.40) m/uL Hgb (11.4-16.0) gm/dL Hct (34.0-46.0) % RDW (11.5-15.5) % Neutrophils # (1.3-7.7) k/uL Lymphocytes # (1.0-4.8) k/uL ABG pH (7.35-7.45) ABG pO2 115 H (83-108) mmHg ABG HCO3 28 H (21-25) mmol/L ABG Total CO2 30 H (19-24) mmol/L ABG O2 Saturation 98.9 H (94-97) % Sodium (137-145) mmol/L BUN (7-17) mg/dL Creatinine (0.52-1.04) mg/dL Glucose (74-99) mg/dL POC Glucose (mg/dL) 191 H 174 H (75-99) mg/dL Calcium (8.4-10.2) mg/dL Total Bilirubin (0.2-1.3) mg/dL AST (14-36) U/L ALT (4-34) U/L Total Protein (6.3-8.2) g/dL Albumin (3.5-5.0) g/dL Microbiology - Last 24 Hours (Table) 10/18/19 13:00 Gram Stain - Final Sputum Sputum Culture - Final Anastasiia albicans 10/18/19 11:55 Urine Culture - Final Urine,Catheterized Assessment and Plan Assessment: Coronary artery disease status post CABG with aortic valve replacement and mitral valve repair acute hypoxic and hypercapnic respiratory failure needing mechanical ventilation and intubation Atrial fibrillation with paroxysmal RVR. status post Pericardial Effusion/tamponade - taken to the OR and s/p evacuation of clots Acute blood loss anemia, Patient received several units of blood transfusions. Patient is currently stable hemoglobin acute COPD exacerbation GERD Hypertension Hyperlipidemia History of mitral valve prolapse Chronic kidney disease stage II Hypothyroidism Remote history of nicotine dependence Plan: This is a pleasant 79 years old female with multiple medical problems as above, she is in respiratory failure and on mechanical ventilation and pulmonary/critical care team and following the patient closely with the plan for weaning and extubation down the road. Continue with amiodarone for heart rate control for her A. fib. Labs and medication were reviewed.. Continue same treatment. Continue with symptomatic treatment. Resume home medication. Monitor lytes and vitals. DVT and GI prophylaxis. Further recommendations of the clinical course of the patient DVT prophylaxis: Subcutaneous heparin GI Prophylaxis: Ppi PT/OT: Pending Prognosis is guarded Thank you for consulting us
[2019-10-20 23:58] LABS: Glucose,Whole Blood 171 mg/dL (75-99)
[2019-10-21] MEDS: hydrALAZINE HCL 20 MG/ML 1 ML VIAL IVP SCH ×4 (00:01→23:10)
[2019-10-21] MEDS: methylPREDNISolone SOD SUCCI 40 MG/ML 1 ML VIAL IV SCH ×4 (00:01→23:10)
[2019-10-21] MEDS: INSULIN ASPART (NovoLOG) 100 UNIT/ML VIAL SQ SCH ×5 (00:02→23:10)
[2019-10-21 04:42] LABS: Anisocytosis Slight; Basophils % (A) 0 %; Eosinophils % (A) 0 %; HCT 23.6 % (34.0-46.0); HGB 7.4 gm/dL (11.4-16.0); Hypochromasia Slight; Lymphocytes # (A) 0.4 k/uL (1.0-4.8); Lymphocytes % (A) 2 %; MCH 29.9 pg (25.0-35.0); MCHC 31.3 g/dL (31.0-37.0); MCV 95.7 fL (80.0-100.0); Macrocytosis Slight; Mean Platelet Volume 8.4; Monocytes # (A) 0.8 k/uL (0-1.0); Monocytes % (A) 5 %; Neutrophils # (A) 16.7 k/uL (1.3-7.7); Neutrophils % (A) 92 %; Platelet Count 207 k/uL (150-450); Poikilocytosis Slight; RBC 2.46 m/uL (3.80-5.40); RDW 18.4 % (11.5-15.5); WBC 18.2 k/uL (3.8-10.6)
[2019-10-21 04:59] LABS: Albumin 2.5 g/dL (3.5-5.0); Calcium 7.2 mg/dL (8.4-10.2); Potassium 3.9 mmol/L (3.5-5.1); Total Bilirubin 1.1 mg/dL (0.2-1.3); Total Protein 4.5 g/dL (6.3-8.2)
[2019-10-21] MEDS: HEPARIN SODIUM,PORCINE 5,000 UNIT/ML 1 ML VIAL SQ SCH ×3 (05:26→20:56)
[2019-10-21] MEDS: PIPERACILLIN-TAZOBACTAM 3.375 GM in SODIUM CHLORIDE 0.9% 100 ML IVPB SCH ×3 (05:27→20:56)
[2019-10-21 06:03] LABS: Glucose,Whole Blood 153 mg/dL (75-99)
[2019-10-21] MEDS: ASCORBIC ACID 500 MG TAB PO SCH ×2 (06:41→17:06)
[2019-10-21] MEDS: FERROUS SULFATE ORAL ELIXIR 300 MG/5 ML CUP NG-TUBE SCH ×2 (06:41→17:35)
[2019-10-21] MEDS: LEVOTHYROXINE 75 MCG TAB PO SCH (06:41)
[2019-10-21] MEDS: MIDODRINE 5 MG TAB PO SCH ×2 (06:41→11:38)
[2019-10-21] MEDS ORDERED: POTASSIUM BICARBONATE/CIT AC 20 MEQ TABLET.EFF NG-TUBE SCH (07:00)
[2019-10-21 07:33] LABS: ABG Base Excess 6.2 mmol/L; ABG HCO3 30 mmol/L (21-25); ABG Oxygen Saturation 98.1 % (94-97); ABG PCO2 43 mmHg (35-45); ABG PH 7.46 (7.35-7.45); ABG PO2 100 mmHg (83-108); ABG TCO2 31 mmol/L (19-24)
[2019-10-21 07:43] LABS: Allen Test Performed? no
--- NOTE | 2019-10-21 08:00 | XR ---
EXAMINATION TYPE: XR chest 1V portable DATE OF EXAM: 10/21/2019 Comparison: 10/20/2019 Clinical History: 79 year-old female tube placement Findings: Interval advancement of ET tube. Tip now 3.1 cm from the mauro. NG tube satisfactory. Epicardial pac er leads. Right IJ CVC tip in the upper right atrium. Median sternotomy wires with prosthetic aortic valve. Continued volume loss left hemithorax. Diffuse interstitial and patchy airspace opacities opac ities persist. Possible trace left effusion. Hyperinflation. Right-sided chest tube remains. No defin ite pneumothorax. Prominent biapical pleural-parenchymal scarring. Impression: 1. COPD, prominent biapical pleural-parenchymal scarring, and right-sided chest tube without definite pneumothorax. 2. Satisfactory interval repositioning of the ET tube. 3. Continued diffuse bilateral interstitial and patchy airspace opacities. Correlate for possible int erstitial pulmonary edema. Trace left effusion.
[2019-10-21] MEDS: IPRATROPIUM-ALBUTEROL 3 ML NEB INHALATION SCH ×4 (08:12→20:10)
[2019-10-21] MEDS: bisacodyL 10 MG SUPP RECTAL SCH (08:35)
[2019-10-21] MEDS: MAGNESIUM HYDROXIDE 2,400 MG/10 ML CUP PO SCH ×2 (08:35→20:54)
[2019-10-21] MEDS: METOPROLOL TARTRATE 12.5 MG TAB PO SCH ×2 (08:40→20:56)
[2019-10-21] MEDS: ATORVASTATIN 40 MG TAB PO SCH (08:40)
[2019-10-21] MEDS: PANTOPRAZOLE 40 MG/10 ML VIAL IVP SCH (08:40)
[2019-10-21] MEDS: CHLORHEXIDINE GLUCONATE 15 ML CUP MUCOUS MEM SCH (08:40)
[2019-10-21] MEDS: ASPIRIN 81 MG PO SCH (08:40)
[2019-10-21] MEDS ORDERED: bisacodyL 10 MG SUPP RECTAL PRN (09:49)
--- NOTE | 2019-10-21 10:20 | P.PN ---
Subjective Progress Note Date: 10/21/19 Principal diagnosis: Severe aortic valve insufficiency, moderate to severe mitral valve regurgitation, single-vessel coronary artery disease. Past medical history significant for coronary artery disease with myocardial infarction and stent placement to the RCA, hypertension, hyperlipidemia, chronic kidney disease stage III, right internal carotid artery stenosis 50-69%, hypothyroidism, TIA in 2004 without residual, remote history of pneumonia, previous tobacco dependence, mo derate restriction with preoperative FEV1 50% of predicted, and family history of premature coronary artery disease. POD #9 aortic valve replacement with 21 mm Herrera Inspiris bioprosthetic aortic valve, mitral valve repair with a #28 mm [employer] AnnuloFlex band, a reverse greater saphenous vein graft off the aorta to the right coronary artery with right lower extremity greater saphenous endoscopic vein harvesting, clip ligation of left atrial appendage 35mm AtriClip and intraoperative larson sesophageal echocardiogram. Postoperative acute blood loss anemia, expected given hemodilution and cardiopulmonary bypass pump. Postoperative and intraoperative atrial fibrillation, unexpected but potential outcome of valvular heart surgery. Postoperative prolonged mechanical ventilation secondary to hemodynamic instability, unexpected. Postoperative pericardial effusion/tamponade. POD #7 Re-exploration of the chest, evacuation of clot, irrigation of chest cavity. Postoperative transaminitis, likely shocked liver secondary to hypotension, unexpected. Postoperative hypoxic and hypercapnic respiratory failure requiring reintubation, unexpected, potentially secondary to underlying Interstitial lung disease/pulmonary fibrosis. The patient was seen in follow-up today 10/21/2019 at her bedside in the intensive care unit. She remains intubated with mechanical ventilator support and is currently sedated on propofol drip at 30 mcg/kg/m. She is not following any verbal commands at this time. Dobbhoff tube remains in place with vital high-protein to feeding infusing at goal rate of 45 mL per hour with 30 mL every 4 hour water flushes. Remains with a right IJ triple-lumen central catheter in place with the current CVP monitoring showing 13 mmHg. WBC count today is 18.2, she remains afebrile and remains on Zosyn for a antibiotic coverage and remains on Solu-Medrol 40 mg IV every 8 hours. It was reported that the patient had an episode of bradycardia last evening with a heart rate of 37 BPM which was self-limiting. Currently her bedside monitor is showing normal sinus rhythm heart rate 75 BPM. Atrial and ventricular epicardial pacemaker wires remain in place and connected to backup bedside pacemaker generator on a VVI of 50 BPM. Digoxin 0.125 micrograms IV was given yesterday and her dig levels morning is 2.4. The patient has having episodes of diarrhea this morning. Objective - Vital Signs Vital signs: Vital Signs Temp 97.1 F L 10/21/19 08:00 Pulse 73 10/21/19 08:21 Resp 25 H 10/21/19 08:00 BP 112/72 10/21/19 08:00 Pulse Ox 95 10/21/19 08:00 Intake & Output 10/20/19 10/21/19 10/21/19 18:59 06:59 18:59 Intake Total 9116.162 1525.957 311.558 Output Total 673 455 105 Balance 1006.261 905.957 206.558 Weight 70.6 kg Intake: IV 856 687 123 0.9NS Pressure Bags 36 27 3 Dextrose 5%-0.45% NaCl 1, 720 660 120 000 ml @ 60 mls/hr IV . [id number] JAYE Rx#:[id number] Piperacillin-Tazobactam 3 100 .375 gm In Sodium Chloride 0.9% 100 ml @ 25 mls/hr IVPB Q8H JAYE Rx#: [id number] Intake, IV Titration 238.261 88.957 68.558 Amount Piperacillin-Tazobactam 3 100 .375 gm In Sodium Chloride 0.9% 100 ml @ 25 mls/hr IVPB Q8H JAYE Rx#: [id number] propofoL 1,000 mg In 138.261 88.957 68.558 Empty Bag 1 bag @ Titrate IV .Q0M JAYE Rx#: [id number] Tube Feeding 495 495 90 Other 90 90 30 Output: Chest Tube Drainage 80 70 Right 80 70 Urine 593 385 105 Other: Voiding Method Indwelling Catheter Indwelling Catheter # Bowel Movements 1 ABP, PAP, CO, CI - Last Documented Arterial Blood Pressure 157/47 Pulmonary Artery Pressure 57/36 Cardiac Output 3.8 Cardiac Index 2.5 - Constitutional Constitutional Comment(s): Patient remains intubated with mechanical ventilator support and is currently sedated on propofol drip at 30 mcg/kg/m. General appearance: Present: average body habitus, no acute distress - Neck Details: Neck is supple, no JVD, right IJ triple-lumen catheter in place and functioning. - Respiratory Details: Lung sounds are essentially diminished throughout with few scattered crackles to her bilateral bases. Respirations are symmetrical and nonlabored with mechanical ventilator support. Current mechanical ventilator settings are as follows: Assist control 26, TV 350, FiO2 35%, and PEEP of 5. ABG results this morning show a pH 7.46, pCO2 43, pO2 100, HCO3 30, oxygen saturation 98.1 base excess 6.2. Right pleural chest tube remains in place to low continuous wall suction -20 cm H2O. No air leak is present. Draining thin serosanguineous drainage with 50 mL output in the last 8 hours and 200 mL output in the last 24 hours. - Cardiovascular Details: Regular rhythm and rate. S1 and S2 present, negative for S3, gallop or murmur. Sternum is stable. Atrial and ventricular epicardial pacemaker wires in place and connected to bedside backup pacemaker generator with a VVI 50. Bedside telemetry currently showing normal sinus rhythm heart rate 75 BPM. Knee-high MONISHA hose and sequential compression devices in place to her bilateral lower extremities. Generalized +1 edema. Heart hugger is in place. Right IJ triple- lumen central line in place with continuous CVP monitoring, current CVP pressure 13 mmHg. - Gastrointestinal Gastrointestinal Comment(s): Abdomen is soft, and nondistended. Active bowel sounds present in all 4 abdominal quadrants. Bowel movement this a.m., diarrhea. Dobbhoff tube in place with continuous tube feedings infusing vital high-protein at goal rate of 45 mL per hour with automatic water flushes 30 mL every 4 hours. - Genitourinary Genitourinary Comment(s): Pratt catheter for accurate I&O. Draining clear yellow urine with 235 mL output in the last 8 hours. - Neurologic Neurologic Comment(s): Unable to assess at this time as the patient is sedated on propofol drip at 30 mcg/kg/m. - Musculoskeletal Musculoskeletal: Present: generalized weakness - Psychiatric Psychiatric Comment(s): Unable to assess at this time as the patient is sedated on propofol drip at 30 mcg/kg/m. - Allied health notes Allied health notes reviewed: nursing - Labs CBC & Chem 7: 10/21/19 04:20 10/21/19 04:20 Labs: Abnormal Lab Results - Last 24 Hours (Table) 10/20/19 10/20/19 10/20/19 Range/Units 11:35 17:39 23:56 WBC (3.8-10.6) k/uL RBC (3.80-5.40) m/uL Hgb (11.4-16.0) gm/dL Hct (34.0-46.0) % RDW (11.5-15.5) % Neutrophils # (1.3-7.7) k/uL Lymphocytes # (1.0-4.8) k/uL ABG pH (7.35-7.45) ABG HCO3 (21-25) mmol/L ABG Total CO2 (19-24) mmol/L ABG O2 Saturation (94-97) % Sodium (137-145) mmol/L Carbon Dioxide (22-30) mmol/L BUN (7-17) mg/dL Creatinine (0.52-1.04) mg/dL Glucose (74-99) mg/dL POC Glucose (mg/dL) 174 H 150 H 171 H (75-99) mg/dL Calcium (8.4-10.2) mg/dL AST (14-36) U/L ALT (4-34) U/L Total Protein (6.3-8.2) g/dL Albumin (3.5-5.0) g/dL 10/21/19 10/21/19 10/21/19 Range/Units 04:20 04:20 06:02 WBC 18.2 H (3.8-10.6) k/uL RBC 2.46 L (3.80-5.40) m/uL Hgb 7.4 L (11.4-16.0) gm/dL Hct 23.6 L (34.0-46.0) % RDW 18.4 H (11.5-15.5) % Neutrophils # 16.7 H (1.3-7.7) k/uL Lymphocytes # 0.4 L (1.0-4.8) k/uL ABG pH (7.35-7.45) ABG HCO3 (21-25) mmol/L ABG Total CO2 (19-24) mmol/L ABG O2 Saturation (94-97) % Sodium 132 L (137-145) mmol/L Carbon Dioxide 31 H (22-30) mmol/L BUN 47 H (7-17) mg/dL Creatinine 1.20 H (0.52-1.04) mg/dL Glucose 142 H (74-99) mg/dL POC Glucose (mg/dL) 153 H (75-99) mg/dL Calcium 7.2 L (8.4-10.2) mg/dL AST 512 H (14-36) U/L ALT 369 H (4-34) U/L Total Protein 4.5 L (6.3-8.2) g/dL Albumin 2.5 L (3.5-5.0) g/dL 10/21/19 Range/Units 07:32 WBC (3.8-10.6) k/uL RBC (3.80-5.40) m/uL Hgb (11.4-16.0) gm/dL Hct (34.0-46.0) % RDW (11.5-15.5) % Neutrophils # (1.3-7.7) k/uL Lymphocytes # (1.0-4.8) k/uL ABG pH 7.46 H (7.35-7.45) ABG HCO3 30 H (21-25) mmol/L ABG Total CO2 31 H (19-24) mmol/L ABG O2 Saturation 98.1 H (94-97) % Sodium (137-145) mmol/L Carbon Dioxide (22-30) mmol/L BUN (7-17) mg/dL Creatinine (0.52-1.04) mg/dL Glucose (74-99) mg/dL POC Glucose (mg/dL) (75-99) mg/dL Calcium (8.4-10.2) mg/dL AST (14-36) U/L ALT (4-34) U/L Total Protein (6.3-8.2) g/dL Albumin (3.5-5.0) g/dL Microbiology - Last 24 Hours (Table) 10/20/19 00:23 Blood Culture - Preliminary Blood No Growth after 24 hours 10/18/19 13:00 Gram Stain - Final Sputum Sputum Culture - Final Anastasiia albicans - Imaging and Cardiology Chest x-ray: report reviewed, image reviewed Assessment and Plan Assessment: 1. Severe aortic valve insufficiency, status post bioprosthetic aortic valve replacement 2. Moderate to severe mitral valve regurgitation, status post mitral valve repair 3. Single-vessel coronary artery disease, status post coronary artery bypass to the RCA 4. History of coronary artery disease with myocardial infarction, status post stent placement to the RCA 5. History of hypertension 6. History of hyperlipidemia, treated 7. Right internal carotid artery stenosis 50-69% 8. Chronic kidney disease stage III 9. Hypothyroid 10. TIA in 2004 without residual 11. Remote history of pneumonia 12. Previous tobacco dependence 13. Moderate lung restriction with preoperative FEV1 58% of predicted, pu lmonary fibrosis seen on CT 14. Family history of premature coronary artery disease 15. Postoperative acute blood loss anemia, status post transfusion 16. Postoperative and intraoperative atrial fibrillation, status post clip ligation of left atrial appendage and amiodarone initiation 17. Postoperative prolonged mechanical ventilation 18. Postoperative pericardial effusion/tamponade, status post re-exploration of the chest, evacuation of clot, irrigation of chest cavity 19. Transaminitis, shock liver, likely from hypotension 20. Postoperative hypoxic and hypercapnic respiratory failure requiring reintubation, an unexpected outcome, potentially secondary to underlying interstitial lung disease/pulmonary fibrosis Plan: 1. Continue low-dose aspirin, statin and metoprolol tartrate 12.5 mg by mouth twice a day with hold parameters. 2. Amiodarone continues to be on hold due to her transaminitis. She was given digoxin 125 g IV 1 yesterday 10/20/2019, digoxin level 2.4 this a.m. No digoxin today. 3. Bronchodilators, antibiotics, corticosteroids and mechanical ventilator management per pulmonology/critical care medicine recommendations. 4. Will monitor daily labs and chest x-rays. Electrolyte replacement per protocol. 5. Increase activity as tolerated. Physical/occupational therapy and cardiac rehab following. 6. GI/DVT prophylaxis. 7. Pain control with current medication regimen. 8. Insulin management per primary care service. Preoperative hemoglobin A1c 5.5% 9. Continue to monitor chest tube output and consistency, continue to record accurate I's and O's. 11. Keep atrial and ventricular epicardial pacemaker wires in place and connected to back up pacemaker generator. Keep on current mode of VVI 50 bpm. 12. Continue Midodrine for blood pressure. 13. Discontinue milk of magnesia, Dulcolax suppository twice a day and Senokot due to diarrhea. Dulcolax suppository daily when necessary constipation. 14. Send stool specimen for C. difficile. Start vancomycin 250 mg per NG tube every 6 hours. 15. Increased tidal volume to 400 on mechanical ventilator. 16. More recommendations to follow based on patient's clinical course. Time with Patient: Greater than 30
[2019-10-21] MEDS: LIDOCAINE 5% PATCH TOPICAL SCH (10:41)
--- NOTE | 2019-10-21 10:41 | PN ---
PROGRESS NOTE Mrs. Quiroz is a 79-year-old female who underwent aortic valve replacement, mitral valve repair and single bypass. She postoperatively had to be taken back to the operating room because of recurrent bleeding. She was extubated and subsequently reintubated. She remains intubated at this time. She is back in sinus mechanism. She is not on any vasopressor. Her urine output is good. Her chest x-ray continues to show bilateral infiltrate. She has no evidence of ventricular tachycardia. She continues to be at this time on aspirin once a day, Lipitor 40 mg daily, levothyroxine, metoprolol 12.5 mg twice a day, midodrine. PHYSICAL EXAMINATION: Blood pressure 112/70 with a heart rate in 60s. Lungs with few crackles anteriorly. HEART: Regular rate and rhythm, S1, S2. No S3 with systolic ejection murmur at the base 2/6. No diastolic murmur. ABDOMEN: Soft, positive bowel sounds. No organomegaly. EXTREMITIES +1 edema. LAB DATA: Revealed a hemoglobin of 7.4, white blood cell of 18.2 with some improvement compared to yesterday. Her pH 7.46 and PO2 of 100. BUN and creatinine of 47 and 1.2. Her AST is 512, which has improved. IMPRESSION: 1. Status post coronary bypass grafting with aortic valve replacement and mitral valve repair. 2. Respiratory failure with possible acute lung injury. 3. Paroxysmal atrial fibrillation. 4. Renal failure, stabilizing. 5. Shock liver, improving. RECOMMENDATIONS: We will continue supportive care at this time. Continue managing her ventilator per Dr. Roe. Follow her renal function. In relation to her atrial fibrillation, at this time, she is in sinus mechanism and she did not have significant tachycardia. If needed the beta alan dose can be adjusted. Depending on her progress, further recommendations will be made. The prognosis remains guarded. MMODL / IJN: [id number] /
[2019-10-21 11:21] LABS: ABG Base Excess 6.9 mmol/L; ABG HCO3 31 mmol/L (21-25); ABG Oxygen Saturation 98.5 % (94-97); ABG PCO2 48 mmHg (35-45); ABG PH 7.42 (7.35-7.45); ABG PO2 106 mmHg (83-108); ABG TCO2 33 mmol/L (19-24)
[2019-10-21] MEDS: VANCOMYCIN ORAL SOLUTION 250 MG/5 ML BOTTLE NG-TUBE SCH ×3 (11:38→23:10)
[2019-10-21 11:52] LABS: Glucose,Whole Blood 195 mg/dL (75-99)
--- NOTE | 2019-10-21 12:50 | P.PN ---
Subjective Progress Note Date: 10/21/19 Principal diagnosis: Status post CABG, aortic valve replacement and mitral valve repair postoperative day # #9 2019, the patient is postop day #1. The patient underwent single-vessel bypass surgery, aortic valve replacement and mitral valve repair. She is known to have coronary artery disease, valvular insufficiency, hypertension and hyperlipidemia and chronic stage III kidney disease. The patient also is known to have carotid artery disease 50% on the right, hypothyroidism, and history of interstitial lung disease with pulmonary fibrosis and severe restrictive lung disease with a FVC in the 50% range preoperatively. On today's evaluation, the patient is still intubated on mechanical ventilator. Were unable to wean the patient off the mechanical ventilator and extubated because of her ongoing difficulties with hemodynamics and bleeding from the chest tubes. Note that the patient is still in intensive care unit and she is still sedated for now at propofol which is running at 20 g per KG per minute. The patient is still requiring inotropes. The patient was quite hypotensive after arrival from the operating room and she was having difficulties with bra dycardia. She is currently paced at the rate of 80. She is on norepinephrine infusion which is running at 0.26 mg per KG per minute. She was started on milrinone yesterday at 0.2 g and at a later stage dobutamine was also added. Earlier this morning, cardiothoracic surgery saw the patient and increase the paced rhythm of 200 beats per minutes. Her underlying rhythm this morning is normal sinus rate of 60. She is at dobutamine at the medical grams per KG per minute and milrinone at 0.2 mics respiratory KG per minute. She is also on amiodarone at 0.5 mg/m. The right is being titrated pH has an adequate urine output. Most recent hemodynamics indicate a cardiac index of 1.9. Pulmonary artery pressures are 46/25 mmHg. A bedside echocardiogram was done and there is no evidence of any pericardial effusion. Valve functions were adequate. The mediastinal chest tubes are in place and the pleural chest tube is in place. There was ongoing issues with clotting and drainage from the chest tubes. Appropriate cleaning and suctioning of the chest tubes were done. Overall, the patient received a total of 4 units of packed RBC, 3 units of fresh frozen plasma, 2 units of packed RBC and 2 packs of cryoprecipitate in addition to call is in the form of IV albumin throughout the resuscitation. No ongoing or active bleed at this point in time. No attempts for weaning off the mechanical ventilator. The patient is currently on a assist-control mode of ventilation at the rate of 20 with tidal volume of 400 and FiO2 of 50% with a PEEP of 5. Blood gas showed a pH of 7.38 with a pCO2 of 41 and pO2 of 206. Chest x-ray showed adequate expansion of both lungs. There is underlying chronic incision infiltrates. ET tube is in a good location. Chest x-rays well expanded. No pneumothorax. No atelectasis. 10/14/2019 the patient is postop day #2. The patient underwent single vessel bypass surgery, aortic valve replacement, mitral valve repair. The bleeding has subsided from the mediastinal tubes. Output from the tubes have dropped down considerably since yesterday. Nevertheless, there is some widening of the mediastinum and the patient is going to have a limited echocardiogram to rule out any hematoma or blood collection around the pericardium. The patient currently is still intubated on a mechanical ventilator. The patient remains on assist control mode of ventilation at the rate of 20 with a tidal volume of 400 and FiO2 of 40% with a PEEP of 5. The peak airway pressure is 26. Blood gases showed a pH of 7.44 with a pCO2 of 37 and pO2 129. Chest x-ray showed adequate expansion of both lungs. Chest tubes are all in good location. ET tube is in a good location. The patient is still has his [place] catheter in place. The mediastinum is slightly widened. In terms of hemodynamics, the patient is currently on milrinone at a dose of 0.1 g per KG per minute. The patient is also on dobutamine at 3 mg per KG per minute. Levo fed is running at 0.03 mics respiratory KG per minute. The patient is also on amiodarone at 0.5 mg/m. She is was sedated with propofol at 25 g per KG per minute. Insulin is running at 2.5 units an hour. Cardiac index is at 1.5. The heart rate is being paced the rate of 80. Underlying rhythm is sinus with a rate of 70. The patient is receiving enteral feeding for nutritional support. The most recent hemoglobin is at 7.3. The platelet count is down to 65. Patient was reevaluated today on 10/15/19, she is postoperative day #3. Patient had to be taken back to the operating room last night for excessive bleeding or recurrent effusion/temporal not. Patient underwent reexploration of the chest, evacuation of clots, and irrigation of the chest cavity. Today she is in the ICU on mechanical ventilation, her ventilator settings are assist control rate 20, volume is 400 FiO2 is 40% and PEEP of 5. ABG this morning showed a pO2 of 158 pCO2 of 38 pH of 7.40 and I was on 40% FiO2. Patient remains on propofol at 20 mcg/kg/m, she is off all pressors and inotropes except she is still on Dobutrex at 2 mcg/kg/m. Patient has a low cardiac output requiring inotropes, she is in atrial fibrillation requiring amiodarone, and she was quite anemic received a total of 9 units of packed RBCs, 3 units of fresh frozen plasma, 4 units of platelets, 2 packs of cryoprecipitate, and albumin. Hemoglobin this morning is 9.2. Patient is arousable, and she follows simple instructions, hence we will likely check weaning parameters and decide accordingly. Reevaluated today on 10/16/19, patient is postoperative day #4. Patient was extubated yesterday uneventfully, looking back, patient had a relatively uneventful postoperative course with profound hypotension, low cardiac output, required wrestlers, inotropes, she also required amiodarone for atrial fibrillation, and blood transfusions, multiple units of blood products were given as noted above. At any rate the patient is now off mechanical ventilation, she is on few liters nasal cannula, seems to be doing much better over the last 24 hours, and she is pleased that she is off the ventilator. She is now off pressors and off inotropes since yesterday. She is generally weak. Hemoglobin today is 8.8, Electrolytesenc normal, and renal profile is relatively normal. Chest x-ray showed mostly interstitial lung disease and postoperative atelectasis Reevaluated today on 10/17/19, patient is postoperative day #5. Remains on nasal cannula, O2 saturations 96%, patient is on 2 L. She had an episode of atrial fibrillation with RVR last night, and she was loaded with amiodarone. Currently patient is fully paced. Chest x-ray continues to show evidence of interstitial lung disease, and atelectasis. Patient is awake, alert, denies any shortness of breath, she does have some vague chest discomfort. Bedside monitor is showing atrial pacing rhythm in the 70s with underlying rhythm showing sinus bradycardia rate of 57. Patient received 1 dose of IV bolus of amiodarone 150 mg 1 last night. Patient is not requiring any inotropic or pressor support. Mediastinal and right pleural chest tubes remain in place. No air leak is noted. Serosanguineous drainage is noted. Mediastinal tube drained 75 ML over the last 8 hours and 140 ML's in the last 24 hours. Right pleural chest tube drained 140 ML in the last 8 hours and 400 MLS the last 24 hours. Her hemoglobin remains stable. Patient did receive yesterday 40 mg of Lasix with good response Patient was reevaluated today on 10/18/19 she is postoperative day #6. Patient is sitting in a recliner, patient remains in the ICU, very frail looking and weak, patient did have a very mehreen postoperative course since her surgery. Last night the patient developed low blood pressure, and low urine output, patient was given albumin, she was in and out of atrial fibrillation with RVR, Lasix was given earlier today, and the patient had slight improvement in her urine output with Lasix. Again the patient remains in a relatively atrial fibrillation blood pressure is marginal. Hence she was started on midodrine and she was given albumin last night. Chest x-ray continues to show interstitial lung disease, and possibly some interstitial pulmonary edema. Patient was reevaluated today on 10/19/19, she is postoperative day #7. Yesterday the patient continues to do poorly, and continued to have hypercapnia with low pO2 and elevated pCO2. Did poorly with BiPAP, hence I recommended intubating the patient and she was reintubated presently on assist control rate of 24 tidal volume of 350, FiO2 of 40%. And PEEP of 5. ABG this morning showed a pO2 of 64 pCO2 of 47 pH of 7.32, hence I increased her rate up to 26 and increased her FiO2 to 45%. Patient is on a small dose of propofol at 10 mcg/kg/ m, her IV fluid is D5 4 5 at 60 ML per hour. I restarted the patient on antibiotics in the form of Zosyn, and I recommended steroids, the findings on the chest x-ray are suspicious for noncardiogenic pulmonary edema, could also be cardiogenic pulmonary edema, underlying pneumonia is not entirely ruled out. Hence I felt would be safe to start the patient on Zosyn and Solu-Medrol. Patient continues to have intermittent episodes of A. fib with RVR, presently on amiodarone. Patient is also on tube feeding/enteral feeding. And did not yet to goal. She is arousable, she follows very simple instructions although she is on a small dose of propofol. Patient did have a triple lumen catheter placed by anesthesia yesterday, echocardiogram this morning showed LV dysfunction with 30% FiO2, and basal inferior wall akinesis Reevaluated today on 10/20/19, she is now postoperative day #8. Patient remains on mechanical ventilation, her ventilator settings are assist control rate of 26 tidal volume of 350 FiO2 of 40% and I cut it down to 35% PEEP is at 5. Patient is on propofol at 50 mcg/kg/m. She is on enteral feeding via Dobbhoff tube. She is also on antibiotics empirically on Zosyn and she is also on Solu-Medrol. Chest x-ray is showing definite improvement and that is reflected on her ABG today. ABG showed a pO2 of 115 pCO2 of 41 pH of 7.45 this was on 40% and I cut down to 35%. Patient remains in atrial fibrillation, but rate seems to be fairly well controlled. I have recommended sedation holiday today, assessment of mental status, and depending on how she does off sedation will likely recommend weaning parameters and may be a weaning trial. However the patient does poorly off sedation, then we'll continue sedation again and address on a daily basis trials of weaning. WBC count is up to 19.1, however I believe this is mostly steroids related. Doubt infection, and patient will remain on Zosyn empirically. Reevaluated today on 10/21/19, remains in the ICU, intubated and mechanically ventilated, she is now postoperative day #9. Her ventilator settings today are assist control rate of 26, tidal volume is 400, FiO2 is 35%, PEEP is 5. ABG showed a pO2 of 100 pCO2 of 43 pH of 7.46 and this was on 35% FiO2. Patient had diarrhea, and she is now on oral vancomycin. Patient is on propofol at 30 mcg/kg/m, IV fluid at 60 mL per hour. Chest x-ray continues to show interstitial lung disease, again it is quite difficult to determine whether the patient has ongoing congestive heart failure changes or underlying infection. Patient was awakened, discontinued her propofol, and I recommended a trial of weaning with a pressure support of 8 and CPAP. Initially placed on a pressure support of 12, then we have switched her to a pressure support of 8 after 1 hour, continued to do well, and her ABG on pressure support of 8 was adequate. Hence I recommended extubating the patient. CPAP ABG showed a pO2 of 106 pCO2 of 48 pH of 7.42. WBC count is 18.2 hemoglobin is 7.4. Objective - Vital Signs Vital signs: Vital Signs Temp 97.1 F L 10/21/19 08:00 Pulse 84 10/21/19 12:00 Resp 21 10/21/19 12:00 BP 123/48 10/21/19 12:00 Pulse Ox 99 10/21/19 12:00 Intake & Output 10/20/19 10/21/19 10/21/19 18:59 06:59 18:59 Intake Total 3150.415 8281.957 854.167 Output Total 673 455 245 Balance 1006.261 905.957 609.167 Weight 70.6 kg Intake: IV 856 687 375 0.9NS Pressure Bags 36 27 15 Dextrose 5%-0.45% NaCl 1, 720 660 360 000 ml @ 60 mls/hr IV . [id number] JAYE Rx#:[id number] Piperacillin-Tazobactam 3 100 .375 gm In Sodium Chloride 0.9% 100 ml @ 25 mls/hr IVPB Q8H JAYE Rx#: [id number] Intake, IV Titration 238.261 88.957 89.167 Amount Piperacillin-Tazobactam 3 100 .375 gm In Sodium Chloride 0.9% 100 ml @ 25 mls/hr IVPB Q8H JAYE Rx#: [id number] propofoL 1,000 mg In 138.261 88.957 89.167 Empty Bag 1 bag @ Titrate IV .Q0M JAYE Rx#: [id number] Tube Feeding 495 495 270 Other 90 90 120 Output: Chest Tube Drainage 80 70 Right 80 70 Urine 593 385 245 Other: Voiding Method Indwelling Catheter Indwelling Catheter # Bowel Movements 1 ABP, PAP, CO, CI - Last Documented Arterial Blood Pressure 157/47 Pulmonary Artery Pressure 57/36 Cardiac Output 3.8 Cardiac Index 2.5 - Exam Physical Exam: Revealed 79-year-old female in no distress, on mechanical ventilation, arousable, follows very simple instructions Head: Atraumatic, normocephalic, endotracheal tube and orogastric tube are intact, right IJ central line is noted/triple-lumen catheter. HEENT:[Neck is supple.] [No neck masses.] [No thyromegaly.] [No JVD.] Chest: Symmetrical chest expansion, crackles at the bases Right pleural chest tube remains in place to low continuous wall suction -20 cm H2O. No air leak is present. Draining thin serosanguineous drainage with 50 mL output in the last 8 hours and 200 mL output in the last 24 hours. Cardiac Exam: Irregular, tachycardic rate and rhythm, A. fib RVR on telemetry, Atrial and ventricular epicardial pacemaker wires in place and connected to a backup pacemaker generator on a VVI 50 BPM. Bedside telemetry currently showing normal sinus rhythm heart rate 75 BPM. Knee-high MONISHA hose and sequential compression devices in place to her bilateral lower extremities. Generalized +1 edema. Heart hugger is in place. Right IJ triple-lumen central line in place with continuous CVP monitoring, current CVP pressure 13 mmHg. Abdomen: [Soft, nontender, no megaly, no rebound, no guarding, normal bowel s ounds.] Extremities: [No clubbing, generalized edema is noted. Stockings noted. Neurological Exam: [No focal neurologic deficit.] Arousable, follows simple instructions, mental status seems to be intact. Psychiatric: Normal mood, affect and normal mental status examination. - Labs CBC & Chem 7: 10/21/19 04:20 10/21/19 04:20 Labs: Abnormal Lab Results - Last 24 Hours (Table) 10/20/19 10/20/19 10/21/19 Range/Units 17:39 23:56 04:20 WBC 18.2 H (3.8-10.6) k/uL RBC 2.46 L (3.80-5.40) m/uL Hgb 7.4 L (11.4-16.0) gm/dL Hct 23.6 L (34.0-46.0) % RDW 18.4 H (11.5-15.5) % Neutrophils # 16.7 H (1.3-7.7) k/uL Lymphocytes # 0.4 L (1.0-4.8) k/uL ABG pH (7.35-7.45) ABG pCO2 (35-45) mmHg ABG HCO3 (21-25) mmol/L ABG Total CO2 (19-24) mmol/L ABG O2 Saturation (94-97) % Sodium (137-145) mmol/L Carbon Dioxide (22-30) mmol/L BUN (7-17) mg/dL Creatinine (0.52-1.04) mg/dL Glucose (74-99) mg/dL POC Glucose (mg/dL) 150 H 171 H (75-99) mg/dL Calcium (8.4-10.2) mg/dL AST (14-36) U/L ALT (4-34) U/L Total Protein (6.3-8.2) g/dL Albumin (3.5-5.0) g/dL 10/21/19 10/21/19 10/21/19 Range/Units 04:20 06:02 07:32 WBC (3.8-10.6) k/uL RBC (3.80-5.40) m/uL Hgb (11.4-16.0) gm/dL Hct (34.0-46.0) % RDW (11.5-15.5) % Neutrophils # (1.3-7.7) k/uL Lymphocytes # (1.0-4.8) k/uL ABG pH 7.46 H (7.35-7.45) ABG pCO2 (35-45) mmHg ABG HCO3 30 H (21-25) mmol/L ABG Total CO2 31 H (19-24) mmol/L ABG O2 Saturation 98.1 H (94-97) % Sodium 132 L (137-145) mmol/L Carbon Dioxide 31 H (22-30) mmol/L BUN 47 H (7-17) mg/dL Creatinine 1.20 H (0.52-1.04) mg/dL Glucose 142 H (74-99) mg/dL POC Glucose (mg/dL) 153 H (75-99) mg/dL Calcium 7.2 L (8.4-10.2) mg/dL AST 512 H (14-36) U/L ALT 369 H (4-34) U/L Total Protein 4.5 L (6.3-8.2) g/dL Albumin 2.5 L (3.5-5.0) g/dL 10/21/19 10/21/19 Range/Units 11:21 11:50 WBC (3.8-10.6) k/uL RBC (3.80-5.40) m/uL Hgb (11.4-16.0) gm/dL Hct (34.0-46.0) % RDW (11.5-15.5) % Neutrophils # (1.3-7.7) k/uL Lymphocytes # (1.0-4.8) k/uL ABG pH (7.35-7.45) ABG pCO2 48 H (35-45) mmHg ABG HCO3 31 H (21-25) mmol/L ABG Total CO2 33 H (19-24) mmol/L ABG O2 Saturation 98.5 H (94-97) % Sodium (137-145) mmol/L Carbon Dioxide (22-30) mmol/L BUN (7-17) mg/dL Creatinine (0.52-1.04) mg/dL Glucose (74-99) mg/dL POC Glucose (mg/dL) 195 H (75-99) mg/dL Calcium (8.4-10.2) mg/dL AST (14-36) U/L ALT (4-34) U/L Total Protein (6.3-8.2) g/dL Albumin (3.5-5.0) g/dL Microbiology - Last 24 Hours (Table) 10/20/19 00:23 Blood Culture - Preliminary Blood No Growth after 24 hours 10/18/19 13:00 Gram Stain - Final Sputum Sputum Culture - Final Anastasiia albicans Assessment and Plan Assessment: Impression: Postoperative hypoxic and hypercapnic respiratory failure requiring re intubation, suspect this to be secondary to underlying interstitial lung disease/pulmonary fibrosis with suspected postoperative acute lung injury, possible pneumonia but this is felt to be less likely. Status post bioprosthetic aortic valve replacement, mitral valve repair, single- vessel CABG, bypass to RCA. Postoperative day #9 Chronic kidney disease stage III Postoperative acute blood loss, status post multiple transfusions, this may be a contributing factor to acute lung injury and that is truly the case. Postoperative pericardial effusion/temponade requiring reexploration and evacuation of clot, postoperative day #7 Hypothyroidism. Dyslipidemia. Severe aortic insufficiency status post bioprosthetic aortic valve replacement. Moderate mitral regurgitation requiring mitral valve repair. Benign essential hypertension. Postoperative atrial fibrillation, expected. Recommendation: Discontinue propofol, try the patient a weaning mode of pressure support of 12 and CPAP, later transitioned to a pressure support of 8 and CPAP, and after 1 hour with adequate ABG, patient was extubated. Continue antiarrhythmic agents for her atrial fibrillation with RVR. Presently seems to be under control. Hold the tube feeding after extubation. Continue empiric antibiotics and Solu-Medrol for now. Diuretics as needed. GI prophylaxis. Advanced diet as tolerated. DVT prophylaxis. Patient remains critically ill, critical care time is 34 We'll continue to follow while in the ICU. Time with Patient: Greater than 30
[2019-10-21] MEDS: traMADol 50 MG TAB PO PRN ×2 (13:49→22:20)
--- NOTE | 2019-10-21 16:41 | P.PN ---
Subjective This is a pleasant 79 years old female with multiple medical problems as below she was admitted to the ICU with prolonged course, initially she was admitted for coronary artery disease and she underwent CABG surgery with aortic valve replacement and nocturnal valve repair, postoperatively she got intubated and sedated in the ICU, her hospital course was complicated by bleeding from chest tube and received several units of blood transfusion, status post exploratory duration of the chest and removal of blood clots and irrigation of the chest ca vity. Patient was extubated on 10/15. However yesterday she had respiratory distress with hypercapnia and she was intubated again. Her course also was complicated by several bouts of atrial fibrillation with RVR that needed amiodarone drip, she is currently on the operative antibiotics with Zosyn and also Solu-Medrol. Currently she remains intubated and sedated. Pulmonary/critical care team are f ollowing the case closely with weaning a trial is tried with sedation holiday possibly over the weekend. Currently her heart rate is controlled for her A. fib. She has adequate urine output, she's tolerated tube feeding. 10/21/2019 Patient remains in the ICU, she is intubated and sedated. However pulmonary/critical team are following the patient closely and she is under going weaning a trial with sedation holiday. Chest tube still draining about 300 mL room over the last hours Today patient developed diarrhea and loose bowel movement, and bowel regimens were stopped, C. diff was tested and patient was started on oral vancomycin Review of systems: N/a, patient is intubated Active Medications Generic Name Dose Route Start Last Admin Trade Name Freq PRN Reason Stop Dose Admin Acetaminophen 1,000 mg 10/13/19 11:46 10/20/19 13:57 Tylenol Tab PO 1,000 mg Q6HR PRN Administration Fever and/ or Pain Albuterol/Ipratropium 3 ml 10/12/19 13:00 Duoneb 0.5 Mg-3 Mg/3 Ml Soln INHALATION RT-Q2H PRN Shortness Of Breath Or Wheezing Albuterol/Ipratropium 3 ml 10/12/19 18:22 10/21/19 15:25 Duoneb 0.5 Mg-3 Mg/3 Ml Soln INHALATION 3 ml RT-QID JAYE Administration Ascorbic Acid 500 mg 10/13/19 17:30 10/21/19 06:41 Vitamin C PO 500 mg BID-W/MEALS JAYE Administration Aspirin 81 mg 10/13/19 09:00 10/21/19 08:40 Aspirin PO 81 mg DAILY JAYE Administration Atorvastatin Calcium 40 mg 10/13/19 09:00 10/21/19 08:40 Lipitor PO 40 mg DAILY JAYE Administration Benzocaine/Menthol 1 each 10/12/19 13:00 Cepacol Lozenge MUCOUS MEM Q2H PRN Sore Throat Bisacodyl 10 mg 10/21/19 09:49 Dulcolax RECTAL DAILY PRN Constipation Ferrous Sulfate 300 mg 10/20/19 17:30 10/21/19 06:41 Feosol NG-TUBE 300 mg BID-W/MEALS JAYE Administration Heparin Sodium (Porcine) 5,000 unit 10/12/19 21:00 10/21/19 12:01 Heparin SQ 5,000 unit Q8H JAYE Administration Hydralazine HCl 5 mg 10/19/19 16:00 10/21/19 08:41 Apresoline IVP 5 mg Q8HR JAYE Administration Propofol 1,000 mg/ IV Solution 100 mls @ 0 mls/hr 10/18/19 19:45 10/21/19 09:02 IV 0 mcg/kg/min .Q0M JAYE 0 mls/hr Titration Protocol Titrate Piperacillin Sod/Tazobactam 100 mls @ 25 mls/hr 10/18/19 22:00 10/21/19 13:50 Sod 3.375 gm/ Sodium Chloride IVPB 25 mls/hr Q8H JAYE Administration Dextrose/Sodium Chloride 1,000 mls @ 60 mls/hr 10/19/19 01:45 10/20/19 22:13 Dextrose 5%-1/2ns Iv Soln IV 60 mls/hr .[id number] JAYE Administration Insulin Aspart 0 unit 10/19/19 06:00 10/21/19 12:00 Novolog SQ 5 unit Q6H JAYE Administration Protocol Levothyroxine Sodium 75 mcg 10/13/19 06:30 10/21/19 06:41 Synthroid PO 75 mcg DAILY@0630 JAYE Administration Lidocaine 1 patch 10/16/19 16:15 10/21/19 10:41 Lidoderm TOPICAL Not Given DAILY [facility] Magnesium Hydroxide 2,400 mg 10/19/19 09:15 10/21/19 08:35 Milk Of Magnesia PO Not Given BID JAYE Methylprednisolone Sodium Succinate 40 mg 10/19/19 00:00 10/21/19 08:41 Solu-Medrol IV 40 mg Q8HR JAYE Administration Metoclopramide HCl 5 mg 10/17/19 16:24 10/18/19 12:29 Reglan IVP 5 mg Q4H PRN Administration Nausea And Vomiting Metoprolol Tartrate 12.5 mg 10/16/19 09:00 10/21/19 08:40 Lopressor PO 12.5 mg BID JAYE Administration Midodrine 5 mg 10/18/19 07:30 10/21/19 11:38 Proamatine PO 5 mg AC-TID JAYE Administration Miscellaneous Information 1 each 10/12/19 13:00 Magnesium Per Protocol MISCELLANE DAILY PRN Per Protocol Protocol Miscellaneous Information 1 each 10/12/19 13:00 Phosphorus Per Protocol MISCELLANE DAILY PRN Per Protocol Protocol Miscellaneous Information 1 each 10/16/19 07:12 Potassium Per Protocol MISCELLANE DAILY PRN Per Protocol Protocol Ondansetron HCl 4 mg 10/12/19 13:00 10/18/19 02:38 Zofran IVP 4 mg Q6HR PRN Administration Nausea And Vomiting Pantoprazole Sodium 40 mg 10/20/19 09:00 10/21/19 08:40 Protonix IVP 40 mg DAILY JAYE Administration Senna/Docusate Sodium 2 each 10/13/19 21:00 10/20/19 20:07 Senokot-S PO 2 each HS JAYE Administration Sodium Chloride 10 ml 10/12/19 21:00 10/21/19 10:41 Saline Flush IV 10 ml BID JAYE Administration Tramadol HCl 50 mg 10/21/19 13:34 10/21/19 13:49 Ultram PO 50 mg TID PRN Administration Pain Vancomycin HCl 250 mg 10/21/19 12:00 10/21/19 11:38 Vancomycin Oral Solution NG-TUBE 250 mg Q6HR JAYE Administration Objective - Vital Signs Vital signs: Vital Signs Temp 97.1 F L 10/21/19 08:00 Pulse 102 H 10/21/19 15:37 Resp 18 10/21/19 15:00 BP 132/47 10/21/19 15:00 Pulse Ox 94 L 10/21/19 15:00 Intake & Output 10/20/19 10/21/19 10/21/19 18:59 06:59 18:59 Intake Total 1115.423 9094.957 962.167 Output Total 673 455 295 Balance 1006.261 905.957 667.167 Weight 70.6 kg Intake: IV 856 687 438 0.9NS Pressure Bags 36 27 18 Dextrose 5%-0.45% NaCl 1, 720 660 420 000 ml @ 60 mls/hr IV . [id number] JAYE Rx#:[id number] Piperacillin-Tazobactam 3 100 .375 gm In Sodium Chloride 0.9% 100 ml @ 25 mls/hr IVPB Q8H JAYE Rx#: [id number] Intake, IV Titration 238.261 88.957 89.167 Amount Piperacillin-Tazobactam 3 100 .375 gm In Sodium Chloride 0.9% 100 ml @ 25 mls/hr IVPB Q8H JAYE Rx#: [id number] propofoL 1,000 mg In 138.261 88.957 89.167 Empty Bag 1 bag @ Titrate IV .Q0M JAYE Rx#: [id number] Tube Feeding 495 495 315 Other 90 90 120 Output: Chest Tube Drainage 80 70 Right 80 70 Urine 593 385 295 Other: Voiding Method Indwelling Catheter Indwelling Catheter Indwelling Catheter # Bowel Movements 1 ABP, PAP, CO, CI - Last Documented Arterial Blood Pressure 157/47 Pulmonary Artery Pressure 57/36 Cardiac Output 3.8 Cardiac Index 2.5 - Exam -GENERAL: The patient is intubated and sedated HEENT: Pupils are round and equally reacting to light. EOMI. No scleral icterus. No conjunctival pallor. Normocephalic, atraumatic. No pharyngeal erythema. No thyromegaly. CARDIOVASCULAR: S1 and S2 present. No murmurs, rubs, or gallops. PULMONARY: Chest is clear to auscultation, no wheezing or crackles. ABDOMEN: Soft, nontender, nondistended, normoactive bowel sounds. No palpable organomegaly. MUSCULOSKELETAL: No joint swelling or deformity. EXTREMITIES: No cyanosis, clubbing, or pedal edema. NEUROLOGICAL: Gross neurological examination did not reveal any focal deficits. SKIN: No rashes. no petechiae. - Labs CBC & Chem 7: 10/21/19 04:20 10/21/19 04:20 Labs: Abnormal Lab Results - Last 24 Hours (Table) 10/20/19 10/20/19 10/21/19 Range/Units 17:39 23:56 04:20 WBC 18.2 H (3.8-10.6) k/uL RBC 2.46 L (3.80-5.40) m/uL Hgb 7.4 L (11.4-16.0) gm/dL Hct 23.6 L (34.0-46.0) % RDW 18.4 H (11.5-15.5) % Neutrophils # 16.7 H (1.3-7.7) k/uL Lymphocytes # 0.4 L (1.0-4.8) k/uL ABG pH (7.35-7.45) ABG pCO2 (35-45) mmHg ABG HCO3 (21-25) mmol/L ABG Total CO2 (19-24) mmol/L ABG O2 Saturation (94-97) % Sodium (137-145) mmol/L Carbon Dioxide (22-30) mmol/L BUN (7-17) mg/dL Creatinine (0.52-1.04) mg/dL Glucose (74-99) mg/dL POC Glucose (mg/dL) 150 H 171 H (75-99) mg/dL Calcium (8.4-10.2) mg/dL AST (14-36) U/L ALT (4-34) U/L Total Protein (6.3-8.2) g/dL Albumin (3.5-5.0) g/dL 10/21/19 10/21/19 10/21/19 Range/Units 04:20 06:02 07:32 WBC (3.8-10.6) k/uL RBC (3.80-5.40) m/uL Hgb (11.4-16.0) gm/dL Hct (34.0-46.0) % RDW (11.5-15.5) % Neutrophils # (1.3-7.7) k/uL Lymphocytes # (1.0-4.8) k/uL ABG pH 7.46 H (7.35-7.45) ABG pCO2 (35-45) mmHg ABG HCO3 30 H (21-25) mmol/L ABG Total CO2 31 H (19-24) mmol/L ABG O2 Saturation 98.1 H (94-97) % Sodium 132 L (137-145) mmol/L Carbon Dioxide 31 H (22-30) mmol/L BUN 47 H (7-17) mg/dL Creatinine 1.20 H (0.52-1.04) mg/dL Glucose 142 H (74-99) mg/dL POC Glucose (mg/dL) 153 H (75-99) mg/dL Calcium 7.2 L (8.4-10.2) mg/dL AST 512 H (14-36) U/L ALT 369 H (4-34) U/L Total Protein 4.5 L (6.3-8.2) g/dL Albumin 2.5 L (3.5-5.0) g/dL 10/21/19 10/21/19 Range/Units 11:21 11:50 WBC (3.8-10.6) k/uL RBC (3.80-5.40) m/uL Hgb (11.4-16.0) gm/dL Hct (34.0-46.0) % RDW (11.5-15.5) % Neutrophils # (1.3-7.7) k/uL Lymphocytes # (1.0-4.8) k/uL ABG pH (7.35-7.45) ABG pCO2 48 H (35-45) mmHg ABG HCO3 31 H (21-25) mmol/L ABG Total CO2 33 H (19-24) mmol/L ABG O2 Saturation 98.5 H (94-97) % Sodium (137-145) mmol/L Carbon Dioxide (22-30) mmol/L BUN (7-17) mg/dL Creatinine (0.52-1.04) mg/dL Glucose (74-99) mg/dL POC Glucose (mg/dL) 195 H (75-99) mg/dL Calcium (8.4-10.2) mg/dL AST (14-36) U/L ALT (4-34) U/L Total Protein (6.3-8.2) g/dL Albumin (3.5-5.0) g/dL Microbiology - Last 24 Hours (Table) 10/20/19 00:23 Blood Culture - Preliminary Blood No Growth after 24 hours Assessment and Plan Assessment: Coronary artery disease status post CABG with aortic valve replacement and mitral valve repair acute hypoxic and hypercapnic respiratory failure needing mechanical ventilation and intubation Atrial fibrillation with paroxysmal RVR. status post Pericardial Effusion/tamponade - taken to the OR and s/p evacuation of clots Acute blood loss anemia, Patient received several units of blood transfusions. Patient is currently stable hemoglobin acute COPD exacerbation GERD Hypertension Hyperlipidemia History of mitral valve prolapse Chronic kidney disease stage II Hypothyroidism Remote history of nicotine dependence Plan: This is a pleasant 79 years old female with multiple medical problems as above, she is in respiratory failure and on mechanical ventilation and pulmonary/critical care team and following the patient closely with the plan for weaning and extubation down the road. Continue with amiodarone and metoprolol for heart rate control for her A. fib. Follow-up recommendation by pulmonary team. Continue with antibiotics and steroids. Follow-up C. diff Labs and medication were reviewed.. Continue same treatment. Continue with symptomatic treatment. Resume home medication. Monitor lytes and vitals. DVT and GI prophylaxis. Further recommendations of the clinical course of the patient DVT prophylaxis: Subcutaneous heparin GI Prophylaxis: Ppi PT/OT: Pending Prognosis is guarded Thank you for consulting us
[2019-10-21] MEDS ORDERED: FUROSEMIDE 10 MG/ML 10 ML VIAL IV STA (16:54)
[2019-10-21] MEDS: ACETAMINOPHEN TAB 500 MG TAB PO PRN (17:07)
[2019-10-21 17:28] LABS: Glucose,Whole Blood 161 mg/dL (75-99)
[2019-10-21] MEDS: ACETYLCYSTEINE 800 MG/4 ML VIAL INHALATION SCH ×2 (19:17→20:07)
[2019-10-21] MEDS: SENNOSIDES-DOCUSATE SODIUM 1 EACH TAB PO SCH (20:54)
[2019-10-21 23:08] LABS: Glucose,Whole Blood 164 mg/dL (75-99)
[2019-10-22] MEDS: ONDANSETRON 4 MG/2 ML VIAL IVP PRN ×2 (03:26→13:13)
[2019-10-22 03:43] LABS: Anisocytosis Slight; HCT 26.4 % (34.0-46.0); HGB 8.2 gm/dL (11.4-16.0); Hypochromasia Marked; MCH 30.3 pg (25.0-35.0); MCHC 30.9 g/dL (31.0-37.0); MCV 98.2 fL (80.0-100.0); Macrocytosis Slight; Mean Platelet Volume 8.1; Platelet Count 239 k/uL (150-450); Poikilocytosis Slight; RBC 2.69 m/uL (3.80-5.40); RDW 19.3 % (11.5-15.5)
[2019-10-22 04:08] LABS: Albumin 3.1 g/dL (3.5-5.0); Calcium 7.5 mg/dL (8.4-10.2); Potassium 4.4 mmol/L (3.5-5.1); Total Bilirubin 1.3 mg/dL (0.2-1.3); Total Protein 5.3 g/dL (6.3-8.2)
[2019-10-22 04:31] LABS: Band Neutrophils % 1 %; Lymphocytes # (M) 0.59 k/uL (1.0-4.8); Monocytes # (M) 1.47 k/uL (0-1.0); Neutrophils % (M) 92 %; Nucleated Red Blood Cells 5 /100 WBC (0-0); Polychromasia Present; Total Cells Counted 200; WBC 29.3 k/uL (3.8-10.6)
[2019-10-22 05:21] LABS: Glucose,Whole Blood 166 mg/dL (75-99)
[2019-10-22] MEDS: VANCOMYCIN ORAL SOLUTION 250 MG/5 ML BOTTLE NG-TUBE SCH (05:22)
[2019-10-22] MEDS: HEPARIN SODIUM,PORCINE 5,000 UNIT/ML 1 ML VIAL SQ SCH ×2 (05:22→12:33)
[2019-10-22] MEDS: PIPERACILLIN-TAZOBACTAM 3.375 GM in SODIUM CHLORIDE 0.9% 100 ML IVPB SCH ×2 (05:22→13:05)
[2019-10-22] MEDS: INSULIN ASPART (NovoLOG) 100 UNIT/ML VIAL SQ SCH ×2 (05:22→12:33)
[2019-10-22] MEDS: MIDODRINE 5 MG TAB PO SCH ×2 (05:22→13:05)
[2019-10-22] MEDS: LEVOTHYROXINE 75 MCG TAB PO SCH (06:21)
[2019-10-22] MEDS: FERROUS SULFATE ORAL ELIXIR 300 MG/5 ML CUP NG-TUBE SCH (06:21)
[2019-10-22] MEDS: ASCORBIC ACID 500 MG TAB PO SCH (06:21)
[2019-10-22] MEDS: IPRATROPIUM-ALBUTEROL 3 ML NEB INHALATION SCH ×2 (07:28→11:14)
[2019-10-22] MEDS: ACETYLCYSTEINE 800 MG/4 ML VIAL INHALATION SCH ×2 (07:28→11:14)
--- NOTE | 2019-10-22 07:54 | P.PN ---
Subjective Progress Note Date: 10/22/19 Principal diagnosis: Severe aortic insufficiency, moderate to severe mitral regurgitation, single- vessel coronary artery disease. Previous medical history of coronary artery disease with myocardial infarction and stent placement to the RCA, hypertension, hyperlipidemia, chronic kidney disease stage III, right internal carotid artery stenosis 50-69%, hypothyroidism, TIA in 2004 without residual, remote history of pneumonia, previous tobacco dependence, moderate restriction with preoperative FEV1 50% of predicted, interstitial lung disease/pulmonary fibrosis, and family history of premature coronary artery disease. POD #10 aortic valve replacement with 21 mm Herrera Inspiris bioprosthetic aortic valve, mitral valve repair with a #28 mm [employer] AnnuloFlex band, reverse saphenous vein graft off the aorta to the right coronary artery with right lower extremity greater saphenous endoscopic vein harvesting, clip ligation of left atrial appendage 35mm AtriClip and intraoperative transesophageal echocardiogram. Postoperative acute blood loss anemia, expected given hemodilution and cardiopulmonary bypass pump Postoperative and intraoperative atrial fibrillation, unexpected but potential outcome of valvular heart surgery Postoperative prolonged mechanical ventilation secondary to hemodynamic instability, unexpected Postoperative pericardial effusion/tamponade POD #8 Re-exploration of the chest, evacuation of clot, irrigation of chest cavity Postoperative transaminitis, likely shocked liver secondary to hypotension, unexpected Postoperative hypoxic and hypercapnic respiratory failure requiring reintubation, unexpected The patient's currently laying in bed in the intensive care unit. She has had an eventful postoperative course with hypotension requiring pressor support, low cardiac output requiring inotropes, atrial fibrillation requiring amiodarone, anemia requiring blood transfusion, and hypoxia requiring reintubation. She has received 9 units packed red blood cells total, 3 units fresh frozen plasma, 4 packs of platelets, and 2 packs of cryoprecipitate, in addition to IV albumin. She remains in normal sinus rhythm. Dobbhoff remains for nutritional support. Triple-lumen central line and right radial arterial line present. She was extubated again yesterday at 11:30 am, required Bipap last night. She does follow commands and moves all extremities, but is very weak. She did have diarrhea which was negative for C-diff, no stools last night. Objective - Vital Signs Vital signs: Vital Signs Temp 97.8 F 10/22/19 04:00 Pulse 82 10/22/19 07:00 Resp 26 H 10/22/19 07:00 BP 121/51 10/22/19 07:00 Pulse Ox 91 L 10/22/19 07:00 Intake & Output 10/21/19 10/22/19 10/22/19 18:59 06:59 18:59 Intake Total 3220.758 5211 88 Output Total 630 1035 55 Balance 902.167 191 33 Weight 68.9 kg Intake: IV 753 356 13 0.9NS Pressure Bags 33 36 3 Dextrose 5%-0.45% NaCl 1, 720 220 10 000 ml @ 60 mls/hr IV . [id number] JAYE Rx#:[id number] Piperacillin-Tazobactam 3 100 .375 gm In Sodium Chloride 0.9% 100 ml @ 25 mls/hr IVPB Q8H JAYE Rx#: [id number] Intake, IV Titration 89.167 Amount propofoL 1,000 mg In 89.167 Empty Bag 1 bag @ Titrate IV .Q0M JAYE Rx#: [id number] Tube Feeding 540 540 45 Other 150 330 30 Output: Chest Tube Drainage 295 Right 295 Urine 630 740 55 Other: Voiding Method Indwelling Catheter Indwelling Catheter # Bowel Movements 1 ABP, PAP, CO, CI - Last Documented Arterial Blood Pressure 157/47 Pulmonary Artery Pressure 57/36 Cardiac Output 3.8 Cardiac Index 2.5 - Constitutional General appearance: Present: cooperative, no acute distress - Respiratory Details: Lungs sounds diminished but coarse bilaterally. Respirations even, non-labored on bipap. Current bipap settings FiO2 50%, tidal volume 350, IPAP 14, EPAP 6. Right pleural chest tube present and connected to continuous wall suction, 120 mL serous drainage overnight, 300 mL since in the last 24 hours. No air leaks present. - Cardiovascular Details: S1, S2 present. Regular rate and rhythm, sinus rhythm on telemetry. Sternum stable. A/V epicardial pacemaker wires present, connected to generator, VVI mode with backup rate 50 bpm. Palpable peripheral pulses bilaterally. Generalized edema present. Right internal jugular triple-lumen central line, right radial arterial line present. Heart hugger, SCDs, antiembolism stockings all present. - Gastrointestinal Gastrointestinal Comment(s): Abdomen soft, nontender, nondistended. Active bowel sounds present. Tympanic to percussion. Dobbhoff tube present, tube feeding infusing. - Genitourinary Genitourinary Comment(s): Pratt present draining clear yellow urine. Output is 30-50 mL per hour overnigh t - Integumentary Integumentary Comment(s): Skin is warm and dry. No evidence of skin breakdown. - Neurologic Neurologic: Present: CNII-XII intact - Musculoskeletal Musculoskeletal: Present: generalized weakness, strength equal bilaterally - Psychiatric Psychiatric: Present: A&O x's 3 - Allied health notes Allied health notes reviewed: nursing - Labs CBC & Chem 7: 10/22/19 03:30 10/22/19 03:30 Labs: Abnormal Lab Results - Last 24 Hours (Table) 10/21/19 10/21/19 10/21/19 Range/Units 07:32 11:21 11:50 WBC (3.8-10.6) k/uL RBC (3.80-5.40) m/uL Hgb (11.4-16.0) gm/dL Hct (34.0-46.0) % MCHC (31.0-37.0) g/dL RDW (11.5-15.5) % Neutrophils # (Manual) (1.3-7.7) k/uL Lymphocytes # (Manual) (1.0-4.8) k/uL Monocytes # (Manual) (0-1.0) k/uL Nucleated RBCs (0-0) /100 WBC ABG pH 7.46 H (7.35-7.45) ABG pCO2 48 H (35-45) mmHg ABG HCO3 30 H 31 H (21-25) mmol/L ABG Total CO2 31 H 33 H (19-24) mmol/L ABG O2 Saturation 98.1 H 98.5 H (94-97) % Sodium (137-145) mmol/L Chloride (98-107) mmol/L Carbon Dioxide (22-30) mmol/L BUN (7-17) mg/dL Creatinine (0.52-1.04) mg/dL Glucose (74-99) mg/dL POC Glucose (mg/dL) 195 H (75-99) mg/dL Calcium (8.4-10.2) mg/dL AST (14-36) U/L ALT (4-34) U/L Alkaline Phosphatase (38-126) U/L Total Protein (6.3-8.2) g/dL Albumin (3.5-5.0) g/dL 10/21/19 10/21/19 10/22/19 Range/Units 17:26 23:07 03:30 WBC (3.8-10.6) k/uL RBC (3.80-5.40) m/uL Hgb (11.4-16.0) gm/dL Hct (34.0-46.0) % MCHC (31.0-37.0) g/dL RDW (11.5-15.5) % Neutrophils # (Manual) (1.3-7.7) k/uL Lymphocytes # (Manual) (1.0-4.8) k/uL Monocytes # (Manual) (0-1.0) k/uL Nucleated RBCs (0-0) /100 WBC ABG pH (7.35-7.45) ABG pCO2 (35-45) mmHg ABG HCO3 (21-25) mmol/L ABG Total CO2 (19-24) mmol/L ABG O2 Saturation (94-97) % Sodium 134 L (137-145) mmol/L Chloride 97 L (98-107) mmol/L Carbon Dioxide 31 H (22-30) mmol/L BUN 57 H (7-17) mg/dL Creatinine 1.19 H (0.52-1.04) mg/dL Glucose 159 H (74-99) mg/dL POC Glucose (mg/dL) 161 H 164 H (75-99) mg/dL Calcium 7.5 L (8.4-10.2) mg/dL AST 526 H (14-36) U/L ALT 436 H (4-34) U/L Alkaline Phosphatase 147 H (38-126) U/L Total Protein 5.3 L (6.3-8.2) g/dL Albumin 3.1 L (3.5-5.0) g/dL 10/22/19 10/22/19 Range/Units 03:30 05:19 WBC 29.3 H (3.8-10.6) k/uL RBC 2.69 L (3.80-5.40) m/uL Hgb 8.2 L (11.4-16.0) gm/dL Hct 26.4 L (34.0-46.0) % MCHC 30.9 L (31.0-37.0) g/dL RDW 19.3 H (11.5-15.5) % Neutrophils # (Manual) 27.20 H (1.3-7.7) k/uL Lymphocytes # (Manual) 0.59 L (1.0-4.8) k/uL Monocytes # (Manual) 1.47 H (0-1.0) k/uL Nucleated RBCs 5 H (0-0) /100 WBC ABG pH (7.35-7.45) ABG pCO2 (35-45) mmHg ABG HCO3 (21-25) mmol/L ABG Total CO2 (19-24) mmol/L ABG O2 Saturation (94-97) % Sodium (137-145) mmol/L Chloride (98-107) mmol/L Carbon Dioxide (22-30) mmol/L BUN (7-17) mg/dL Creatinine (0.52-1.04) mg/dL Glucose (74-99) mg/dL POC Glucose (mg/dL) 166 H (75-99) mg/dL Calcium (8.4-10.2) mg/dL AST (14-36) U/L ALT (4-34) U/L Alkaline Phosphatase (38-126) U/L Total Protein (6.3-8.2) g/dL Albumin (3.5-5.0) g/dL Microbiology - Last 24 Hours (Table) 10/20/19 00:23 Blood Culture - Preliminary Blood No Growth after 48 hours - Imaging and Cardiology Chest x-ray: image reviewed Assessment and Plan Assessment: 1. Severe aortic insufficiency, status post bioprosthetic aortic valve replacement 2. Moderate to severe mitral regurgitation, status post mitral valve repair 3. Single-vessel coronary artery disease, status post bypass to the RCA 4. History of coronary artery disease with myocardial infarction, status post stent placement to the RCA 5. History of hypertension, currently hypotensive 6. History of hyperlipidemia, treated 7. Right internal carotid artery stenosis 50-69% 8. Chronic kidney disease stage III 9. Hypothyroid 10. TIA in 2004 without residual 11. Remote history of pneumonia 12. Previous tobacco dependence 13. Moderate lung restriction with preoperative FEV1 58% of predicted, pulmonary fibrosis seen on CT 14. Family history of premature coronary artery disease 15. Postoperative acute blood loss anemia, status post transfusion 16. Postoperative and intraoperative atrial fibrillation, status post clip ligation of left atrial appendage and amiodarone initiation 17. Postoperative prolonged mechanical ventilation 18. Postoperative pericardial effusion/tamponade, status post re-exploration of the chest, evacuation of clot, irrigation of chest cavity 19. Transaminitis, shock liver, likely from hypotension 20. Postoperative hypoxic and hypercapnic respiratory failure requiring reintubation Plan: 1. Continue low-dose aspirin, statin. Continue low-dose beta alan with parameters. Continue hydralazine with parameters for afterload reduction 2. Amiodarone on hold due to transaminitis. No anticoagulation 3. Wean oxygen as tolerated. Bipap support per pulmonology. Antibiotics, steroids per pulmonology 4. Will monitor daily labs and x-rays. Electrolyte replacement per protocol. 5. No nephrotoxins. Continue IV fluids 6. GI/DVT prophylaxis. 7. Continue Midodrine for blood pressure 8. Pain control with current medication regimen. 9. Insulin management per primary care service. Preoperative hemoglobin A1c 5.5% 10. Continue to monitor chest tube output and consistency 11. Will DC vanco due to negative C-diff and no further diarrhea 12. More recommendations to follow Time with Patient: Greater than 30
[2019-10-22] MEDS ORDERED: FUROSEMIDE 10 MG/ML 10 ML VIAL IV STA (08:07)
--- NOTE | 2019-10-22 08:09 | XR ---
EXAMINATION TYPE: XR chest 1V portable DATE OF EXAM: 10/22/2019 Comparison: 10/21/2019 Clinical History: 79 year-old female tube placement Findings: Interval extubation. Left heart margin obscured by adjacent parenchymal opacity. Worsening bilateral diffuse airspace opacity. Hyperinflation. Right-sided chest tube. Prominent biapical pleural parenchy mal scarring. Suspect a NG tube. Median sternotomy wires with prostatic aortic valve. Epicardial pace r leads. Impression: COPD with biapical pleural-parenchymal scarring, right-sided chest tube, and worsening bilateral diff use airspace disease, left greater than right.
[2019-10-22] MEDS: hydrALAZINE HCL 20 MG/ML 1 ML VIAL IVP SCH (09:14)
[2019-10-22] MEDS: LIDOCAINE 5% PATCH TOPICAL SCH (09:15)
[2019-10-22] MEDS: ASPIRIN 81 MG PO SCH (09:15)
[2019-10-22] MEDS: ATORVASTATIN 40 MG TAB PO SCH (09:15)
[2019-10-22] MEDS: METOPROLOL TARTRATE 12.5 MG TAB PO SCH (09:15)
[2019-10-22] MEDS: methylPREDNISolone SOD SUCCI 40 MG/ML 1 ML VIAL IV SCH (09:15)
[2019-10-22] MEDS: PANTOPRAZOLE 40 MG/10 ML VIAL IVP SCH (09:15)
[2019-10-22 09:20] LABS: ABG Base Excess 1.9 mmol/L; ABG HCO3 29 mmol/L (21-25); ABG PCO2 68 mmHg (35-45); ABG PH 7.24 (7.35-7.45); ABG TCO2 31 mmol/L (19-24); Allen Test Performed? Yes
[2019-10-22] MEDS: MAGNESIUM HYDROXIDE 2,400 MG/10 ML CUP PO SCH (09:21)
[2019-10-22 09:27] LABS: ABG PO2 58 mmHg (83-108)
[2019-10-22] MEDS ORDERED: MORPHINE SULFATE 2 MG/ML SYRINGE IVP PRN ×2 (10:19→11:08)
[2019-10-22 10:20] VITALS: TEMP 95.3
[2019-10-22] MEDS ORDERED: MORPHINE SULFATE 2 MG/ML SYRINGE IVP STA (11:08)
[2019-10-22] MEDS: traMADol 50 MG TAB PO PRN (11:14)
--- NOTE | 2019-10-22 11:37 | P.PN ---
Subjective Progress Note Date: 10/22/19 Principal diagnosis: S/p aortic valve replacement, CAD HISTORY OF PRESENTING ILLNESS This is a pleasant 79-year-old female past medical history significant for severe aortic insufficiency, moderate to severe mitral regurgitation, single- vessel coronary artery disease, hypertension, hyperlipidemia, chronic kidney disease stage III, right internal carotid stenosis of 50-69%, hypothyroidism, TIA, previous tobacco dependence, interstitial lung disease who presented for a refill replacement which was performed by the 21 mm Herrera inspiris bioprosthetic. Valve with a mitral valve repair performed as well as a SVG to the RCA and ligation of the left atrial appendage. Patient did have postoperative blood loss anemia, postoperative atrial fibrillation as well as postoperative pericardial effusion with reexploration of the chest 2 days later with evacuation of a clot and irrigation of the chest cavity. Patient has had issues with recurrent hypoxic respiratory failure requiring repeat intubations. 10/22/2019: She was again extubated and unfortunately has become tachypnic this morning. ICU is evaluating cause of care with patient having expressed that she does not want to be reintubated. She was given Lasix with approximate 450 mL output. She remains somnolent and is able to nod her head to questions however is not currently talking. She shakes her head that she does not have much pain. DIAGNOSTICS EKG reveals []. Chest xray chest x-ray today shows COPD with scarring, right-sided chest tube and worsening bilateral diffuse airspace disease left greater than right, concerning for ARDS. Laboratory reviewed, white blood cell count increased to 29.3 today hemoglobin 8.2. Creatinine 1.19, potassium 4.4 AST and ALT are in the 500s. Current cardiac medications include aspirin 81 mg daily, Lipitor 40 mg daily, hydralazine 5 mg IV push every 8 hours, Lopressor 12.5 mg twice a day, Midrin 5 mg by mouth twice a day. REVIEW OF SYSTEMS At the time of my exam: Patient somewhat somnolent however arousable and answers some questions with a nod of the head. She denies any chest pain or pressure. Admits to shortness breath. No pain anywhere. PHYSICAL EXAMINATION Blood pressure 129/40 heart rate 84 afebrile and oxygen saturation of 92 on BiPAP with 60% FiO2. CONSTITUTIONAL: Patient with tachypnea and accessory muscle use with mild respiratory distress, acutely ill-appearing, not responding verbally however arousable. HEENT: Head is normocephalic. Pupils are equal, round. Sclerae anicteric. Mucous membranes of the mouth are moist. No JVD. No carotid bruit. CHEST EXAMINATION: + Bilateral rhonchi, + recent sternotomy with chest tube in place HEART EXAMINATION: Regular rate and rhythm. S1, S2 heard. No murmurs, gallops or rub. ABDOMEN: Soft, nontender. Positive bowel sounds. EXTREMITIES: 2+ peripheral pulses, +2+ bilateral lower extremity edema and no calf tenderness. NEUROLOGIC EXAMINATION: Somnolent however arousable and will nod answers ASSESSMENT 1. Status post bioprosthetic aortic valve replacement for severe aortic regurgitation with mitral valve repair and SVG to RCA bypass grafting 2. Acute respiratory failure with possible ARDS 3. Paroxysmal atrial fibrillation, currently in sinus rhythm 4. Renal failure, improving 5. Shock liver with AST and ALTs in the 500s 6. Status post chest exploration with evacuation of clot postop day 2 PLAN Patient is acutely ill-appearing and has had repeat issues with reintubation. Per report, patient does not want intubation. We will attempt to optimize her respiratory status. Attempt diuresis with Lasix and monitor response. No anticoagulation for atrial fibrillation given postop bleeding issues and anemia. Prognosis appears poor. Continue Lopressor for rate control however currently in sinus rhythm. No amiodarone for now given shock liver. Objective - Vital Signs Vital signs: Vital Signs Temp 95.3 F L 10/22/19 08:00 Pulse 78 10/22/19 11:00 Resp 22 10/22/19 11:00 BP 119/33 10/22/19 11:00 Pulse Ox 93 L 10/22/19 11:00 Intake & Output 10/21/19 10/22/19 10/22/19 18:59 06:59 18:59 Intake Total 7402.081 2974 352 Output Total 630 1035 265 Balance 902.167 191 87 Weight 68.9 kg 68.9 kg Intake: IV 753 356 52 0.9NS Pressure Bags 33 36 12 Dextrose 5%-0.45% NaCl 1, 720 220 40 000 ml @ 60 mls/hr IV . [id number] JAYE Rx#:[id number] Piperacillin-Tazobactam 3 100 .375 gm In Sodium Chloride 0.9% 100 ml @ 25 mls/hr IVPB Q8H JAYE Rx#: [id number] Intake, IV Titration 89.167 Amount propofoL 1,000 mg In 89.167 Empty Bag 1 bag @ Titrate IV .Q0M JAYE Rx#: [id number] Tube Feeding 540 540 180 Other 150 330 120 Output: Chest Tube Drainage 295 Right 295 Urine 630 740 265 Other: Voiding Method Indwelling Catheter Indwelling Catheter # Bowel Movements 1 ABP, PAP, CO, CI - Last Documented Arterial Blood Pressure 157/47 Pulmonary Artery Pressure 57/36 Cardiac Output 3.8 Cardiac Index 2.5 - Labs CBC & Chem 7: 10/22/19 03:30 10/22/19 03:30 Labs: Abnormal Lab Results - Last 24 Hours (Table) 10/21/19 10/21/19 10/21/19 Range/Units 11:21 11:50 17:26 WBC (3.8-10.6) k/uL RBC (3.80-5.40) m/uL Hgb (11.4-16.0) gm/dL Hct (34.0-46.0) % MCHC (31.0-37.0) g/dL RDW (11.5-15.5) % Neutrophils # (Manual) (1.3-7.7) k/uL Lymphocytes # (Manual) (1.0-4.8) k/uL Monocytes # (Manual) (0-1.0) k/uL Nucleated RBCs (0-0) /100 WBC ABG pH (7.35-7.45) ABG pCO2 48 H (35-45) mmHg ABG pO2 (83-108) mmHg ABG HCO3 31 H (21-25) mmol/L ABG Total CO2 33 H (19-24) mmol/L ABG O2 Saturation 98.5 H (94-97) % Sodium (137-145) mmol/L Chloride (98-107) mmol/L Carbon Dioxide (22-30) mmol/L BUN (7-17) mg/dL Creatinine (0.52-1.04) mg/dL Glucose (74-99) mg/dL POC Glucose (mg/dL) 195 H 161 H (75-99) mg/dL Calcium (8.4-10.2) mg/dL AST (14-36) U/L ALT (4-34) U/L Alkaline Phosphatase (38-126) U/L Total Protein (6.3-8.2) g/dL Albumin (3.5-5.0) g/dL 10/21/19 10/22/19 10/22/19 Range/Units 23:07 03:30 03:30 WBC 29.3 H (3.8-10.6) k/uL RBC 2.69 L (3.80-5.40) m/uL Hgb 8.2 L (11.4-16.0) gm/dL Hct 26.4 L (34.0-46.0) % MCHC 30.9 L (31.0-37.0) g/dL RDW 19.3 H (11.5-15.5) % Neutrophils # (Manual) 27.20 H (1.3-7.7) k/uL Lymphocytes # (Manual) 0.59 L (1.0-4.8) k/uL Monocytes # (Manual) 1.47 H (0-1.0) k/uL Nucleated RBCs 5 H (0-0) /100 WBC ABG pH (7.35-7.45) ABG pCO2 (35-45) mmHg ABG pO2 (83-108) mmHg ABG HCO3 (21-25) mmol/L ABG Total CO2 (19-24) mmol/L ABG O2 Saturation (94-97) % Sodium 134 L (137-145) mmol/L Chloride 97 L (98-107) mmol/L Carbon Dioxide 31 H (22-30) mmol/L BUN 57 H (7-17) mg/dL Creatinine 1.19 H (0.52-1.04) mg/dL Glucose 159 H (74-99) mg/dL POC Glucose (mg/dL) 164 H (75-99) mg/dL Calcium 7.5 L (8.4-10.2) mg/dL AST 526 H (14-36) U/L ALT 436 H (4-34) U/L Alkaline Phosphatase 147 H (38-126) U/L Total Protein 5.3 L (6.3-8.2) g/dL Albumin 3.1 L (3.5-5.0) g/dL 10/22/19 10/22/19 Range/Units 05:19 09:15 WBC (3.8-10.6) k/uL RBC (3.80-5.40) m/uL Hgb (11.4-16.0) gm/dL Hct (34.0-46.0) % MCHC (31.0-37.0) g/dL RDW (11.5-15.5) % Neutrophils # (Manual) (1.3-7.7) k/uL Lymphocytes # (Manual) (1.0-4.8) k/uL Monocytes # (Manual) (0-1.0) k/uL Nucleated RBCs (0-0) /100 WBC ABG pH 7.24 L (7.35-7.45) ABG pCO2 68 H (35-45) mmHg ABG pO2 58 L* (83-108) mmHg ABG HCO3 29 H (21-25) mmol/L ABG Total CO2 31 H (19-24) mmol/L ABG O2 Saturation 86.0 L (94-97) % Sodium (137-145) mmol/L Chloride (98-107) mmol/L Carbon Dioxide (22-30) mmol/L BUN (7-17) mg/dL Creatinine (0.52-1.04) mg/dL Glucose (74-99) mg/dL POC Glucose (mg/dL) 166 H (75-99) mg/dL Calcium (8.4-10.2) mg/dL AST (14-36) U/L ALT (4-34) U/L Alkaline Phosphatase (38-126) U/L Total Protein (6.3-8.2) g/dL Albumin (3.5-5.0) g/dL Microbiology - Last 24 Hours (Table) 10/21/19 20:35 Sputum Culture - Preliminary Sputum 10/20/19 00:23 Blood Culture - Preliminary Blood No Growth after 48 hours
--- NOTE | 2019-10-22 12:16 | PN ---
PROGRESS NOTE PULMONARY/CRITICAL CARE PROGRESS NOTE: DATE OF SERVICE: 10/22/2019 This is a 79-year-old female who was admitted back on October 11. She had a bypass grafting done on October 11. She had a 1 vessel bypass along with an aortic valve replacement and mitral valve repair. She was intubated on the and extubated on the . On October 13, she needed a pericardial window and she went to the operating room for a pericardial window and washout. On October 16, she developed atrial fibrillation. On October 17, she was reintubated for respiratory distress and she was extubated yesterday on October 20. Currently, she was maintained on the BiPAP overnight at 14/6 and 50%. This morning, she is on 15 L high flow. She has guppy breathing right now. We also notice a thoracoabdominal dyssynchrony. Anyway, the patient could be placed back on BiPAP with a setting to be 15/5 with a FiO2 of 60%. The patient is on saline at KVO. She is also getting Vital high-protein through a Dobhoff tube at 45 with a goal of [address] Ellsworth is on the phone with the patient's daughter. Apparently, the patient and her daughter did not want the patient to be reintubated. She is postop day #10. Her overall condition is guarded. PHYSICAL EXAMINATION: Current vital signs are reviewed. Temperature 95.3, heart rate 84, respiratory rate before the BiPAP was about 30 breaths per minute and after BiPAP about 21-22 breaths per minute, blood pressure is 129/40 with a mean of 69. Her saturations are between 90 and 93%. She is on the BiPAP at 15/5 and 60%. HEENT: Examination is grossly unremarkable. She has a Dobbhoff tube in place . Neck is supple. Full range of motion. CARDIOVASCULAR: Examination reveals regular rhythm and rate. Heart rate mid to high 80s. Heart sounds are distant. LUNGS: Reveal diffuse crackles and rhonchi throughout. Breath sounds are quiet, no wheezing. ABDOMEN: Soft. No bowel sounds. EXTREMITIES: Intact. Slight edema. SKIN: Without rash. NEUROLOGIC: Examination is brief but nonfocal. She is a little lethargic and somnolent. LAB DATA: Reviewed. White count 29.3, hemoglobin 8.2, hematocrit 26.4, platelet count 339,000. The repeat blood gases show pO2 of 58, pCO2 of 68, and pH is 7.24. This is prior to placing her back on BiPAP. These blood gases are consistent with a respiratory acidosis. Sodium 134, potassium 4.4, chloride 97, CO2 31, anion gap is 6. BUN and creatinine were 57 and 1.19. AST 526, ALT 436, albumin 3.1. Microbiology is essentially negative. There was some Anastasiia in the sputum. A chest x-ray is done. It shows changes of COPD with biapical pleural parenchymal scarring, a right-sided chest tube and worsening diffuse bilateral airspace disease. CURRENT MEDICATIONS: Reviewed. The patient is on Tylenol, Mucomyst, ascorbic acid, aspirin, Lipitor, benzocaine, Dulcolax, ferrous sulfate, heparin, hydralazine, insulin, updrafts, levothyroxine, lidocaine patch, magnesium, Solu-Medrol, Reglan, metoprolol, midodrine, morphine, Zofran, Protonix, phosphorus replacement, Zosyn, potassium replacement, Colace, and Tramadol. ASSESSMENT: 1. Postoperative day #10 status post 1 vessel bypass grafting, aortic valve replacement, and mitral valve repair. 2. Postoperative hypoxemic respiratory failure requiring reintubation and subsequent extubation on the 16th. 3. Interstitial lung disease/pulmonary fibrosis, possibly complicated by acute lung injury and pneumonia. 4. Stage 3 chronic kidney disease. 5. Postoperative acute blood loss anemia. 6. Postoperative pericardial effusion/tamponade, requiring pericardial window and washout, postop day #8. 7. Hypothyroidism. 8. Hyperlipidemia. 9. History of severe aortic insufficiency. 10.Moderate mitral regurgitation. 11.Benign essential hypertension. 12.Postoperative atrial fibrillation. PLAN: The patient's overall prognosis remains poor. I have placed her back on BiPAP with the settings of 15 for an IPAP and 5 for an EPAP and increased the FiO2 from 50 to 60%. The surgeon is talking to the daughter on the phone about code status and need for reintubation. The patient remains on GI and DVT prophylaxis. She remains on tube feeds through Dobhoff tube at 45 with a goal of 45 cc an hour on Vital high-protein. Additional recommendations and suggestions forthcoming. We will continue to follow patient closely. Critical care time is 34 minute. MMODL / IJN: [id number] /
[2019-10-22] MEDS ORDERED: ATROPINE OPHTH SOLN 1% 5ML BTL SUBLINGUAL PRN (14:39)
[2019-10-22] MEDS ORDERED: LORazepam 2 MG/ML INJ IV PRN (14:39)
[2019-10-22] MEDS: MORPHINE SULFATE 2 MG/ML SYRINGE IVP PRN ×3 (14:54→18:24)
--- NOTE | 2019-10-22 19:03 | P.PN ---
Subjective This is a pleasant 79 years old female with multiple medical problems as below she was admitted to the ICU with prolonged course, initially she was admitted for coronary artery disease and she underwent CABG surgery with aortic valve replacement and nocturnal valve repair, postoperatively she got intubated and sedated in the ICU, her hospital course was complicated by bleeding from chest tube and received several units of blood transfusion, status post exploratory duration of the chest and removal of blood clots and irrigation of the chest ca vity. Patient was extubated on 10/15. However yesterday she had respiratory distress with hypercapnia and she was intubated again. Her course also was complicated by several bouts of atrial fibrillation with RVR that needed amiodarone drip, she is currently on the operative antibiotics with Zosyn and also Solu-Medrol. Currently she remains intubated and sedated. Pulmonary/critical care team are f ollowing the case closely with weaning a trial is tried with sedation holiday possibly over the weekend. Currently her heart rate is controlled for her A. fib. She has adequate urine output, she's tolerated tube feeding. 10/21/2019 Patient remains in the ICU, she is intubated and sedated. However pulmonary/critical team are following the patient closely and she is under going weaning a trial with sedation holiday. Chest tube still draining about 300 mL room over the last hours Today patient developed diarrhea and loose bowel movement, and bowel regimens were stopped, C. diff was tested and patient was started on oral vancomycin 10/22/2019 Patient got extubated yesterday under pulmonary/critical care team management however her respiratory condition worsened and patient was not doing well, pulmonary team and other consultants recommended re-intubation however the patient and family at bedside refused reintubation as this is going to be third time and they opted for comfort care as per staff. When I went to see the patient , she was lying in bed lethargic on BiPAP, patient was nonresponsive or minimally responsive . Daughter at bedside confirmed to me her wishes and based on patient preference is not to be intubated to be comfort care, family wanted to discuss the case with other consultants and primary care before making final decision Patient looks comfortable However prognosis is extremely poor. Objective - Vital Signs Vital signs: Vital Signs Temp 95.3 F L 10/22/19 08:00 Pulse 73 10/22/19 18:00 Resp 15 10/22/19 18:00 BP 98/32 10/22/19 18:00 Pulse Ox 88 L 10/22/19 18:00 Intake & Output 10/21/19 10/22/19 10/22/19 18:59 06:59 18:59 Intake Total 3082.673 4381 492 Output Total 630 1035 450 Balance 902.167 191 42 Weight 68.9 kg 68.9 kg Intake: IV 753 356 117 0.9NS Pressure Bags 33 36 27 Dextrose 5%-0.45% NaCl 1, 720 220 90 000 ml @ 60 mls/hr IV . [id number] JAYE Rx#:[id number] Piperacillin-Tazobactam 3 100 .375 gm In Sodium Chloride 0.9% 100 ml @ 25 mls/hr IVPB Q8H JAYE Rx#: [id number] Intake, IV Titration 89.167 Amount propofoL 1,000 mg In 89.167 Empty Bag 1 bag @ Titrate IV .Q0M JAYE Rx#: [id number] Tube Feeding 540 540 225 Other 150 330 150 Output: Chest Tube Drainage 295 Right 295 Urine 630 740 450 Other: Voiding Method Indwelling Catheter Indwelling Catheter Indwelling Catheter # Bowel Movements 1 ABP, PAP, CO, CI - Last Documented Arterial Blood Pressure 157/47 Pulmonary Artery Pressure 57/36 Cardiac Output 3.8 Cardiac Index 2.5 - Exam -GENERAL: The patient is lethargic, minimally responsive on BiPAP HEENT: Pupils are round and equally reacting to light. EOMI. No scleral icterus. No conjunctival pallor. Normocephalic, atraumatic. No pharyngeal erythema. No thyromegaly. CARDIOVASCULAR: S1 and S2 present. No murmurs, rubs, or gallops. PULMONARY: Chest is clear to auscultation, no wheezing or crackles. ABDOMEN: Soft, nontender, nondistended, normoactive bowel sounds. No palpable organomegaly. MUSCULOSKELETAL: No joint swelling or deformity. EXTREMITIES: No cyanosis, clubbing, or pedal edema. NEUROLOGICAL: Gross neurological examination did not reveal any focal deficits. SKIN: No rashes. no petechiae. - Labs CBC & Chem 7: 10/22/19 03:30 10/22/19 03:30 Labs: Abnormal Lab Results - Last 24 Hours (Table) 10/21/19 10/22/19 10/22/19 Range/Units 23:07 03:30 03:30 WBC 29.3 H (3.8-10.6) k/uL RBC 2.69 L (3.80-5.40) m/uL Hgb 8.2 L (11.4-16.0) gm/dL Hct 26.4 L (34.0-46.0) % MCHC 30.9 L (31.0-37.0) g/dL RDW 19.3 H (11.5-15.5) % Neutrophils # (Manual) 27.20 H (1.3-7.7) k/uL Lymphocytes # (Manual) 0.59 L (1.0-4.8) k/uL Monocytes # (Manual) 1.47 H (0-1.0) k/uL Nucleated RBCs 5 H (0-0) /100 WBC ABG pH (7.35-7.45) ABG pCO2 (35-45) mmHg ABG pO2 (83-108) mmHg ABG HCO3 (21-25) mmol/L ABG Total CO2 (19-24) mmol/L ABG O2 Saturation (94-97) % Sodium 134 L (137-145) mmol/L Chloride 97 L (98-107) mmol/L Carbon Dioxide 31 H (22-30) mmol/L BUN 57 H (7-17) mg/dL Creatinine 1.19 H (0.52-1.04) mg/dL Glucose 159 H (74-99) mg/dL POC Glucose (mg/dL) 164 H (75-99) mg/dL Calcium 7.5 L (8.4-10.2) mg/dL AST 526 H (14-36) U/L ALT 436 H (4-34) U/L Alkaline Phosphatase 147 H (38-126) U/L Total Protein 5.3 L (6.3-8.2) g/dL Albumin 3.1 L (3.5-5.0) g/dL 10/22/19 10/22/19 Range/Units 05:19 09:15 WBC (3.8-10.6) k/uL RBC (3.80-5.40) m/uL Hgb (11.4-16.0) gm/dL Hct (34.0-46.0) % MCHC (31.0-37.0) g/dL RDW (11.5-15.5) % Neutrophils # (Manual) (1.3-7.7) k/uL Lymphocytes # (Manual) (1.0-4.8) k/uL Monocytes # (Manual) (0-1.0) k/uL Nucleated RBCs (0-0) /100 WBC ABG pH 7.24 L (7.35-7.45) ABG pCO2 68 H (35-45) mmHg ABG pO2 58 L* (83-108) mmHg ABG HCO3 29 H (21-25) mmol/L ABG Total CO2 31 H (19-24) mmol/L ABG O2 Saturation 86.0 L (94-97) % Sodium (137-145) mmol/L Chloride (98-107) mmol/L Carbon Dioxide (22-30) mmol/L BUN (7-17) mg/dL Creatinine (0.52-1.04) mg/dL Glucose (74-99) mg/dL POC Glucose (mg/dL) 166 H (75-99) mg/dL Calcium (8.4-10.2) mg/dL AST (14-36) U/L ALT (4-34) U/L Alkaline Phosphatase (38-126) U/L Total Protein (6.3-8.2) g/dL Albumin (3.5-5.0) g/dL Microbiology - Last 24 Hours (Table) 10/21/19 20:35 Gram Stain - Preliminary Sputum Sputum Culture - Preliminary 10/20/19 00:23 Blood Culture - Preliminary Blood No Growth after 48 hours Assessment and Plan Assessment: Coronary artery disease status post CABG with aortic valve replacement and mitral valve repair acute hypoxic and hypercapnic respiratory failure needing mechanical ventilation and intubation 2. Family was 30 time intubation and wanted comfort care up and patient wishes Atrial fibrillation with paroxysmal RVR. status post Pericardial Effusion/tamponade - taken to the OR and s/p evacuation of clots Acute blood loss anemia, Patient received several units of blood transfusions. Patient is currently stable hemoglobin acute COPD exacerbation GERD Hypertension Hyperlipidemia History of mitral valve prolapse Chronic kidney disease stage II Hypothyroidism Remote history of nicotine dependence Plan: This is a pleasant 79 years old female with multiple medical problems as above, she is in respiratory failure and on mechanical ventilation and pulmonar y/critical care team and following the patient closely Patient and family refused reintubation and the plan is for comfort care after discussion with the primary team and other consultants. Patient is to go for comfort care/hospice then medical team can take over for comfort care measures Prognosis is extremely poor
[2019-10-22] MEDS ORDERED: MORPHINE SULFATE (100 MG/2 ML) 100 MG in SODIUM CHLORIDE 0.9% 100 ML IV SCH (20:00)
[2019-10-22 23:36] VITALS: BP 67/28; PULSE 50; RESP 20
[2019-10-24 08:51] LABS: ABG PO2 31 mmHg (83-108)
[2019-10-24 08:51] LABS: ABG PO2 30 mmHg (83-108)
--- NOTE | 2019-10-31 15:57 | P.DS ---
<Fozia Simpson - Last Filed: 10/31/19 15:56> Providers Expected date of discharge: 10/23/19 Hospital Course: FINAL DIAGNOSIS: 1. Severe aortic insufficiency, moderate to severe mitral regurgitation, single-vessel coronary artery disease 2. History of coronary artery disease with myocardial infarction and stent placement to the RCA 3. Hypertension 4. Hyperlipidemia 5. Chronic kidney disease stage III 6. Right internal carotid artery stenosis 50-69% 7. Hypothyroidism 8. TIA in 2004 without residual 9. Remote history of pneumonia 10. Previous tobacco dependence 11. Moderate restriction with preoperative FEV1 50% of predicted 12. Interstitial lung disease/pulmonary fibrosis 13. Family history of premature coronary artery disease 14. Postoperative acute blood loss anemia 15. Postoperative and intraoperative atrial fibrillation 16. Postoperative prolonged mechanical ventilation 17. Postoperative pericardial effusion/tamponade, unexpected complication 18. Postoperative transaminitis, likely shock liver 19. Postoperative hypoxemic and hypercapnic respiratory failure requiring reintubation PRINCIPAL PROCEDURE: 1. Aortic valve replacement with 21 mm Herrera Inspiris bioprosthetic aortic valve, mitral valve repair with #28 mm [employer]bo[employer]ics AnnuloFlex band 2. Reverse saphenous vein graft off the aorta to the right coronary artery with right lower extremity greater saphenous endoscopic vein harvesting 3. Clip ligation of the left atrial appendage using a 35 mm AtriClip 4. Intraoperative transesophageal echocardiogram 5. Reexploration of the chest, evacuation of clot, irrigation of chest cavity HOSPITAL COURSE: This is a 79-year-old patient Dr. Carole Vegas. She had been experiencing increased fatigue and shortness of breath for several months. She was followed by cardiology, underwent heart catheterization demonstrating right coronary artery stenosis. In addition she had a transesophageal echocardiogram demonstrating severe aortic insufficiency and mitral regurgitation. The patient was referred to Dr. Ellsworth from cardiothoracic surgery. She was recommended to undergo aortic valve replacement, mitral valve repair, and single vessel coronary artery bypass surgery. The usual perioperative course was discussed in detail with the patient and her family, all risks and benefits were reviewed, all questions were answered, and consent was obtained to proceed with surgery and the patient was scheduled at the earliest possible available date. The patient was brought to the hospital on 10/12/2019, taken to the preoperative area, prepared in the usual fashion, and subsequently taken to the operating room where Dr. Ellsworth performed aortic valve replacement, mitral valve repair, and single-vessel CABG. Upon completion of surgery the patient was transferred to the cardiovascular intensive care unit where she was recovered, monitored hemodynamically, and where she progressed to cardiac rehabilitation phase 1. She did developed excessive output from her chest tubes, received multiple blood products, and was taken back to the operating room for reexploration of her chest, evacuation of clot, and irrigation of the chest cavity. There was no acute or active bleeding. She remained hemodynamically stable and was extubated shortly thereafter. She remained hemodynamically stable but did develop hypercapnia and was reintubated. Once stabilized she was extubated again. She continued to remain hemodynamically stable, however she did develop hypercapnia again and the recommendation was made for reintubation versus aggressive BiPAP therapy. The patient and her daughter adamantly refused reintubation. BiPAP therapy was trialed but the patient remained hypercapnic. Eventually the patient wished to be made comfort care, the daughter was in complete agreement. BiPAP therapy was removed and the patient eventually from respiratory failure on 10/23/2019 at 00:30. COMPLICATIONS: The patient experienced postoperative complications of acute blood loss anemia, paroxysmal atrial fibrillation, prolonged mechanical ventilation with hypoxemic and hypercapnic respiratory failure requiring reintubation, pericardial effusion/tamponade, and shock liver, all which were treated accordingly. Plan - Discharge Summary Discharge Rx Participant: No New Discharge Prescriptions: Discontinued Levothyroxine Sodium [Synthroid] 75 mcg PO DAILY Metoprolol Succinate (ER) [Toprol XL] 100 mg PO DAILY Aspirin 162 mg PO DAILY Albuterol Inhaler (Mhu) [Ventolin Hfa Inhaler (Mhu)] 2 puff INHALATION Q6H PRN PRN Reason: Shortness Of Breath Isosorbide Mononitrate ER [Imdur] 15 mg PO DAILY Acetaminophen [Tylenol] 325 mg PO Q6H PRN PRN Reason: ARTHRITIS Spironolactone 12.5 mg PO DAILY Pravastatin Sodium [Pravachol] 40 mg PO HS Loratadine [Alavert] 10 mg PO DAILY PRN PRN Reason: allergies polyethylene glycoL 3350 [Miralax] 17 gm PO DAILY PRN PRN Reason: Constipation Dicyclomine [Bentyl] 20 mg PO QID PRN PRN Reason: IBS Carboxymethylcellulose Sodium [Refresh Tears] 1 drop BOTH EYES DAILY PRN PRN Reason: dry eyes Clopidogrel [Plavix] 75 mg PO DAILY Refresh Eye Gel 1 dose BOTH EYES DAILY PRN PRN Reason: dry eyes Esomeprazole Magnesium [NexIUM] 40 mg PO DAILY Aspirin 364 mg PO ONCE Discharge Disposition: <Derik Ellsworth - Last Filed: 10/31/19 16:36> Providers Date of admission: 10/12/19 05:30 Attending physician: Derik Ellsworth Consults: 10/12/19 13:00 Consult Physician Routine Consulting Provider: Florin Herrera Consult Reason/Comments: Denture Model Maker Consult: post cardiac surgery Do you want consulting provider notified?: Yes Consult Physician Routine Consulting Provider: Robert Muñoz Consult Reason/Comments: shameka Coulter patient Do you want consulting provider notified?: Yes Consult Physician Routine Consulting Provider: Puma Kyle Consult Reason/Comments: Audiology Doctor Consult: post cardiac surgery Do you want consulting provider notified?: Yes 10/17/19 10:17 Consult Physician Routine Consulting Provider: Efrain Morales Consult Reason/Comments: Evaluation for permanent pacemaker placement Do you want consulting provider notified?: Yes Primary care physician: Carole Coulter Plan - Discharge Summary - Preliminary Cause of Preliminary Cause of : respiratory failure / hypercapnia
--- NOTE | 2019-11-02 13:13 | CDI ---
Documentation Clarification Form Date: 11/02/2019 12:18:54 PM From: Angela Beltran CCS, CCDS Admit Date: 10/12/2019 05:30:00 AM Patient Name: Gayle Quiroz Visit Number: [id number] Discharge Date: 10/23/2019 01:40:00 AM ATTENTION: The Clinical Documentation Specialists (CDI) and [facility] Coding Staff appreciate your assistance in clarifying documentation. Please respond to the clarification below the line at the bottom and electronically sign. The CDI & [facility] Coding staff will review the response and follow-up if needed. Please note: Queries are made part of the Legal Health Record. If you have any questions, please contact the author of this message via ITS. Dr. Derik Ellsworth: Postoperative Hypotension is documented in the record including in the Discharge Summary. Per the 10/12 Cardiothoracic Surgeon's Progress Note: "She has had an eventful postoperative course with hypotension requiring pressor support, low cardiac output requiring inotropes, atrial fibrillation requiring Amiodarone, and anemia requiring blood transfusions. She has received 4 units packed red blood cells and is currently receiving her fifth, 3 units fresh frozen plasma, 2 packs of platelets, and 2 packs of cryoprecipitate, in addition to IV albumin." Patient history/risk factors: CAD, history of MS with stent; Aortic & Mitral valve regurgitation, Hypertension, Carotid artery disease, COPD, Pneumonia, CVA & Hypothyroidism. Former smoker. Clinical Indicators: Presented on 10/11 for elective surgery for Severe Aortic Insufficiency, Moderate to Severe Mitral Regurgitation & Single Vessel CAD. Procedure 10/11: AVR, MVR & Bypass of Aorta to RCA w/Right Saphenous Vein Vitals 10/11: T 97.1* - 94.1* - 95*. P 80 - 117^ - 96. R (on vent postop): 16 - 10* - 50^ - 20. BP: 188/76 - 173/72. Arterial BP: 135/58 - 64/31. Central Venous Pressure: 33/19 - 51/29. PO 97 - 91* - 93* - 89* - 99. Treatment 10/11 Postoperatively: Triple lumen central line, Arterial Line, Prolonged Ventilation postoperatively, IV Albumin 250 mls @ 250/hr q1 hr; IV Amiodarone, IV Nitro, IV Propofol, IV Norepinephrine, IV Dextrose/Water w/Amiodarone, IV Calcium Gluconate. Transfusions 10/11: Platelets x2, FFP x3, PRBC x3, Pooled Cryoprecipitate x2. Transfusions 10/12: PRBC x5, Irradiated Platelets x2. In your professional opinion, can you please render your opinion on the clinical significance of the patient's Postoperative Hypotension: Cardiogenic Shock Hypovolemic Shock Hemorrhagic Shock Shock Not Otherwise Specified Postoperative Hypotension due to patient's co-morbid conditions, please specify condition: . Postoperative Hypotension Other, please specify: Unable to determine (Last Revision: December 2016) hemorrhagic shock MTDD
== END 2019-10-23 01:40 | disposition expired | DRG 219 ==
LOC: 2ORMAIN 05:30 → 2SICU 13:50
PROVIDERS: ADMIT Thoracic Surgery (Cardiothoracic Vascular Surgery); ATTEND Thoracic Surgery (Cardiothoracic Vascular Surgery)
PROC: 0D9670Z Drainage of Stomach with Drainage Device, Via Natural or Artificial Opening (ICD-10-PCS; 2019-10-12)
PROC: 5A1945Z Respiratory Ventilation, 24-96 Consecutive Hours (ICD-10-PCS; principal; 2019-10-12 08:00)
PROC: 30243K1 Transfusion of Nonautologous Frozen Plasma into Central Vein, Percutaneous Approach (ICD-10-PCS; principal; 2019-10-12 08:00)
PROC: 02UG0JZ Supplement Mitral Valve with Synthetic Substitute, Open Approach (ICD-10-PCS; principal; 2019-10-12 08:00)
PROC: B246ZZ4 Ultrasonography of Right and Left Heart, Transesophageal (ICD-10-PCS; principal; 2019-10-12 08:00)
PROC: 30243M1 Transfusion of Nonautologous Plasma Cryoprecipitate into Central Vein, Percutaneous Approach (ICD-10-PCS; principal; 2019-10-12 08:00)
PROC: 5A1221Z Performance of Cardiac Output, Continuous (ICD-10-PCS; principal; 2019-10-12 08:00)
PROC: 021009W Bypass Coronary Artery, One Artery from Aorta with Autologous Venous Tissue, Open Approach (ICD-10-PCS; principal; 2019-10-12 08:00)
PROC: 3E043XZ Introduction of Vasopressor into Central Vein, Percutaneous Approach (ICD-10-PCS; principal; 2019-10-12 08:00)
PROC: 02RF08Z Replacement of Aortic Valve with Zooplastic Tissue, Open Approach (ICD-10-PCS; principal; 2019-10-12 08:00)
PROC: 30243N1 Transfusion of Nonautologous Red Blood Cells into Central Vein, Percutaneous Approach (ICD-10-PCS; principal; 2019-10-12 08:00)
PROC: 30243R1 Transfusion of Nonautologous Platelets into Central Vein, Percutaneous Approach (ICD-10-PCS; principal; 2019-10-12 08:00)
PROC: 06BP4ZZ Excision of Right Saphenous Vein, Percutaneous Endoscopic Approach (ICD-10-PCS; principal; 2019-10-12 08:00)
PROC: 02L70CK Occlusion of Left Atrial Appendage with Extraluminal Device, Open Approach (ICD-10-PCS; principal; 2019-10-12 08:00)
PROC: 3E0G76Z Introduction of Nutritional Substance into Upper GI, Via Natural or Artificial Opening (ICD-10-PCS; 2019-10-13)
PROC: 0W9B00Z Drainage of Left Pleural Cavity with Drainage Device, Open Approach (ICD-10-PCS; 2019-10-14)
PROC: 0W9900Z Drainage of Right Pleural Cavity with Drainage Device, Open Approach (ICD-10-PCS; 2019-10-14)
PROC: 0WCC0ZZ Extirpation of Matter from Mediastinum, Open Approach (ICD-10-PCS; 2019-10-14)
PROC: 02HV33Z Insertion of Infusion Device into Superior Vena Cava, Percutaneous Approach (ICD-10-PCS; 2019-10-18)
PROC: 5A09357 Assistance with Respiratory Ventilation, Less than 24 Consecutive Hours, Continuous Positive Airway Pressure (ICD-10-PCS; 2019-10-18)
PROC: 5A1945Z Respiratory Ventilation, 24-96 Consecutive Hours (ICD-10-PCS; 2019-10-18)
PROC: 0BH17EZ Insertion of Endotracheal Airway into Trachea, Via Natural or Artificial Opening (ICD-10-PCS; 2019-10-18)
PROC: 5A09357 Assistance with Respiratory Ventilation, Less than 24 Consecutive Hours, Continuous Positive Airway Pressure (ICD-10-PCS; 2019-10-21)
DX: I08.3 Combined rheumatic disorders of mitral, aortic and tricuspid valves (principal); K72.00 Acute and subacute hepatic failure without coma; J96.01 Acute respiratory failure with hypoxia; J96.02 Acute respiratory failure with hypercapnia; I31.4 Cardiac tamponade; I97.190 Other postprocedural cardiac functional disturbances following cardiac surgery; J90 Pleural effusion, not elsewhere classified; J44.1 Chronic obstructive pulmonary disease with (acute) exacerbation; I31.3 Pericardial effusion (noninflammatory); E87.2 Acidosis; I42.9 Cardiomyopathy, unspecified; I48.19 Other persistent atrial fibrillation; D62 Acute posthemorrhagic anemia; J98.11 Atelectasis; D69.6 Thrombocytopenia, unspecified; I49.5 Sick sinus syndrome; J84.10 Pulmonary fibrosis, unspecified; N18.3 Chronic kidney disease, stage 3 (moderate); I25.10 Atherosclerotic heart disease of native coronary artery without angina pectoris; Z66 Do not resuscitate; Z51.5 Encounter for palliative care; R54 Age-related physical debility; I12.9 Hypertensive chronic kidney disease with stage 1 through stage 4 chronic kidney disease, or unspecified chronic kidney disease; K21.9 Gastro-esophageal reflux disease without esophagitis; I65.21 Occlusion and stenosis of right carotid artery; E03.9 Hypothyroidism, unspecified; E78.5 Hyperlipidemia, unspecified; L30.9 Dermatitis, unspecified; H04.123 Dry eye syndrome of bilateral lacrimal glands; M54.2 Cervicalgia; M54.9 Dorsalgia, unspecified; R19.7 Diarrhea, unspecified; I25.2 Old myocardial infarction; Z87.891 Personal history of nicotine dependence; Z86.73 Personal history of transient ischemic attack (TIA), and cerebral infarction without residual deficits; Z79.02 Long term (current) use of antithrombotics/antiplatelets; Z79.82 Long term (current) use of aspirin; Z79.890 Hormone replacement therapy; Z79.899 Other long term (current) drug therapy; Z87.01 Personal history of pneumonia (recurrent); Z90.49 Acquired absence of other specified parts of digestive tract; Z95.5 Presence of coronary angioplasty implant and graft; Z90.710 Acquired absence of both cervix and uterus; Z87.42 Personal history of other diseases of the female genital tract; Z87.19 Personal history of other diseases of the digestive system; Z87.09 Personal history of other diseases of the respiratory system; Z90.2 Acquired absence of lung [part of]; Z98.42 Cataract extraction status, left eye; Z98.41 Cataract extraction status, right eye; Z96.1 Presence of intraocular lens; Z87.448 Personal history of other diseases of urinary system; Z98.890 Other specified postprocedural states; Z91.011 Allergy to milk products; Z88.5 Allergy status to narcotic agent; Z91.018 Allergy to other foods; Z82.49 Family history of ischemic heart disease and other diseases of the circulatory system; Z80.8 Family history of malignant neoplasm of other organs or systems; Z82.3 Family history of stroke; Z81.8 Family history of other mental and behavioral disorders; Y83.2 Surgical operation with anastomosis, bypass or graft as the cause of abnormal reaction of the patient, or of later complication, without mention of misadventure at the time of the procedure; Y92.230 Patient room in hospital as the place of occurrence of the external cause
CPT/HCPCS: 36430; 36600; 71045; 71250; 74018; 80048; 80053; 80162; 81001; 82150; 82310; 82330; 82803; 82805; 83690; 83735; 84132; 85025; 85027; 85384; 85520; 85610; 85730; 86850; 86891; 86900; 86901; 86920; 87040; 87070; 87077; 87086; 87186; 87205; 87324; 88305; 93306; 93308; 94002; 94003; 94640; 94660